=== PATIENT | male | born 1960 | race Caucasian/White ===

== ENCOUNTER 2016-10-07 16:14 | Emergency (ER) | payer OTHER ==
[~2016-10-07] VITALS: Ht 182.9 cm; Wt 141.1 kg
[~2016-10-07 16:14] MED LIST: /MOXI40TA OR; /TIOT18INH INH; ASPI81TA45 OR; LEVA750T OR; LEVA750T PO; METF500T PO; METF500T4 OR; MULTIVIT PO; NEBULIZER MED INH; OMEP20CA3 PO; PRED10TA PO; PRED10TA2 OR; PRED10TA2 PO; PRED1TA AD; PROV90AE IN; TYLENOL #3 PO; ZOCO40TA OR
[2016-10-07] MEDS ORDERED: ALBU17IN INH ×2 (16:25→17:47)
[2016-10-07] MEDS ORDERED: predniSONE 20 MG TAB PO ONE (17:00)
[2016-10-07] MEDS: LEVALBUTEROL 1.25 MG/0.5 ML CONCENTRATE NEB INH SCH ×3 (17:16→17:36)
[2016-10-07] MEDS ORDERED: PRED20TA PO (17:45)
[2016-10-07] MEDS ORDERED: LEVA750T PO (17:47)
[2016-10-07 18:02] VITALS: BP 137/71
--- NOTE | 2016-10-08 09:14 | REP ---
CHEST, PA AND LATERAL: HISTORY: Coughing, wheezing. COMPARISON: 03/07/2015 FINDINGS: The superior mediastinal structures are midline. The cardiac silhouette is unremarkable in size, shape and position. The diaphragmatic surfaces of the lungs are regular and the costophrenic angles are clear. The pulmonary barillas are clear. The imaged osseous structures are intact. IMPRESSION: There is no acute cardiopulmonary disease. Signed by El Sims DO 10/08/2016 09:59 A
== END 2016-10-07 18:10 | disposition home or self-care (01) ==
LOC: M ED 16:55
DX: J18.1 Lobar pneumonia, unspecified organism (principal); J44.1 Chronic obstructive pulmonary disease with (acute) exacerbation; F17.200 Nicotine dependence, unspecified, uncomplicated; E78.00 Pure hypercholesterolemia, unspecified; E11.9 Type 2 diabetes mellitus without complications; Z79.899 Other long term (current) drug therapy

== ENCOUNTER → 2016-10-20 | Outpatient (CLI) | payer OTHER ==
[~2016-10-20] MED LIST changes: +ALBU17IN INH; +PRED20TA PO
--- NOTE | 2016-10-20 10:19 | REP ---
CHEST PA AND LATERAL: 10/20/2016. Clinical history: COPD. Comparison: 10/07/2016, 03/07/2015. Findings. Two-view show some linear atelectatic change in the superior lingular segment of the left upper lobe adjacent to left heart border. This is a new finding. There is no pleural effusion, lateral pleural thickening, dense consolidation or other areas of atelectasis. The heart is not enlarged. Aorta is mildly tortuous. Airway intact. There are degenerative changes in the spine. There is no compression deformity or focal lesion. Impression: 1. Minor linear atelectatic change in the superior lingular segment of the left upper lobe adjacent left heart border as a new finding. However, there is no infiltrate, effusion, cardiomegaly, edema, other atelectasis or mass. Signed by Hung Meyers MD 10/20/2016 02:45 P
== END ==
LOC: M RAD 09:16
PROVIDERS: ATTEND Family Medicine
DX: J44.9 Chronic obstructive pulmonary disease, unspecified (principal)

== ENCOUNTER → 2017-02-25 | Outpatient (REF) | payer OTHER ==
[~2017-02-25] MED LIST changes: -LEVA750T PO; +LEVA750T7 PO; -METF500T PO; +METF500T13 PO
== END ==
LOC: M LAB REF 09:04
PROVIDERS: ATTEND Physician Assistant Medical
DX: L02.415 Cutaneous abscess of right lower limb (principal)

== ENCOUNTER 2017-09-14 04:21 | Inpatient (IN) | payer OTHER ==
[2017-09-14] MEDS: methylPREDNISolone INJ 125 MG/2 ML VIAL (J2930) IV (04:59)
[2017-09-14] MEDS: IPRATROPIUM 0.5MG/ALBUTEROL 2.5MG INH SOL UD 3ML (DUONEB)(J7620) NEB ×6 (05:00→20:09)
[2017-09-14 05:10] LABS: ABG BASE EXCESS 3.2 (-2.0-2.0); ABG HCO3 27.8 MEQ/L (22.0-26.0); ABG O2 SATURATION 90.4 % (95.0-99.0); ABG PARTIAL PRESSURE CO2 41.9 mmHg (35.0-45.0); ABG PARTIAL PRESSURE O2 54.8 mmHg (75.0-100.0); ABG pH (ARTERIAL) 7.439 UNITS (7.350-7.450)
[2017-09-14 05:19] LABS: BASO % 0.4 % (0.0-1.0); EOS % 0.3 % (0.0-3.0); HEMATOCRIT 55.3 % (42.0-52.0); HEMOGLOBIN 18.9 g/dl (13.5-17.5); IMMATURE GRANULOCYTE % 0.1 % (0-3.0); LYMPH # 0.9 10^3/uL (1.5-4.5); LYMPH % 12.9 % (24.0-44.0); MEAN CORPUSCULAR HEMOGLOBIN 31.9 pg (27.0-33.0); MEAN CORPUSCULAR HGB CONC 34.2 g/dl (32.0-36.5); MEAN CORPUSCULAR VOLUME 93.4 fl (80.0-96.0); MONO # 0.7 10^3/uL (0.0-0.8); MONO % 10.4 % (0.0-5.0); NEUTROPHILS # 5.3 10^3/uL (1.8-7.7); NEUTROPHILS % 75.9 % (36.0-66.0); PLATELET COUNT, AUTOMATED 207 10^3/uL (150-450); RED BLOOD COUNT 5.92 10^6/uL (4.30-6.10); RED CELL DISTRIBUTION WIDTH 12.5 % (11.5-14.5)
[2017-09-14 05:31] LABS: INR 0.99; PROTHROMBIN TIME 13.2 SECONDS (12.4-14.5)
[2017-09-14 05:32] LABS: PARTIAL THROMBOPLASTIN TIME 29.8 SECONDS (26.8-37.9)
[2017-09-14 05:42] LABS: ALBUMIN 3.2 GM/DL (3.2-5.2); ALBUMIN/GLOBULIN RATIO 0.74 (1.00-1.93); ALKALINE PHOSPHATASE 97 U/L (45-117); ALT/SGPT 27 U/L (12-78); AMYLASE 27 U/L (25-115); ANION GAP 7 MEQ/L (8-16); AST/SGOT 15 U/L (7-37); BILIRUBIN,DIRECT 0.2 MG/DL (0.0-0.2); BILIRUBIN,TOTAL 0.7 MG/DL (0.2-1.0); BLOOD UREA NITROGEN 11 MG/DL (7-18); C REACTIVE PROTEIN QUANTITATIV 6.23 MG/DL (0.00-0.30); CALCIUM LEVEL 8.5 MG/DL (8.5-10.1); CARBON DIOXIDE LEVEL 31 MEQ/L (21-32); CHLORIDE LEVEL 99 MEQ/L (98-107); CK-MB VALUE MASS 1.2 NG/ML (<3.6); CPK CREATINE PHOSPHOKINASE 79 U/L (39-308); GLOMERULAR FILTRATION RATE > 60.0 (>56); GLUCOSE, FASTING 221 MG/DL (70-100); MB/CK RELATIVE INDEX 1.51 (< OR =4); POTASSIUM SERUM 3.8 MEQ/L (3.5-5.1); SODIUM LEVEL 137 MEQ/L (136-145); TOTAL PROTEIN 7.5 GM/DL (6.4-8.2); TROPONIN I < 0.02 NG/ML (< 0.10)
[2017-09-14] MEDS ORDERED: ONDANSETRON 4MG/2ML VIAL (J2405) IV (05:45)
[2017-09-14] MEDS ORDERED: GLUCOSE 4 GM CHEW TABLET PO (06:00)
[2017-09-14] MEDS: HEPARIN SOD (PORCINE) 5000 UNITS/ML VIAL SC ×3 (06:00→20:03)
[2017-09-14] MEDS ORDERED: DEXTROSE 50% 50 ML SYRINGE IV (06:00)
[2017-09-14] MEDS: PIPERACILLIN/TAZOBACTAM SOD 4.5 GM in D5W MINI-BAG PLUS 50 ML IV (06:00)
[2017-09-14] MEDS ORDERED: GLUCAGON FOR INJ 1 MG VIAL (J1610) SC (06:00)
[2017-09-14 07:00] LABS: LACTIC ACID SEPSIS PROTOCOL 1.7 MMOL/L (0.4-2.0)
[2017-09-14 07:34] LABS: NT-PRO BNP 1041 PG/ML (<125)
[2017-09-14] MEDS ORDERED: VANCOMYCIN HCL 1,000 MG, VIAL MATE ADAPTER 1 EACH in D5W 250 ML IV ×2 (08:00→09:00)
[2017-09-14] MEDS: HumaLOG INSULIN (NovoLOG) PER UNIT SC ×4 (08:15→20:51)
[2017-09-14] MEDS: FOLIC ACID 1 MG TAB PO (08:16)
[2017-09-14] MEDS: MULTIVITAMINS/MINERALS THERAP 1 TAB PO (08:16)
[2017-09-14] MEDS: THIAMINE 100 MG TAB PO (08:16)
[2017-09-14] MEDS: FUROSEMIDE 40 MG/4 ML VIAL (J1940) IV (08:16)
[2017-09-14 08:34] LABS: REASON FOR REVIEW WBC/LEUKEMIA/BLAST; SLIDE REVIEW Report; SOURCE PERIPHERAL SMEAR
[2017-09-14 08:36] LABS: CARBOXYHEMOGLOBIN 1.9 % (0.0-1.5)
[2017-09-14 09:15] LABS: ESTIMATED AVERAGE GLUCOSE 263 MG/DL (60-110); HEMOGLOBIN A1c 10.8 %
[2017-09-14 11:59] LABS: BEDSIDE GLUCOSE 465 MG/DL (70-105)
[2017-09-14] MEDS ORDERED: methylPREDNISolone INJ 125 MG/2 ML VIAL (J2930) IV (12:00)
[2017-09-14] MEDS: predniSONE 20 MG TAB PO ×2 (13:04→20:05)
[2017-09-14 17:21] LABS: BEDSIDE GLUCOSE 448 MG/DL (70-105)
[2017-09-14 19:50] LABS: BEDSIDE GLUCOSE 233 MG/DL (70-105)
[2017-09-14 21:19] LABS: BEDSIDE GLUCOSE 394 MG/DL (70-105)
[2017-09-15] MEDS: IPRATROPIUM 0.5MG/ALBUTEROL 2.5MG INH SOL UD 3ML (DUONEB)(J7620) NEB ×4 (02:26→20:17)
[2017-09-15] MEDS: HEPARIN SOD (PORCINE) 5000 UNITS/ML VIAL SC ×3 (05:26→21:14)
[2017-09-15 06:50] LABS: EOS % 0.1 % (0.0-3.0); HEMATOCRIT 52.4 % (42.0-52.0); HEMOGLOBIN 18.3 g/dl (13.5-17.5); IMMATURE GRANULOCYTE % 0.3 % (0-3.0); LYMPH # 0.6 10^3/uL (1.5-4.5); LYMPH % 7.1 % (24.0-44.0); MEAN CORPUSCULAR HEMOGLOBIN 31.9 pg (27.0-33.0); MEAN CORPUSCULAR HGB CONC 34.9 g/dl (32.0-36.5); MEAN CORPUSCULAR VOLUME 91.4 fl (80.0-96.0); MONO # 0.6 10^3/uL (0.0-0.8); MONO % 6.8 % (0.0-5.0); NEUTROPHILS # 7.4 10^3/uL (1.8-7.7); NEUTROPHILS % 85.7 % (36.0-66.0); PLATELET COUNT, AUTOMATED 213 10^3/uL (150-450); RED BLOOD COUNT 5.73 10^6/uL (4.30-6.10); RED CELL DISTRIBUTION WIDTH 12.5 % (11.5-14.5); WHITE BLOOD COUNT 8.6 10^3/uL (4.0-10.0)
[2017-09-15 07:13] LABS: ANION GAP 7 MEQ/L (8-16); BLOOD UREA NITROGEN 23 MG/DL (7-18); C REACTIVE PROTEIN QUANTITATIV 5.57 MG/DL (0.00-0.30); CALCIUM LEVEL 8.6 MG/DL (8.5-10.1); CARBON DIOXIDE LEVEL 29 MEQ/L (21-32); CHLORIDE LEVEL 100 MEQ/L (98-107); GLOMERULAR FILTRATION RATE > 60.0 (>56); GLUCOSE, FASTING 327 MG/DL (70-100); POTASSIUM SERUM 4.1 MEQ/L (3.5-5.1); SODIUM LEVEL 136 MEQ/L (136-145)
[2017-09-15] MEDS: HumaLOG INSULIN (NovoLOG) PER UNIT SC ×4 (07:30→21:14)
[2017-09-15] MEDS: FOLIC ACID 1 MG TAB PO (08:28)
[2017-09-15] MEDS: MULTIVITAMINS/MINERALS THERAP 1 TAB PO (08:28)
[2017-09-15] MEDS: predniSONE 20 MG TAB PO ×2 (08:28→21:15)
[2017-09-15] MEDS: THIAMINE 100 MG TAB PO (08:28)
[2017-09-15 12:07] LABS: BEDSIDE GLUCOSE 428 MG/DL (70-105)
[2017-09-15 16:47] LABS: BEDSIDE GLUCOSE 471 MG/DL (70-105)
[2017-09-15 21:05] LABS: BEDSIDE GLUCOSE 291 MG/DL (70-105)
[2017-09-15] MEDS: BENZONATATE 100 MG CAP PO (22:00)
[2017-09-16] MEDS: IPRATROPIUM 0.5MG/ALBUTEROL 2.5MG INH SOL UD 3ML (DUONEB)(J7620) NEB ×6 (01:58→20:10)
[2017-09-16] MEDS: HEPARIN SOD (PORCINE) 5000 UNITS/ML VIAL SC ×3 (05:38→20:12)
[2017-09-16] MEDS: ACETAMINOPHEN TAB 650MG DOSE (2X325MG) PO ×2 (05:43→20:11)
[2017-09-16 06:15] LABS: BASO % 0.2 % (0.0-1.0); HEMATOCRIT 53.2 % (42.0-52.0); HEMOGLOBIN 17.6 g/dl (13.5-17.5); IMMATURE GRANULOCYTE % 0.3 % (0-3.0); LYMPH # 0.4 10^3/uL (1.5-4.5); LYMPH % 6.3 % (24.0-44.0); MEAN CORPUSCULAR HEMOGLOBIN 31.4 pg (27.0-33.0); MEAN CORPUSCULAR HGB CONC 33.1 g/dl (32.0-36.5); MEAN CORPUSCULAR VOLUME 94.8 fl (80.0-96.0); MONO # 0.4 10^3/uL (0.0-0.8); NEUTROPHILS # 5.8 10^3/uL (1.8-7.7); NEUTROPHILS % 87.2 % (36.0-66.0); PLATELET COUNT, AUTOMATED 210 10^3/uL (150-450); RED BLOOD COUNT 5.61 10^6/uL (4.30-6.10); RED CELL DISTRIBUTION WIDTH 12.4 % (11.5-14.5); WHITE BLOOD COUNT 6.6 10^3/uL (4.0-10.0)
[2017-09-16 06:35] LABS: ANION GAP 2 MEQ/L (8-16); BLOOD UREA NITROGEN 19 MG/DL (7-18); C REACTIVE PROTEIN QUANTITATIV 1.94 MG/DL (0.00-0.30); CALCIUM LEVEL 8.4 MG/DL (8.5-10.1); CARBON DIOXIDE LEVEL 33 MEQ/L (21-32); CHLORIDE LEVEL 101 MEQ/L (98-107); CREATININE FOR GFR 0.82 MG/DL (0.70-1.30); GLOMERULAR FILTRATION RATE > 60.0 (>56); GLUCOSE, FASTING 304 MG/DL (70-100); POTASSIUM SERUM 5.6 MEQ/L (3.5-5.1); SODIUM LEVEL 136 MEQ/L (136-145)
[2017-09-16] MEDS: MULTIVITAMINS/MINERALS THERAP 1 TAB PO (08:37)
[2017-09-16] MEDS: THIAMINE 100 MG TAB PO (08:37)
[2017-09-16] MEDS: FOLIC ACID 1 MG TAB PO (08:37)
[2017-09-16] MEDS: predniSONE 20 MG TAB PO ×2 (08:37→20:11)
[2017-09-16] MEDS: HumaLOG INSULIN (NovoLOG) PER UNIT SC ×4 (08:38→21:50)
[2017-09-16 11:59] LABS: BEDSIDE GLUCOSE 311 MG/DL (70-105)
[2017-09-16 16:45] LABS: BEDSIDE GLUCOSE 218 MG/DL (70-105)
[2017-09-16] MEDS: BENZONATATE 100 MG CAP PO (20:11)
[2017-09-16 21:51] LABS: BEDSIDE GLUCOSE 357 MG/DL (70-105)
[2017-09-17] MEDS: IPRATROPIUM 0.5MG/ALBUTEROL 2.5MG INH SOL UD 3ML (DUONEB)(J7620) NEB ×4 (02:45→20:26)
[2017-09-17] MEDS: HEPARIN SOD (PORCINE) 5000 UNITS/ML VIAL SC ×3 (06:09→21:13)
[2017-09-17 06:16] LABS: BASO % 0.2 % (0.0-1.0); HEMATOCRIT 53.2 % (42.0-52.0); IMMATURE GRANULOCYTE % 0.3 % (0-3.0); LYMPH # 0.6 10^3/uL (1.5-4.5); MEAN CORPUSCULAR HEMOGLOBIN 31.6 pg (27.0-33.0); MEAN CORPUSCULAR HGB CONC 33.8 g/dl (32.0-36.5); MEAN CORPUSCULAR VOLUME 93.5 fl (80.0-96.0); MONO # 0.5 10^3/uL (0.0-0.8); MONO % 8.4 % (0.0-5.0); NEUTROPHILS # 5.2 10^3/uL (1.8-7.7); NEUTROPHILS % 82.1 % (36.0-66.0); PLATELET COUNT, AUTOMATED 222 10^3/uL (150-450); RED BLOOD COUNT 5.69 10^6/uL (4.30-6.10); RED CELL DISTRIBUTION WIDTH 12.5 % (11.5-14.5); WHITE BLOOD COUNT 6.3 10^3/uL (4.0-10.0)
[2017-09-17 06:34] LABS: ANION GAP 4 MEQ/L (8-16); BLOOD UREA NITROGEN 15 MG/DL (7-18); C REACTIVE PROTEIN QUANTITATIV 1.51 MG/DL (0.00-0.30); CALCIUM LEVEL 8.8 MG/DL (8.5-10.1); CARBON DIOXIDE LEVEL 35 MEQ/L (21-32); CHLORIDE LEVEL 97 MEQ/L (98-107); CREATININE FOR GFR 0.77 MG/DL (0.70-1.30); GLOMERULAR FILTRATION RATE > 60.0 (>56); GLUCOSE, FASTING 303 MG/DL (70-100); POTASSIUM SERUM 4.6 MEQ/L (3.5-5.1); SODIUM LEVEL 136 MEQ/L (136-145)
[2017-09-17] MEDS: HumaLOG INSULIN (NovoLOG) PER UNIT SC ×4 (08:46→21:13)
[2017-09-17] MEDS: MULTIVITAMINS/MINERALS THERAP 1 TAB PO (08:46)
[2017-09-17] MEDS: FOLIC ACID 1 MG TAB PO (08:47)
[2017-09-17] MEDS: THIAMINE 100 MG TAB PO (08:47)
[2017-09-17] MEDS: predniSONE 20 MG TAB PO ×2 (08:47→21:12)
[2017-09-17 12:06] LABS: BEDSIDE GLUCOSE 235 MG/DL (70-105)
[2017-09-17] MEDS: guaiFENesin ER 600 MG TAB PO ×2 (12:52→21:12)
[2017-09-17 17:16] LABS: BEDSIDE GLUCOSE 407 MG/DL (70-105)
[2017-09-17 21:27] LABS: BEDSIDE GLUCOSE 286 MG/DL (70-105)
[2017-09-18] MEDS: IPRATROPIUM 0.5MG/ALBUTEROL 2.5MG INH SOL UD 3ML (DUONEB)(J7620) NEB ×4 (02:12→21:09)
[2017-09-18] MEDS: HEPARIN SOD (PORCINE) 5000 UNITS/ML VIAL SC ×3 (05:48→20:56)
[2017-09-18 06:55] LABS: BASO % 0.1 % (0.0-1.0); HEMATOCRIT 54.6 % (42.0-52.0); HEMOGLOBIN 18.5 g/dl (13.5-17.5); IMMATURE GRANULOCYTE % 0.3 % (0-3.0); LYMPH # 0.9 10^3/uL (1.5-4.5); LYMPH % 12.3 % (24.0-44.0); MEAN CORPUSCULAR HEMOGLOBIN 31.8 pg (27.0-33.0); MEAN CORPUSCULAR HGB CONC 33.9 g/dl (32.0-36.5); MONO # 0.5 10^3/uL (0.0-0.8); MONO % 6.5 % (0.0-5.0); NEUTROPHILS # 5.6 10^3/uL (1.8-7.7); NEUTROPHILS % 80.8 % (36.0-66.0); PLATELET COUNT, AUTOMATED 207 10^3/uL (150-450); RED BLOOD COUNT 5.81 10^6/uL (4.30-6.10); RED CELL DISTRIBUTION WIDTH 12.4 % (11.5-14.5)
[2017-09-18 07:06] LABS: ANION GAP 3 MEQ/L (8-16); BLOOD UREA NITROGEN 17 MG/DL (7-18); C REACTIVE PROTEIN QUANTITATIV 2.12 MG/DL (0.00-0.30); CALCIUM LEVEL 8.7 MG/DL (8.5-10.1); CARBON DIOXIDE LEVEL 36 MEQ/L (21-32); CHLORIDE LEVEL 97 MEQ/L (98-107); CREATININE FOR GFR 0.67 MG/DL (0.70-1.30); GLOMERULAR FILTRATION RATE > 60.0 (>56); GLUCOSE, FASTING 279 MG/DL (70-100); POTASSIUM SERUM 4.6 MEQ/L (3.5-5.1); SODIUM LEVEL 136 MEQ/L (136-145)
[2017-09-18] MEDS: MULTIVITAMINS/MINERALS THERAP 1 TAB PO (08:54)
[2017-09-18] MEDS: guaiFENesin ER 600 MG TAB PO ×2 (08:54→20:56)
[2017-09-18] MEDS: HumaLOG INSULIN (NovoLOG) PER UNIT SC ×4 (08:55→22:02)
[2017-09-18] MEDS: FOLIC ACID 1 MG TAB PO (08:55)
[2017-09-18] MEDS: THIAMINE 100 MG TAB PO (08:55)
[2017-09-18] MEDS: NS 1,000 ML IV (09:10)
[2017-09-18] MEDS: LEVEMIR (INSULIN DETEMIR) 1 UNITS/0.01ML SC (09:10)
[2017-09-18] MEDS: predniSONE 20 MG TAB PO (09:10)
[2017-09-18 12:40] LABS: BEDSIDE GLUCOSE 302 MG/DL (70-105)
[2017-09-18 17:49] LABS: BEDSIDE GLUCOSE 469 MG/DL (70-105)
[2017-09-18] MEDS: BENZONATATE 100 MG CAP PO (20:56)
[2017-09-18 21:26] LABS: BEDSIDE GLUCOSE 274 MG/DL (70-105)
[2017-09-19] MEDS: IPRATROPIUM 0.5MG/ALBUTEROL 2.5MG INH SOL UD 3ML (DUONEB)(J7620) NEB ×5 (01:02→19:47)
[2017-09-19 07:00] LABS: HEMATOCRIT 51.3 % (42.0-52.0); HEMOGLOBIN 17.4 g/dl (13.5-17.5); MEAN CORPUSCULAR HEMOGLOBIN 31.4 pg (27.0-33.0); MEAN CORPUSCULAR HGB CONC 33.9 g/dl (32.0-36.5); MEAN CORPUSCULAR VOLUME 92.6 fl (80.0-96.0); PLATELET COUNT, AUTOMATED 205 10^3/uL (150-450); RED BLOOD COUNT 5.54 10^6/uL (4.30-6.10); RED CELL DISTRIBUTION WIDTH 12.3 % (11.5-14.5); WHITE BLOOD COUNT 8.7 10^3/uL (4.0-10.0)
[2017-09-19 07:07] LABS: ADD MANUAL DIFFER YES; DIFF SLIDE NUMBER 15; POSITIVE MORPH POS FLAG
[2017-09-19 07:19] LABS: ANION GAP 2 MEQ/L (8-16); BLOOD UREA NITROGEN 18 MG/DL (7-18); CALCIUM LEVEL 8.4 MG/DL (8.5-10.1); CARBON DIOXIDE LEVEL 35 MEQ/L (21-32); CHLORIDE LEVEL 102 MEQ/L (98-107); CREATININE FOR GFR 0.57 MG/DL (0.70-1.30); GLOMERULAR FILTRATION RATE > 60.0 (>56); GLUCOSE, FASTING 158 MG/DL (70-100); SODIUM LEVEL 139 MEQ/L (136-145)
[2017-09-19 07:50] LABS: ATYPICAL LYMPH 4 % (0-5); BANDS 2 % (< 11); LYMPHOCYTES 25 % (16-52); MONOCYTES 7 % (0-8); NEUTROPHILS 62 % (35-75)
[2017-09-19 07:51] LABS: PLATELET ESTIMATE NORMAL (NORMAL)
[2017-09-19] MEDS: guaiFENesin ER 600 MG TAB PO ×2 (08:28→21:42)
[2017-09-19] MEDS: LEVEMIR (INSULIN DETEMIR) 1 UNITS/0.01ML SC (08:28)
[2017-09-19] MEDS: HumaLOG INSULIN (NovoLOG) PER UNIT SC ×4 (08:28→21:42)
[2017-09-19] MEDS: ENOXAPARIN 40 MG/0.4 ML SYRINGE (J1650) SC (08:28)
[2017-09-19] MEDS: predniSONE 10 MG TAB PO (08:29)
[2017-09-19] MEDS: FOLIC ACID 1 MG TAB PO (08:29)
[2017-09-19] MEDS: LevoFLOXacin IV 500 MG in APPROPRIATE DILUENT 1 EA IV (08:29)
[2017-09-19] MEDS: THIAMINE 100 MG TAB PO (08:29)
[2017-09-19] MEDS: MULTIVITAMINS/MINERALS THERAP 1 TAB PO (08:29)
[2017-09-19 11:54] LABS: BEDSIDE GLUCOSE 224 MG/DL (70-105)
[2017-09-19 17:09] LABS: BEDSIDE GLUCOSE 334 MG/DL (70-105)
[2017-09-19 20:13] LABS: BEDSIDE GLUCOSE 371 MG/DL (70-105)
[2017-09-20] MEDS: IPRATROPIUM 0.5MG/ALBUTEROL 2.5MG INH SOL UD 3ML (DUONEB)(J7620) NEB ×5 (01:57→20:26)
[2017-09-20 07:14] LABS: HEMATOCRIT 51.1 % (42.0-52.0); HEMOGLOBIN 17.3 g/dl (13.5-17.5); MEAN CORPUSCULAR HEMOGLOBIN 31.3 pg (27.0-33.0); MEAN CORPUSCULAR HGB CONC 33.9 g/dl (32.0-36.5); MEAN CORPUSCULAR VOLUME 92.6 fl (80.0-96.0); PLATELET COUNT, AUTOMATED 233 10^3/uL (150-450); RED BLOOD COUNT 5.52 10^6/uL (4.30-6.10); RED CELL DISTRIBUTION WIDTH 12.3 % (11.5-14.5); WHITE BLOOD COUNT 6.9 10^3/uL (4.0-10.0)
[2017-09-20 07:18] LABS: ADD MANUAL DIFFER YES; DIFF SLIDE NUMBER 13; POSITIVE MORPH POS FLAG
[2017-09-20 07:33] LABS: ANION GAP 2 MEQ/L (8-16); BLOOD UREA NITROGEN 16 MG/DL (7-18); CALCIUM LEVEL 8.4 MG/DL (8.5-10.1); CARBON DIOXIDE LEVEL 36 MEQ/L (21-32); CHLORIDE LEVEL 101 MEQ/L (98-107); GLOMERULAR FILTRATION RATE > 60.0 (>56); GLUCOSE, FASTING 218 MG/DL (70-100); POTASSIUM SERUM 4.1 MEQ/L (3.5-5.1); SODIUM LEVEL 139 MEQ/L (136-145)
[2017-09-20 07:35] LABS: ATYPICAL LYMPH 2 % (0-5); LYMPHOCYTES 40 % (16-52); MONOCYTES 1 % (0-8); NEUTROPHILS 57 % (35-75); PLATELET ESTIMATE NORMAL (NORMAL)
[2017-09-20] MEDS: HumaLOG INSULIN (NovoLOG) PER UNIT SC ×4 (07:37→20:38)
[2017-09-20] MEDS: guaiFENesin ER 600 MG TAB PO ×2 (09:37→20:38)
[2017-09-20] MEDS: FOLIC ACID 1 MG TAB PO (09:37)
[2017-09-20] MEDS: THIAMINE 100 MG TAB PO (09:37)
[2017-09-20] MEDS: MULTIVITAMINS/MINERALS THERAP 1 TAB PO (09:38)
[2017-09-20] MEDS: predniSONE 10 MG TAB PO (09:38)
[2017-09-20] MEDS: ENOXAPARIN 40 MG/0.4 ML SYRINGE (J1650) SC (09:39)
[2017-09-20] MEDS: LEVEMIR (INSULIN DETEMIR) 1 UNITS/0.01ML SC (09:41)
[2017-09-20] MEDS: LevoFLOXacin IV 500 MG in APPROPRIATE DILUENT 1 EA IV (11:11)
[2017-09-20 12:25] LABS: BEDSIDE GLUCOSE 264 MG/DL (70-105)
[2017-09-20 16:55] LABS: BEDSIDE GLUCOSE 304 MG/DL (70-105)
[2017-09-20 19:49] LABS: BEDSIDE GLUCOSE 290 MG/DL (70-105)
[2017-09-21] MEDS: IPRATROPIUM 0.5MG/ALBUTEROL 2.5MG INH SOL UD 3ML (DUONEB)(J7620) NEB ×7 (00:01→23:23)
[2017-09-21 07:15] LABS: BASO % 0.3 % (0.0-1.0); EOS # 0.1 10^3/uL (0.0-0.50); EOS % 1.3 % (0.0-3.0); HEMATOCRIT 49.8 % (42.0-52.0); HEMOGLOBIN 16.8 g/dl (13.5-17.5); IMMATURE GRANULOCYTE % 0.6 % (0-3.0); LYMPH # 2.4 10^3/uL (1.5-4.5); LYMPH % 38.3 % (24.0-44.0); MEAN CORPUSCULAR HEMOGLOBIN 31.4 pg (27.0-33.0); MEAN CORPUSCULAR HGB CONC 33.7 g/dl (32.0-36.5); MEAN CORPUSCULAR VOLUME 93.1 fl (80.0-96.0); MONO # 0.6 10^3/uL (0.0-0.8); NEUTROPHILS # 3.1 10^3/uL (1.8-7.7); NEUTROPHILS % 49.5 % (36.0-66.0); PLATELET COUNT, AUTOMATED 226 10^3/uL (150-450); RED BLOOD COUNT 5.35 10^6/uL (4.30-6.10); RED CELL DISTRIBUTION WIDTH 12.2 % (11.5-14.5); WHITE BLOOD COUNT 6.2 10^3/uL (4.0-10.0)
[2017-09-21 07:34] LABS: BLOOD UREA NITROGEN 14 MG/DL (7-18); C REACTIVE PROTEIN QUANTITATIV 1.09 MG/DL (0.00-0.30); CALCIUM LEVEL 8.8 MG/DL (8.5-10.1); CARBON DIOXIDE LEVEL 41 MEQ/L (21-32); CHLORIDE LEVEL 101 MEQ/L (98-107); CREATININE FOR GFR 0.73 MG/DL (0.70-1.30); GLOMERULAR FILTRATION RATE > 60.0 (>56); GLUCOSE, FASTING 182 MG/DL (70-100); POTASSIUM SERUM 4.4 MEQ/L (3.5-5.1); SODIUM LEVEL 141 MEQ/L (136-145)
[2017-09-21] MEDS: LevoFLOXacin IV 500 MG in APPROPRIATE DILUENT 1 EA IV (09:27)
[2017-09-21] MEDS: ENOXAPARIN 40 MG/0.4 ML SYRINGE (J1650) SC (09:27)
[2017-09-21] MEDS: guaiFENesin ER 600 MG TAB PO ×2 (09:28→21:07)
[2017-09-21] MEDS: MULTIVITAMINS/MINERALS THERAP 1 TAB PO (09:28)
[2017-09-21] MEDS: THIAMINE 100 MG TAB PO (09:28)
[2017-09-21] MEDS: predniSONE 10 MG TAB PO (09:29)
[2017-09-21] MEDS: FOLIC ACID 1 MG TAB PO (09:29)
[2017-09-21] MEDS: LEVEMIR (INSULIN DETEMIR) 1 UNITS/0.01ML SC (09:32)
[2017-09-21] MEDS: HumaLOG INSULIN (NovoLOG) PER UNIT SC ×4 (09:34→21:08)
[2017-09-21 12:17] LABS: BEDSIDE GLUCOSE 233 MG/DL (70-105)
[2017-09-21] MEDS ORDERED: ISOVUE-370 76% 100ML VIAL (Q9967) As Ordered (14:23)
[2017-09-21 17:07] LABS: BEDSIDE GLUCOSE 279 MG/DL (70-105)
[2017-09-21 21:03] LABS: BEDSIDE GLUCOSE 371 MG/DL (70-105)
[2017-09-22] MEDS: IPRATROPIUM 0.5MG/ALBUTEROL 2.5MG INH SOL UD 3ML (DUONEB)(J7620) NEB ×5 (03:49→19:48)
[2017-09-22 06:15] LABS: BEDSIDE GLUCOSE 218 MG/DL (70-105)
[2017-09-22] MEDS: TOBRAMYCIN INHAL 300 MG/5 ML SOLN INH ×2 (08:00→19:49)
[2017-09-22] MEDS: TIOTROPIUM INHALER/CAPSULE (SPIRIVA) INH (08:00)
[2017-09-22] MEDS: SYMBICORT 160/4.5MCG INHALER 6GM INH ×2 (09:00→19:48)
[2017-09-22] MEDS: MULTIVITAMINS/MINERALS THERAP 1 TAB PO (10:25)
[2017-09-22] MEDS: guaiFENesin ER 600 MG TAB PO ×2 (10:26→20:15)
[2017-09-22] MEDS: predniSONE 10 MG TAB PO (10:26)
[2017-09-22] MEDS: THIAMINE 100 MG TAB PO (10:26)
[2017-09-22] MEDS: FOLIC ACID 1 MG TAB PO (10:26)
[2017-09-22] MEDS: ENOXAPARIN 40 MG/0.4 ML SYRINGE (J1650) SC (10:27)
[2017-09-22] MEDS: HumaLOG INSULIN (NovoLOG) PER UNIT SC ×4 (10:28→20:52)
[2017-09-22] MEDS: LEVEMIR (INSULIN DETEMIR) 1 UNITS/0.01ML SC (10:30)
[2017-09-22] MEDS: LevoFLOXacin IV 500 MG in APPROPRIATE DILUENT 1 EA IV (10:34)
[2017-09-22 12:11] LABS: BEDSIDE GLUCOSE 266 MG/DL (70-105)
[2017-09-22 17:08] LABS: BEDSIDE GLUCOSE 303 MG/DL (70-105)
[2017-09-22 20:38] LABS: BEDSIDE GLUCOSE 316 MG/DL (70-105)
[2017-09-23] MEDS: IPRATROPIUM 0.5MG/ALBUTEROL 2.5MG INH SOL UD 3ML (DUONEB)(J7620) NEB ×5 (00:01→15:59)
[2017-09-23 06:56] LABS: BEDSIDE GLUCOSE 164 MG/DL (70-105)
[2017-09-23] MEDS: SYMBICORT 160/4.5MCG INHALER 6GM INH (07:37)
[2017-09-23] MEDS: TIOTROPIUM INHALER/CAPSULE (SPIRIVA) INH (07:37)
[2017-09-23] MEDS: TOBRAMYCIN INHAL 300 MG/5 ML SOLN INH (07:37)
[2017-09-23 08:13] LABS: HEMATOCRIT 51.1 % (42.0-52.0); HEMOGLOBIN 17.3 g/dl (13.5-17.5); MEAN CORPUSCULAR HEMOGLOBIN 31.6 pg (27.0-33.0); MEAN CORPUSCULAR HGB CONC 33.9 g/dl (32.0-36.5); MEAN CORPUSCULAR VOLUME 93.4 fl (80.0-96.0); PLATELET COUNT, AUTOMATED 253 10^3/uL (150-450); RED BLOOD COUNT 5.47 10^6/uL (4.30-6.10); RED CELL DISTRIBUTION WIDTH 12.2 % (11.5-14.5); WHITE BLOOD COUNT 7.9 10^3/uL (4.0-10.0)
[2017-09-23] MEDS: MULTIVITAMINS/MINERALS THERAP 1 TAB PO (08:31)
[2017-09-23] MEDS: THIAMINE 100 MG TAB PO (08:31)
[2017-09-23] MEDS: HumaLOG INSULIN (NovoLOG) PER UNIT SC ×2 (08:31→12:25)
[2017-09-23] MEDS: guaiFENesin ER 600 MG TAB PO (08:31)
[2017-09-23] MEDS: FOLIC ACID 1 MG TAB PO (08:31)
[2017-09-23 08:32] LABS: ANION GAP 4 MEQ/L (8-16); BLOOD UREA NITROGEN 19 MG/DL (7-18); CALCIUM LEVEL 8.6 MG/DL (8.5-10.1); CARBON DIOXIDE LEVEL 38 MEQ/L (21-32); CHLORIDE LEVEL 99 MEQ/L (98-107); CREATININE FOR GFR 0.86 MG/DL (0.70-1.30); GLOMERULAR FILTRATION RATE > 60.0 (>56); GLUCOSE, FASTING 293 MG/DL (70-100); MAGNESIUM LEVEL 2.1 MG/DL (1.8-2.4); POTASSIUM SERUM 4.4 MEQ/L (3.5-5.1); SODIUM LEVEL 141 MEQ/L (136-145)
[2017-09-23] MEDS: LevoFLOXacin IV 500 MG in APPROPRIATE DILUENT 1 EA IV (08:32)
[2017-09-23] MEDS: predniSONE 10 MG TAB PO (08:32)
[2017-09-23] MEDS: ENOXAPARIN 40 MG/0.4 ML SYRINGE (J1650) SC (08:33)
[2017-09-23] MEDS: LEVEMIR (INSULIN DETEMIR) 1 UNITS/0.01ML SC (08:33)
[2017-09-23 12:12] LABS: BEDSIDE GLUCOSE 274 MG/DL (70-105)
== END 2017-09-23 14:45 | disposition home health service (06) | DRG 140 ==
LOC: M ED 04:21 → M ED INP 06:02 → M MS5PR 15:20
DX: J44.1 Chronic obstructive pulmonary disease with (acute) exacerbation (principal); J96.01 Acute respiratory failure with hypoxia; E87.3 Alkalosis; D75.1 Secondary polycythemia; E87.5 Hyperkalemia; B97.81 Human metapneumovirus as the cause of diseases classified elsewhere; E11.9 Type 2 diabetes mellitus without complications; B96.5 Pseudomonas (aeruginosa) (mallei) (pseudomallei) as the cause of diseases classified elsewhere; B95.5 Unspecified streptococcus as the cause of diseases classified elsewhere; Z79.899 Other long term (current) drug therapy; E78.5 Hyperlipidemia, unspecified; K21.9 Gastro-esophageal reflux disease without esophagitis; R00.0 Tachycardia, unspecified; F10.20 Alcohol dependence, uncomplicated; Z87.891 Personal history of nicotine dependence

== ENCOUNTER → 2017-11-12 | Outpatient (CLI) | payer OTHER | LOC: M SLEEP 19:37 | DX: G47.33 Obstructive sleep apnea (adult) (pediatric) (principal); G47.61 Periodic limb movement disorder | CPT/HCPCS: 95810 ==

== ENCOUNTER → 2017-12-16 | Outpatient (CLI) | payer OTHER | LOC: M SLEEP 20:05 | DX: G47.33 Obstructive sleep apnea (adult) (pediatric) (principal) | CPT/HCPCS: 95811 ==

== ENCOUNTER 2018-02-04 18:06 | Emergency (ER) | payer OTHER | END 2018-02-04 18:23 | disposition home or self-care (01) | LOC: M ED 18:06 | DX: S70.01XA Contusion of right hip, initial encounter (principal); W22.09XA Striking against other stationary object, initial encounter; Y92.098 Other place in other non-institutional residence as the place of occurrence of the external cause; K21.9 Gastro-esophageal reflux disease without esophagitis; E78.00 Pure hypercholesterolemia, unspecified; E11.9 Type 2 diabetes mellitus without complications; Z87.19 Personal history of other diseases of the digestive system; Z79.899 Other long term (current) drug therapy; Z79.51 Long term (current) use of inhaled steroids; Z79.4 Long term (current) use of insulin | CPT/HCPCS: 73502 ==

== ENCOUNTER 2018-05-07 19:40 | Emergency (ER) | payer OTHER ==
[2018-05-07] MEDS ORDERED: methylPREDNISolone INJ 125 MG/2 ML VIAL (J2930) IV (21:45)
[2018-05-07] MEDS ORDERED: KETOROLAC 30 MG/ML VIAL (J1885) IV (21:45)
[2018-05-07] MEDS: methylPREDNISolone INJ 125 MG/2 ML VIAL (J2930) IM (21:50)
[2018-05-07] MEDS: diazePAM 10 MG TAB PO (21:50)
[2018-05-07] MEDS: NORCO 5/325MG TABLET (BULK FOR ED) PO (21:50)
[2018-05-07] MEDS: KETOROLAC 60 MG/2 ML VIAL (J1885) IM (21:50)
== END 2018-05-07 22:20 | disposition home or self-care (01) ==
LOC: M ED 19:40
DX: M54.41 Lumbago with sciatica, right side (principal); Z72.0 Tobacco use; J44.9 Chronic obstructive pulmonary disease, unspecified; E78.5 Hyperlipidemia, unspecified; Z79.899 Other long term (current) drug therapy
CPT/HCPCS: J1885

== ENCOUNTER 2018-05-17 12:15 | Inpatient (IN) | payer OTHER ==
[~2018-05-17] VITALS: Ht 182.9 cm; Wt 140.8 kg
[~2018-05-17 12:15] MED LIST changes: +ADVOMIS4 XX; +BASA100I SC; +CEFD1CAP8 PO; +D-CA1KIT XX; +INSUDET SC; +LEVA1TAB2 PO; +LEVE1INJ5 SC; +METF10004 PO; +MUCI600T37 PO; +NAPR-49 PO; +ROBA500T PO; +SYMB80INH INH; +TIOT18INH INH; +ULTR50TA8 PO; +VALI5TAB PO; +VITACHTA PO; +[UNRECOGNIZED DRUG - OTHER] PO
[2018-05-17] MEDS ORDERED: HYDR-3719 (12:21)
[2018-05-17] MEDS ORDERED: CYCLOBENZAPRINE 10 MG TAB PO ONE (13:15)
[2018-05-17] MEDS ORDERED: MORPHINE 10 MG/ML 1ML VIAL (J2270) IM ONE (13:15)
[2018-05-17] MEDS ORDERED: KETOROLAC 60 MG/2 ML VIAL (J1885) IM ONE (13:15)
[2018-05-17] MEDS ORDERED: GABAPENTIN 300 MG CAP PO ONE (14:00)
[2018-05-17] MEDS ORDERED: diazePAM 5 MG TAB PO ONE (14:45)
[2018-05-17] MEDS ORDERED: HYDROMORPHONE HCL 0.5 MG/ 0.5 ML SYRINGE (J1170 PER 1) IV PRN (16:15)
[2018-05-17] MEDS ORDERED: NS 1,000 ML IV ONE (16:15)
[2018-05-17] MEDS ORDERED: VITACHTA PO (16:53)
[2018-05-17] MEDS ORDERED: NAPR-885 PO (16:53)
[2018-05-17] MEDS ORDERED: HYDR-3719 PO (16:53)
[2018-05-17] MEDS ORDERED: METF10004 PO (16:53)
[2018-05-17] MEDS ORDERED: ARNU1INH3 INH (16:53)
[2018-05-17] MEDS ORDERED: DOCU100C16 PO (16:53)
[2018-05-17] MEDS ORDERED: STIO1AER INH (16:53)
[2018-05-17] MEDS ORDERED: VENTAER INH (16:53)
[2018-05-17 18:15] LABS: BASO % 0.5 % (0.0-1.0); EOS # 0.2 10^3/uL (0.0-0.50); HEMATOCRIT 49.2 % (42.0-52.0); LYMPH # 2.6 10^3/uL (1.5-4.5); LYMPH % 32.7 % (24.0-44.0); MEAN CORPUSCULAR HEMOGLOBIN 31.8 pg (27.0-33.0); MEAN CORPUSCULAR HGB CONC 34.6 g/dl (32.0-36.5); MEAN CORPUSCULAR VOLUME 92.1 fl (80.0-96.0); MONO # 0.6 10^3/uL (0.0-0.8); MONO % 7.3 % (0.0-5.0); NEUTROPHILS # 4.5 10^3/uL (1.8-7.7); NEUTROPHILS % 57.1 % (36.0-66.0); PLATELET COUNT, AUTOMATED 269 10^3/uL (150-450); RED BLOOD COUNT 5.34 10^6/uL (4.30-6.10); WHITE BLOOD COUNT 7.9 10^3/uL (4.0-10.0)
[2018-05-17 18:37] LABS: BLOOD UREA NITROGEN 16 MG/DL (7-18); CALCIUM LEVEL 8.5 MG/DL (8.5-10.1); CARBON DIOXIDE LEVEL 31 MEQ/L (21-32); CHLORIDE LEVEL 101 MEQ/L (98-107); CREATININE FOR GFR 0.79 MG/DL (0.70-1.30); GLOMERULAR FILTRATION RATE > 60.0 (>56); GLUCOSE, FASTING 247 MG/DL (70-100); SODIUM LEVEL 139 MEQ/L (136-145)
[2018-05-17 19:30] VITALS: BP 170/111
[2018-05-17] MEDS ORDERED: LORazepam 2 MG TAB PO STA (20:15)
[2018-05-17] MEDS ORDERED: GLUCOSE 4 GM CHEW TABLET PO PRN (20:30)
[2018-05-17] MEDS ORDERED: ACETAMINOPHEN TAB 650MG DOSE (2X325MG) PO PRN (20:30)
[2018-05-17] MEDS ORDERED: DOCUSATE SODIUM 100 MG CAP PO PRN (20:30)
[2018-05-17] MEDS ORDERED: DEXTROSE 50% 50 ML SYRINGE IV PRN (20:30)
[2018-05-17] MEDS ORDERED: GLUCAGON FOR INJ 1 MG VIAL (J1610) SC PRN (20:30)
[2018-05-17] MEDS ORDERED: ALBUTEROL 90 MCG/ACT 8GM HFA INHALER INH PRN (20:30)
[2018-05-17] MEDS ORDERED: MORPHINE 4 MG/ML 1ML VIAL/SYRINGE (J2270) IV PRN (20:30)
--- NOTE | 2018-05-17 20:36 | REP ---
REASON: Right sided radicular symptoms. No trauma. No priors. CT can not rule out a disc extrusion. There is air density in the L4-5 disc space consistent with vacuum phenomenon from degenerative disc disease. A disc extrusion can not be ruled out at that level. Vertebral body height and alignment and is within normal limits. There is no evidence of a fracture. There are degenerative changes seen involving all lumbar facet joints bilaterally. There are degenerative changes seen involving the suprailiac joints anteriorly with partial fusion. Broad based annular bulges are seen at every lumbar level and likely causing varying degrees of central canal stenosis at the L3-4 through L5-S1 levels. IMPRESSION:Chronic changes as described above. CT can not rule out an acute disc extrusion. Electronically Signed by El Sims DO 05/18/2018 10:58 A
--- NOTE | 2018-05-17 20:39 | HPEPDOC ---
General Date of Admission May 17, 2018 at 19:43 Primary Care Physician: Susanna Dominguez Chief Complaint The patient is a 57-year-old male admitted with a reason for visit of Intractable Low Back Pain. Source: Patient Severity: Severe History of Present Illness 57 y/o male presents for intractable LBP began Apr 23 2018 after long car ride to [place]. Has progressively been getting worse, this morning so bad he couldn't bear weight on right leg due to pain radiating down back side from low back, middle. Decided to come to ED. No history of trauma. No numbness in legs/arms, no paralysis. Weakness in right leg as described above with pain s hooting down back side of leg to toes, sharp pain, electrical in nature. No loss of bowel or urine, no groin numbness. No fevers, muscle aches or chills, no night sweats, no constipation/diarrhea,n/v, no pain with urination nor blood in urine or stool, no abdominal pain. No syncope episodes, denies dizziness. No headache or change in vision, no new neck pain to report. States low back pain is middle center lumbar spine. Any movement of his body seems to make it worse, sitting in wheel chair, unable to bend forward for exam of low back due to pain. Appears very uncomfortable. No swelling of extremities, no new rashes to report. No CP, no SOB, no heart palpations. Home Medications Scheduled (Stiolto Respimat 2.5-2.5 Mcg/Act) 1 Aer Aer, 2 PUFFS INH DAILY, (Reported) (Arnuity Ellipta) 200 Mcg/Act Inh, 1 PUFF INH DAILY, (Reported) Acetaminophen/Hydrocodone (Hydrocodone/Acetaminophen 10-325 mg) 1 Tab Tab, 1 TAB PO TID, (Reported) Metformin Hydrochloride (Metformin HCl) 1,000 Mg Tab, 1,000 MG PO BID, (Reported) Multivitamins Chewable *[facility] STOCKED* (Animal Shapes with C & FA *[facility] STOCKED*) 1 Tab Chew, 1 TAB PO DAILY, (Reported) Naproxen (Naproxen) 500 Mg Tab, 500 MG PO BID, (Reported) Scheduled PRN Albuterol Sulfate (Ventolin Hfa) 108 Mcg/Act Aer, 2 PUFFS INH QID PRN for SHORTNESS OF BREATH, (Reported) Docusate Sodium (Docusate Sodium) 100 Mg Cap, 200 MG PO BID PRN for CONSTIPATION, (Reported) Allergies Coded Allergies: No Known Allergies (Verified Allergy, Unknown, 06/16/05) Past Medical History Medical History dm2 htn dlp COPD alcohol use/abuse rotator cuff injury right, past Surgical History left ankle surgery second left finger amputation Family History Significant Family History: No pertinent family hx Social History * Smoker: current smoker (2-5 cigarettes a day since teen) Alcohol: other (quit etoh one month ago, prior was 5-6 beers a night since teens/early ) Drugs: denies Recent Travel/Sick Contacts: Reports: Recent travel ([place] apr 23 2018 car ride) Review of Systems Constitutional: Reports: Malaise, Weakness, Fatigue; Denies: Chills, Fever, Night Sweats Skin: Denies: Rash, Lesions Cardiovascular: Denies: Chest Pain, Palpitations, Lt Headedness Gastrointestinal: Denies: Nausea, Vomiting, Abdominal Pain, Diarrhea, Constipation, Melena, Hematochezia Genitourinary: Denies: Dysuria Musculoskeletal: Reports: Back Pain (mid lumbar center) Neurological: Reports: Weakness (right LE); Denies: Numbness, Incoordination, Change in speech, Confusion, Seizures Psych: Reports: Mood Normal Physical Examination General Exam: Positive: Alert, Cooperative, Moderate Distress Eye Exam: Positive: Conjunctiva & lids normal ENT Exam: Positive: Mucous membr. moist/pink Chest Exam: Positive: Rhonchi, Diminished; Negative: Rales, Wheezing Heart Exam: Positive: Rate Normal, Normal S1, Normal S2; Negative: Gallops, Murmurs, Rubs Abdomen Exam: Positive: Normal bowel sounds, Soft; Negative: Tenderness, Hepatospenomegaly, Mass Extremity Exam: Negative: Clubbing, Cyanosis, Edema, Tenderness, Swelling Skin Exam: Negative: Rash, Breakdown Neuro Exam: Negative: Strength at 5/5 X4 ext (strength right LE decreased, otherwise normal strength, reflexes and sensation b/l upper and lower extremities, no saddle anesthesia) Psych Exam: Positive: Oriented x 3 Vital Signs Vital Signs Date Time Temp Pulse Resp B/P (MAP) Pulse Ox O2 Delivery O2 Flow Rate FiO2 05/17/18 20:11 97.2 80 16 153/70 (97) 98 Room Air Laboratory Data Labs 24H Laboratory Tests 2 05/17/18 14:32: Bedside Glucose (Misc Panel) 252H 05/17/18 18:06: Immature Granulocyte % (Auto) 0.4, White Blood Count 7.9, Red Blood Count 5.34, Hemoglobin 17.0, Hematocrit 49.2, Mean Corpuscular Volume 92.1, Mean Corpuscular Hemoglobin 31.8, Mean Corpuscular Hemoglobin Concent 34.6, Red Cell Distribution Width 12.7, Platelet Count 269, Neutrophils (%) (Auto) 57.1, Lymphocytes (%) (Auto) 32.7, Monocytes (%) (Auto) 7.3H, Eosinophils (%) (Auto) 2.0, Basophils (%) (Auto) 0.5, Neutrophils # (Auto) 4.5, Lymphocytes # (Auto) 2.6, Monocytes # (Auto) 0.6, Eosinophils # (Auto) 0.2, Basophils # (Auto) 0.0, Nucleated Red Blood Cells % (auto) 0.0, Anion Gap 7L, Glomerular Filtration Rate > 60.0, Blood Urea Nitrogen 16, Creatinine 0.79, Sodium Level 139, Potassium Level 4.0, Chloride Level 101, Carbon Dioxide Level 31, Calcium Level 8.5 CBC/BMP Laboratory Tests 05/17/18 18:06 Red Blood Count 5.34, Mean Corpuscular Volume 92.1, Mean Corpuscular Hemoglobin 31.8, Mean Corpuscular Hemoglobin Concent 34.6, Red Cell Distribution Width 12 .7, Neutrophils (%) (Auto) 57.1, Lymphocytes (%) (Auto) 32.7, Monocytes (%) (Auto) 7.3 H, Eosinophils (%) (Auto) 2.0, Basophils (%) (Auto) 0.5, Neutrophils # (Auto) 4.5, Lymphocytes # (Auto) 2.6, Monocytes # (Auto) 0.6, Eosinophils # (Auto) 0.2, Basophils # (Auto) 0.0, Calcium Level 8.5 Assessment/Plan 1. Acute exacerbation of sub-acute back pain -appears this began around Apr 23 2018 after long car ride to [place] -pt to have MRI L spine w/o, requires Ativan prior due to claustrophobia - CT appreciated of L spine in ED., prelim report some DJD and DDD at all levels notably L4-5, disc extrusion cannot be r/o - pain control morphine and Percocet -PT/OT -depending on MRI report, possible surgical consult for AM, defer to discretion of day team provider and clinical status of patient 2. DM2 -d/c metformin home med., c/w ss with hypoglycemic protocol -const. carb diet 3. Alcohol use/abuse -CIWA protocol, thiamine, mv and folic acid -hold benzo therapy for now unless pt begins w/d 4. smoking abuse -pt denies wanting nicotine patch -encouraged to quit smoking 5. DVT px -scd/teds/heparin sq Plan / VTE VTE Prophylaxis Ordered?: Yes GME ATTESTATION GME ATTESTATION My faculty preceptor for this patient encounter was physically present during the encounter and was fully available. All aspects of the patient interview, examination, medical decision making process, and medical care plan development were reviewed and approved by the faculty preceptor. The faculty preceptor is aware and concurs with the plan as stated in the body of this note and will attest to such by his/her cosignature. BEATRIZ NAVARRETE DO May 17, 2018 20:39
[2018-05-17] MEDS ORDERED: LORazepam 2 MG TAB PO PRN (20:45)
[2018-05-17] MEDS: HumaLOG INSULIN (NovoLOG) PER UNIT SC SCH (21:00)
--- NOTE | 2018-05-17 22:01 | REPVR ---
EXAM: MR Lumbar Spine Without Contrast. EXAM DATE/TIME: 05/17/2018 8:55 PM CLINICAL HISTORY: 57 years old, male; Pain and signs and symptoms; Lumbago with sciatica and weakness; Right; Low back pain and sciatica; Additional info: Low back pain, sciatica right TECHNIQUE: Multiplanar magnetic resonance images of the lumbar spine without intravenous contrast. COMPARISON: CT Spine, lumbar w/o contrast 05/17/2018 4:47 PM FINDINGS: Vertebrae: Mottled heterogeneous low signal throughout the lumbar vertebrae. Finding suggests underlying myeloproliferative disorder or chronic anemia. Clinical correlation needed. Spinal cord: Normal signal. No cord compression. DISCS/SPINAL CANAL/NEURAL FORAMINA: L1-L2: No significant disc disease. No stenosis. L2-L3: There is a moderate central spinal stenosis at L2-3 secondary to diffuse annular bulging, facet joint arthropathy and epidural lipomatosis posteriorly. L3-L4: There is a mild central spinal stenosis at L3-4 secondary to diffuse annular bulging, thickened ligamentum flavum and facet joint arthropathy. L4-L5: Disc desiccation at L3-4 and L4-5. Disc space narrowing at L4-5. Inferiorly extruded disc fragment in the right paracentral subarachnoid space measures 6.5 x 7.1 mm, possibly sequestered, and extends 1.1 cm inferior to the superior endplate of L5, compresses the right lateral aspect of the thecal sac. No compression of the exiting L4 nerve root on the right. Also noted is a left paracentral disc herniation effaces the left side of the thecal sac and markedly narrows the proximal left neuroforamen with impingement of the exiting L4 nerve on the left. Both disc herniations resulting in marked compression of the traversing nerve roots. L5-S1: Bulging annulus at L5-S1 without neural compromise. Bilateral facet joint arthropathy. Soft tissues: Unremarkable. IMPRESSION: 1. Mottled heterogeneous low signal throughout the lumbar vertebrae. Finding suggests underlying myeloproliferative disorder or chronic anemia. Clinical correlation needed. 2. Disc space narrowing at L4-5. Inferiorly extruded disc fragment in the right paracentral subarachnoid space extends 1.1 cm inferior to the superior endplate of L5, possibly sequestered, and compresses the right lateral aspect of the thecal sac. Also noted is a left paracentral disc herniation which effaces the left side of the thecal sac and markedly narrows the proximal left neuroforamen with impingement of the exiting L4 nerve on the left. Both disc herniations resulting in marked compression of the traversing nerve roots. 3. There is a moderate central spinal stenosis at L2-3 secondary to diffuse annular bulging, facet joint arthropathy and epidural lipomatosis posteriorly. 4. There is a mild central spinal stenosis at L3-4 secondary to diffuse annular bulging, thickened ligamentum flavum and facet joint arthropathy. Electronically signed by: Joaquin Beal On 05/17/2018 22:00:42 PM
[2018-05-17 22:30] VITALS: BP 155/90
[2018-05-17] MEDS: PERCOCET 5MG/325MG TAB PO PRN (23:04)
[2018-05-17] MEDS: HEPARIN SOD (PORCINE) 5000 UNITS/ML VIAL SC SCH (23:04)
[2018-05-17 23:12] VITALS: BP 155/90
[2018-05-18] MEDS: PERCOCET 5MG/325MG TAB PO PRN ×3 (05:41→20:53)
[2018-05-18] MEDS: HEPARIN SOD (PORCINE) 5000 UNITS/ML VIAL SC SCH ×3 (05:42→20:52)
[2018-05-18 06:00] VITALS: BP 176/98
[2018-05-18 06:06] LABS: BASO % 0.4 % (0.0-1.0); EOS # 0.2 10^3/uL (0.0-0.50); EOS % 2.5 % (0.0-3.0); HEMATOCRIT 47.1 % (42.0-52.0); HEMOGLOBIN 16.3 g/dl (13.5-17.5); LYMPH # 2.5 10^3/uL (1.5-4.5); LYMPH % 31.1 % (24.0-44.0); MEAN CORPUSCULAR HEMOGLOBIN 31.7 pg (27.0-33.0); MEAN CORPUSCULAR HGB CONC 34.6 g/dl (32.0-36.5); MEAN CORPUSCULAR VOLUME 91.5 fl (80.0-96.0); MONO # 0.6 10^3/uL (0.0-0.8); MONO % 7.5 % (0.0-5.0); NEUTROPHILS # 4.7 10^3/uL (1.8-7.7); NEUTROPHILS % 58.3 % (36.0-66.0); PLATELET COUNT, AUTOMATED 244 10^3/uL (150-450); RED BLOOD COUNT 5.15 10^6/uL (4.30-6.10); WHITE BLOOD COUNT 8.1 10^3/uL (4.0-10.0)
[2018-05-18 06:27] LABS: BLOOD UREA NITROGEN 13 MG/DL (7-18); CARBON DIOXIDE LEVEL 28 MEQ/L (21-32); CHLORIDE LEVEL 105 MEQ/L (98-107); CREATININE FOR GFR 0.58 MG/DL (0.70-1.30); GLOMERULAR FILTRATION RATE > 60.0 (>56); GLUCOSE, FASTING 171 MG/DL (70-100); SODIUM LEVEL 138 MEQ/L (136-145)
[2018-05-18] MEDS: THIAMINE 100 MG TAB PO SCH (08:23)
[2018-05-18] MEDS: FOLIC ACID 1 MG TAB PO SCH (08:23)
[2018-05-18] MEDS: MULTIVITAMINS CHILDREN'S CHEWABLE TABLET PO SCH (08:23)
[2018-05-18] MEDS: HumaLOG INSULIN (NovoLOG) PER UNIT SC SCH ×4 (08:24→20:45)
[2018-05-18] MEDS: METHOCARBAMOL 750 MG TAB PO SCH ×3 (11:45→20:51)
[2018-05-18] MEDS: LIDOCAINE 5% (LIDODERM) PATCH TD SCH (11:45)
[2018-05-18] MEDS: GABAPENTIN 100 MG CAP PO SCH ×2 (13:56→20:51)
[2018-05-18 14:00] VITALS: BP 160/77
--- NOTE | 2018-05-18 14:03 | IPNPDOC ---
Subjective Date Seen The patient was seen on 05/18/18. Subjective Chief Complaint/HPI 57-year-old male laying comfortably in bed this morning. He is accompanied by a friend of his. He reports no acute events overnight. He still has difficulty moving around without causing pain down his back. Patient denies loss of sensation, numbness, tingling in his groin, as well as no bowel or bladder incontinence. He continues to report low back pain with electric shock-like sensations down the back of his right lower extremity. Patient also also denies fevers, chills, headache, dizziness, chest pain, shortness of breath, abdominal pain, nausea, vomiting. Objective Physical Examination General Exam: Positive: Alert, Cooperative, Mild Distress Eye Exam: Positive: Conjunctiva & lids normal ENT Exam: Positive: Mucous membr. moist/pink Chest Exam: Positive: Clear to auscultation; Negative: Rales, Wheezing Heart Exam: Positive: Rate Normal, Normal S1, Normal S2; Negative: Gallops, Murmurs, Rubs Abdomen Exam: Positive: Normal bowel sounds, Soft; Negative: Tenderness, Hepatospenomegaly, Mass Extremity Exam: Negative: Clubbing, Cyanosis, Edema, Tenderness, Swelling Skin Exam: Negative: Rash, Breakdown Neuro Exam: Positive: Strength at 5/5 X4 ext (strength right LE decreased, otherwise normal strength and sensation in bilateral UE and LE, no saddle anesthesia) Psych Exam: Positive: Oriented x 3 Assessment /Plan Assessment #. Acute exacerbation of sub-acute back pain Friend says this has been ongoing since April 12 and has been progressively worsening. CT appreciated of L spine in ED., prelim report some DJD and DDD at all levels notably L4-5, disc extrusion cannot be r/o Continue pain control with Percocet, gabapentin, methocarbamol, Lidoderm patch daily, K pads -PT/OT Lumbar spine MRI showed disc space narrowing at L4-5. Inferiorly extruded disc fragment in the right paracentral subarachnoid space extends 1.1 cm inferior to the superior endplate of L5, possibly sequestered, and compresses the right lateral aspect of the thecal sac. Also noted is a left paracentral disc herniation which effaces the left side of the thecal sac and markedly narrows the proximal left neuroforamen with impingement of the exiting L4 nerve on the left. Both disc herniations resulting in marked compression of the traversing nerve roots. Moderate spinal stenosis at L2-L3 secondary to diffuse annular bulging. Orthopedic surgery consult placed, spoke with . He does not feel it is necessary to take the patient to surgery during his inpatient stay. He stated the patient should be treated conservatively with pain control over the next 3 months with possible discectomy if conservative therapy is unsuccessful. #. Type 2 diabetes Continue sliding scale insulin continue consistent carbohydrates diet #. Alcohol use/abuse -CIWA protocol, thiamine, mv and folic acid No signs of withdrawal this morning, we'll continue monitoring for signs of withdrawal #. Tobacco abuse Encouraged to quit smoking, patient does not want nicotine replacement therapy #. DVT prophylaxis Teds and sequentials Heparin Plan/VTE VTE Prophylaxis Ordered?: Yes VS, I&O, 24H, Fishbone Vital Signs/I&O Vital Signs Date Time Temp Pulse Resp B/P (MAP) Pulse Ox O2 Delivery O2 Flow Rate FiO2 05/18/18 08:46 17 Room Air 05/18/18 06:00 98.1 82 176/98 (124) 90 I&O- Last 24 Hours up to 6 AM 05/18/18 05:59 Intake Total 1240 ml Balance 1240 ml Laboratory Data 24H LABS Laboratory Tests 2 05/17/18 14:32: Bedside Glucose (Misc Panel) 252H 05/17/18 18:06: Immature Granulocyte % (Auto) 0.4, White Blood Count 7.9, Red Blood Count 5.34, Hemoglobin 17.0, Hematocrit 49.2, Mean Corpuscular Volume 92.1, Mean Corpuscular Hemoglobin 31.8, Mean Corpuscular Hemoglobin Concent 34.6, Red Cell Distribution Width 12.7, Platelet Count 269, Neutrophils (%) (Auto) 57.1, Lymphocytes (%) (Auto) 32.7, Monocytes (%) (Auto) 7.3H, Eosinophils (%) (Auto) 2.0, Basophils (%) (Auto) 0.5, Neutrophils # (Auto) 4.5, Lymphocytes # (Auto) 2.6, Monocytes # (Auto) 0.6, Eosinophils # (Auto) 0.2, Basophils # (Auto) 0.0, Nucleated Red Blood Cells % (auto) 0.0, Anion Gap 7L, Glomerular Filtration Rate > 60.0, Blood Urea Nitrogen 16, Creatinine 0.79, Sodium Level 139, Potassium Level 4.0, Chloride Level 101, Carbon Dioxide Level 31, Calcium Level 8.5 05/17/18 22:11: Bedside Glucose (Misc Panel) 205H 05/18/18 05:31: Immature Granulocyte % (Auto) 0.2, White Blood Count 8.1, Red Blood Count 5.15, Hemoglobin 16.3, Hematocrit 47.1, Mean Corpuscular Volume 91.5, Mean Corpuscular Hemoglobin 31.7, Mean Corpuscular Hemoglobin Concent 34.6, Red Cell Distribution Width 12.6, Platelet Count 244, Neutrophils (%) (Auto) 58.3, Lymphocytes (%) (Auto) 31.1, Monocytes (%) (Auto) 7.5H, Eosinophils (%) (Auto) 2.5, Basophils (%) (Auto) 0.4, Neutrophils # (Auto) 4.7, Lymphocytes # (Auto) 2.5, Monocytes # (Auto) 0.6, Eosinophils # (Auto) 0.2, Basophils # (Auto) 0.0, Nucleated Red Blood Cells % (auto) 0.0, Anion Gap 5L, Glomerular Filtration Rate > 60.0, Blood Urea Nitrogen 13, Creatinine 0.58L, Sodium Level 138, Potassium Level 4.0, Chloride Level 105, Carbon Dioxide Level 28, Calcium Level 8.0L 05/18/18 11:42: Bedside Glucose (Misc Panel) 177H CBC/BMP Laboratory Tests 05/17/18 18:06 Red Blood Count 5.34, Mean Corpuscular Volume 92.1, Mean Corpuscular Hemoglobin 31.8, Mean Corpuscular Hemoglobin Concent 34.6, Red Cell Distribution Width 12.7, Neutrophils (%) (Auto) 57.1, Lymphocytes (%) (Auto) 32.7, Monocytes (%) (Auto) 7.3 H, Eosinophils (%) (Auto) 2.0, Basophils (%) (Auto) 0.5, Neutrophils # (Auto) 4.5, Lymphocytes # (Auto) 2.6, Monocytes # (Auto) 0.6, Eosinophils # (Auto) 0.2, Basophils # (Auto) 0.0, Calcium Level 8.5 05/18/18 05:31 Red Blood Count 5.15, Mean Corpuscular Volume 91.5, Mean Corpuscular Hemoglobin 31.7, Mean Corpuscular Hemoglobin Concent 34.6, Red Cell Distribution Width 12.6, Neutrophils (%) (Auto) 58.3, Lymphocytes (%) (Auto) 31.1, Monocytes (%) (Auto) 7.5 H, Eosinophils (%) (Auto) 2.5, Basophils (%) (Auto) 0.4, Neutrophils # (Auto) 4.7, Lymphocytes # (Auto) 2.5, Monocytes # (Auto) 0.6, Eosinophils # (Auto) 0.2, Basophils # (Auto) 0.0, Calcium Level 8.0 L GME ATTESTATION GME ATTESTATION My faculty preceptor for this patient encounter was physically present during the encounter and was fully available. All aspects of the patient interview, examination, medical decision making process, and medical care plan development were reviewed and approved by the faculty preceptor. The faculty preceptor is aware and concurs with the plan as stated in the body of this note and will attest to such by his/her cosignature. ANTHONY KIRKLAND DO May 18, 2018 14:02
[2018-05-18 20:00] VITALS: BP 124/69
[2018-05-18] MEDS: **NOTE PATIENT COMMENT** MISC XX SCH (21:00)
[2018-05-18 22:00] VITALS: BP 142/76
[2018-05-19] MEDS: PERCOCET 5MG/325MG TAB PO PRN ×3 (01:52→18:13)
[2018-05-19] MEDS ORDERED: MORPHINE 4 MG/ML 1ML VIAL/SYRINGE (J2270) IV ONE (04:45)
[2018-05-19] MEDS ORDERED: KETOROLAC TROMETHAMINE 10 MG TAB PO ONE (04:45)
[2018-05-19] MEDS ORDERED: MORPHINE SULFATE ORAL SOLN 10 MG/5 ML UD PO ONE (05:00)
[2018-05-19 06:00] VITALS: BP 136/61
[2018-05-19] MEDS: HEPARIN SOD (PORCINE) 5000 UNITS/ML VIAL SC SCH ×3 (06:08→21:07)
[2018-05-19] MEDS: GABAPENTIN 100 MG CAP PO SCH ×3 (06:08→21:07)
[2018-05-19 06:21] LABS: BASO % 0.5 % (0.0-1.0); EOS # 0.1 10^3/uL (0.0-0.50); EOS % 1.7 % (0.0-3.0); HEMATOCRIT 47.4 % (42.0-52.0); HEMOGLOBIN 16.4 g/dl (13.5-17.5); LYMPH # 2.1 10^3/uL (1.5-4.5); LYMPH % 26.9 % (24.0-44.0); MEAN CORPUSCULAR HEMOGLOBIN 31.4 pg (27.0-33.0); MEAN CORPUSCULAR HGB CONC 34.6 g/dl (32.0-36.5); MEAN CORPUSCULAR VOLUME 90.8 fl (80.0-96.0); MONO # 0.5 10^3/uL (0.0-0.8); NEUTROPHILS # 4.9 10^3/uL (1.8-7.7); NEUTROPHILS % 63.4 % (36.0-66.0); PLATELET COUNT, AUTOMATED 249 10^3/uL (150-450); RED BLOOD COUNT 5.22 10^6/uL (4.30-6.10); WHITE BLOOD COUNT 7.7 10^3/uL (4.0-10.0)
[2018-05-19 07:00] LABS: BLOOD UREA NITROGEN 11 MG/DL (7-18); CALCIUM LEVEL 8.1 MG/DL (8.5-10.1); CARBON DIOXIDE LEVEL 29 MEQ/L (21-32); CHLORIDE LEVEL 104 MEQ/L (98-107); CREATININE FOR GFR 0.63 MG/DL (0.70-1.30); GLOMERULAR FILTRATION RATE > 60.0 (>56); GLUCOSE, FASTING 208 MG/DL (70-100); POTASSIUM SERUM 4.1 MEQ/L (3.5-5.1); SODIUM LEVEL 138 MEQ/L (136-145)
[2018-05-19] MEDS: FOLIC ACID 1 MG TAB PO SCH (07:47)
[2018-05-19] MEDS: MULTIVITAMINS CHILDREN'S CHEWABLE TABLET PO SCH (07:47)
[2018-05-19] MEDS: THIAMINE 100 MG TAB PO SCH (07:47)
[2018-05-19] MEDS: LIDOCAINE 5% (LIDODERM) PATCH TD SCH (07:47)
[2018-05-19] MEDS: METHOCARBAMOL 750 MG TAB PO SCH ×3 (07:47→20:13)
[2018-05-19] MEDS: HumaLOG INSULIN (NovoLOG) PER UNIT SC SCH ×4 (07:48→20:13)
--- NOTE | 2018-05-19 12:28 | CR ---
DATE OF CONSULTATION: 05/18/2018 CHIEF COMPLAINT: Right buttock pain. HISTORY OF THE PRESENT ILLNESS: This 57-year-old man complains of increasing 6-week history of right primarily buttock pain. Occasionally this is radiating down the back of his leg all the way to the tips of his toes. He says that he has some numbness associated with the whole right foot, but he cannot really pinpoint if it is on the dorsum or the plantar aspect of the foot. This is causing him some difficulty in ambulating. There is no history of trauma or other pain in his back, and he has never had this complaint before. He did note that he has some pain as well in the left foot, but no shooting pains down the left leg. He states that there is no loss of control or problems with bowel or bladder function and no other constitutional symptoms were noted. No pain or numbness in his upper extremities, and he does have some pain in the lower aspect of his lumbar spine. He also did have a history of apparently a long car ride to [place] back on April 23, 2018. PAST MEDICAL HISTORY: Diabetes type 2. Hypertension. Dyslipidemia. Chronic obstructive pulmonary disease (COPD). Alcohol use/abuse. Rotator cuff injury to the right. MEDICATIONS: - acetaminophen/hydrocodone one tablet by mouth three times a day - metformin 1000 mg tablet by mouth twice a day - multivitamins - naproxen 500 mg by mouth twice a day - inhaled puffers ALLERGIES: No known drug allergies. SURGICAL HISTORY: None noted. SOCIAL HISTORY: He is a current smoker, 2-5 cigarettes a day. He does use alcohol apparently heavily, and he did smell like alcohol when I examined him. He has had recent travel to [place]. He works as a abstractor. PHYSICAL EXAMINATION: Vital Signs: As of 1400 hours today, temperature 97.8, blood pressure 160/77, pulse 79, 95% on room air, respiratory rate 18. This man has an elevated body mass index (BMI). His height is 72 inches, weight 140 kg for a BMI of 42. He is quite a disheveled-looking individual, in quite a bit of discomfort. Examination of his lumbar spine reveals no overlying swelling, redness, or other deformities, or abnormalities. Palpation of the lumbar spine was really negative for any kind of pain, swelling, masses, or deformities. Examination of his hip revealed some overlying tenderness to the lateral gluteal region on the right side. He was laying on his left lateral decubitus. Neurologic exam of his lower extremities revealed normal sensation L2-L3; however, throughout his foot, he was complaining about some numbness, but I am unsure if he was fully understanding. It seemed like he was more saying that there was pain to the dorsum and plantar aspect of his foot as he did say that this was present on both sides. Definitely from S2 to S4, he had normal sensation in the perianal region. Strength in his lower extremities was actually quite good from L2-S1; I thought he had full strength 5/5. Lower extremity reflexes at the knees and ankles: I was really unable to elicit as he is quite a large man. I do not think he really relaxed for the exam. Plantars were downgoing on the left, unequivocal on the right side. I was unable to elicit any plantar response on the right side. The feet appeared well perfused. I performed a rectal exam. He had normal tone going in with able to squeeze my finger and felt positive deep anal pressure. CT was reviewed that shows degenerative disc disease with preserved vertebral body height and alignment with no evidence of fracture. MRI was also reviewed that demonstrates disc space narrowing at L4-L5, inferiorly extruded disc fragment in the right paracentral subarachnoid space measuring 6.5 x 7.1 mm, extends 1.1 cm inferior to the superior endplate of L5, compresses the right lateral aspect of the thecal sac. No compression of the exiting L4 nerve root on the right. Also noted is a left paracentral disc herniation effacing the left side of the thecal sac and markedly narrowing the proximal left neuroforamen with impingement of the left L4 nerve root. However, both disc herniations do result in marked compression of the traversing nerve roots, which would represent the L5 nerve root. There is also bulging of the annulus at L5-S1 without neural compromise and bilateral facet joint arthropathy. There did not appear to be any findings with the conus. There was also mottled heterogeneous low signal throughout the lumbar vertebrae consistent with chronic anemia or underlying myeloproliferative disorder. In addition, there was moderate central canal spinal stenosis at L2-3 secondary to diffuse annular bulging, facet joint arthropathy and epidural lipomatosis posteriorly. ASSESSMENT AND PLAN: This is a 57-year-old man with right-sided sciatic pain, presumably related to his disc bulge at L4-L5 that does affect the traversing nerve root, presumably compressing L5 and causing him pain and no apparent weakness on physical exam but definitely radicular-type symptoms. I have discussed with Dr. Gong, the spine surgeon, and we agree that although this may end up being treated surgically, this does not seem like any surgical emergency, such as cauda equina. The best course of action for now will be to control his pain with anti-inflammatories and oral and intravenous pain medications. In the long run, he should receive a consult from a pain specialist, as well as see Dr. Gong on an outpatient basis. Certainly, he is aware of this man, and we will try to mobilize him. Activity as tolerated once his pain settles down. Edited: hallie 05/24/2018 1310 MTDD
[2018-05-19 14:00] VITALS: BP 135/62
--- NOTE | 2018-05-19 14:41 | IPN ---
DATE: 05/17/2018 SUBJECTIVE: The patient tells me he is still having persistent back pain. His pain is uncontrolled despite the measures taken yesterday. He otherwise has no specific complaints. The patient denies any bowel or bladder incontinence. No saddle paresthesias. He does have some numbness down the back of the right leg. OBJECTIVE: VITAL SIGNS: Temperature 97.4, pulse 84, respiratory rate 20, blood pressure 136/61, oxygen saturation 91% on room air. GENERAL: He is a disheveled, obese man lying on his left side. He does not appear to be in acute distress. HEENT: Cranial nerves II-XII are grossly intact. He has a large disheveled [place], malodorous, poor dentition. CARDIOVASCULAR EXAM: S1, S2, regular. RESPIRATORY EXAM: Clear. ABDOMINAL EXAM: Grossly obese. Bowel sounds are present. The abdomen is soft. EXTREMITIES: No clubbing, cyanosis, or edema. Positive straight leg raise test on the left. LABORATORY STUDIES: WBC 7.7, hemoglobin 16.4, platelet count is 249. Chemistry panel: Sodium 138, potassium 4.1, chloride 104, bicarbonate 29, BUN 11, creatinine 0.6. No new microbiology. IMAGING: The patient did have a lumbar spine MRI, which had findings which were relayed and discussed with orthopedic surgery team. ASSESSMENT AND PLAN: This is a 57-year-old male with back pain with disc herniation and fragment. PROBLEMS: 1. Back pain with disc herniation and fragment. The case was discussed with orthopedic surgery, spine surgeon, do not think there is any emergent need to operate. He suggested supportive measures, pain clinic consult, possible epidural injection. If he were to fail these measures and physical therapy, could consider followup for possible surgery. At the present time, the patient's pain is fairly uncontrolled despite the initiation of an aggressive pain regimen, including Neurontin every 8 hours, Percocet, Robaxin, Lidoderm patch, K-pad, physical therapy. He has cleared physical therapy. No improvement in his pain with aforementioned measures. He did receive morphine by mouth and Toradol overnight with no improvement either. He was cleared by physical therapy; however, he is not satisfied with his outcome. Will place a pain management consult, hopefully they are able to see him tomorrow, potentially place an injection as soon as possible in order to see if we are able to provide him with some relief. 2. Type 2 diabetes. Sliding scale insulin, consistent carbohydrate diet. 3. Alcohol use. No evidence of withdrawal symptoms. Continue with Clinical [place] Withdrawal Assessment (CIWA) monitoring. 4. Tobacco abuse. Cessation counseling provided. He declines offer for nicotine replacement therapy. 5. Deep vein thrombosis (DVT) prophylaxis. Heparin. DISPOSITION: Pending pain evaluation. MTDD
[2018-05-19] MEDS: **NOTE PATIENT COMMENT** MISC XX SCH (20:13)
[2018-05-19 21:00] VITALS: BP 136/69
[2018-05-19 22:00] VITALS: BP 136/69
[2018-05-20] MEDS: PERCOCET 5MG/325MG TAB PO PRN ×4 (00:15→22:59)
[2018-05-20] MEDS: GABAPENTIN 100 MG CAP PO SCH ×3 (05:41→21:16)
[2018-05-20] MEDS: HEPARIN SOD (PORCINE) 5000 UNITS/ML VIAL SC SCH ×2 (05:42→15:06)
[2018-05-20 06:00] VITALS: BP 141/74
[2018-05-20 06:11] LABS: BASO % 0.3 % (0.0-1.0); EOS # 0.2 10^3/uL (0.0-0.50); HEMATOCRIT 49.1 % (42.0-52.0); HEMOGLOBIN 16.9 g/dl (13.5-17.5); LYMPH # 2.3 10^3/uL (1.5-4.5); LYMPH % 32.5 % (24.0-44.0); MEAN CORPUSCULAR HEMOGLOBIN 31.4 pg (27.0-33.0); MEAN CORPUSCULAR HGB CONC 34.4 g/dl (32.0-36.5); MEAN CORPUSCULAR VOLUME 91.1 fl (80.0-96.0); MONO # 0.6 10^3/uL (0.0-0.8); MONO % 8.8 % (0.0-5.0); NEUTROPHILS # 3.8 10^3/uL (1.8-7.7); NEUTROPHILS % 55.1 % (36.0-66.0); PLATELET COUNT, AUTOMATED 236 10^3/uL (150-450); RED BLOOD COUNT 5.39 10^6/uL (4.30-6.10)
[2018-05-20 06:32] LABS: BLOOD UREA NITROGEN 11 MG/DL (7-18); CALCIUM LEVEL 8.4 MG/DL (8.5-10.1); CARBON DIOXIDE LEVEL 33 MEQ/L (21-32); CHLORIDE LEVEL 103 MEQ/L (98-107); GLOMERULAR FILTRATION RATE > 60.0 (>56); GLUCOSE, FASTING 159 MG/DL (70-100); SODIUM LEVEL 141 MEQ/L (136-145)
[2018-05-20] MEDS: HumaLOG INSULIN (NovoLOG) PER UNIT SC SCH ×4 (07:30→21:00)
[2018-05-20] MEDS: METHOCARBAMOL 750 MG TAB PO SCH ×3 (08:15→21:17)
[2018-05-20] MEDS: MULTIVITAMINS CHILDREN'S CHEWABLE TABLET PO SCH (08:15)
[2018-05-20] MEDS: LIDOCAINE 5% (LIDODERM) PATCH TD SCH (08:15)
[2018-05-20] MEDS: FOLIC ACID 1 MG TAB PO SCH (08:15)
[2018-05-20] MEDS: THIAMINE 100 MG TAB PO SCH (08:15)
[2018-05-20 12:00] VITALS: BP 142/59
--- NOTE | 2018-05-20 13:12 | IPNPDOC ---
Subjective Date Seen The patient was seen on 05/20/18. Subjective Chief Complaint/HPI Patient had overnight he again had another acute episode of back pain not precipitated by anything in particular. The pain is not in any new places but is now worse and he has no new symptoms including saddle anesthesia, loss of bowel or bladder function, or new numbness/tingling in extremities. But he continues to describe lower back pain with radiation down the back of his right lower extremity.He denies fevers, chills, chest pain, SOB. He states that none of the pain medications that he's been given have helped at all with his back pain. Objective Physical Examination General Exam: Positive: Alert, Cooperative, Moderate Distress Eye Exam: Positive: Conjunctiva & lids normal ENT Exam: Positive: Mucous membr. moist/pink Chest Exam: Positive: Clear to auscultation; Negative: Rales, Wheezing Heart Exam: Positive: Rate Normal, Normal S1, Normal S2; Negative: Gallops, Murmurs, Rubs Abdomen Exam: Positive: Normal bowel sounds, Soft; Negative: Tenderness, Hepatospenomegaly, Mass Extremity Exam: Negative: Clubbing, Cyanosis, Edema, Tenderness, Swelling Skin Exam: Negative: Rash, Breakdown Neuro Exam: Positive: Normal Speech, Strength at 5/5 X4 ext Psych Exam: Positive: Oriented x 3 Assessment /Plan Assessment 1. Back pain with disc herniation and fragment. Pain management will see him today for a possible epidural back injection to help with his intractable pain. Currently he is on an aggressive pain regimen including Neurontin every hours, Percocet, Robaxin, Lidoderm patch, K pad. None of these have provided any pain relief. He continues to work with PT Orthopedics wants Mr. James to follow up outpatient to discuss possible surgica l options. 2. Type 2 diabetes. -Sliding scale insulin, consistent carbohydrate diet. 3. Alcohol use. No evidence of withdrawal symptoms. Continue with Clinical [place] Withdrawal Assessment (CIWA) monitoring. 4. Tobacco abuse. -Cessation counseling provided. He declines offer for nicotine replacement therapy. 5. Deep vein thrombosis (DVT) prophylaxis. -Heparin. DISPOSITION: Pending pain management evaluation Plan/VTE VTE Prophylaxis Ordered?: Yes VS, I&O, 24H, Fishbone Vital Signs/I&O Vital Signs Date Time Temp Pulse Resp B/P (MAP) Pulse Ox O2 Delivery O2 Flow Rate FiO2 05/20/18 09:53 16 05/20/18 08:00 2.0 05/20/18 06:00 97.6 71 141/74 (96) 94 Nasal Cannula I&O- Last 24 Hours up to 6 AM 05/20/18 06:00 Intake Total 1440 ml Output Total 3850 ml Balance -2410 ml Laboratory Data 24H LABS Laboratory Tests 2 05/19/18 17:11: Bedside Glucose (Misc Panel) 204H 05/19/18 19:50: Bedside Glucose (Misc Panel) 200H 05/20/18 05:31: Immature Granulocyte % (Auto) 0.3, White Blood Count 7.0, Red Blood Count 5.39, Hemoglobin 16.9, Hematocrit 49.1, Mean Corpuscular Volume 91.1, Mean Corpuscular Hemoglobin 31.4, Mean Corpuscular Hemoglobin Concent 34.4, Red Cell Distribution Width 12.6, Platelet Count 236, Neutrophils (%) (Auto) 55.1, Lymphocytes (%) (Auto) 32.5, Monocytes (%) (Auto) 8.8H, Eosinophils (%) (Auto) 3.0, Basophils (%) (Auto) 0.3, Neutrophils # (Auto) 3.8, Lymphocytes # (Auto) 2.3, Monocytes # (Auto) 0.6, Eosinophils # (Auto) 0.2, Basophils # (Auto) 0.0, Nucleated Red Blood Cells % (auto) 0.0, Anion Gap 5L, Glomerular Filtration Rate > 60.0, Blood Urea Nitrogen 11, Creatinine 0.80, Sodium Level 141, Potassium Level 4.0, Chloride Level 103, Carbon Dioxide Level 33H, Calcium Level 8.4L 05/20/18 11:57: Bedside Glucose (Misc Panel) 227H CBC/BMP Laboratory Tests 05/20/18 05:31 Red Blood Count 5.39, Mean Corpuscular Volume 91.1, Mean Corpuscular Hemoglobin 31.4, Mean Corpuscular Hemoglobin Concent 34.4, Red Cell Distribution Width 12.6, Neutrophils (%) (Auto) 55.1, Lymphocytes (%) (Auto) 32.5, Monocytes (%) (Auto) 8.8 H, Eosinophils (%) (Auto) 3.0, Basophils (%) (Auto) 0.3, Neutrophils # (Auto) 3.8, Lymphocytes # (Auto) 2.3, Monocytes # (Auto) 0.6, Eosinophils # (Auto) 0.2, Basophils # (Auto) 0.0, Calcium Level 8.4 L GME ATTESTATION GME ATTESTATION My faculty preceptor for this patient encounter was physically present during the encounter and was fully available. All aspects of the patient interview, examination, medical decision making process, and medical care plan development were reviewed and approved by the faculty preceptor. The faculty preceptor is aware and concurs with the plan as stated in the body of this note and will attest to such by his/her cosignature. ANTHONY KIRKLAND DO May 20, 2018 13:12
[2018-05-20 14:00] VITALS: BP 138/74
[2018-05-20] MEDS: SYMBICORT 80/4.5MCG INHALER 6GM INH SCH ×2 (18:23→22:16)
[2018-05-20] MEDS: TIOTROPIUM INHALER/CAPSULE (SPIRIVA) INH SCH (18:23)
--- NOTE | 2018-05-20 18:45 | CR ---
DATE OF CONSULTATION: 05/20/2018 CHIEF COMPLAINT: 1. Right buttock pain. 2. Right leg pain. 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 After a car ride to [place] recently it became unbearable. He presented to the emergency room (ER) a few days ago due to the inability to tolerate weight due to right leg pain. Despite current pain medicine regimen, his pain is not controlled. Rating pain level as a 10/10. States he is not able to move to a sitting position due to severe increase in pain. He is not able to attend to physical therapy (PT) due to severe pain. MRI is showing evidence of disc protrusion and lumbar nerve impingement. We did discuss coming over to do an epidural. The patient is more than willing even after discussing potential risks. Denies recent fever, illness, or weight loss. Denies bowel or bladder incontinence. Denies saddle paresthesia. Rating pain level as a 10/10. PAST MEDICAL HISTORY: 1. Diabetes mellitus (DM), type II. 2. Hypertension. 3. Dyslipidemia. 4. Chronic obstructive pulmonary disease (COPD). 5. Alcohol use/abuse. 6. Rotator cuff injury, right, in the past. PAST SURGICAL HISTORY: 1. Left ankle surgery. 2. Second left finger amputation. FAMILY HISTORY: No pertinent family history. SOCIAL HISTORY: Current smoker of two to five cigarettes a day. Reports use of five to six beers a night, which he states he quit 1 month ago. Denies illicit drug use. 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 REVIEW OF SYSTEMS: Denies recent fever or illness. Does report fatigue and weakness. Remaining 10-point review of systems is negative except as reported in history of present illness (HPI). PHYSICAL EXAMINATION: Awake, alert. Lying down in bed. Able to move his legs freely. Reporting normal sensation to light touch, upper and lower extremities. No swelling noted. Does report burning sensation in his right calf and foot. Inspection of spine: Tenderness and tight band of tissue/trigger point, right piriformis. Nontender over lumbosacral (LS) axis or lumbar paraspinals. DIAGNOSTIC DATA: MRI of the LS spine 05/17 2018 reviewed. ASSESSMENT: 1. Lumbar disc protrusion. 2. Lumbosacral radiculopathy. PLAN: We have scheduled him to come over to the pain center on May 21 at 9 a.m. for a lumbar epidural steroid injection. Potential risks and benefits were reviewed. I would also recommend that attending change his Percocet availability to every 4 hours. Recommend addition of Soma 350 at nighttime. Nothing by mouth after midnight. Discontinue heparin. Thank you for allowing us to participate in the care of your patient.
[2018-05-20] MEDS: **NOTE PATIENT COMMENT** MISC XX SCH (21:00)
[2018-05-20] MEDS ORDERED: HEPARIN SOD (PORCINE) 5000 UNITS/ML VIAL As Ordered ONE (21:07)
[2018-05-20 22:00] VITALS: BP 140/74
[2018-05-21] MEDS: GABAPENTIN 100 MG CAP PO SCH ×3 (05:39→21:01)
[2018-05-21] MEDS: PERCOCET 5MG/325MG TAB PO PRN ×2 (05:40→16:59)
[2018-05-21 06:00] VITALS: BP 140/74
[2018-05-21 06:55] LABS: BASO % 0.4 % (0.0-1.0); EOS # 0.2 10^3/uL (0.0-0.50); EOS % 2.8 % (0.0-3.0); HEMATOCRIT 50.8 % (42.0-52.0); HEMOGLOBIN 17.5 g/dl (13.5-17.5); LYMPH # 1.7 10^3/uL (1.5-4.5); LYMPH % 24.2 % (24.0-44.0); MEAN CORPUSCULAR HEMOGLOBIN 31.8 pg (27.0-33.0); MEAN CORPUSCULAR HGB CONC 34.4 g/dl (32.0-36.5); MEAN CORPUSCULAR VOLUME 92.4 fl (80.0-96.0); MONO # 0.6 10^3/uL (0.0-0.8); MONO % 8.5 % (0.0-5.0); NEUTROPHILS # 4.5 10^3/uL (1.8-7.7); NEUTROPHILS % 63.5 % (36.0-66.0); PLATELET COUNT, AUTOMATED 234 10^3/uL (150-450)
[2018-05-21 07:23] LABS: BLOOD UREA NITROGEN 13 MG/DL (7-18); CALCIUM LEVEL 8.3 MG/DL (8.5-10.1); CARBON DIOXIDE LEVEL 31 MEQ/L (21-32); CHLORIDE LEVEL 102 MEQ/L (98-107); CREATININE FOR GFR 0.73 MG/DL (0.70-1.30); GLOMERULAR FILTRATION RATE > 60.0 (>56); GLUCOSE, FASTING 202 MG/DL (70-100); POTASSIUM SERUM 4.1 MEQ/L (3.5-5.1); SODIUM LEVEL 139 MEQ/L (136-145)
[2018-05-21] MEDS: HumaLOG INSULIN (NovoLOG) PER UNIT SC SCH ×4 (08:06→21:06)
[2018-05-21] MEDS: LIDOCAINE 5% (LIDODERM) PATCH TD SCH (08:06)
[2018-05-21] MEDS: MULTIVITAMINS CHILDREN'S CHEWABLE TABLET PO SCH (08:06)
[2018-05-21] MEDS: FOLIC ACID 1 MG TAB PO SCH (08:07)
[2018-05-21] MEDS: THIAMINE 100 MG TAB PO SCH (08:07)
[2018-05-21] MEDS: METHOCARBAMOL 750 MG TAB PO SCH ×3 (08:07→21:01)
[2018-05-21] MEDS ORDERED: oxyCODONE 5MG TAB As Ordered ONE (10:14)
[2018-05-21] MEDS ORDERED: diazePAM 5 MG TAB As Ordered ONE (10:15)
[2018-05-21] MEDS ORDERED: LIDOCAINE 1% SDV INJ 30 ML VIAL As Ordered ONE (10:15)
[2018-05-21] MEDS ORDERED: methylPREDNISolone SUSP 40 MG/ML (DEPO-medrol) VIAL (J1030) As Ordered ONE (10:15)
[2018-05-21] MEDS ORDERED: ISOVUE-M 300 61% 15ML VIAL (Q9967) As Ordered ONE (10:16)
--- NOTE | 2018-05-21 10:35 | IPNPDOC ---
Subjective Date Seen The patient was seen on 05/21/18. Subjective Chief Complaint/HPI 57-year-old male. No acute events overnight. Patient states his low back pain with radiation down his right lower extremity is essentially unchanged from yesterday. He denies any fevers, chills, chest pain, short of breath, headache, dizziness, new numbness/tingling in his extremities or in his groin. He denies loss of bowel or bladder control. Before his epidural with the pain clinic we did discuss that he should ask about his options moving forward and what to expect from the epidural injection in terms of how quickly it would work, was the likelihood of it working, and whether he would need to have it done regularly. Patient voiced understanding of this. Objective Physical Examination General Exam: Positive: Alert, Cooperative, Moderate Distress Eye Exam: Positive: Conjunctiva & lids normal ENT Exam: Positive: Mucous membr. moist/pink Chest Exam: Positive: Clear to auscultation; Negative: Rales, Rhonchi, Wheezing Heart Exam: Positive: Rate Normal, Normal S1, Normal S2; Negative: Gallops, Murmurs, Rubs Abdomen Exam: Positive: Normal bowel sounds, Soft; Negative: Tenderness, Hepatospenomegaly, Mass Extremity Exam: Negative: Clubbing, Cyanosis, Edema, Tenderness, Swelling Skin Exam: Negative: Rash, Breakdown Neuro Exam: Positive: Normal Speech, Strength at 5/5 X4 ext Psych Exam: Positive: Oriented x 3 Assessment /Plan Assessment 1. Back pain with disc herniation and fragment. Pain management evaluated him yesterday and put him on schedule for today at 9 AM to have an epidural back injection for his intractable pain. They also vera mmended increasing how frequently he gets his Percocet and adding on an additional muscle relaxant (SOMA) at night. Currently his pain regimen consists of Neurontin, Percocet, Robaxin, Lidoderm patch, K pad. None of these have provided any pain relief. Continues to work with PT Orthopedics wants Mr. James to follow up outpatient to discuss possible surgical options. 2. Type 2 diabetes. -Sliding scale insulin, consistent carbohydrate diet. 3. Alcohol use. No evidence of withdrawal symptoms. Continue with Clinical [place] Withdrawal Assessment (CIWA) monitoring. 4. Tobacco abuse. -Cessation counseling provided. He declines offer for nicotine replacement therapy. 5. Deep vein thrombosis (DVT) prophylaxis. -Heparin. DISPOSITION: Pending epidural injection with pain management Plan/VTE VTE Prophylaxis Ordered?: Yes VS[facility]/I&O Vital Signs Date Time Temp Pulse Resp B/P (MAP) Pulse Ox O2 Delivery O2 Flow Rate FiO2 05/21/18 07:43 2.0 05/21/18 06:10 15 05/21/18 06:00 98.0 79 140/74 (96) 90 Nasal Cannula I&O- Last 24 Hours up to 6 AM 05/21/18 06:00 Intake Total 2790 ml Output Total 2900 ml Balance -110 ml Laboratory Data 24H LABS Laboratory Tests 2 05/20/18 11:57: Bedside Glucose (Misc Panel) 227H 05/20/18 17:37: Bedside Glucose (Misc Panel) 288H 05/20/18 20:08: Bedside Glucose (Misc Panel) 229H 05/21/18 06:36: Immature Granulocyte % (Auto) 0.6, White Blood Count 7.0, Red Blood Count 5.50, Hemoglobin 17.5, Hematocrit 50.8, Mean Corpuscular Volume 92.4, Mean Corpuscular Hemoglobin 31.8, Mean Corpuscular Hemoglobin Concent 34.4, Red Cell Distribution Width 12.6, Platelet Count 234, Neutrophils (%) (Auto) 63.5, Lymphocytes (%) (Auto) 24.2, Monocytes (%) (Auto) 8.5H, Eosinophils (%) (Auto) 2.8, Basophils (%) (Auto) 0.4, Neutrophils # (Auto) 4.5, Lymphocytes # (Auto) 1.7, Monocytes # (Auto) 0.6, Eosinophils # (Auto) 0.2, Basophils # (Auto) 0.0, Nucleated Red Blood Cells % (auto) 0.0, Anion Gap 6L, Glomerular Filtration Rate > 60.0, Blood Urea Nitrogen 13, Creatinine 0.73, Sodium Level 139, Potassium Level 4.1, Chloride Level 102, Carbon Dioxide Level 31, Calcium Level 8.3L 05/21/18 09:49: Bedside Glucose (Misc Panel) 187H CBC/BMP Laboratory Tests 05/21/18 06:36 Red Blood Count 5.50, Mean Corpuscular Volume 92.4, Mean Corpuscular Hemoglobin 31.8, Mean Corpuscular Hemoglobin Concent 34.4, Red Cell Distribution Width 12.6, Neutrophils (%) (Auto) 63.5, Lymphocytes (%) (Auto) 24.2, Monocytes (%) (Auto) 8.5 H, Eosinophils (%) (Auto) 2.8, Basophils (%) (Auto) 0.4, Neutrophils # (Auto) 4.5, Lymphocytes # (Auto) 1.7, Monocytes # (Auto) 0.6, Eosinophils # (Auto) 0.2, Basophils # (Auto) 0.0, Calcium Level 8.3 L GME ATTESTATION GME ATTESTATION My faculty preceptor for this patient encounter was physically present during the encounter and was fully available. All aspects of the patient interview, examination, medical decision making process, and medical care plan development were reviewed and approved by the faculty preceptor. The faculty preceptor is aware and concurs with the plan as stated in the body of this note and will attest to such by his/her cosignature. ANTHONY KIRKLAND DO May 21, 2018 10:35
--- NOTE | 2018-05-21 12:31 | REP ---
Partial lumbar spine series: Three views . History: Injection procedure for pain. 20 seconds of fluoroscopy time is reported. Findings: A sequence of three fluoroscopically obtained last image hold procedural spot radiographs of the lumbar spine document needle position and contrast injection associated with injection procedure. Electronically Signed by Yaron Carl MD 05/21/2018 12:22 P
[2018-05-21] MEDS: TIOTROPIUM INHALER/CAPSULE (SPIRIVA) INH SCH (12:54)
[2018-05-21] MEDS: SYMBICORT 80/4.5MCG INHALER 6GM INH SCH ×2 (12:54→21:21)
[2018-05-21 14:00] VITALS: BP 144/78
[2018-05-21] MEDS: CARISOPRODOL 350 MG TAB PO SCH (21:00)
[2018-05-21] MEDS: **NOTE PATIENT COMMENT** MISC XX SCH (21:02)
[2018-05-21 22:00] VITALS: BP 147/82
[2018-05-22] MEDS: GABAPENTIN 100 MG CAP PO SCH ×3 (05:07→22:02)
[2018-05-22] MEDS: PERCOCET 5MG/325MG TAB PO PRN ×2 (05:09→15:19)
[2018-05-22 06:00] VITALS: BP 145/82
[2018-05-22 06:20] LABS: BASO % 0.3 % (0.0-1.0); EOS % 0.1 % (0.0-3.0); HEMATOCRIT 51.9 % (42.0-52.0); HEMOGLOBIN 17.7 g/dl (13.5-17.5); LYMPH # 1.1 10^3/uL (1.5-4.5); LYMPH % 11.3 % (24.0-44.0); MEAN CORPUSCULAR HEMOGLOBIN 31.4 pg (27.0-33.0); MEAN CORPUSCULAR HGB CONC 34.1 g/dl (32.0-36.5); MEAN CORPUSCULAR VOLUME 92.2 fl (80.0-96.0); MONO # 0.5 10^3/uL (0.0-0.8); MONO % 5.1 % (0.0-5.0); NEUTROPHILS # 8.4 10^3/uL (1.8-7.7); NEUTROPHILS % 82.8 % (36.0-66.0); PLATELET COUNT, AUTOMATED 252 10^3/uL (150-450); RED BLOOD COUNT 5.63 10^6/uL (4.30-6.10); WHITE BLOOD COUNT 10.1 10^3/uL (4.0-10.0)
[2018-05-22 06:48] LABS: BLOOD UREA NITROGEN 17 MG/DL (7-18); CALCIUM LEVEL 9.1 MG/DL (8.5-10.1); CARBON DIOXIDE LEVEL 30 MEQ/L (21-32); CHLORIDE LEVEL 102 MEQ/L (98-107); GLOMERULAR FILTRATION RATE > 60.0 (>56); GLUCOSE, FASTING 291 MG/DL (70-100); POTASSIUM SERUM 4.9 MEQ/L (3.5-5.1); SODIUM LEVEL 137 MEQ/L (136-145)
[2018-05-22] MEDS: TIOTROPIUM INHALER/CAPSULE (SPIRIVA) INH SCH (08:00)
[2018-05-22] MEDS: THIAMINE 100 MG TAB PO SCH (08:57)
[2018-05-22] MEDS: LIDOCAINE 5% (LIDODERM) PATCH TD SCH (08:57)
[2018-05-22] MEDS: HumaLOG INSULIN (NovoLOG) PER UNIT SC SCH ×4 (08:57→22:03)
[2018-05-22] MEDS: FOLIC ACID 1 MG TAB PO SCH (08:57)
[2018-05-22] MEDS: MULTIVITAMINS CHILDREN'S CHEWABLE TABLET PO SCH (08:57)
[2018-05-22] MEDS: METHOCARBAMOL 750 MG TAB PO SCH ×3 (08:57→22:02)
--- NOTE | 2018-05-22 10:47 | IPNPDOC ---
Subjective Date Seen The patient was seen on 05/22/18. Subjective Chief Complaint/HPI No acute events overnight. Patient reports that he has had a significant reduction in pain at rest and is feeling better already. He reports he still has difficulty with activity but would like to continue working with physical therapy. He denies any fevers, chills, chest neck, shortness of breath, headache, dizziness. Denies any saddle anesthesia, loss of bowel or bladder. Objective Physical Examination General Exam: Positive: Alert, Cooperative, Moderate Distress Eye Exam: Positive: Conjunctiva & lids normal ENT Exam: Positive: Mucous membr. moist/pink Chest Exam: Positive: Clear to auscultation; Negative: Rales, Rhonchi, Wheezing Heart Exam: Positive: Rate Normal, Normal S1, Normal S2; Negative: Gallops, Murmurs, Rubs Abdomen Exam: Positive: Normal bowel sounds, Soft; Negative: Tenderness, Hepatospenomegaly, Mass Extremity Exam: Negative: Clubbing, Cyanosis, Edema, Tenderness, Swelling Skin Exam: Negative: Rash, Breakdown Neuro Exam: Positive: Normal Speech, Strength at 5/5 X4 ext Psych Exam: Positive: Oriented x 3 Assessment /Plan Assessment 1. Back pain with disc herniation and fragment. Patient went for epidural back injection yesterday and reported no problems before or after the procedure. He reports that already is pain at rest is improved and he feels with further work with physical therapy his pain with activity will improve as well. Currently his pain regimen consists of Neurontin, Percocet, Robaxin, SOMA, Lidoderm patch, and K pad. Physical therapy will continue to work with him today. Orthopedics wants Mr. James to follow up outpatient to discuss possible surgical options. 2. Type 2 diabetes. -Sliding scale insulin, consistent carbohydrate diet. 3. Alcohol use. No evidence of withdrawal symptoms. Continue with Clinical [place] Withdrawal Assessment (CIWA) monitoring. 4. Tobacco abuse. -Cessation counseling provided. He declines offer for nicotine replacement therapy. 5. Deep vein thrombosis (DVT) prophylaxis. -Heparin. DISPOSITION: Pending epidural injection with pain management Plan/VTE VTE Prophylaxis Ordered?: Yes VS, I&O, 24H, Fishbone Vital Signs/I&O Vital Signs Date Time Temp Pulse Resp B/P (MAP) Pulse Ox O2 Delivery O2 Flow Rate FiO2 05/22/18 06:00 97.5 89 18 145/82 (103) 93 05/22/18 05:09 Nasal Cannula 05/21/18 21:00 2.0 I&O- Last 24 Hours up to 6 AM 05/22/18 05:59 Intake Total 1440 ml Output Total 2600 ml Balance -1160 ml Laboratory Data 24H LABS Laboratory Tests 2 05/21/18 17:02: Bedside Glucose (Misc Panel) 263H 05/21/18 20:35: Bedside Glucose (Misc Panel) 286H 05/22/18 05:37: Immature Granulocyte % (Auto) 0.4, White Blood Count 10.1H, Red Blood Count 5.63, Hemoglobin 17.7H, Hematocrit 51.9, Mean Corpuscular Volume 92.2, Mean Corpuscular Hemoglobin 31.4, Mean Corpuscular Hemoglobin Concent 34.1, Red Cell Distribution Width 12.7, Platelet Count 252, Neutrophils (%) (Auto) 82.8H, Lymphocytes (%) (Auto) 11.3L, Monocytes (%) (Auto) 5.1H, Eosinophils (%) (Auto) 0.1, Basophils (%) (Auto) 0.3, Neutrophils # (Auto) 8.4H, Lymphocytes # (Auto) 1.1L, Monocytes # (Auto) 0.5, Eosinophils # (Auto) 0.0, Basophils # (Auto) 0.0, Nucleated Red Blood Cells % (auto) 0.0, Anion Gap 5L, Glomerular Filtration Rate > 60.0, Blood Urea Nitrogen 17, Creatinine 0.80, Sodium Level 137, Potassium Level 4.9, Chloride Level 102, Carbon Dioxide Level 30, Calcium Level 9.1 CBC/BMP Laboratory Tests 05/22/18 05:37 Red Blood Count 5.63, Mean Corpuscular Volume 92.2, Mean Corpuscular Hemoglobin 31.4, Mean Corpuscular Hemoglobin Concent 34.1, Red Cell Distribution Width 12.7, Neutrophils (%) (Auto) 82.8 H, Lymphocytes (%) (Auto) 11.3 L, Monocytes (%) (Auto) 5.1 H, Eosinophils (%) (Auto) 0.1, Basophils (%) (Auto) 0.3, Neutrophils # (Auto) 8.4 H, Lymphocytes # (Auto) 1.1 L, Monocytes # (Auto) 0.5, Eosinophils # (Auto) 0.0, Basophils # (Auto) 0.0, Calcium Level 9.1 GME ATTESTATION GME ATTESTATION My faculty preceptor for this patient encounter was physically present during the encounter and was fully available. All aspects of the patient interview, examination, medical decision making process, and medical care plan development were reviewed and approved by the faculty preceptor. The faculty preceptor is aware and concurs with the plan as stated in the body of this note and will attest to such by his/her cosignature. ANTHONY KIRKLAND DO May 22, 2018 10:47
[2018-05-22] MEDS: SYMBICORT 80/4.5MCG INHALER 6GM INH SCH ×2 (12:39→21:00)
[2018-05-22] MEDS: HEPARIN SOD (PORCINE) 5000 UNITS/ML VIAL SC SCH ×2 (14:09→22:02)
[2018-05-22] MEDS: **NOTE PATIENT COMMENT** MISC XX SCH (21:00)
[2018-05-22 22:00] VITALS: BP 134/56
[2018-05-22] MEDS: CARISOPRODOL 350 MG TAB PO SCH (22:02)
[2018-05-23] MEDS: PERCOCET 5MG/325MG TAB PO PRN ×2 (06:08→14:13)
[2018-05-23] MEDS: GABAPENTIN 100 MG CAP PO SCH ×2 (06:08→14:11)
[2018-05-23] MEDS: HEPARIN SOD (PORCINE) 5000 UNITS/ML VIAL SC SCH ×2 (06:09→14:00)
[2018-05-23 06:23] LABS: BASO % 0.2 % (0.0-1.0); EOS # 0.1 10^3/uL (0.0-0.50); EOS % 0.8 % (0.0-3.0); HEMATOCRIT 50.2 % (42.0-52.0); HEMOGLOBIN 17.1 g/dl (13.5-17.5); LYMPH # 1.6 10^3/uL (1.5-4.5); LYMPH % 18.2 % (24.0-44.0); MEAN CORPUSCULAR HEMOGLOBIN 31.5 pg (27.0-33.0); MEAN CORPUSCULAR HGB CONC 34.1 g/dl (32.0-36.5); MEAN CORPUSCULAR VOLUME 92.6 fl (80.0-96.0); MONO # 0.5 10^3/uL (0.0-0.8); MONO % 5.8 % (0.0-5.0); NEUTROPHILS # 6.4 10^3/uL (1.8-7.7); NEUTROPHILS % 74.6 % (36.0-66.0); PLATELET COUNT, AUTOMATED 238 10^3/uL (150-450); RED BLOOD COUNT 5.42 10^6/uL (4.30-6.10); WHITE BLOOD COUNT 8.5 10^3/uL (4.0-10.0)
[2018-05-23 06:43] LABS: BLOOD UREA NITROGEN 21 MG/DL (7-18); CALCIUM LEVEL 8.6 MG/DL (8.5-10.1); CARBON DIOXIDE LEVEL 28 MEQ/L (21-32); CHLORIDE LEVEL 102 MEQ/L (98-107); CREATININE FOR GFR 0.73 MG/DL (0.70-1.30); GLOMERULAR FILTRATION RATE > 60.0 (>56); GLUCOSE, FASTING 310 MG/DL (70-100); POTASSIUM SERUM 4.2 MEQ/L (3.5-5.1); SODIUM LEVEL 137 MEQ/L (136-145)
[2018-05-23] MEDS: TIOTROPIUM INHALER/CAPSULE (SPIRIVA) INH SCH (07:47)
[2018-05-23] MEDS: SYMBICORT 80/4.5MCG INHALER 6GM INH SCH (07:47)
[2018-05-23] MEDS: METHOCARBAMOL 750 MG TAB PO SCH (07:53)
[2018-05-23] MEDS: FOLIC ACID 1 MG TAB PO SCH (07:53)
[2018-05-23] MEDS: THIAMINE 100 MG TAB PO SCH (07:53)
[2018-05-23] MEDS: LIDOCAINE 5% (LIDODERM) PATCH TD SCH (07:54)
[2018-05-23] MEDS: MULTIVITAMINS CHILDREN'S CHEWABLE TABLET PO SCH (07:54)
[2018-05-23] MEDS: HumaLOG INSULIN (NovoLOG) PER UNIT SC SCH ×2 (07:55→12:38)
--- NOTE | 2018-05-23 09:29 | IPNPDOC ---
Subjective Date Seen The patient was seen on 05/23/18. Subjective Chief Complaint/HPI 57 y/o Male presenting with chief complaint of intractable low back pain. No acute events overnight. Patient is sitting up at the edge of the bed and reports that he continues to work with physical therapy and really wants to get moving around again. Was interested in walking down to the cafeteria today. He is still in pain when he stands straight up and still feels like he will need the pain medications to get around especially after he sits down after moving around. Denies any fevers, chills, chest pain, SOB, abdominal pain, nausea, vomiting, numbness/tingling, or loss of bowel/bladder control. Objective Physical Examination General Exam: Positive: Alert, Cooperative, No Acute Distress Eye Exam: Positive: Conjunctiva & lids normal, EOMI ENT Exam: Positive: Atraumatic, Mucous membr. moist/pink Chest Exam: Positive: Clear to auscultation; Negative: Rales, Wheezing Heart Exam: Positive: Rate Normal, Normal S1, Normal S2; Negative: Gallops, Murmurs, Rubs Abdomen Exam: Positive: Normal bowel sounds, Soft, Other (Palpation of his back does not elicit and tenderness presently.); Negative: Tenderness, Hepatospenomegaly, Mass Extremity Exam: Negative: Clubbing, Cyanosis, Edema, Tenderness, Swelling Skin Exam: Negative: Rash, Breakdown Neuro Exam: Positive: Normal Speech, Strength at 5/5 X4 ext Psych Exam: Positive: Mood NL, Oriented x 3 Assessment /Plan Assessment 1. Back pain with disc herniation and fragment. Patient went for epidural back injection. He reports that already is pain at rest is improved and he feels with further work with physical therapy his pain with activity will improve as well. He has improved substantially since the injection and is much more mobile than he was previously and is more interested in physical activity. - Currently his pain regimen consists of Neurontin, Percocet, Robaxin, SOMA, Lidoderm patch, and K pad. Physical therapy will continue to work with him today. Orthopedics wants Mr. James to follow up outpatient to discuss possible surgical options. 2. Type 2 diabetes. -Sliding scale insulin, consistent carbohydrate diet. 3. Alcohol use. No evidence of withdrawal symptoms. Continue with Clinical [place] Withdrawal Assessment (CIWA) monitoring. 4. Tobacco abuse. -Cessation counseling provided. He declines offer for nicotine replacement therapy. 5. Deep vein thrombosis (DVT) prophylaxis. -Heparin. DISPOSITION: pending PT clearance Plan/VTE VTE Prophylaxis Ordered?: Yes VS, I&O, 24H, Fishbone Vital Signs/I&O Vital Signs Date Time Temp Pulse Resp B/P (MAP) Pulse Ox O2 Delivery O2 Flow Rate FiO2 05/23/18 06:38 16 05/23/18 06:00 97.3 99 90 Room Air 05/22/18 22:00 134/56 (82) 05/22/18 21:00 2.0 I&O- Last 24 Hours up to 6 AM 05/23/18 06:00 Intake Total 380 ml Output Total 1700 ml Balance -1320 ml Laboratory Data 24H LABS Laboratory Tests 2 05/22/18 11:46: Bedside Glucose (Misc Panel) 270H 05/22/18 17:30: Bedside Glucose (Misc Panel) 303H 05/22/18 20:09: Bedside Glucose (Misc Panel) 376H 05/23/18 05:43: Immature Granulocyte % (Auto) 0.4, White Blood Count 8.5, Red Blood Count 5.42, Hemoglobin 17.1, Hematocrit 50.2, Mean Corpuscular Volume 92.6, Mean Corpuscular Hemoglobin 31.5, Mean Corpuscular Hemoglobin Concent 34.1, Red Cell Distribution Width 12.7, Platelet Count 238, Neutrophils (%) (Auto) 74.6H, Lymphocytes (%) (Auto) 18.2L, Monocytes (%) (Auto) 5.8H, Eosinophils (%) (Auto) 0.8, Basophils (%) (Auto) 0.2, Neutrophils # (Auto) 6.4, Lymphocytes # (Auto) 1.6, Monocytes # (Auto) 0.5, Eosinophils # (Auto) 0.1, Basophils # (Auto) 0.0, Nucleated Red Blood Cells % (auto) 0.0, Anion Gap 7L, Glomerular Filtration Rate > 60.0, Blood Urea Nitrogen 21H, Creatinine 0.73, Sodium Level 137, Potassium Level 4.2, Chloride Level 102, Carbon Dioxide Level 28, Calcium Level 8.6 CBC/BMP Laboratory Tests 05/23/18 05:43 Red Blood Count 5.42, Mean Corpuscular Volume 92.6, Mean Corpuscular Hemoglobin 31.5, Mean Corpuscular Hemoglobin Concent 34.1, Red Cell Distribution Width 12.7, Neutrophils (%) (Auto) 74.6 H, Lymphocytes (%) (Auto) 18.2 L, Monocytes ( %) (Auto) 5.8 H, Eosinophils (%) (Auto) 0.8, Basophils (%) (Auto) 0.2, Neutrophils # (Auto) 6.4, Lymphocytes # (Auto) 1.6, Monocytes # (Auto) 0.5, Eosinophils # (Auto) 0.1, Basophils # (Auto) 0.0, Calcium Level 8.6 GME ATTESTATION GME ATTESTATION My faculty preceptor for this patient encounter was physically present during the encounter and was fully available. All aspects of the patient interview, examination, medical decision making process, and medical care plan development were reviewed and approved by the faculty preceptor. The faculty preceptor is aware and concurs with the plan as stated in the body of this note and will attest to such by his/her cosignature. ANTHONY KIRKLAND DO May 23, 2018 09:29
[2018-05-23] MEDS ORDERED: METH75TA PO (13:23)
[2018-05-23] MEDS ORDERED: LIDO5TD TD (13:23)
[2018-05-23] MEDS ORDERED: CARI1TAB7 PO ×5 (13:23→14:27)
[2018-05-23] MEDS ORDERED: GABA-1171 PO (13:23)
[2018-05-23 14:00] VITALS: BP 133/69
--- NOTE | 2018-05-25 18:13 | DS.PDOC ---
Discharge Summary General Date of Admission May 17, 2018 at 19:43 Date of Discharge 05/23/18 Primary Care Physician: Susanna Dominguez Attending Physician: LUCIA SUAREZ DO Specialist/Consultants Involve: FIDELIA CASTLE MD Discharge Summary PROCEDURES PERFORMED DURING STAY: [None]. ADMITTING/DISCHARGE DIAGNOSES: Disc herniation and extrusion Type 2 diabetes Hypertension Dyslipidemia COPD Alcohol abuse disorder History of right rotator cuff injury COMPLICATIONS/CHIEF COMPLAINT: Intractable Low Back Pain. HISTORY OF PRESENT ILLNESS: 57 y/o male presents for intractable LBP began Apr 23 2018 after long car ride to [place]. Has progressively been getting worse, this morning so bad he couldn't bear weight on right leg due to pain radiating down back side from low back, middle. Decided to come to ED. No history of trauma. No numbness in legs/arms, no paralysis. Weakness in right leg as described above with pain shooting down back side of leg to toes, sharp pain, electrical in nature. No loss of bowel or urine, no groin numbness. No fevers, muscle aches or chills, no night sweats, no constipation/diarrhea,n/v, no pain with urination nor blood in urine or stool, no abdominal pain. No syncope episodes, denies dizziness. No headache or change in vision, no new neck pain to report. States low back pain is middle center lumbar spine. Any movement of his body seems to make it worse, sitting in wheel chair, unable to bend forward for exam of low back due to pain. Appears very uncomfortable. No swelling of extremities, no new rashes to report. No CP, no SOB, no heart palpations. HOSPITAL COURSE: On hospital stay day 1 patient was placed on an aggressive pain management regimen, despite this the patient's pain continued to be uncontrolled so orthopedic surgery was consulted for evaluation. They deemed surgical intervention at this time was not appropriate at the patient should continue conservative management with pain management and rehabilitation. Despite the patient's aggressive pain regimen his low back pain did not improve. Pain management was consulted and they recommended adjustment of the patient's pain medications and the patient was scheduled to undergo an epidural steroid injection on 05/21/18. Over the course of next 2 days after the epidural, the patient's functional status improved and his pain came under control. Discharge delayed pending physical therapy clearance. DISCHARGE MEDICATIONS: Please see below. ALLERGIES: Please see below. PHYSICAL EXAMINATION ON DISCHARGE: VITAL SIGNS: Please see below. GENERAL: Alert, oriented, no acute distress HEENT: Normocephalic, atraumatic. EOMI. No pharyngeal erythema. CARDIOVASCULAR EXAMINATION: RRR. Normal S1 and S2. No murmurs, gallops, rubs. RESPIRATORY EXAMINATION: CTAB with full breath sounds bilaterally. Symmetric thorax. No wheezes, crackles, rhonchi. ABDOMINAL EXAMINATION: Obese abdomen. Soft, nontender, nondistended. Bowel sounds present. EXTREMITIES: No swelling or peripheral edema. SKIN: Normal skin turgor and temperature. NEUROLOGICAL EXAMINATION: Speech normal. CN IIXII grossly intact. Strength +5/5 in UE and LE bilaterally PSYCHIATRIC EXAMINATION: Normal mood LABORATORY DATA: Please see below. IMAGIN05/17/[address]: CT can not rule out a disc extrusion. There is air density in the L4-5 disc space consistent with vacuum phenomenon from degenerative disc disease. A disc extrusion can not be ruled out at that level. Vertebral body height and alignment and is within normal limits. There is no evidence of a fracture. There are degenerative changes seen involving all lumbar facet joints bilaterally. There are degenerative changes seen involving the suprailiac joints anteriorly with partial fusion. Broad based annular bulges are seen at every lumbar level and likely causing varying degrees of central canal stenosis at the L3-4 through L5-S1 levels. Impression: CT cannot rule out disc extrusion. Chronic changes as described above. 05/17/18 lumbar spine MRI: 1. Mottled heterogeneous low signal throughout the lumbar vertebrae. Finding suggests underlying myeloproliferative disorder or chronic anemia. Clinical correlation needed. 2. Disc space narrowing at L4-5. Inferiorly extruded disc fragment in the right paracentral subarachnoid space extends 1.1 cm inferior to the superior endplate of L5, possibly sequestered, and compresses the right lateral aspect of the thecal sac. Also noted is a left paracentral disc herniation which effaces the left side of the thecal sac and markedly narrows the proximal left neuroforamen with impingement of the exiting L4 nerve on the left. Both disc herniations resulting in marked compression of the traversing nerve roots. 3. There is a moderate central spinal stenosis at L2-3 secondary to diffuse annular bulging, facet joint arthropathy and epidural lipomatosis posteriorly. 4. There is a mild central spinal stenosis at L3-4 secondary to diffuse annular bulging, thickened ligamentum flavum and facet joint arthropathy 05/21/18 facet joint injection x-ray: Findings: A sequence of three fluoroscopically obtained last image hold procedural spot radiographs of the lumbar spine document needle position and contrast injection associated with injection procedure. PROGNOSIS: [good] ACTIVITY: [As tolerated]. DIET: [As tolerated] DISCHARGE PLAN: [home] DISPOSITION: 01 Home, Self-Care. DISCHARGE INSTRUCTIONS: 1. Please follow up with orthopedics in the next week 2. Please follow up with PCP in the next week DISCHARGE CONDITION: [Stable]. TIME SPENT ON DISCHARGE: Greater than [30] minutes. Vital Signs/I&Os Vital Signs Date Time Temp Pulse Resp B/P (MAP) Pulse Ox O2 Delivery O2 Flow Rate FiO2 05/23/18 14:13 18 Room Air 05/23/18 14:00 98.3 96 133/69 (90) 91 05/22/18 21:00 2.0 Discharge Medications Scheduled (Stiolto Respimat 2.5-2.5 Mcg/Act) 1 Aer Aer, 2 PUFFS INH DAILY, (Reported) (Arnuity Ellipta) 200 Mcg/Act Inh, 1 PUFF INH DAILY, (Reported) Acetaminophen/Hydrocodone (Hydrocodone/Acetaminophen 10-325 mg) 1 Tab Tab, 1 TAB PO TID, (Reported) Carisoprodol (Carisoprodol) 350 Mg Tab, 350 MG PO QHS Gabapentin (Gabapentin) 100 Mg Cap, 200 MG PO Q8H Lidocaine (Lidocaine) 5 % Pad, 1 PATCH TD DAILY Metformin Hydrochloride (Metformin HCl) 1,000 Mg Tab, 1,000 MG PO BID, (Repor sunni) Methocarbamol (Methocarbamol) 750 Mg Tab, 1,500 MG PO TID Multivitamins Chewable *[facility] STOCKED* (Animal Shapes with C & FA *[facility] STOCKED*) 1 Tab Chew, 1 TAB PO DAILY, (Reported) Naproxen (Naproxen) 500 Mg Tab, 500 MG PO BID, (Reported) Scheduled PRN Albuterol Sulfate (Ventolin Hfa) 108 Mcg/Act Aer, 2 PUFFS INH QID PRN for SHORTNESS OF BREATH, (Reported) Docusate Sodium (Docusate Sodium) 100 Mg Cap, 200 MG PO BID PRN for CONSTIPATION, (Reported) Allergies Coded Allergies: No Known Allergies (Verified Allergy, Unknown, 06/16/05) GME ATTESTATION GME ATTESTATION My faculty preceptor for this patient encounter was physically present during the encounter and was fully available. All aspects of the patient interview, examination, medical decision making process, and medical care plan development were reviewed and approved by the faculty preceptor. The faculty preceptor is aware and concurs with the plan as stated in the body of this note and will attest to such by his/her cosignature. ANTHONY KIRKLAND DO May 25, 2018 18:13
== END 2018-05-23 14:55 | disposition home or self-care (01) | DRG 347 ==
LOC: M ED 12:15 → M ED INP 19:43 → M MS5PR 21:33
PROVIDERS: ADMIT Hospitalist; ATTEND Internal Medicine
PROC: 3E0R3HZ Introduction of Radioactive Substance into Spinal Canal, Percutaneous Approach (ICD-10-PCS; principal; 2018-05-21)
DX: M51.26 Other intervertebral disc displacement, lumbar region (principal); I10 Essential (primary) hypertension; E11.9 Type 2 diabetes mellitus without complications; E78.5 Hyperlipidemia, unspecified; J44.9 Chronic obstructive pulmonary disease, unspecified; F10.10 Alcohol abuse, uncomplicated; Z79.899 Other long term (current) drug therapy; F17.210 Nicotine dependence, cigarettes, uncomplicated

== ENCOUNTER → 2018-05-21 | Outpatient (CLI) | payer OTHER ==
[~2018-05-21] MED LIST changes: +ARNU1INH3 INH; +CARI1TAB7 PO; +CYCL10TA PO; +DOCU100C16 PO; +GABA-1171 PO; +HYDR-3719; +HYDR-3719 PO; +LASI20TA3 PO; +LIDO5TD TD; +METH75TA PO; -NAPR-49 PO; +NAPR-50 PO; +NAPR-885 PO; +PERC5TAB12 PO; +SOMA350T PO; +STIO1AER INH; +TRAM50TA2 PO; +VENTAER INH
--- NOTE | 2018-06-04 23:12 | ECWPNPC ---
PATIENT NAME: GRANT LIN : 1960 GENDER: MALE VISIT DATE: 05/21/2018 DISCHARGE DATE: 05/21/18733 VISIT LOCKED DATE TIME: PHYSICIAN: FRANCESCA WALTON MD RESOURCE: FRANCESCA WALTON MD REASON FOR APPOINTMENT 1. INPATIENT-LESI CURRENT MEDICATIONS TAKING HUMALOG 100 UNIT/ML SOLUTION PER SLIDING SCALE SUBCUTANEOUS WITH MEALS, NOTES: 0806 TAKING NEURONTIN 100 MG CAPSULE 2 CAPSULES ORALLY THREE TIMES A DAY, NOTES: 0539 TAKING ROBAXIN-750 750 MG TABLET 2 TABLETS ORALLY TID, NOTES: 0807 TAKING SOMA 350 MG TABLET 1 TABLET NEEDED ORALLY BEFORE BEDTIME, NOTES: HAS NOT TAKEN YET TAKING FOLIC ACID 1 MG TABLET 1 TABLET ORALLY ONCE A DAY, NOTES: 08 TAKING FRUITY CHEWS - TABLET CHEWABLE 1 TABLET ORALLY DAILY, NOTES: 0806 TAKING THIAMINE HCL 100 MG TABLET 1 TABLET ORALLY ONCE A DAY, NOTES: 08 TAKING LIDOCAINE 5 % PATCH 1 PATCH TO SKIN REMOVE AFTER 12 HOURS EXTERNALLY ONCE A DAY, NOTES: 08 TAKING HEPARIN SODIUM (PORCINE) 5000 UNIT/ML SOLUTION INJECTION Q8H, NOTES: 05/20/18 1506 TAKING PERCOCET 5-325 MG TABLET 1 OR 2 TABLET NEEDED ORALLY EVERY 6 HRS, NOTES: 0540 TAKING ALBUTEROL SULFATE HFA 108 (90 BASE) MCG/ACT AEROSOL SOLUTION 2 PUFFS NEEDED INHALATION EVERY 6 HRS, NOTES: 0253 TAKING SPIRIVA HANDIHALER 18 MCG CAPSULE 1 CAPSULE INHALATION ONCE A DAY, NOTES: NOT TAKEN YET TAKING SYMBICORT 80-4.5 MCG/ACT AEROSOL 2 PUFFS INHALATION TWICE A DAY, NOTES: 05/20/18 2216 ALLERGIES NO[ALLERGIES VERIFIED] VITAL SIGNS WT 300 LBS, HT 72 IN, BMI 40.68 INDEX, BP 139/83 MM HG, HR 75 /MIN, RR 18 /MIN, TEMP 97.6 F, OXYGEN SAT % 92%, BLOOD GLUCOSE LEVEL 187 @ 0945, NA INITIALS AW 0916, REVIEWED BY: ALIS. ASSESSMENTS SPINAL STENOSIS OF LUMBAR REGION, UNSPECIFIED WHETHER NEUROGENIC CLAUDICATION PRESENT - M48.061 (PRIMARY) PROCEDURES PRE PROCEDURE DIAGNOSIS LUMBAR SPINAL STENOSIS POST PROCEDURE DIAGNOSIS LUMBAR SPINAL STENOSIS PROCEDURE LUMBAR EPIDURAL STEROID INJECTION UNDER FLUOROSCOPIC GUIDANCE SURGEON DR. FRANCESCA WALTON [employer] SUPERVISOR NONE ANESTHESIA LOCAL PRE PROCEDURE NOTE PATIENT WITH A HISTORY OF CHRONIC LOW BACK PAIN. I EVALUATED THE PATIENT AND REVIEWED THE CHART. I WENT OVER THE RISKS, ALTERNATIVES, AND BENEFITS ASSOCIATED WITH THIS PROCEDURE. THE PATIENT WOULD LIKE TO PROCEED AND GAVE CONSENT TO PERFORM THE PROCEDURE. THE PATIENT DENIES UNEXPLAINABLE WEIGHT LOSS, FEVER, CHILLS, OR NEW CHANGES IN URINARY OR BOWEL CONTROL DESCRIPTION OF PROCEDURE THE PATIENT WAS BROUGHT TO THE PROCEDURE ROOM AND PLACED IN THE PRONE POSITION. THE LUMBOSACRAL AREA WAS CLEANED WITH BETADINE SOLUTION AND DRAPED ASEPTICALLY. THE PROCEDURE WAS DONE UNDER STERILE CONDITIONS. I CHECKED LATERALITY AND THE LEVEL WHERE THE PROCEDURE WAS GOING TO BE PERFORMED WITH THE PATIENT AND THE SUPPORTING STAFF AT THE MOMENT OF THE TIME OUT IN THE PROCEDURE ROOM. UNDER FLUOROSCOPIC GUIDANCE, THE TARGET POINT WAS SELECTED AT THE INTERLAMINAR LEVEL OF L4-L5. LIDOCAINE WAS USED TO NUMB THE SKIN AND THE SUBCUTANEOUS TISSUE BELOW IT. EPIDURAL TUOHY NEEDLE, 17-GAUGE, WAS ADVANCED UNDER FLUOROSCOPIC GUIDANCE AND FOLLOWING PATIENT FEEDBACK UNTIL THE EPIDURAL SPACE WAS REACHED, 7 CM DEEP INTO THE SKIN BY THE LOSS OF RESISTANCE TECHNIQUE. ISOVUE M DYE 30%, 0.25 ML, WAS INJECTED SHOWING ADEQUATE SPREAD OF THE DYE. THEN, A SOLUTION OF 3 ML OF NORMAL SALINE WITH DEPO-MEDROL 60 MG WAS INJECTED SLOWLY FOLLOWING PATIENT FEEDBACK. THERE WAS NO EVIDENCE OF BLOOD, PARESTHESIA OR CEREBROSPINAL FLUID DURING THE PROCEDURE. THE PATIENT WAS SENT TO THE RECOVERY ROOM. THE PATIENT WAS MOVING THE EXTREMITIES AND DOING WELL. THERE WAS NO COMPLICATION DURING THE PROCEDURE. FLUOROSCOPY TIME WAS 20 SECONDS POST PROCEDURE NOTE THE PATIENT WILL BE SEEN IN A FOLLOW UP IN THE NEXT FEW WEEKS. INSTRUCTIONS WERE GIVEN, QUESTIONS WERE ANSWERED, AND THE PATIENT EXPRESSED UNDERSTANDING AND AGREED WITH THE PLAN. I, KADE ZULETA, DOCUMENTED THE ABOVE INFORMATION ACTING A SCRIBE FOR DR. WALTON. I HAVE REVIEWED THE ABOVE DOCUMENT, WRITTEN BY KADE ZULETA SCRIBE AND I VERIFY THAT IT IS ACCURATE PROCEDURE CODES 6045F RADXPS IN END [id number] PXD [id number] LUMBAR/SACRAL W/ IMAGING DISPOSITION & COMMUNICATION FOLLOW UP 3 WEEKS ELECTRONICALLY SIGNED BY FRANCESCA WALTON MD, MD ON 06/04/2018 AT 06:01 PM EST DISCLAIMER : THIS IS A VISIT SUMMARY EXTRACTED FROM THE [employer] CHART. IT IS NOT A COPY OF THE [employer] PROGRESS NOTE. [facility]
== END ==
LOC: M PAIN 09:00
PROVIDERS: ATTEND Anesthesiology
DX: G89.29 Other chronic pain (principal); M48.061 Spinal stenosis, lumbar region without neurogenic claudication
CPT/HCPCS: 62323; J1030; Q9967

== ENCOUNTER 2018-06-10 10:28 | Emergency (ER) | payer OTHER ==
[~2018-06-10] VITALS: Ht 182.9 cm; Wt 136.4 kg
[~2018-06-10 10:28] MED LIST changes: -CYCL10TA PO; -LASI20TA3 PO; -PERC5TAB12 PO; -SOMA350T PO; -TRAM50TA2 PO
[2018-06-10 10:29] VITALS: BP 179/81
[2018-06-10] MEDS ORDERED: TRAM50TA2 PO (10:38)
[2018-06-10] MEDS ORDERED: HYDROMORPHONE HCL 0.5 MG/ 0.5 ML SYRINGE (J1170 PER 1) IV ONE (11:15)
[2018-06-10] MEDS ORDERED: PERC5TAB12 PO (11:44)
== END 2018-06-10 11:50 | disposition home or self-care (01) ==
LOC: M ED 10:28
DX: M54.5 Low back pain (principal); M54.9 Dorsalgia, unspecified; M54.41 Lumbago with sciatica, right side; I50.9 Heart failure, unspecified; E11.9 Type 2 diabetes mellitus without complications; K21.9 Gastro-esophageal reflux disease without esophagitis; J44.9 Chronic obstructive pulmonary disease, unspecified; F17.200 Nicotine dependence, unspecified, uncomplicated
CPT/HCPCS: 96374; 99282; J1170

== ENCOUNTER 2018-06-12 09:06 | Emergency (ER) | payer OTHER ==
[~2018-06-12] VITALS: Ht 182.9 cm; Wt 136.4 kg
[~2018-06-12 09:06] MED LIST changes: +PERC5TAB12 PO; +TRAM50TA2 PO
[2018-06-12] MEDS ORDERED: SOMA350T PO (09:23)
[2018-06-12] MEDS ORDERED: CYCL10TA PO (09:23)
[2018-06-12 09:59] LABS: BASO % 0.6 % (0.0-1.0); EOS # 0.2 10^3/uL (0.0-0.50); EOS % 2.4 % (0.0-3.0); HEMATOCRIT 50.6 % (42.0-52.0); HEMOGLOBIN 17.5 g/dl (13.5-17.5); LYMPH # 1.5 10^3/uL (1.5-4.5); LYMPH % 23.1 % (24.0-44.0); MEAN CORPUSCULAR HEMOGLOBIN 31.9 pg (27.0-33.0); MEAN CORPUSCULAR HGB CONC 34.6 g/dl (32.0-36.5); MEAN CORPUSCULAR VOLUME 92.3 fl (80.0-96.0); MONO # 0.7 10^3/uL (0.0-0.8); MONO % 10.2 % (0.0-5.0); NEUTROPHILS % 63.4 % (36.0-66.0); PLATELET COUNT, AUTOMATED 255 10^3/uL (150-450); RED BLOOD COUNT 5.48 10^6/uL (4.30-6.10); WHITE BLOOD COUNT 6.4 10^3/uL (4.0-10.0)
--- NOTE | 2018-06-12 10:24 | REP ---
Chest two views HISTORY: Chest pain Comparison: 06/06/2018 The lungs are clear. The heart is normal in size. The pulmonary vasculature is normal in appearance. The bony structure is intact. IMPRESSION: No acute disease. Electronically Signed by Mc Mckeon MD 06/12/2018 10:15 A
[2018-06-12 10:36] LABS: ALBUMIN 3.1 GM/DL (3.2-5.2); ALT/SGPT 30 U/L (12-78); BILIRUBIN,DIRECT 0.1 MG/DL (0.0-0.2); BILIRUBIN,TOTAL 0.5 MG/DL (0.2-1.0); BLOOD UREA NITROGEN 11 MG/DL (7-18); CARBON DIOXIDE LEVEL 30 MEQ/L (21-32); CHLORIDE LEVEL 102 MEQ/L (98-107); CPK CREATINE PHOSPHOKINASE 63 U/L (39-308); CREATININE FOR GFR 0.75 MG/DL (0.70-1.30); GLOMERULAR FILTRATION RATE > 60.0 (>56); GLUCOSE, FASTING 172 MG/DL (70-100); MB/CK RELATIVE INDEX 3.97 (< OR =4); NT-PRO BNP 216 PG/ML (<125); POTASSIUM SERUM 4.2 MEQ/L (3.5-5.1); SODIUM LEVEL 139 MEQ/L (136-145); TOTAL PROTEIN 7.3 GM/DL (6.4-8.2); TROPONIN I < 0.02 NG/ML (< 0.10)
--- NOTE | 2018-06-12 11:05 | REP ---
Bilateral lower extremity Duplex Doppler venous ultrasound: Real time compression and duplex Doppler interrogation of the bilateral lower extremity deep venous system is performed. Bilaterally, the common femoral, superficial femoral and popliteal veins are fully compressible with transducer pressure and demonstrate normal spontaneous and phasic flow, without evidence of deep venous thrombosis. Impression: No evidence of deep venous thrombosis of the bilateral lower extremity femoral popliteal venous system. Electronically Signed by Power Ritchie MD 06/12/2018 10:56 A
[2018-06-12] MEDS ORDERED: FUROSEMIDE 20 MG/2 ML VIAL (J1940) IV ONE (11:15)
[2018-06-12] MEDS ORDERED: LASI20TA3 PO (11:17)
[2018-06-12 11:22] VITALS: BP 134/79
== END 2018-06-12 11:32 | disposition home or self-care (01) ==
LOC: M ED 09:06
DX: R60.0 Localized edema (principal); E11.9 Type 2 diabetes mellitus without complications; I50.9 Heart failure, unspecified; K21.9 Gastro-esophageal reflux disease without esophagitis; F10.11 Alcohol abuse, in remission; Z79.899 Other long term (current) drug therapy; F17.210 Nicotine dependence, cigarettes, uncomplicated
CPT/HCPCS: 36415; 71046; 80048; 80076; 82550; 82553; 83880; 85025; 93970; 96374; 99284; J1940

== ENCOUNTER → 2018-06-13 | Day surgery (SDC) | payer OTHER ==
[~2018-06-13] VITALS: Ht 182.9 cm; Wt 118.4 kg
[~2018-06-13] MED LIST changes: +CYCL10TA PO; +GABAPENTIN 300 MG CAP PO ONE; +LASI20TA3 PO; +LIDOCAINE 1% MDV 20ML VIAL SQ PRN; +LR 1,000 ML IV ONE; +PERCOCET 5MG/325MG TAB PO ONE; +SOMA350T PO; +ceFAZolin SOD 1 GM in D5W MINI-BAG PLUS 50 ML IV ONE
[2018-06-13 07:56] VITALS: BP 129/75
== END | disposition home or self-care (01) ==
LOC: M SDC 07:27
PROVIDERS: ATTEND Orthopaedic Surgery
DX: M51.26 Other intervertebral disc displacement, lumbar region (principal); R60.0 Localized edema; Z53.09 Procedure and treatment not carried out because of other contraindication

== ENCOUNTER 2018-10-25 22:15 | Emergency (ER) | payer OTHER ==
[~2018-10-25] VITALS: Ht 182.9 cm; Wt 131.4 kg
[~2018-10-25 22:15] MED LIST changes: -/MOXI40TA OR; -/TIOT18INH INH; +AVEL1TAB2 OR; -GABAPENTIN 300 MG CAP PO ONE; -LIDOCAINE 1% MDV 20ML VIAL SQ PRN; -LR 1,000 ML IV ONE; -NAPR-50 PO; +NAPR-837 PO; -PERCOCET 5MG/325MG TAB PO ONE; +PRED-351 PO; -PRED10TA PO; +SPIR1CAP INH; -ceFAZolin SOD 1 GM in D5W MINI-BAG PLUS 50 ML IV ONE
[2018-10-25] MEDS ORDERED: FURO20TA2 PO (22:21)
[2018-10-25] MEDS ORDERED: METO1TAB87 PO (22:21)
[2018-10-25] MEDS ORDERED: HYDR-3719 PO (22:21)
[2018-10-25] MEDS ORDERED: POTA1TAB21 PO (22:21)
[2018-10-25] MEDS ORDERED: MAGNESIUM CITRATE 300 ML BTL PO ONE (23:45)
[2018-10-25] MEDS ORDERED: FLEET ENEMA PR ONE (23:45)
[2018-10-26 01:02] VITALS: BP 140/85
--- NOTE | 2018-10-26 08:53 | REP ---
Clinical: Constipation and abdominal pain. Technique: Upright view of the chest with supine and upright views of the abdomen and pelvis. Findings: Frontal upright view of the chest demonstrates no acute cardiopulmonary process or free air below the diaphragm to suspect pneumoperitoneum. Supine and upright views of the abdomen and pelvis demonstrate nonspecific bowel gas pattern without obstruction or perforation. No organomegaly. No abnormal calcifications. Skeletal structures normal for age. Impression: Nonspecific bowel gas pattern. Electronically Signed by Lan Harrison MD 10/26/2018 08:45 A
== END 2018-10-26 01:05 | disposition home or self-care (01) ==
LOC: M ED 22:15
DX: K59.00 Constipation, unspecified (principal); I50.9 Heart failure, unspecified; E11.9 Type 2 diabetes mellitus without complications; J44.9 Chronic obstructive pulmonary disease, unspecified; Z79.899 Other long term (current) drug therapy; Z79.84 Long term (current) use of oral hypoglycemic drugs; F10.11 Alcohol abuse, in remission; F17.210 Nicotine dependence, cigarettes, uncomplicated

== ENCOUNTER → 2018-12-07 | Outpatient (CLI) | payer OTHER ==
[~2018-12-07] MED LIST changes: +FURO20TA2 PO; +METH750T2 PO; -METH75TA PO; +METO1TAB87 PO; -OMEP20CA3 PO; +OMEP20CA4 PO; +POTA1TAB21 PO
--- NOTE | 2018-12-09 16:16 | SLEEPCENT ---
DATE OF PROCEDURE: 12/07/2018 ORDERED BY: Dr. Augustine Nocturnal polysomnography was performed for the titration of pressure therapy in this patient with obstructive sleep apnea syndrome. Apnea-hypopnea index 21.5. For testing a Eleni, Simplus full-face mask of medium size was used; 4 cm of water pressure were applied to the circuit and the lights were extinguished. 6 hours and 45 minutes of data were reviewed. There were 330 minutes of sleep identified. Sleep latency was normal at 9 minutes. Rapid eye movement (REM) latency was normal at 61.5 minutes. Sleep architecture was good with 3 REM cycles. Overall sleep efficiency 83.7%. The electrocardiogram showed a sinus rhythm with an average heart rate of 70 beats per minute. Electroencephalogram (EEG) showed normal waveforms for awake and sleep. Respiratory events were fully palliated with CPAP at a pressure +17. There was significant limb activity particularly early in the study. Limb movement arousal index was 8.5. IMPRESSION: Obstructive sleep apnea syndrome (G47.33). RECOMMENDATIONS: Nightly use of pressure therapy 17 cm of water.
== END ==
LOC: M SLEEP 20:00
PROVIDERS: ATTEND Internal Medicine Pulmonary Disease
DX: G47.33 Obstructive sleep apnea (adult) (pediatric) (principal)

== ENCOUNTER 2020-09-06 10:21 | Inpatient (IN) | payer OTHER ==
[~2020-09-06] VITALS: Ht 182.9 cm; Wt 135.1 kg
[~2020-09-06 10:21] MED LIST changes: +CYCL-707 PO; -CYCL10TA PO; +METH-1165 PO; -METH750T2 PO; +OMEP1CAP73 PO; -OMEP20CA4 PO
--- NOTE | 2020-09-06 11:26 | REP ---
INDICATION: diabetic wound R dorsal foot COMPARISON: None. TECHNIQUE: AP, lateral, bilateral oblique views right foot. FINDINGS: Generalized osteoarthritic degenerative changes are appreciated primarily involving the 1st toe. No acute fracture or dislocation identified. No subcutaneous emphysema or foreign body. Ulceration underlying the ball of the foot cannot be excluded. No obvious periosteal reaction to suggest osteomyelitis by current radiographic evaluation. IMPRESSION: Degenerative changes. No acute fracture.. Given history of ulceration along the dorsal aspect of the foot noted. No obvious evidence for osteomyelitis by radiographic evaluation. <Electronically signed by Lan Harrison > 09/06/20 112
[2020-09-06 11:38] LABS: BASO % 0.3 % (0.0-1.0); EOS % 0.3 % (0.0-3.0); HEMATOCRIT 52.2 % (42.0-52.0); HEMOGLOBIN 18.1 g/dl (13.5-17.5); LYMPH # 1.2 10^3/uL (1.5-5.0); MEAN CORPUSCULAR HEMOGLOBIN 32.5 pg (27.0-33.0); MEAN CORPUSCULAR HGB CONC 34.7 g/dl (32.0-36.5); MEAN CORPUSCULAR VOLUME 93.7 fl (80.0-96.0); MONO # 0.9 10^3/uL (0.0-0.8); MONO % 9.9 % (2.0-8.0); NEUTROPHILS # 7.2 10^3/uL (1.5-8.5); PLATELET COUNT, AUTOMATED 204 10^3/uL (150-450); RED BLOOD COUNT 5.57 10^6/uL (4.30-6.10); WHITE BLOOD COUNT 9.5 10^3/uL (4.0-10.0)
--- NOTE | 2020-09-06 11:39 | REP ---
INDICATION: r/o DVT RLE COMPARISON: None. TECHNIQUE: Ritchie scale and color Doppler evaluation using linear high frequency transducer. FINDINGS: Ultrasound examination of the right lower extremity deep venous structures from the common femoral vein to the popliteal vein demonstrates normal compressibility flow and wave patterns in response to respiration and augmentation. There is no evidence for deep venous thrombosis. 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 IMPRESSION: No evidence for deep venous thrombosis. <Electronically signed by Lan Harrison > 09/06/20 [id number]
[2020-09-06 11:48] LABS: INR 0.99; PROTHROMBIN TIME 13.3 SECONDS (12.5-14.3)
[2020-09-06 12:01] LABS: ERYTHROCYTE SEDIMENTATION RATE 17 mm/hr (0-20)
[2020-09-06 12:15] LABS: ALBUMIN 3.1 GM/DL (3.2-5.2); ALT/SGPT 26 U/L (12-78); AMYLASE 15 U/L (25-115); BILIRUBIN,DIRECT 0.2 MG/DL (0.0-0.2); BILIRUBIN,TOTAL 0.5 MG/DL (0.2-1.0); BLOOD UREA NITROGEN 20 MG/DL (7-18); CALCIUM LEVEL 8.8 MG/DL (8.8-10.2); CARBON DIOXIDE LEVEL 29 MEQ/L (21-32); CHLORIDE LEVEL 101 MEQ/L (98-107); CK-MB VALUE MASS 2.1 NG/ML (<3.6); CPK CREATINE PHOSPHOKINASE 67 U/L (39-308); CREATININE FOR GFR 0.86 MG/DL (0.70-1.30); ETHYL ALCOHOL (ETHANOL) < 0.003 % (0.000-0.010); GLOMERULAR FILTRATION RATE > 60.0 (>49); GLUCOSE, FASTING 271 MG/DL (70-100); LIPASE 64 U/L (73-393); MB/CK RELATIVE INDEX 3.13 (< OR =4); NT-PRO BNP 740 PG/ML (<125); POTASSIUM SERUM 4.2 MEQ/L (3.5-5.1); SODIUM LEVEL 135 MEQ/L (136-145); TOTAL PROTEIN 6.6 GM/DL (6.4-8.2); TROPONIN I < 0.02 NG/ML (< 0.10)
[2020-09-06 12:39] LABS: RSV AMPLIFICATION NEGATIVE (NEGATIVE)
[2020-09-06] MEDS ORDERED: PIPERACILLIN/TAZOBACTAM SOD 3.375 GM in D5W MINI-BAG PLUS 50 ML IV ONE (12:50)
[2020-09-06] MEDS ORDERED: VANCOMYCIN HCL 2,000 MG in D5W 500 ML IV ONE (12:50)
[2020-09-06] MEDS ORDERED: VANCOMYCIN HCL 1,000 MG, VIAL MATE ADAPTER 1 EACH in NS 250 ML IV ONE ×2 (13:00→14:00)
[2020-09-06 13:14] LABS: URIC ACID 5.1 MG/DL (3.5-7.2)
[2020-09-06] MEDS ORDERED: MOM 30ML SUSPENSION UDC PO PRN (13:35)
[2020-09-06] MEDS ORDERED: METF-839 PO (14:16)
[2020-09-06] MEDS ORDERED: VITMTA PO (14:16)
[2020-09-06] MEDS ORDERED: ALBUTEROL 90 MCG/ACT 8GM HFA INHALER INH PRN (14:40)
[2020-09-06] MEDS ORDERED: DEXTROSE 50% 50 ML SYRINGE IV PRN (14:45)
[2020-09-06] MEDS ORDERED: GLUCAGON INJ 1MG VIAL SC PRN (14:45)
[2020-09-06] MEDS ORDERED: GLUCOSE 4GM CHEW TABLET PO PRN (14:45)
--- NOTE | 2020-09-06 14:46 | HPEPDOC ---
[facility] Medical History & Physical Date of Admission Sep 06, 2020 Date of Service: Sep 06, 2020 Primary Care Physician: Susanna Dominguez Attending Physician: REIS DOVE DO History and Physical CHIEF COMPLAINT: Ulcer on the plantar aspect of his right foot HISTORY OF PRESENT ILLNESS: The patient reports that he has had numbness affecting his bilateral lower extremities for at least a few years now. He noticed his shoe was wet, and he examined the bottom of his foot and found a large ulcer. He thinks that perhaps it may have been there for the past few days but is not entirely sure. The size of the ulcer, and the surrounding maceration and erythema was concerning to him therefore he came to the emergency department for further evaluation. 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 He reports that he drinks approximately 1-2 beers a week, and has been drinking at this rate for the last year so. Prior to that he was alcoholic and would generally go through a 30 pack of beer a week, and he had done that for decades. He states that he cut back simply because he just didn't want to drink that much anymore. He denies any recreational drug use. FAMILY HISTORY: Noncontributory REVIEW OF SYSTEMS: Constitutional: Patient denies fevers, chills, night sweats, recent weight gain/loss. HEENT: Patient denies blurred or double vision, transient visual disturbances, postnasal drip, epistaxis, sore throat, difficulty chewing or swallowing food. Cardiovascular: Patient denies chest discomfort/pain, palpitations, exertional dyspnea, orthopnea, edema of the extremities, claudication. Respiratory: Patient denies dyspnea, wheezing, cough, hemoptysis, sputum production. Gastrointestinal: Patient denies nausea, vomiting, diarrhea, constipation, abdominal pain, melena, hematochezia, hematemesis, jaundice. PHYSICAL EXAMINATION: General: Awake, alert, oriented 3. He is in no acute distress. HEENT: Head normocephalic atraumatic, conjunctiva are pink, sclera are nonicteric. Hearing is grossly intact to conversation. Respiratory: Clear to auscultation bilaterally with no wheezes, rales, or rhonchi. Cardiovascular: Regular rate and rhythm, with no rubs, gallops, or murmur. Abdomen: Soft, nontender, nondistended, no hepatosplenomegaly appreciated. Bowel sounds present. Extremities: Large ulcer on the plantar aspect of the right foot and on, approximately 3x4 centimeters by visual estimate. Large eschar covering the center of the ulcer with some maceration and erythema in the surrounding tissues. Additionally he does have multiple eschars on the right simmons with some surrounding erythema. Apparently the patient dropped piece of lumbar and scraped his simmons a few weeks back. He did have a gauze bandage in place on foot, there is some serous sanguinous and perhaps some purulent drainage on the bandage, but overall very little drainage. IMAGING: Foot x-ray does not show any evidence of osteomyelitis in this time, please see report for full details. Lower extremity ultrasound does not reveal any DVT. ASSESSMENT/PLAN: Right foot ulcer/wound, plantar surface -Patient will be admitted to [facility] floor. Dr. Garsia has already been consulted by the ED provider, and apparently will come see the patient this afternoon Concern for right lower extremity cellulitis - started empirically on vancomycin and Zosyn. COPD -We'll do not have his usual home inhalers on formulary, but they will be replaced with Advair and Spiriva, and he may use albuterol on an as-needed basis. 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 Sliding scale insulin before meals and at bedtime. Repeat hemoglobin A1c. Consistent carbohydrate diet Hypertension Hyperlipidemia -These are included in his medical history, however he is not on any medications for this. We will continue to monitor his blood pressures while inpatient. He may follow up regarding hyperlipidemia as outpatient with his PCP, it is likely that he would qualify for a statin based on his ASCVD risk Vital Signs Vital Signs Date Time Temp Pulse Resp B/P (MAP) Pulse Ox O2 Delivery O2 Flow Rate FiO2 09/06/20 11:13 09/06/20 10:23 96.6 101 24 96 Room Air Laboratory Data Labs 24H Laboratory Tests 2 09/06/20 11:12: Immature Granulocyte % (Auto) 0.5, Neutrophils (%) (Auto) 76.0H, Lymphocytes (%) (Auto) 13.0L, Monocytes (%) (Auto) 9.9H, Eosinophils (%) (Auto) 0.3, Basophils (%) (Auto) 0.3, Neutrophils # (Auto) 7.2, Lymphocytes # (Auto) 1.2L, Monocytes # (Auto) 0.9H, Eosinophils # (Auto) 0.0, Basophils # (Auto) 0.0, Nucleated Red Blood Cells % (auto) 0.0, Erythrocyte Sedimentation Rate 17, Prothrombin Time 13.3, Prothromb Time International Ratio 0.99, Activated Partial Thromboplast Time 24.0L, Anion Gap 5L, Glomerular Filtration Rate > 60.0, Lactic Acid Level 1.6, Uric Acid 5.1, Calcium Level 8.8, Total Bilirubin 0.5, Direct Bilirubin 0.2, Aspartate Amino Transf (AST/SGOT) 15, Alanine Aminotransferase (ALT/SGPT) 2 6, Alkaline Phosphatase 96, Total Creatine Kinase 67, Creatine Kinase MB 2.1, Creatine Kinase MB Relative Index 3.13, Troponin I < 0.02, C-Reactive Protein, Quantitative 10.10H, QU-Avz-U-Type Natriuretic Peptide 740H, Total Protein 6.6, Albumin 3.1L, Albumin/Globulin Ratio 0.9, Amylase Level 15L, Lipase 64L, Ethyl Alcohol Level < 0.003, Coronavirus (COVID-19)(PCR) NEGATIVE, Influenza Type A (RT-PCR) NEGATIVE, Influenza Type B (RT-PCR) NEGATIVE, Respiratory Syncytial Virus (PCR) NEGATIVE CBC/BMP Laboratory Tests 09/06/20 11:12 Microbiology Microbiology 09/06/20 Blood Culture, Received Pending 09/06/20 Blood Culture, Received Pending Home Medications Scheduled Fluticasone Furoate (Arnuity Ellipta) 200 Mcg/Act Inh, 1 PUFF INH DAILY Metformin HCl (Metformin HCl) 500 Mg Tablet, 500 MG PO BID Multivitamins (Thera M Plus Tablet) 1 Each Tablet, 1 TAB PO DAILY Potassium Chloride (Potassium Chloride) 8 Meq Tablet.er, 8 MEQ PO DAILY Tiotropium Br/Olodaterol HCl (Stiolto Respimat Inhal [place]) 1 Aer Aer, 2 PUFFS INH DAILY Scheduled PRN Albuterol Sulfate (Ventolin Hfa) 108 Mcg/Act Aer, 2 PUFFS INH QID PRN for SHORTNESS OF BREATH Allergies Coded Allergies: No Known Allergies (Verified , 06/13/18) A-FIB/CHADSVASC A-FIB History Current/History of A-Fib/PAF?: No ERIS DOVE DO Sep 06, 2020 14:46
[2020-09-06 16:00] VITALS: BP 169/87
[2020-09-06 16:01] LABS: HEMOGLOBIN A1c 10.7 %
[2020-09-06] MEDS: HumaLOG INSULIN (NovoLOG) PER UNIT SC SCH ×2 (17:20→21:00)
[2020-09-06] MEDS: PIPERACILLIN/TAZOBACTAM SOD 3.375 GM in D5W MINI-BAG PLUS 50 ML IV SCH (17:53)
[2020-09-06] MEDS ORDERED: PROHANCE 279.3MG/ML 5ML VIAL As Ordered ONE (19:11)
[2020-09-06] MEDS ORDERED: PROHANCE 279.3MG/ML 15ML VIAL As Ordered ONE (19:11)
--- NOTE | 2020-09-06 20:23 | REPVR ---
PROCEDURE INFORMATION: Exam: MR Right Lower Extremity Other Than Joint Without and With Contrast; Foot Exam date and time: 09/06/2020 4:29 PM Age: 60 years old Clinical indication: Patient HX: Ulcer on bottom of foot at base of 1st toe; Additional info: Diabetic ulcer, eval for osteo 1st metatarsal head TECHNIQUE: Imaging protocol: MR of the Right lower extremity without and with intravenous contrast. Exam focused on the foot. Contrast material: PROHANCE; Contrast volume: 20 ml; Contrast route: INTRAVENOUS (IV); COMPARISON: CR Foot, complete 09/06/2020 11:05 AM FINDINGS: Bones and cartilage: There are no confluent areas of decreased T1 signal or bony destructive changes involving the right 1st metatarsal to suggest osteomyelitis. There are degenerative changes in the right midfoot, with subchondral cystic changes and subchondral edema involving the naviculocuneiform joint and right 1st through 5th tarsometatarsal joints. 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 Mild osteoarthritis of the interphalangeal joint of the right great toe is also noted. There is cartilage loss and subchondral edema involving the medial portion of the right talar dome. Mild bone marrow edema is also present in the calcaneus. Joint spaces: There is a right 1st metatarsophalangeal joint effusion. LIGAMENTS: Distal tibiofibular syndesmosis: The distal tibiofibular syndesmosis is intact. Anterior talofibular ligament: The anterior talofibular ligament is intact. Posterior talofibular ligament: The posterior talofibular ligament is intact. Calcaneofibular ligament: The calcaneofibular ligament is intact. Deltoid ligament complex: The deltoid ligament complex is intact. Spring ligament complex: The spring ligament complex is intact. Lisfranc ligament: The Lisfranc ligament is intact. Collateral ligaments of digits: The collateral ligaments of the toes are intact. TENDONS: Flexor tendons of foot: The flexor tendons are intact. No tendinosis. No tenosynovitis. Tibialis posterior tendon: The tibialis posterior tendon is intact. No tendinosis. No tenosynovitis. Peroneal tendons: There is a split tear in the right peroneus brevis tendon from the level of the lateral malleolus to the level of the peroneal tubercle. The peroneus longus tendon is intact. There is a small amount of fluid in the peroneus longus and brevis tendon sheaths. Extensor tendons of foot: The extensor tendons are intact. No tendinosis. No tenosynovitis. Tibialis anterior tendon: The tibialis anterior tendon is intact. No tendinosis. No tenosynovitis. Achilles tendon: The Achilles tendon is intact. Tarsal canal (Sinus tarsi): The roots of the inferior extensor retinaculum, cervical ligament, and interosseous talocalcaneal ligament are intact. No replacement of the normal fatty signal in the sinus tarsi is noted to suggest a sinus tarsi syndrome. Tarsal tunnel: Unremarkable. Muscles: There is diffuse fatty atrophy and denervation edema involving the muscles of the right foot. Soft tissues: There is a soft tissue ulcer along the plantar medial aspect of the right forefoot at the level of the head of the right 1st metatarsal, and the ulcer extends down to the level of the subcutaneous tissues. There is a 2 cm x 1.5 cm x 0.7 cm soft tissue fluid collection deep to the ulcer, which likely represents an abscess. No obvious soft tissue gas is identified. Plantar fascia: The plantar fascia is intact. No evidence for plantar fasciitis or plantar fibromatosis. IMPRESSION: 1. No MR evidence for osteomyelitis involving the right 1st metatarsal head or right foot. 2. Soft tissue ulcer along the plantar medial aspect of the head of the right 1st metatarsal that extends down to the level of the subcutaneous tissues, and there is a 2 cm x 1.5 cm x 0.7 cm soft tissue fluid collection deep to the ulcer, which likely represents an abscess. 3. Split tear in the right peroneus brevis tendon from the level of the lateral malleolus to the level of the peroneal tubercle. Electronically signed by: Shaka Mann On 09/06/2020 20:23:50 PM
[2020-09-06 22:00] VITALS: BP 128/73
[2020-09-06] MEDS: VANCOMYCIN HCL 1,000 MG, VIAL MATE ADAPTER 1 EACH in NS 250 ML IV SCH (22:58)
[2020-09-07] MEDS: PIPERACILLIN/TAZOBACTAM SOD 3.375 GM in D5W MINI-BAG PLUS 50 ML IV SCH ×4 (01:54→18:01)
[2020-09-07] MEDS: VANCOMYCIN HCL 1,000 MG, VIAL MATE ADAPTER 1 EACH in NS 250 ML IV SCH (05:09)
[2020-09-07 07:02] LABS: HEMATOCRIT 47.2 % (42.0-52.0); HEMOGLOBIN 16.2 g/dl (13.5-17.5); MEAN CORPUSCULAR HEMOGLOBIN 31.8 pg (27.0-33.0); MEAN CORPUSCULAR HGB CONC 34.3 g/dl (32.0-36.5); MEAN CORPUSCULAR VOLUME 92.7 fl (80.0-96.0); PLATELET COUNT, AUTOMATED 218 10^3/uL (150-450); RED BLOOD COUNT 5.09 10^6/uL (4.30-6.10); WHITE BLOOD COUNT 7.1 10^3/uL (4.0-10.0)
[2020-09-07 07:04] VITALS: BP 129/75
[2020-09-07 07:24] LABS: BLOOD UREA NITROGEN 15 MG/DL (7-18); CALCIUM LEVEL 8.2 MG/DL (8.8-10.2); CARBON DIOXIDE LEVEL 27 MEQ/L (21-32); CHLORIDE LEVEL 104 MEQ/L (98-107); CREATININE FOR GFR 0.69 MG/DL (0.70-1.30); GLOMERULAR FILTRATION RATE > 60.0 (>49); GLUCOSE, FASTING 233 MG/DL (70-100); POTASSIUM SERUM 4.2 MEQ/L (3.5-5.1); SODIUM LEVEL 138 MEQ/L (136-145)
[2020-09-07] MEDS: TIOTROPIUM INHALER/CAPSULE (SPIRIVA) INH SCH (07:37)
[2020-09-07] MEDS: ADVAIR HFA 115/21MCG INHALER INH SCH ×2 (07:40→20:00)
[2020-09-07] MEDS: HumaLOG INSULIN (NovoLOG) PER UNIT SC SCH ×4 (08:59→20:19)
[2020-09-07] MEDS: MULTIVITAMINS/MINERALS THERAP 1 TAB PO SCH (08:59)
--- NOTE | 2020-09-07 09:02 | CR ---
CONSULTATION DATE: 09/06/2020 REASON FOR CONSULTATION: Right foot infection and cellulitis. HISTORY OF PRESENT ILLNESS: Mr. James is a pleasant, 60-year-old male who was admitted to [facility] through the ER due to worsening condition of his right foot. The patient is diabetic with neuropathy, has no feeling in his feet. He did not notice any wounds until he saw some wetness in his shoe and noted an ulcer on the bottom of his foot. He is not sure how long it has been there. He denies other complaints. He states it is not painful as it is numb. PAST MEDICAL HISTORY: Significant for diabetes with neuropathy, hypertension, dyslipidemia, COPD, history of alcohol use. PAST SURGICAL HISTORY: Left ankle surgery and left second finger amputation. SOCIAL HISTORY: Positive for smoking, positive for alcohol use. FAMILY HISTORY: Noncontributory. REVIEW OF SYSTEMS: He denies nausea, vomiting, fever or chills. Vitals are reviewed. He has been afebrile. LABORATORY DATA: Reviewed. White blood cell count is 9.8, ESR 17. CRP is 10.l. IMAGING STUDIES: Reviewed, negative for obvious soft tissue gas or osteomyelitis. Lower extremity examination: There is erythema and edema of the right foot. There is an ulceration of the plantar right first metatarsal head with eschar. ASSESSMENT: A 60-year-old diabetic male with right foot ulceration and cellulitis. TREATMENT: Excisional wound debridement was performed using a dermal curette including subcutaneous tissue and fat. We will order an MRI to evaluate if there is bony involvement. The wound does probe to the bone. Most likely, patient will require metatarsal head excision but we will determine this after MRI is completed.
[2020-09-07 14:00] VITALS: BP 131/86
[2020-09-07] MEDS: VANCOMYCIN HCL 750 MG, VIAL MATE ADAPTER 1 EACH in NS 250 ML IV SCH ×2 (14:31→22:05)
[2020-09-07] MEDS: VANCOMYCIN HCL 500 MG in D5W MINI-BAG PLUS 100 ML IV SCH ×2 (15:56→23:13)
--- NOTE | 2020-09-07 16:40 | IPN ---
PROGRESS NOTE DATE: 09/07/2020 SUBJECTIVE: Patient seen and examined. Denies new complaints. States the foot feels about the same. Labs are reviewed. White cell count is 7.1. Hemoglobin A1c 10.7. MRI report reviewed. No obvious signs of osteomyelitis. There is an abscess in the plantar surface of the first metatarsal head. LOWER EXTREMITY EXAMINATION: There is tense erythema and edema surrounding the plantar wound with some necrotic tissue on the first metatarsal head. PLAN: The patient will go to OR tomorrow for right foot incision and drainage. He is to be NPO midnight. Tentatively scheduled for noon tomorrow.
--- NOTE | 2020-09-07 20:59 | IPNPDOC ---
Subjective Date Seen The patient was seen on 09/07/20. Subjective Chief Complaint/HPI Mr. James is a 60 year old male with uncontrolled diabetes mellitus who presents with right foot ulceration and cellulitis. No fever overnight. No events overnight. This morning, denies any chest pain or dyspnea. MRI was negative for osteomyelitis, but did demonstrate abscess. Podiatry planning for OR tomorrow Objective Physical Examination General Exam: Positive: Alert, Cooperative Eye Exam: Positive: EOMI; Negative: Sclera icteric Neck Exam: Positive: Supple Chest Exam: Positive: Clear to auscultation; Negative: Rales, Rhonchi, Wheezing Heart Exam: Positive: Rate Normal, Regular Rhythm Abdomen Exam: Positive: Normal bowel sounds, Soft; Negative: Tenderness Extremity Exam: Positive: Other (Large right plantar ulcer) Neuro Exam: Positive: Normal Speech Psych Exam: Positive: Mental status NL, Mood NL Assessment /Plan Assessment Mr. James is a 60 year old male with uncontrolled diabetes mellitus who presents with right foot ulceration and cellulitis. MRI was negative for osteomyelitis, but did demonstrate abscess. Podiatry following, recommendations appreciated. Planning for the OR tomorrow. Plan/VTE VTE Prophylaxis Ordered?: Yes Plan 1. Right foot plantar ulcer, cellulitis, and abscess -Podiatry following, recommendations appreciated -Planning for the OR tomorrow afternoon -Continue Vancomycin and Zosyn 2. COPD -Stable, no wheezing noted on examination -Substituted inhalers with Advair and Spiriva with PRN albuterol 3. Uncontrolled diabetes mellitus complicated by neuropathy -HbA1c of 10.7 -Metformin held -Sliding scale insulin and basal insulin -Consistent carbohydrate consistent diet 4. DVT ppx -SCD and TEDs, not on chemically ppx due to surgery tomorrow. VS, I&O, 24H, Fishbone Vital Signs/I&O Vital Signs Date Time Temp Pulse Resp B/P (MAP) Pulse Ox O2 Delivery O2 Flow Rate FiO2 09/07/20 14:00 98.6 80 18 131/86 (101) 94 Room Air I&O- Last 24 Hours up to 6 AM 09/07/20 06:00 Intake Total 620 ml Output Total 0 ml Balance 620 ml Laboratory Data 24H LABS Laboratory Tests 2 09/06/20 21:00: Bedside Glucose (Misc Panel) 245H 09/07/20 06:43: Nucleated Red Blood Cells % (auto) 0.0, Anion Gap 7L, Glomerular Filtration Rate > 60.0, Calcium Level 8.2L 09/07/20 11:09: Bedside Glucose (Misc Panel) 290H 09/07/20 12:52: Vancomycin Level Trough 10.2 09/07/20 16:22: Bedside Glucose (Misc Panel) 270H 09/07/20 19:55: Bedside Glucose (Misc Panel) 293H CBC/BMP Laboratory Tests 09/07/20 06:43 Microbiology Microbiology 09/06/20 Blood Culture - Preliminary, Resulted No growth after 24 hours . All specim... 09/06/20 Blood Culture - Preliminary, Resulted No growth after 24 hours . All specim... GIANNA EVANS DO Sep 07, 2020 20:59
[2020-09-07 22:00] VITALS: BP 132/75
--- NOTE | 2020-09-07 22:01 | ECGEPIP ---
[facility] Test Date: 2020-09-07 Pat Name: GRANT LIN Department: Room: [place] [address] Gender: Male Supervisor Hand Workers: BERNIE : 1960 Requested By: Jorje Beaulieu Order Number: [id number] Reading MD: Griffin Vincent Measurements Intervals [place] Rate: 80 P: 62 GA: 178 QRS: -73 QRSD: 116 T: 20 QT: 370 QTc: 426 Interpretive Statements Normal sinus rhythm LA conduction disturbance Marked left axis deviation-left anterior hemiblock Poor precordial R wave progression with somewhat prominent voltage and infra a apical ST/T wave abnormalities; LVH. Could not rule out prior anteroseptal infarction with LV aneurysm Slower rate with different precordial lead placement from 06/06/18 Electronically Signed on 09-07-2020 22:00:51 EDT by Griffin Vincent
[2020-09-08] VITALS (8 sets, daily range): BP systolic 124–153; BP diastolic 56–89
[2020-09-08] MEDS: PIPERACILLIN/TAZOBACTAM SOD 3.375 GM in D5W MINI-BAG PLUS 50 ML IV SCH ×4 (01:00→18:17)
[2020-09-08] MEDS ORDERED: ZOSYN 3.375GM VIAL (J2543) As Ordered ONE (01:25)
[2020-09-08 06:55] LABS: HEMATOCRIT 46.7 % (42.0-52.0); HEMOGLOBIN 15.6 g/dl (13.5-17.5); MEAN CORPUSCULAR HEMOGLOBIN 31.2 pg (27.0-33.0); MEAN CORPUSCULAR HGB CONC 33.4 g/dl (32.0-36.5); MEAN CORPUSCULAR VOLUME 93.4 fl (80.0-96.0); PLATELET COUNT, AUTOMATED 238 10^3/uL (150-450); WHITE BLOOD COUNT 6.2 10^3/uL (4.0-10.0)
[2020-09-08] MEDS: VANCOMYCIN HCL 750 MG, VIAL MATE ADAPTER 1 EACH in NS 250 ML IV SCH (07:21)
[2020-09-08 07:22] LABS: BLOOD UREA NITROGEN 13 MG/DL (7-18); CALCIUM LEVEL 8.7 MG/DL (8.8-10.2); CARBON DIOXIDE LEVEL 28 MEQ/L (21-32); CHLORIDE LEVEL 107 MEQ/L (98-107); CREATININE FOR GFR 0.69 MG/DL (0.70-1.30); GLOMERULAR FILTRATION RATE > 60.0 (>49); GLUCOSE, FASTING 255 MG/DL (70-100); POTASSIUM SERUM 3.9 MEQ/L (3.5-5.1); SODIUM LEVEL 138 MEQ/L (136-145)
[2020-09-08] MEDS: HumaLOG INSULIN (NovoLOG) PER UNIT SC SCH ×4 (07:30→20:11)
[2020-09-08] MEDS: MULTIVITAMINS/MINERALS THERAP 1 TAB PO SCH (08:53)
[2020-09-08] MEDS: VANCOMYCIN HCL 500 MG in D5W MINI-BAG PLUS 100 ML IV SCH (08:54)
[2020-09-08] MEDS: TIOTROPIUM INHALER/CAPSULE (SPIRIVA) INH SCH (11:34)
[2020-09-08] MEDS: ADVAIR HFA 115/21MCG INHALER INH SCH ×2 (11:34→19:33)
[2020-09-08] MEDS ORDERED: MIDAZOLAM INJ 2MG/2ML VIAL (J2250 PER 1MG) As Ordered ONE (12:09)
[2020-09-08] MEDS ORDERED: fentaNYL 100 MCG/2 ML INJECTION (J3010) As Ordered ONE (12:09)
[2020-09-08] MEDS ORDERED: propofoL 200 MG/20 ML VIAL As Ordered ONE ×2 (12:10→12:13)
[2020-09-08] MEDS ORDERED: LIDOCAINE 2% 100MG/5ML SDV (FOR ANES.) As Ordered ONE (12:10)
[2020-09-08] MEDS ORDERED: LIDOCAINE 1% MDV 20ML VIAL As Ordered ONE (12:21)
[2020-09-08] MEDS ORDERED: BUPIVACAINE HCL 0.5% 10ML VIAL As Ordered ONE (12:21)
[2020-09-08] MEDS ORDERED: LR 1,000 ML IV SCH (13:20)
[2020-09-08] MEDS ORDERED: ONDANSETRON 4MG/2ML VIAL IV PRN (13:20)
[2020-09-08] MEDS ORDERED: PERCOCET 5MG/325MG TAB PO PRN (13:20)
[2020-09-08] MEDS ORDERED: fentaNYL 100 MCG/2 ML INJECTION (J3010) IV PRN (13:20)
--- NOTE | 2020-09-08 14:29 | RO ---
OPERATIVE NOTE DATE OF OPERATION: 09/08/2020 PREOPERATIVE DIAGNOSIS: Right foot ulcer infection. POSTOPERATIVE DIAGNOSIS: Right foot ulcer infection. PROCEDURE: Right foot incision and drainage. SURGEON: Benjamin Garsia DPM LANGUAGE ARTS TEACHER: None. ANESTHESIA: Monitored anesthesia care. PREOPERATIVE INJECTION: 18 mL of 1:1 mix of the 1% lidocaine plain and 0.5% Marcaine plain. ESTIMATED BLOOD LOSS: Minimal. MATERIALS: None. COMPLICATIONS: None. CONDITION: Stable. Jefferson is a 60-year-old diabetic male who presents with ulceration and infection. MRI confirms abscess under his right 1st metatarsal. He presents today for surgical correction. The patient's side and site were identified and marked in the pre-operative holding area. Consent was reviewed and obtained. All risks, complications, and alternatives to the procedure were explained to the patient in detail and all questions were answered. DESCRIPTION OF PROCEDURE: The patient was brought to the operating room stretcher in supine position. Monitored anesthesia care was delivered by the anesthesia team. Preoperative injection of 18 mL of a one-to-one mixture of 1% lidocaine plain and 0.5% Marcaine plain were injected into the right foot. The right foot was prepped and draped in normal sterile fashion. A tourniquet was applied at the right ankle and inflated at 250 mmHg. Wound was noted to be on the plantar aspect of the 1st metatarsal head. Using a #15 blade, nonviable tissue and necrotic fat were debrided in excisional fashion. Cultures swab for anaerobic, aerobic, and Gram stain were taken. Wound did not go down to the bone. The capsule was identified and appeared in good condition. After all nonviable tissue was debrided, site was irrigated with normal saline and packed with saline-soaked gauze. The patient was brought to the PACU with vital signs stable and neurovascular status intact. He will be admitted for antibiotics and wound care.
[2020-09-08] MEDS: VANCOMYCIN HCL 1,000 MG, VIAL MATE ADAPTER 1 EACH in NS 250 ML IV SCH ×2 (15:12→20:10)
[2020-09-08] MEDS: ACETAMINOPHEN TAB 650MG DOSE (2X325MG) PO PRN (20:19)
--- NOTE | 2020-09-08 22:53 | IPNPDOC ---
Subjective Date Seen The patient was seen on 09/08/20. Subjective Chief Complaint/HPI Mr. James is a 60 year old male with uncontrolled diabetes mellitus who presents with right foot ulceration and cellulitis. Patient remains afebrile. This morning, he denies any chest pain or dyspnea. Patient went down to the OR today for debridement. Objective Physical Examination General Exam: Positive: Alert, Cooperative Eye Exam: Positive: EOMI; Negative: Sclera icteric Neck Exam: Positive: Supple Chest Exam: Positive: Clear to auscultation; Negative: Rales, Rhonchi, Wheezing Heart Exam: Positive: Rate Normal, Regular Rhythm Abdomen Exam: Positive: Normal bowel sounds, Soft; Negative: Tenderness Extremity Exam: Positive: Other (Large right plantar ulcer) Neuro Exam: Positive: Normal Speech Psych Exam: Positive: Mental status NL, Mood NL Assessment /Plan Assessment Mr. James is a 60 year old male with uncontrolled diabetes mellitus who presents with right foot ulceration and cellulitis. MRI was negative for osteomyelitis, but did demonstrate abscess. Podiatry following, recommendations appreciated. Today is POD #0 from right foot incision and drainage Plan/VTE VTE Prophylaxis Ordered?: Yes Plan 1. Right foot plantar ulcer, cellulitis, and abscess -Podiatry following, recommendations appreciated -Continue Vancomycin and Zosyn -Incision and drainage of right foot on 09/08/2020 2. COPD -Stable, no wheezing noted on examination -Substituted inhalers with Advair and Spiriva with PRN albuterol 3. Uncontrolled diabetes mellitus complicated by neuropathy -HbA1c of 10.7 -Metformin held -Sliding scale insulin and basal insulin -Consistent carbohydrate consistent diet 4. Morbid obesity -BMI 40.4 -Complicates care 5. DVT ppx -SCD and TEDs VS, I&O, 24H, Fishbone Vital Signs/I&O Vital Signs Date Time Temp Pulse Resp B/P (MAP) Pulse Ox O2 Delivery O2 Flow Rate FiO2 09/08/20 20:09 97.4 88 18 124/70 (88) 94 Room Air I&O- Last 24 Hours up to 6 AM 09/08/20 06:00 Intake Total 2120 ml Output Total 0 ml Balance 2120 ml Laboratory Data 24H LABS Laboratory Tests 2 09/08/20 06:27: Nucleated Red Blood Cells % (auto) 0.0, Anion Gap 3L, Glomerular Filtration Rate > 60.0, Calcium Level 8.7L 09/08/20 14:12: Vancomycin Level Trough 11.7 09/08/20 16:38: Bedside Glucose (Misc Panel) 350H 09/08/20 19:50: Bedside Glucose (Misc Panel) 358H CBC/BMP Laboratory Tests 09/08/20 06:27 Microbiology Microbiology 09/08/20 Gram Stain, Received Pending 09/08/20 Wound Culture, Received Pending 09/08/20 Anaerobic Culture, Received Pending 09/06/20 Blood Culture - Preliminary, Resulted No Growth after 48 hours. All Specime... 09/06/20 Blood Culture - Preliminary, Resulted No Growth after 48 hours. All Specime... GIANNA EVANS DO Sep 08, 2020 22:53
[2020-09-09] MEDS: PIPERACILLIN/TAZOBACTAM SOD 3.375 GM in D5W MINI-BAG PLUS 50 ML IV SCH ×4 (00:23→18:36)
[2020-09-09 02:00] VITALS: BP 123/79
[2020-09-09] MEDS: VANCOMYCIN HCL 1,000 MG, VIAL MATE ADAPTER 1 EACH in NS 250 ML IV SCH ×4 (03:09→20:25)
[2020-09-09] MEDS: ACETAMINOPHEN TAB 650MG DOSE (2X325MG) PO PRN ×3 (03:13→20:24)
[2020-09-09 05:20] VITALS: BP 120/72
[2020-09-09] MEDS: TIOTROPIUM INHALER/CAPSULE (SPIRIVA) INH SCH (07:31)
[2020-09-09] MEDS: ADVAIR HFA 115/21MCG INHALER INH SCH ×2 (07:31→20:40)
[2020-09-09 07:59] LABS: HEMOGLOBIN 16.1 g/dl (13.5-17.5); MEAN CORPUSCULAR HEMOGLOBIN 31.8 pg (27.0-33.0); MEAN CORPUSCULAR HGB CONC 33.5 g/dl (32.0-36.5); MEAN CORPUSCULAR VOLUME 94.7 fl (80.0-96.0); PLATELET COUNT, AUTOMATED 277 10^3/uL (150-450); RED BLOOD COUNT 5.07 10^6/uL (4.30-6.10); WHITE BLOOD COUNT 7.3 10^3/uL (4.0-10.0)
[2020-09-09 08:22] LABS: BLOOD UREA NITROGEN 13 MG/DL (7-18); CALCIUM LEVEL 8.7 MG/DL (8.8-10.2); CARBON DIOXIDE LEVEL 27 MEQ/L (21-32); CHLORIDE LEVEL 106 MEQ/L (98-107); CREATININE FOR GFR 0.59 MG/DL (0.70-1.30); GLOMERULAR FILTRATION RATE > 60.0 (>49); GLUCOSE, FASTING 236 MG/DL (70-100); POTASSIUM SERUM 4.3 MEQ/L (3.5-5.1); SODIUM LEVEL 139 MEQ/L (136-145)
[2020-09-09] MEDS: MULTIVITAMINS/MINERALS THERAP 1 TAB PO SCH (09:16)
[2020-09-09] MEDS: HumaLOG INSULIN (NovoLOG) PER UNIT SC SCH ×4 (09:17→20:24)
--- NOTE | 2020-09-09 12:33 | IPN ---
PROGRESS NOTE DATE: 09/09/2020 SUBJECTIVE: Patient seen and examined at bedside. Denies overnight complaints. States he is feeling pretty good. White blood cell count is 7.3. He has remained afebrile. OBJECTIVE: LOWER EXTREMITY EXAMINATION: Erythema and edema are improved. Wound base is without further necrotic tissue. ASSESSMENT: A 60-year-old diabetic male status post incision and drainage. PLAN: Wound care dressing orders placed. Will consult Dr. Villarreal for a Teleconference consultation. He should have followup with Dr. Villarreal outpatient, as well as myself. I suspect once the full cultures are available, he can be discharged on oral antibiotics.
--- NOTE | 2020-09-09 12:59 | IPNPDOC ---
Subjective Date Seen The patient was seen on 09/09/20. Subjective Chief Complaint/HPI Mr. James is a 60 year old male with uncontrolled diabetes mellitus who presents with right foot ulceration and cellulitis. Patient went to the OR on 09/08/2020 and is now POD#1. Today denies any chest pain or dyspnea. Spoke with Dr. Garsia. Patient will need to follow up with both Dr. Villarreal and Dr. Garsia outpatient. Patient may be discharged when finalized cultures return. Objective Physical Examination General Exam: Positive: Alert, Cooperative Eye Exam: Positive: EOMI; Negative: Sclera icteric Neck Exam: Positive: Supple Chest Exam: Positive: Clear to auscultation; Negative: Rales, Rhonchi, Wheezing Heart Exam: Positive: Rate Normal, Regular Rhythm Abdomen Exam: Positive: Normal bowel sounds, Soft; Negative: Tenderness Extremity Exam: Positive: Other (Large right plantar ulcer) Neuro Exam: Positive: Normal Speech Psych Exam: Positive: Mental status NL, Mood NL Assessment /Plan Assessment Mr. James is a 60 year old male with uncontrolled diabetes mellitus who presents with right foot ulceration and cellulitis. MRI was negative for osteomyelitis, but did demonstrate abscess. Podiatry following, recommendations appreciated. Today is POD #1 from right foot incision and drainage When finalized cultures return, patient may be discharged home on oral antibiotics. Patient will need to follow up with Dr. Villarreal, and Dr. Garsia Plan/VTE VTE Prophylaxis Ordered?: Yes Plan 1. Right foot plantar ulcer, cellulitis, and abscess -Podiatry following, recommendations appreciated -Continue Vancomycin and Zosyn -Incision and drainage of right foot on 09/08/2020 2. COPD -Stable, no wheezing noted on examination -Substituted inhalers with Advair and Spiriva with PRN albuterol 3. Uncontrolled diabetes mellitus complicated by neuropathy -HbA1c of 10.7 -Metformin held -Sliding scale insulin and basal insulin -Consistent carbohydrate consistent diet 4. Morbid obesity -BMI 40.4 -Complicates care 5. DVT ppx -SCD and TEDs Disposition: Patient may be discharged home on oral antibiotics once finalized cultures return VS, I&O, 24H, Fishbone Vital Signs/I&O Vital Signs Date Time Temp Pulse Resp B/P (MAP) Pulse Ox O2 Delivery O2 Flow Rate FiO2 09/09/20 05:20 97.6 78 18 120/72 (88) 96 4/8/21 02:00 Room Air I&O- Last 24 Hours up to 6 AM 09/09/20 05:59 Intake Total 1570 ml Output Total 1 ml Balance 1569 ml Laboratory Data 24H LABS Laboratory Tests 2 09/08/20 14:12: Vancomycin Level Trough 11.7 09/08/20 16:38: Bedside Glucose (Misc Panel) 350H 09/08/20 19:50: Bedside Glucose (Misc Panel) 358H 09/09/20 06:29: Nucleated Red Blood Cells % (auto) 0.0, Anion Gap 6L, Glomerular Filtration Rate > 60.0, Calcium Level 8.7L 09/09/20 12:06: Bedside Glucose (Misc Panel) 300H CBC/BMP Laboratory Tests 09/09/20 06:29 Microbiology Microbiology 09/08/20 Gram Stain - Final, Resulted 09/08/20 Wound Culture - Preliminary, Resulted Streptococcus Group G 09/08/20 Anaerobic Culture, Resulted Pending 09/06/20 Blood Culture - Preliminary, Resulted No Growth after 72 hours. All specime... 09/06/20 Blood Culture - Preliminary, Resulted No Growth after 72 hours. All specime... GIANNA EVANS DO Sep 09, 2020 12:59
[2020-09-09 14:47] VITALS: BP 164/83
[2020-09-09 22:00] VITALS: BP 162/82
[2020-09-10] MEDS: PIPERACILLIN/TAZOBACTAM SOD 3.375 GM in D5W MINI-BAG PLUS 50 ML IV SCH ×4 (00:57→17:44)
[2020-09-10] MEDS: ACETAMINOPHEN TAB 650MG DOSE (2X325MG) PO PRN ×3 (00:57→21:13)
[2020-09-10] MEDS: VANCOMYCIN HCL 1,000 MG, VIAL MATE ADAPTER 1 EACH in NS 250 ML IV SCH ×4 (02:22→21:14)
[2020-09-10 06:13] VITALS: BP 153/80
[2020-09-10 07:03] LABS: HEMATOCRIT 45.4 % (42.0-52.0); HEMOGLOBIN 15.4 g/dl (13.5-17.5); MEAN CORPUSCULAR HEMOGLOBIN 31.6 pg (27.0-33.0); MEAN CORPUSCULAR HGB CONC 33.9 g/dl (32.0-36.5); MEAN CORPUSCULAR VOLUME 93.2 fl (80.0-96.0); PLATELET COUNT, AUTOMATED 271 10^3/uL (150-450); RED BLOOD COUNT 4.87 10^6/uL (4.30-6.10); WHITE BLOOD COUNT 7.3 10^3/uL (4.0-10.0)
[2020-09-10] MEDS: ADVAIR HFA 115/21MCG INHALER INH SCH ×2 (07:10→20:45)
[2020-09-10] MEDS: TIOTROPIUM INHALER/CAPSULE (SPIRIVA) INH SCH (07:10)
[2020-09-10 07:18] LABS: BLOOD UREA NITROGEN 10 MG/DL (7-18); CALCIUM LEVEL 8.3 MG/DL (8.8-10.2); CARBON DIOXIDE LEVEL 30 MEQ/L (21-32); CHLORIDE LEVEL 105 MEQ/L (98-107); CREATININE FOR GFR 0.64 MG/DL (0.70-1.30); GLOMERULAR FILTRATION RATE > 60.0 (>49); GLUCOSE, FASTING 224 MG/DL (70-100); POTASSIUM SERUM 4.1 MEQ/L (3.5-5.1); SODIUM LEVEL 138 MEQ/L (136-145)
[2020-09-10] MEDS: MULTIVITAMINS/MINERALS THERAP 1 TAB PO SCH (08:39)
[2020-09-10] MEDS: HumaLOG INSULIN (NovoLOG) PER UNIT SC SCH ×4 (08:40→21:20)
[2020-09-10 14:00] VITALS: BP 153/78
--- NOTE | 2020-09-10 21:06 | IPNPDOC ---
Subjective Date Seen The patient was seen on 09/10/20. Subjective Chief Complaint/HPI Mr. James is a 60 year old male with uncontrolled diabetes mellitus who presents with right foot ulceration and cellulitis. Patient went to the OR on 09/08/2020 and is now POD#2. He was seen in the morning. Denies any chest pain or dyspnea. Culture are still preliminary. Initially grown Strep Group G. Now demonstrates Staph aureus and coag negative staph pending sensitivities. Objective Physical Examination General Exam: Positive: Alert, Cooperative Eye Exam: Positive: EOMI; Negative: Sclera icteric Neck Exam: Positive: Supple Chest Exam: Positive: Clear to auscultation; Negative: Rales, Rhonchi, Wheezing Heart Exam: Positive: Rate Normal, Regular Rhythm Abdomen Exam: Positive: Normal bowel sounds, Soft; Negative: Tenderness Extremity Exam: Positive: Other (Large right plantar ulcer) Neuro Exam: Positive: Normal Speech Psych Exam: Positive: Mental status NL, Mood NL Assessment /Plan Assessment Mr. James is a 60 year old male with uncontrolled diabetes mellitus who presents with right foot ulceration and cellulitis. MRI was negative for osteomyelitis, but did demonstrate abscess. Podiatry following, recommendations appreciated. Today is POD #1 from right foot incision and drainage When finalized cultures return, patient may be discharged home on oral antibiotics. Patient will need to follow up with Dr. Villarreal, and Dr. Garsia Plan/VTE VTE Prophylaxis Ordered?: Yes Plan 1. Right foot plantar ulcer, cellulitis, and abscess -Podiatry following, recommendations appreciated -Continue Vancomycin and Zosyn -Incision and drainage of right foot on 09/08/2020 -Culture still preliminary, grew Strep group G, Staph aureus, and Coag neg staph 2. COPD -Stable, no wheezing noted on examination -Substituted inhalers with Advair and Spiriva with PRN albuterol 3. Uncontrolled diabetes mellitus complicated by neuropathy -HbA1c of 10.7 -Metformin held -Sliding scale insulin and basal insulin -Consistent carbohydrate consistent diet 4. Morbid obesity -BMI 40.4 -Complicates care 5. DVT ppx -SCD and TEDs Disposition: Patient may be discharged home on oral antibiotics once finalized cultures return VS, I&O, 24H, Fishbone Vital Signs/I&O Vital Signs Date Time Temp Pulse Resp B/P (MAP) Pulse Ox O2 Delivery O2 Flow Rate FiO2 09/10/20 14:00 98.4 84 20 153/78 (103) 97 Room Air I&O- Last 24 Hours up to 6 AM 09/10/20 06:00 Intake Total 2820 ml Balance 2820 ml Laboratory Data 24H LABS Laboratory Tests 2 09/10/20 06:44: Nucleated Red Blood Cells % (auto) 0.0, Anion Gap 3L, Glomerular Filtration Rate > 60.0, Calcium Level 8.3L 09/10/20 11:40: Bedside Glucose (Misc Panel) 195H 09/10/20 13:54: Vancomycin Level Trough 13.2 09/10/20 16:27: Bedside Glucose (Misc Panel) 228H CBC/BMP Laboratory Tests 09/10/20 06:44 Microbiology Microbiology 09/08/20 Gram Stain - Final, Resulted 09/08/20 Wound Culture - Preliminary, Resulted Streptococcus Group G Staphylococcus Sp Coag Neg Staphylococcus Aureus 09/08/20 Anaerobic Culture, Resulted Pending 09/06/20 Blood Culture - Preliminary, Resulted No Growth after 72 hours. All specime... 09/06/20 Blood Culture - Preliminary, Resulted No Growth after 72 hours. All specime... GIANNA EVANS DO Sep 10, 2020 21:06
[2020-09-10 22:00] VITALS: BP 154/79
[2020-09-11] MEDS: PIPERACILLIN/TAZOBACTAM SOD 3.375 GM in D5W MINI-BAG PLUS 50 ML IV SCH ×2 (01:27→06:10)
[2020-09-11] MEDS: VANCOMYCIN HCL 1,000 MG, VIAL MATE ADAPTER 1 EACH in NS 250 ML IV SCH ×2 (02:46→08:34)
[2020-09-11 06:00] VITALS: BP 160/88
[2020-09-11 06:05] LABS: HEMATOCRIT 46.2 % (42.0-52.0); HEMOGLOBIN 15.4 g/dl (13.5-17.5); MEAN CORPUSCULAR HEMOGLOBIN 31.1 pg (27.0-33.0); MEAN CORPUSCULAR HGB CONC 33.3 g/dl (32.0-36.5); MEAN CORPUSCULAR VOLUME 93.3 fl (80.0-96.0); PLATELET COUNT, AUTOMATED 287 10^3/uL (150-450); RED BLOOD COUNT 4.95 10^6/uL (4.30-6.10); WHITE BLOOD COUNT 7.6 10^3/uL (4.0-10.0)
[2020-09-11 06:26] LABS: BLOOD UREA NITROGEN 11 MG/DL (7-18); CALCIUM LEVEL 8.9 MG/DL (8.8-10.2); CARBON DIOXIDE LEVEL 30 MEQ/L (21-32); CHLORIDE LEVEL 106 MEQ/L (98-107); CREATININE FOR GFR 0.65 MG/DL (0.70-1.30); GLOMERULAR FILTRATION RATE > 60.0 (>49); GLUCOSE, FASTING 247 MG/DL (70-100); POTASSIUM SERUM 4.2 MEQ/L (3.5-5.1); SODIUM LEVEL 138 MEQ/L (136-145)
[2020-09-11] MEDS: TIOTROPIUM INHALER/CAPSULE (SPIRIVA) INH SCH (08:00)
[2020-09-11] MEDS: ADVAIR HFA 115/21MCG INHALER INH SCH (08:00)
[2020-09-11] MEDS: HumaLOG INSULIN (NovoLOG) PER UNIT SC SCH (08:33)
[2020-09-11] MEDS: MULTIVITAMINS/MINERALS THERAP 1 TAB PO SCH (08:44)
[2020-09-11] MEDS ORDERED: CLEO150C PO (09:16)
[2020-09-11] MEDS ORDERED: PROBCAP14 PO (09:16)
--- NOTE | 2020-09-11 22:16 | DS.PDOC ---
Discharge Summary General Date of Admission Sep 06, 2020 at 13:32 Date of Discharge Sep 11, 2020 Discharge Summary PROCEDURES PERFORMED DURING STAY: [None]. ADMITTING DIAGNOSES: 1. . DISCHARGE DIAGNOSES: 1. . COMPLICATIONS/CHIEF COMPLAINT: Cellulitis Of Rt Lower Extremity Foot Ulcer. HISTORY OF PRESENT ILLNESS: . HOSPITAL COURSE: . DISCHARGE MEDICATIONS: Please see below. ALLERGIES: Please see below. PHYSICAL EXAMINATION ON DISCHARGE: VITAL SIGNS: Please see below. GENERAL: HEENT: NECK: CARDIOVASCULAR EXAMINATION: RESPIRATORY EXAMINATION: ABDOMINAL EXAMINATION: EXTREMITIES: SKIN: NEUROLOGICAL EXAMINATION: PSYCHIATRIC EXAMINATION: LABORATORY DATA: Please see below. IMAGING: PROGNOSIS: ACTIVITY: [As tolerated]. DIET: DISCHARGE PLAN: DISPOSITION: Home Health Service. DISCHARGE INSTRUCTIONS: 1. . ITEMS TO FOLLOWUP ON ON OUTPATIENT: 1. . DISCHARGE CONDITION: [Stable]. TIME SPENT ON DISCHARGE: Greater than minutes. Vital Signs/I&Os Vital Signs Date Time Temp Pulse Resp B/P (MAP) Pulse Ox O2 Delivery O2 Flow Rate FiO2 09/11/20 08:45 97.9 18 91 Room Air 09/11/20 06:00 77 160/88 (112) I&O- Last 24 Hours up to 6 AM 09/11/20 06:00 Intake Total 2120 ml Balance 2120 ml Laboratory Data Labs 24H Laboratory Tests 2 09/11/20 05:51: Nucleated Red Blood Cells % (auto) 0.0, Anion Gap 2L, Glomerular Filtration Rate > 60.0, Calcium Level 8.9 09/11/20 11:25: Bedside Glucose (Misc Panel) 275H CBC/BMP Laboratory Tests 09/11/20 05:51 FSBS Laboratory Tests Test 09/11/20 11:25 Range/Units Bedside Glucose (Misc Panel) 275 80-115 MG/DL Microbiology Microbiology 09/08/20 Gram Stain - Final, Complete 09/08/20 Wound Culture - Final, Complete Streptococcus Group G Staphylococcus Sp Coag Neg Staph.aureus Methicillin Resis 09/08/20 Anaerobic Culture - Final, Complete 09/06/20 Blood Culture - Final, Complete NO GROWTH AFTER 5 DAYS 09/06/20 Blood Culture - Final, Complete NO GROWTH AFTER 5 DAYS Discharge Medications Scheduled Clindamycin Hcl (Cleocin HCl) 150 Mg Capsule, 450 MG PO TID Fluticasone Furoate (Arnuity Ellipta) 200 Mcg/Act Inh, 1 PUFF INH DAILY, (Reported) Lactobacillus Acidophilus (Probiotic) 1 Each Capsule, 1 CAP PO TID Metformin HCl (Metformin HCl) 500 Mg Tablet, 500 MG PO BID, (Reported) Multivitamins (Thera M Plus Tablet) 1 Each Tablet, 1 TAB PO DAILY, (Reported) Potassium Chloride (Potassium Chloride) 8 Meq Tablet.er, 8 MEQ PO DAILY, (Reported) Tiotropium Br/Olodaterol HCl (Stiolto Respimat Inhal [place]) 1 Aer Aer, 2 PUFFS INH DAILY, (Reported) Scheduled PRN Albuterol Sulfate (Ventolin Hfa) 108 Mcg/Act Aer, 2 PUFFS INH QID PRN for SHORTNESS OF BREATH, (Reported) Allergies Coded Allergies: No Known Allergies (Verified , 06/13/18) GIANNA EVANS DO Sep 11, 2020 22:16
== END 2020-09-11 12:29 | disposition home health service (06) | DRG 364 ==
LOC: M ED 10:21 → EEVIPCON 13:32 → M ED INP 13:32 → ENRESERV 14:52 → M MS5PR 16:00
PROVIDERS: ADMIT Neuromusculoskeletal Medicine & OMM; ATTEND Internal Medicine
PROC: 0JBQ3ZZ Excision of Right Foot Subcutaneous Tissue and Fascia, Percutaneous Approach (ICD-10-PCS; principal; 2020-09-08 11:55)
DX: E11.621 Type 2 diabetes mellitus with foot ulcer (principal); E11.40 Type 2 diabetes mellitus with diabetic neuropathy, unspecified; L97.519 Non-pressure chronic ulcer of other part of right foot with unspecified severity; E66.01 Morbid (severe) obesity due to excess calories; Z68.41 Body mass index [BMI] 40.0-44.9, adult; I10 Essential (primary) hypertension; J44.9 Chronic obstructive pulmonary disease, unspecified; L03.115 Cellulitis of right lower limb; Z79.899 Other long term (current) drug therapy; E78.5 Hyperlipidemia, unspecified; F17.210 Nicotine dependence, cigarettes, uncomplicated

== ENCOUNTER → 2020-09-22 | Outpatient (CLI) | payer OTHER ==
[~2020-09-22] MED LIST changes: +BUME2TAB3 PO; +CLEO150C PO; +CLIN150C15 PO; +METF-839 PO; +PROBCAP14 PO; +VITMTA PO
[2020-09-22 06:56] LABS: HEMATOCRIT 48.8 % (42.0-52.0); HEMOGLOBIN 16.5 g/dl (13.5-17.5); MEAN CORPUSCULAR HEMOGLOBIN 31.8 pg (27.0-33.0); MEAN CORPUSCULAR HGB CONC 33.8 g/dl (32.0-36.5); PLATELET COUNT, AUTOMATED 366 10^3/uL (150-450); RED BLOOD COUNT 5.19 10^6/uL (4.30-6.10); WHITE BLOOD COUNT 9.3 10^3/uL (4.0-10.0)
[2020-09-22 07:23] LABS: HEMOGLOBIN A1c 10.4 %
[2020-09-22 07:34] LABS: ALT/SGPT 27 U/L (12-78); BLOOD UREA NITROGEN 18 MG/DL (7-18); CALCIUM LEVEL 9.4 MG/DL (8.8-10.2); CARBON DIOXIDE LEVEL 33 MEQ/L (21-32); CHLORIDE LEVEL 99 MEQ/L (98-107); CREATININE FOR GFR 0.81 MG/DL (0.70-1.30); GLOMERULAR FILTRATION RATE > 60.0 (>49); GLUCOSE, FASTING 180 MG/DL (70-100); POTASSIUM SERUM 4.2 MEQ/L (3.5-5.1); SODIUM LEVEL 137 MEQ/L (136-145)
[2020-09-22 07:35] LABS: ALBUMIN 2.9 GM/DL (3.2-5.2); BILIRUBIN,TOTAL 0.7 MG/DL (0.2-1.0); CHOLESTEROL LEVEL 254 MG/DL (<200); CHOLESTEROL RISK RATIO 6.512 (<5); HDL CHOLESTEROL 39 MG/DL (>40); LDL CHOLESTEROL 185 MG/DL (<100); NON-HDL-C 215 MG/DL; PROSTATIC SPECIFIC AG MONITOR 1.23 NG/ML (< 4.00); TOTAL PROTEIN 7.6 GM/DL (6.4-8.2); TRIGLYCERIDES LEVEL 151 MG/DL (<150)
[2020-09-22 10:41] LABS: TESTOSTERONE 339 NG/DL (241-827)
== END ==
LOC: M LAB 06:05
PROVIDERS: ATTEND Family Medicine
DX: I10 Essential (primary) hypertension (principal)

== ENCOUNTER 2020-09-24 08:54 | Inpatient (IN) | payer OTHER ==
[~2020-09-24] VITALS: Ht 182.9 cm; Wt 127.3 kg
[~2020-09-24 08:54] MED LIST changes: -BUME2TAB3 PO; -CLIN150C15 PO
--- NOTE | 2020-09-24 09:54 | REP ---
INDICATION: shaking. COMPARISON: None. TECHNIQUE: Axial CT images with multiplanar reformations. FINDINGS: No acute bleed or acute large vessel territorial infarct. Ventricles, cisterns and sulci are within normal limits. No mass effect or midline shift. No abnormal fluid collections. Paranasal sinuses and mastoid air cells are clear IMPRESSION: No acute findings. <Electronically signed by Ever Jalloh > 09/24/20 [id number]
[2020-09-24 10:24] LABS: BASO % 0.3 % (0.0-1.0); EOS # 0.1 10^3/uL (0.0-0.5); EOS % 0.6 % (0.0-3.0); HEMATOCRIT 47.4 % (42.0-52.0); HEMOGLOBIN 15.8 g/dl (13.5-17.5); LYMPH % 6.7 % (24.0-44.0); MEAN CORPUSCULAR HEMOGLOBIN 31.4 pg (27.0-33.0); MEAN CORPUSCULAR HGB CONC 33.3 g/dl (32.0-36.5); MEAN CORPUSCULAR VOLUME 94.2 fl (80.0-96.0); MONO # 1.1 10^3/uL (0.0-0.8); MONO % 7.9 % (2.0-8.0); NEUTROPHILS # 11.9 10^3/uL (1.5-8.5); NEUTROPHILS % 84.2 % (36.0-66.0); PLATELET COUNT, AUTOMATED 328 10^3/uL (150-450); RED BLOOD COUNT 5.03 10^6/uL (4.30-6.10); WHITE BLOOD COUNT 14.1 10^3/uL (4.0-10.0)
[2020-09-24 10:47] LABS: ALBUMIN 2.8 GM/DL (3.2-5.2); ALT/SGPT 23 U/L (12-78); BILIRUBIN,TOTAL 0.8 MG/DL (0.2-1.0); BLOOD UREA NITROGEN 22 MG/DL (7-18); CALCIUM LEVEL 9.2 MG/DL (8.8-10.2); CARBON DIOXIDE LEVEL 31 MEQ/L (21-32); CHLORIDE LEVEL 100 MEQ/L (98-107); CREATININE FOR GFR 0.92 MG/DL (0.70-1.30); GLOMERULAR FILTRATION RATE > 60.0 (>49); GLUCOSE, FASTING 217 MG/DL (70-100); POTASSIUM SERUM 4.2 MEQ/L (3.5-5.1); SODIUM LEVEL 136 MEQ/L (136-145); TOTAL PROTEIN 7.4 GM/DL (6.4-8.2)
[2020-09-24 10:50] LABS: ERYTHROCYTE SEDIMENTATION RATE 63 mm/hr (0-20)
[2020-09-24 11:03] LABS: RSV AMPLIFICATION NEGATIVE (NEGATIVE)
[2020-09-24] MEDS ORDERED: VANCOMYCIN HCL 2,000 MG in D5W 500 ML IV ONE (11:10)
[2020-09-24] MEDS ORDERED: VANCOMYCIN HCL 1,000 MG, VIAL MATE ADAPTER 1 EACH in NS 250 ML IV ONE ×6 (11:20)
[2020-09-24] MEDS ORDERED: METF10004 PO (11:37)
[2020-09-24] MEDS ORDERED: BUME2TAB3 PO (11:37)
[2020-09-24] MEDS ORDERED: CLIN150C15 PO (11:37)
--- NOTE | 2020-09-24 11:47 | HPEPDOC ---
[facility] Medical History & Physical Date of Admission Sep 24, 2020 Date of Service: Sep 24, 2020 History and Physical CHIEF COMPLAINT: Shaking HISTORY OF PRESENT ILLNESS: 60-year-old male history of uncontrolled diabetes, hypertension, COPD, alcohol abuse, he was recently in the hospital a few weeks ago with an ulceration on the plantar aspect of his right foot s/p incision and drainage by podiatry. He was following up with Dr. Crum's office for wound care when apparently he was having episode of rigors that lasted about 20 minutes after which he was sent to the emergency department. Patient tells me that since his discharge she's been having shaking on and off for the past week intermittently. During these ep isodes he does not lose consciousness he denies having fevers or chills. He denies any chest pain or shortness of breath. Denies nausea and vomiting. He denies any pain anywhere including his right foot. He denies any sputum production. He denies dysuria. Patient will be admitted for rigors he was found to have a mild leukocytosis and for evaluation by podiatry. 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 He was previously a heavy alcoholic. Smokes about 5 cigarettes daily for about 50 years. Denies illicit drug use FAMILY HISTORY: Reviewed and none contributory to this admission ALLERGIES: Please see below. REVIEW OF SYSTEMS: 10 point review of systems complete all negative otherwise stated in HPI HOME MEDICATIONS: Please see below. PHYSICAL EXAMINATION: Constitutional: Awake and alert, in no apparent distress, obese ENT: Sclera are clear. Mucosa is moist. Respiratory: Lungs mild expiratory wheezing bilaterally. No respiratory distress. No use of accessory muscles. Cardiovascular: RRR S1 and S2 are normal, no murmur Gastrointestinal: Abdomen is soft, non distended, non tender, BS present. Musculoskeletal: No lower extremity edema. Neurologic: No focal neurological deficit. Mental Status: A&O x3, normal affect Skin: There is an ulcer on the right foot on the plantar aspect at approximately 3 x 3 cm recently addressed by Dr. Crum's office. Looks clean but there is some mild surrounding erythema. LABORATORY DATA: See below. IMAGING: See chart MICROBIOLOGY: Please see below. ASSESSMENT/PLAN 60-year-old male history of uncontrolled diabetes, hypertension, COPD, alcohol abuse, he was recently in the hospital a few weeks ago with an ulceration on the plantar aspect of his right foot s/p incision and drainage by podiatry who is being admitted for observed rigors which could be related to his right foot ulcer/infection. # Rigors: These have not been observed in the hospital thus far. He does have a mild leukocytosis but no fever here. He appears comfortable and not in any distress. Blood cultures were drawn. Trend WBC. Follow-up blood cultures. Follow-up chest x-ray and urinalysis. Presumed to be from cellulitis around his ulcer on his right foot will treat with IV vancomycin for now. # Right foot ulcer/cellulitis: This perhaps could be the source of his rigors. Podiatry Dr. Garsia consulted to reevaluate his foot. His inflammatory markers CRP and ESR were elevated. We will treat the mild cellulitis with IV vancomycin. Follow blood cultures. # DM: ISS. Frequent Accu-Cheks. Hypoglycemic precautions. # Hypertension: Continue home meds. Monitor and titrate # COPD: Not in exacerbation. Continue home inhalers. # DVT prophylaxis: Heparin A Yousef Hospitalist Vital Signs Vital Signs Date Time Temp Pulse Resp B/P (MAP) Pulse Ox O2 Delivery O2 Flow Rate FiO2 09/24/20 10:45 97 18 142/65 (90) 95 Room Air 09/24/20 08:55 98.8 Laboratory Data Labs 24H Laboratory Tests 2 09/24/20 09:55: Immature Granulocyte % (Auto) 0.3, Neutrophils (%) (Auto) 84.2H, Lymphocytes (%) (Auto) 6.7L, Monocytes (%) (Auto) 7.9, Eosinophils (%) (Auto) 0.6, Basophils (%) (Auto) 0.3, Neutrophils # (Auto) 11.9H, Lymphocytes # (Auto) 1.0L, Monocytes # (Auto) 1.1H, Eosinophils # (Auto) 0.1, Basophils # (Auto) 0.0, Nucleated Red Blood Cells % (auto) 0.0, Erythrocyte Sedimentation Rate 63H, Anion Gap 5L, Glomerular Filtration Rate > 60.0, Lactic Acid Level 1.0, Calcium Level 9.2, To val Bilirubin 0.8, Aspartate Amino Transf (AST/SGOT) 7, Alanine Aminotransferase (ALT/SGPT) 23, Alkaline Phosphatase 79, C-Reactive Protein, Quantitative 14.80H, Total Protein 7.4, Albumin 2.8L, Albumin/Globulin Ratio 0.6, Coronavirus (COVID- 19)(PCR) NEGATIVE, Influenza Type A (RT-PCR) NEGATIVE, Influenza Type B (RT-PCR) NEGATIVE, Respiratory Syncytial Virus (PCR) NEGATIVE CBC/BMP Laboratory Tests 09/24/20 09:55 Microbiology Microbiology 09/24/20 Blood Culture, Received Pending 09/24/20 Blood Culture, Received Pending Home Medications Scheduled Bumetanide (Bumetanide) 2 Mg Tablet, 2 MG PO BID Clindamycin Hcl (Clindamycin HCl) 150 Mg Capsule, 450 MG PO TID FOR 5 DAYS, PT STATES HAS 1.5 DAYS REMAINING Fluticasone Furoate (Arnuity Ellipta) 200 Mcg/Act Inh, 1 PUFF INH DAILY Metformin HCl (Metformin HCl) 1,000 Mg Tablet, 1,000 MG PO BID Multivitamins (Thera M Plus Tablet) 1 Each Tablet, 1 TAB PO DAILY Potassium Chloride (Potassium Chloride) 8 Meq Tablet.er, 8 MEQ PO BID Tiotropium Br/Olodaterol HCl (Stiolto Respimat Inhal [place]) 1 Aer Aer, 2 PUFFS INH DAILY Scheduled PRN Albuterol Sulfate (Ventolin Hfa) 108 Mcg/Act Aer, 2 PUFFS INH QID PRN for SHORTNESS OF BREATH Allergies Coded Allergies: No Known Allergies (Verified , 06/13/18) A-FIB/CHADSVASC A-FIB History Current/History of A-Fib/PAF?: No SHANT SOLIMAN MD Sep 24, 2020 11:47
[2020-09-24] MEDS ORDERED: GLUCAGON INJ 1MG VIAL SC PRN (11:50)
[2020-09-24] MEDS ORDERED: GLUCOSE 4GM CHEW TABLET PO PRN (11:50)
[2020-09-24] MEDS ORDERED: DEXTROSE 50% 50 ML SYRINGE IV PRN (11:50)
[2020-09-24] MEDS ORDERED: MAALOX 30 ML SUSP *UDC PO PRN (11:50)
[2020-09-24] MEDS ORDERED: VANCOMYCIN HCL 1,000 MG, VIAL MATE ADAPTER 1 EACH in NS 250 ML IV SCH (11:50)
[2020-09-24] MEDS ORDERED: MOM 30ML SUSPENSION UDC PO PRN (11:50)
--- NOTE | 2020-09-24 12:21 | REP ---
INDICATION: rigors COMPARISON: 06/12/2018 TECHNIQUE: Portable AP view of the chest FINDINGS: The mediastinum and cardiac silhouette are stable and within normal limits for portable technique. The lung barillas are clear without acute consolidation, effusion, or pneumothorax. Skeletal structures are intact. IMPRESSION: No acute cardiopulmonary process appreciated. <Electronically signed by Lan Harrison > 09/24/20 [id number]
[2020-09-24] MEDS: HumaLOG INSULIN (NovoLOG) PER UNIT SC SCH ×3 (12:34→21:06)
[2020-09-24] MEDS: HEPARIN SOD (PORCINE) 5000UNITS/ML 1ML VIAL/SYRINGE SC SCH ×2 (12:34→23:52)
[2020-09-24 13:40] VITALS: BP 180/80
[2020-09-24] MEDS: ACETAMINOPHEN TAB 650MG DOSE (2X325MG) PO PRN ×2 (14:13→21:05)
[2020-09-24 15:00] VITALS: BP 164/72
[2020-09-24 16:02] LABS: APPEARANCE, URINE HAZY (CLEAR); BACTERIA, URINE AUTO 1+ (NEGATIVE); BILIRUBIN, URINE AUTO NEGATIVE (NEGATIVE); BLOOD, URINE BLOOD NEGATIVE (NEGATIVE); COLOR, URINE AMBER (YELLOW); GLUCOSE, URINE (UA) AUTO 2+ mg/dL (NEGATIVE); KETONE, URINE AUTO 1+ mg/dL (NEGATIVE); LEUKOCYTE ESTERASE, URINE AUTO NEGATIVE (NEGATIVE); MUCUS, URINE MODERATE (NEGATIVE); NITRITE, URINE AUTO NEGATIVE (NEGATIVE); PROTEIN, URINE AUTO 1+ mg/dL (NEGATIVE); RBC, URINE AUTO 2 /HPF (0-3); SPECIFIC GRAVITY URINE AUTO 1.026 (1.002-1.035); SQUAMOUS EPITHELIAL CELL UR AU 0 /HPF (0-6); WBC, URINE AUTO 7 /HPF (0-3)
[2020-09-24] MEDS: VANCOMYCIN HCL 1,000 MG, VIAL MATE ADAPTER 1 EACH in NS 250 ML IV SCH ×2 (18:09→23:52)
[2020-09-24 19:35] VITALS: BP 204/104
[2020-09-24] MEDS ORDERED: amLODIPine 5 MG TAB PO ONE (19:45)
[2020-09-24 19:59] VITALS: BP 204/104
[2020-09-24 20:30] VITALS: BP 178/68
[2020-09-24] MEDS: DOCUSATE SODIUM 100MG CAPSULE PO SCH (21:05)
[2020-09-24 22:00] VITALS: BP 176/70
[2020-09-24] MEDS ORDERED: RAMELTEON 8 MG TAB (ROZEREM) PO PRN (23:25)
[2020-09-25 06:00] VITALS: BP 124/67
[2020-09-25] MEDS: VANCOMYCIN HCL 1,000 MG, VIAL MATE ADAPTER 1 EACH in NS 250 ML IV SCH (06:11)
[2020-09-25 06:18] LABS: HEMATOCRIT 43.2 % (42.0-52.0); HEMOGLOBIN 14.5 g/dl (13.5-17.5); MEAN CORPUSCULAR HGB CONC 33.6 g/dl (32.0-36.5); MEAN CORPUSCULAR VOLUME 92.5 fl (80.0-96.0); PLATELET COUNT, AUTOMATED 299 10^3/uL (150-450); RED BLOOD COUNT 4.67 10^6/uL (4.30-6.10); WHITE BLOOD COUNT 16.2 10^3/uL (4.0-10.0)
[2020-09-25] MEDS: ACETAMINOPHEN TAB 650MG DOSE (2X325MG) PO PRN (06:24)
[2020-09-25 06:40] LABS: ALBUMIN 2.4 GM/DL (3.2-5.2); ALT/SGPT 24 U/L (12-78); BILIRUBIN,TOTAL 0.7 MG/DL (0.2-1.0); BLOOD UREA NITROGEN 15 MG/DL (7-18); CALCIUM LEVEL 8.9 MG/DL (8.8-10.2); CARBON DIOXIDE LEVEL 27 MEQ/L (21-32); CHLORIDE LEVEL 100 MEQ/L (98-107); CREATININE FOR GFR 0.68 MG/DL (0.70-1.30); GLOMERULAR FILTRATION RATE > 60.0 (>49); GLUCOSE, FASTING 249 MG/DL (70-100); MAGNESIUM LEVEL 1.6 MG/DL (1.8-2.4); POTASSIUM SERUM 3.9 MEQ/L (3.5-5.1); SODIUM LEVEL 133 MEQ/L (136-145); TOTAL PROTEIN 6.7 GM/DL (6.4-8.2)
[2020-09-25] MEDS: HumaLOG INSULIN (NovoLOG) PER UNIT SC SCH ×4 (08:02→21:00)
[2020-09-25] MEDS: DOCUSATE SODIUM 100MG CAPSULE PO SCH ×2 (08:02→21:57)
[2020-09-25] MEDS ORDERED: ALBUTEROL 90 MCG/ACT 8GM HFA INHALER INH PRN (09:10)
[2020-09-25] MEDS: ADVAIR HFA 230/21MCG INHALER INH SCH ×2 (11:04→20:07)
[2020-09-25] MEDS: TIOTROPIUM INHALER/CAPSULE (SPIRIVA) INH SCH (11:04)
[2020-09-25] MEDS: POTASSIUM CHLORIDE 10 MEQ SR TABLET PO SCH ×2 (11:16→21:57)
[2020-09-25] MEDS: BUMETANIDE 1 MG TAB PO SCH ×2 (11:17→21:57)
[2020-09-25] MEDS: MULTIVITAMINS/MINERALS THERAP 1 TAB PO SCH (11:17)
[2020-09-25] MEDS: HEPARIN SOD (PORCINE) 5000UNITS/ML 1ML VIAL/SYRINGE SC SCH ×2 (11:50→23:23)
[2020-09-25] MEDS ORDERED: PROHANCE 279.3MG/ML 5ML VIAL As Ordered ONE (12:21)
[2020-09-25] MEDS ORDERED: PROHANCE 279.3MG/ML 15ML VIAL As Ordered ONE (12:22)
[2020-09-25] MEDS: VANCOMYCIN HCL 750 MG, VIAL MATE ADAPTER 1 EACH in NS 250 ML IV SCH ×4 (13:12→21:57)
[2020-09-25 14:00] VITALS: BP 137/77
--- NOTE | 2020-09-25 15:58 | REPVR ---
PROCEDURE INFORMATION: Exam: MR Right Lower Extremity Other Than Joint Without and With Contrast; Foot Exam date and time: 09/25/2020 12:47 PM Age: 60 years old Clinical indication: Condition or disease; Other: Diabetic ulcer, eval for osteomyelitis 1st metatrsal/hallux TECHNIQUE: Imaging protocol: MR of the Right lower extremity without and with intravenous contrast. Exam focused on the foot. Contrast material: PROHANCE; Contrast volume: 20 ml; Contrast route: INTRAVENOUS (IV); COMPARISON: MRI-Foot W/O FOL WITH RIGHT 09/06/2020 6:49 PM FINDINGS: Limitations: The T2W GAL SPAIR sequences have a band of low signal obscuring the region of interest. Similar artifact on the postcontrast long-axis sequence. The plantar aspect of the forefoot and toes is partially excluded on the short axis postcontrast sequence. The patient was unable to tolerate further imaging. Bones and cartilage: There is a small amount of marrow edema with enhancement in the plantar aspect of the for the tarsal head and neck and throughout much of the 1st proximal phalanx sparing the head, also seen in the hallux sesamoids. Small amount of associated intermediately decreased T1 weighted signal. Findings are nonspecific but raise concern for osteomyelitis. No acute fracture. No dislocation. Minimal degenerative change at the 1st metatarsophalangeal joint. There is nonspecific marrow edema in the medial aspect of the distal calcaneus just medial to the calcaneocuboid joint. This has increased since the prior study, and is located where the presumed infected flexor hallucis longus tendon sheath fluid collection abuts bone. There are degenerative changes the naviculocuneiform and tarsometatarsal joints. Joint spaces: There is a complex 1st metatarsophalangeal joint effusion with extensive enhancing synovitis. Moderate ankle and posterior subtalar joint effusions. LIGAMENTS: Lisfranc ligament: Lisfranc ligament is intact. TENDONS: Flexor tendons of foot: The flexor hallucis longus tendon appears completely torn at the level of the hallux sesamoids, with proximal retraction. There is complex rim enhancing fluid tracking along its expected course suspicious for infected tenosynovitis. This complex likely infected fluid tracks from the level of the distal calcaneus to the base of the great toe for approximately 11.8 cm proximal to distal by up to 1.7 cm medial-lateral and 1.4 cm dorsal to plantar. Extensive surrounding rim enhancement. This also appears to be contiguous with the plantar ulcer at the great toe. Tibialis posterior tendon: Unremarkable as visualized. Peroneal tendons: There is peroneal tenosynovitis with longitudinal split tear of the peroneus brevis tendon at and distal to the fibular tip. Extensor tendons of foot: Unremarkable. No evidence of tear. Tibialis anterior tendon: Unremarkable as visualized. Muscles: Diffuse enhancing myositis in the foot, most pronounced around the presumed infected flexor hallucis longus tendon sheath collection. Tarsal canal (Sinus tarsi): Minimal edema in the sinus tarsi. Tarsal tunnel: Unremarkable. Soft tissues: There is an ulcer at the plantar aspect of the great toe at the level of the hallux sesamoids. Underlying granulation tissue tracks down to bone. Extensive enhancing cellulitis in the foot and ankle, most pronounced in the great toe particularly at the plantar aspect. Bandage material overlying the Plantar fascia: There is mild thickening of the central cord of the plantar fascia suggesting prior plantar fasciitis. IMPRESSION: 1. Plantar ulcer at the base of the great toe with underlying enhancing granulation tissue tracking down to the hallux sesamoids and findings raising concern for osteomyelitis in the plantar distal 1st metatarsal, 1st proximal phalanx sparing the head, and hallux sesamoids. 2. Large complex rim enhancing fluid collection along the flexor hallucis longus tendon sheath with full-thickness tear at the level of the hallux sesamoids and significant proximal retraction. This tendon sheath fluid collection is likely infected and likely communicates with the plantar ulcer. 3. Diffuse myositis and cellulitis in the foot. 4. Longitudinal split tear of the peroneus brevis tendon at and distal to the fibular tip. 5. Complex 1st metatarsophalangeal joint effusion with extensive enhancing synovitis. Concern for septic arthritis is raised. 6. Increased marrow edema in the distal medial calcaneus where the presumed infected flexor hallucis longus tendon sheath collection abuts it, raising concern for osteomyelitis. 7. Technical limitations as above. Electronically signed by: Stacey Miller On 09/25/2020 15:58:26 PM
--- NOTE | 2020-09-25 19:02 | IPNPDOC ---
Text Note Date of Service The patient was seen on 09/25/20. NOTE Hospitalist Progress Note Subjective: Patient was sitting upright on the edge of the bed when I saw him this morning. He reports that he is feeling well at this time, however his foot continues to be quite painful. Otherwise, he does not have any acute complaints at this time. Update: I was informed this afternoon the patient was having shaking/rigors once again. Repeat blood cultures were ordered. Objective: General: Awake, alert, oriented 3. Not in any acute distress. HEENT: Head normocephalic, atraumatic, sclera are nonicteric. Hearing is grossly intact to conversation. Respiratory: Clear to auscultation bilaterally with no wheezes, rales, or rhonchi. Cardiovascular: Regular rate and rhythm, with no rubs, gallops, or murmur. Abdomen: Soft, nontender, nondistended, no hepatosplenomegaly appreciated. Bowel sounds present. Extremities: Right foot bandage in place, although there is edema and mild erythema extending up to approximately the mid simmons. Assessment/Plan: Right foot ulcer/cellulitis -Podiatry has been consulted, and they have ordered an MRI. The results only came in just this afternoon. It appears that he does have a fluid collection surrounding the flexor hallucis tendon that is likely infected, and there is some suspicion for osteomyelitis. Please see report for full details. Will continue per recommendations from podiatry. Rigors/low-grade fever - These were just observe for the first time in the hospital as afternoon. Blood cultures from yesterday are negative after 24 hours. Repeat blood cultures were taken this afternoon while he was having his rigors. Diabetes mellitus type 2 -Continue with sliding scale insulin and hypoglycemic precautions Hypertension - Blood pressures are labile, but most of them are within acceptable limits at this time. No changes in his antihypertensives for now. COPD -Not in exacerbation, continue home inhalers DVT prophylaxis - heparin VS,Fishbone, I+O VS, Fishbone, I+O Laboratory Tests 09/25/20 05:53 Vital Signs Date Time Temp Pulse Resp B/P (MAP) Pulse Ox O2 Delivery O2 Flow Rate FiO2 09/25/20 14:00 99.8 98 17 137/77 (97) 94 Room Air I&O- Last 24 Hours up to 6 AM 09/25/20 06:00 Intake Total 2010 ml Output Total 750 ml Balance 1260 ml ERIS DOVE DO Sep 25, 2020 19:02
[2020-09-25 22:00] VITALS: BP 105/53
[2020-09-26] MEDS: VANCOMYCIN HCL 750 MG, VIAL MATE ADAPTER 1 EACH in NS 250 ML IV SCH ×6 (04:05→21:25)
[2020-09-26 06:00] VITALS: BP 133/69
[2020-09-26 07:01] LABS: HEMATOCRIT 40.4 % (42.0-52.0); HEMOGLOBIN 13.6 g/dl (13.5-17.5); MEAN CORPUSCULAR HEMOGLOBIN 31.1 pg (27.0-33.0); MEAN CORPUSCULAR HGB CONC 33.7 g/dl (32.0-36.5); MEAN CORPUSCULAR VOLUME 92.2 fl (80.0-96.0); PLATELET COUNT, AUTOMATED 286 10^3/uL (150-450); RED BLOOD COUNT 4.38 10^6/uL (4.30-6.10); WHITE BLOOD COUNT 14.1 10^3/uL (4.0-10.0)
[2020-09-26] MEDS: ADVAIR HFA 230/21MCG INHALER INH SCH ×2 (07:12→18:20)
[2020-09-26] MEDS: TIOTROPIUM INHALER/CAPSULE (SPIRIVA) INH SCH (07:12)
[2020-09-26 07:36] LABS: BLOOD UREA NITROGEN 16 MG/DL (7-18); CALCIUM LEVEL 8.2 MG/DL (8.8-10.2); CARBON DIOXIDE LEVEL 27 MEQ/L (21-32); CHLORIDE LEVEL 100 MEQ/L (98-107); CREATININE FOR GFR 0.76 MG/DL (0.70-1.30); GLOMERULAR FILTRATION RATE > 60.0 (>49); GLUCOSE, FASTING 270 MG/DL (70-100); POTASSIUM SERUM 3.6 MEQ/L (3.5-5.1); SODIUM LEVEL 135 MEQ/L (136-145)
[2020-09-26] MEDS: HumaLOG INSULIN (NovoLOG) PER UNIT SC SCH ×4 (08:07→21:25)
[2020-09-26] MEDS: POTASSIUM CHLORIDE 10 MEQ SR TABLET PO SCH ×2 (08:07→20:02)
[2020-09-26] MEDS: MULTIVITAMINS/MINERALS THERAP 1 TAB PO SCH (08:07)
[2020-09-26] MEDS: BUMETANIDE 1 MG TAB PO SCH ×2 (08:07→20:02)
[2020-09-26] MEDS: DOCUSATE SODIUM 100MG CAPSULE PO SCH ×2 (08:07→20:02)
[2020-09-26] MEDS: HEPARIN SOD (PORCINE) 5000UNITS/ML 1ML VIAL/SYRINGE SC SCH ×2 (12:04→23:13)
[2020-09-26] MEDS: LEVEMIR (INSULIN DETEMIR) 1 UNITS/0.01ML SC SCH ×2 (12:04→21:24)
[2020-09-26 14:00] VITALS: BP 123/55
--- NOTE | 2020-09-26 15:10 | IPNPDOC ---
Text Note Date of Service The patient was seen on 09/26/20. NOTE Hospitalist Progress Note Subjective: Patient was reclining in the bed when I entered the room. He was sleeping, but was easily aroused. He reports that since yesterday he has not had any fevers or rigors. He does continue to have pain in the foot, but this is unchanged from prior. Otherwise, he does not have any additional concerns or complaints at this time. Objective: General: Awake, alert, oriented 3. Not in any acute distress. HEENT: Head normocephalic, atraumatic, sclera are nonicteric. Hearing is grossly intact to conversation. Respiratory: Clear to auscultation bilaterally with no wheezes, rales, or rhonchi. Cardiovascular: Regular rate and rhythm, with no rubs, gallops, or murmur. Abdomen: Soft, nontender, nondistended, no hepatosplenomegaly appreciated. Bowel sounds present. Extremities: Right foot bandage in place, although there is edema and mild erythema extending up to approximately the mid simmons. Assessment/Plan: Right foot ulcer/cellulitis -MRI reveals some fluid collection and concerns for osteomyelitis. It appears that podiatry will take him into the OR tomorrow, he will be NPO after midnight for procedure. - Continue with empiric antibiotic IV vancomycin Rigors/low-grade fever - These were just observe for the first time in the hospital on 09/25/2020, he has not had them since. - First set of blood cultures are negative after 48 hours. - Repeat blood cultures were taken when his rigors were observed, results are still pending Diabetes mellitus type 2 - Continue with sliding scale insulin and hypoglycemic precautions - Sugars have been running high, therefore twice a day Levemir is added today. Hypertension - Blood pressures are labile, but most of them are within acceptable limits at this time. No changes in his antihypertensives for now. COPD -Not in exacerbation, continue home inhalers DVT prophylaxis - heparin VS,Fishbone, I+O VS, Fishbone, I+O Laboratory Tests 09/26/20 06:31 Vital Signs Date Time Temp Pulse Resp B/P (MAP) Pulse Ox O2 Delivery O2 Flow Rate FiO2 09/26/20 14:00 98.3 89 20 123/55 (77) 97 Room Air I&O- Last 24 Hours up to 6 AM 09/26/20 06:00 Intake Total 2920 ml Output Total 2275 ml Balance 645 ml ERIS DOVE DO Sep 26, 2020 15:10
--- NOTE | 2020-09-26 19:42 | IPN ---
PROGRESS NOTE DATE: 09/26/2020 SUBJECTIVE: The patient is seen and examined at bedside. He denies new complaints. He did have continued rigors yesterday. He has not had that today. OBJECTIVE: PHYSICAL EXAMINATION: VITAL SIGNS: Reviewed. T-max is 99.8. EXTREMITIES: Lower extremity examination persisting erythema and edema with some purulent drainage within the plantar metatarsal head wound. LABORATORY STUDIES: Reviewed. White blood cell count is 14.1. CRP is elevated at 20.4. Blood cultures are pending. IMAGING STUDIES: MRI of right foot reviewed. There are signs suggestive of osteomyelitis of the plantar first metatarsal and proximal phalanx as well as sesamoids and there is fluid collection around the flexor hallices longus as well as general myositis and cellulitis. ASSESSMENT: A 60-year-old diabetic male with suspected osteomyelitis and likely abscess formation. PLAN: 1. We will bring him to the Operating Room tomorrow for first metatarsal head excision as well as incision and drainage. 2. He is to be n.p.o. at midnight.
[2020-09-26 22:00] VITALS: BP 132/64
[2020-09-27] MEDS: VANCOMYCIN HCL 750 MG, VIAL MATE ADAPTER 1 EACH in NS 250 ML IV SCH ×6 (04:16→21:30)
[2020-09-27 06:00] VITALS: BP 139/74
[2020-09-27 06:03] LABS: HEMATOCRIT 40.6 % (42.0-52.0); HEMOGLOBIN 13.8 g/dl (13.5-17.5); MEAN CORPUSCULAR HEMOGLOBIN 31.3 pg (27.0-33.0); MEAN CORPUSCULAR VOLUME 92.1 fl (80.0-96.0); PLATELET COUNT, AUTOMATED 297 10^3/uL (150-450); RED BLOOD COUNT 4.41 10^6/uL (4.30-6.10); WHITE BLOOD COUNT 12.7 10^3/uL (4.0-10.0)
[2020-09-27 06:28] LABS: BLOOD UREA NITROGEN 16 MG/DL (7-18); CALCIUM LEVEL 8.3 MG/DL (8.8-10.2); CARBON DIOXIDE LEVEL 30 MEQ/L (21-32); CHLORIDE LEVEL 100 MEQ/L (98-107); CREATININE FOR GFR 0.73 MG/DL (0.70-1.30); GLOMERULAR FILTRATION RATE > 60.0 (>49); GLUCOSE, FASTING 236 MG/DL (70-100); POTASSIUM SERUM 3.3 MEQ/L (3.5-5.1); SODIUM LEVEL 137 MEQ/L (136-145)
[2020-09-27] MEDS: HumaLOG INSULIN (NovoLOG) PER UNIT SC SCH ×4 (07:30→21:00)
[2020-09-27] MEDS: TIOTROPIUM INHALER/CAPSULE (SPIRIVA) INH SCH (07:51)
[2020-09-27] MEDS: ADVAIR HFA 230/21MCG INHALER INH SCH ×2 (07:51→19:32)
--- NOTE | 2020-09-27 08:52 | CR ---
CONSULTATION DATE: 09/24/2020 REASON FOR CONSULTATION: Right foot infection. HISTORY OF PRESENT ILLNESS: Jefferson James is a patient seen by myself last hospital admission who underwent incision and drainage. He was discharged on antibiotics [facility] on his appointment this morning he saw Dr. Villarreal and was having rigors and chills and was sent to the E.R. for further evaluation. He is noted to have worsening condition of his right foot wound and had aggressive debridement by Dr. Villarreal [facility]. PAST MEDICAL HISTORY: The patient's past medical history is significant for: 1. Diabetes. 2. Uncontrolled hypertension. 3. Dyslipidemia. 4. Chronic obstructive pulmonary disease. 5. Alcohol abuse. 6. History of right rotator cuff. 7. Left ankle surgery. 8. Amputation of second finger. SOCIAL HISTORY: Positive for alcohol use and for smoking. FAMILY HISTORY: Noncontributory. ALLERGIES: NO KNOWN DRUG ALLERGIES. REVIEW OF SYSTEMS: Positive for fever and chills. Negative for nausea, vomiting. PHYSICAL EXAMINATION: VITAL SIGNS: T-max is 101. EXTREMITIES: Lower extremity examination there is erythema and edema of the right foot with an ulceration on the plantar surface of the first metatarsal head with clotted blood. LABORATORY STUDIES: Labs are reviewed. White blood cell count is 14, ESR 63, CRP is 14.8. ASSESSMENT: A 60-year-old diabetic male with right foot ulceration and cellulitis. PLAN: We will order MRI to further evaluate wound and monitor appearance over the next few days. Further treatment pending results.
[2020-09-27] MEDS: HEPARIN SOD (PORCINE) 5000UNITS/ML 1ML VIAL/SYRINGE SC SCH ×2 (09:00→20:04)
[2020-09-27] MEDS: DOCUSATE SODIUM 100MG CAPSULE PO SCH ×2 (09:00→20:03)
[2020-09-27] MEDS ORDERED: POTASSIUM CHLORIDE 10 MEQ SR TABLET PO ONE (09:00)
[2020-09-27] MEDS: LEVEMIR (INSULIN DETEMIR) 1 UNITS/0.01ML SC SCH ×2 (09:59→21:25)
[2020-09-27] MEDS: BUMETANIDE 1 MG TAB PO SCH ×2 (09:59→20:03)
[2020-09-27 14:00] VITALS: BP 156/75
[2020-09-27] MEDS ORDERED: MIDAZOLAM INJ 2MG/2ML VIAL (J2250 PER 1MG) As Ordered ONE (15:24)
[2020-09-27] MEDS ORDERED: propofoL 200 MG/20 ML VIAL As Ordered ONE ×2 (15:25→16:29)
[2020-09-27] MEDS ORDERED: LIDOCAINE 2% 100MG/5ML SDV (FOR ANES.) As Ordered ONE (15:25)
[2020-09-27] MEDS ORDERED: fentaNYL 100 MCG/2 ML INJECTION (J3010) As Ordered ONE (15:25)
[2020-09-27] MEDS ORDERED: dexameTHASONE 4 MG/ML 1ML VIAL (J1100 PER 1MG) As Ordered ONE (15:40)
[2020-09-27] MEDS ORDERED: BUPIVACAINE HCL 0.5% 30 ML VIAL As Ordered ONE (15:40)
[2020-09-27] MEDS ORDERED: LIDOCAINE 1% SDV 30ML VIAL As Ordered ONE (15:40)
--- NOTE | 2020-09-27 16:44 | IPNPDOC ---
Text Note Date of Service The patient was seen on 09/27/20. NOTE Hospitalist Progress Note Subjective: Patient was asleep when I entered the room, but he is easily aroused. He still does have some pain in his foot, and he is thirsty this morning (since he has been NPO after midnight). But otherwise remainder of his review of systems is negative. He does not have any other concerns today. Objective: General: Awake, alert, oriented 3. Not in any acute distress. HEENT: Head normocephalic, atraumatic, sclera are nonicteric. Hearing is grossly intact to conversation. Respiratory: Clear to auscultation bilaterally with no wheezes, rales, or rhonchi. Cardiovascular: Regular rate and rhythm, with no rubs, gallops, or murmur. Abdomen: Soft, nontender, nondistended, no hepatosplenomegaly appreciated. Bowel sounds present. Extremities: Right foot has mild swelling and erythema. Large ulcer noted on the plantar aspect under the head of the first metatarsal. Assessment/Plan: Right foot ulcer/cellulitis -MRI right foot reveals some fluid collection and concerns for osteomyelitis. - Podiatry is taking him to the OR today for excision of concern bone, and fluid drainage - Continue with empiric antibiotic IV vancomycin Rigors/low-grade fever - First set of blood cultures are negative - Repeat blood cultures were taken when his rigors were observed on 09/25/2020, and these are negative after 24 hours Diabetes mellitus type 2 - Continue with sliding scale insulin and hypoglycemic precautions - Levemir BID Hypertension - Within acceptable limits at this time. No changes in his antihypertensives for now. COPD -Not in exacerbation, continue home inhalers DVT prophylaxis - heparin VS,Fishbone, I+O VS, Fishbone, I+O Laboratory Tests 09/27/20 05:40 Vital Signs Date Time Temp Pulse Resp B/P (MAP) Pulse Ox O2 Delivery O2 Flow Rate FiO2 09/27/20 14:00 98.5 87 18 156/75 (102) 92 Room Air I&O- Last 24 Hours up to 6 AM 09/27/20 06:00 Intake Total 4280 ml Output Total 4100 ml Balance 180 ml ERIS DOVE DO Sep 27, 2020 16:44
[2020-09-27] MEDS: MULTIVITAMINS/MINERALS THERAP 1 TAB PO SCH (17:56)
[2020-09-27 18:00] VITALS: BP 137/74
[2020-09-27] MEDS ORDERED: LR 1,000 ML IV SCH (18:00)
[2020-09-27] MEDS ORDERED: PERCOCET 5MG/325MG TAB PO PRN ×3 (18:00→23:05)
[2020-09-27] MEDS ORDERED: METOCLOPRAMIDE INJ 10MG/2ML VIAL (J2765 PER 1) IV PRN (18:00)
[2020-09-27] MEDS ORDERED: fentaNYL 100 MCG/2 ML INJECTION (J3010) IV PRN (18:00)
[2020-09-27] MEDS ORDERED: ONDANSETRON 4MG/2ML VIAL IV PRN (18:00)
[2020-09-27] MEDS: ACETAMINOPHEN TAB 650MG DOSE (2X325MG) PO PRN (20:04)
[2020-09-27] MEDS ORDERED: PERCOCET 5MG/325MG TAB PO ONE (20:45)
[2020-09-27] MEDS: POTASSIUM CHLORIDE 10 MEQ SR TABLET PO SCH (21:25)
[2020-09-27 22:00] VITALS: BP 118/68
[2020-09-28] MEDS: VANCOMYCIN HCL 750 MG, VIAL MATE ADAPTER 1 EACH in NS 250 ML IV SCH ×2 (04:00→05:12)
[2020-09-28 06:00] VITALS: BP 119/66
[2020-09-28 06:43] LABS: HEMATOCRIT 41.1 % (42.0-52.0); MEAN CORPUSCULAR HEMOGLOBIN 31.6 pg (27.0-33.0); MEAN CORPUSCULAR HGB CONC 34.1 g/dl (32.0-36.5); MEAN CORPUSCULAR VOLUME 92.8 fl (80.0-96.0); PLATELET COUNT, AUTOMATED 308 10^3/uL (150-450); RED BLOOD COUNT 4.43 10^6/uL (4.30-6.10); WHITE BLOOD COUNT 13.8 10^3/uL (4.0-10.0)
[2020-09-28 07:09] LABS: BLOOD UREA NITROGEN 18 MG/DL (7-18); CALCIUM LEVEL 8.2 MG/DL (8.8-10.2); CARBON DIOXIDE LEVEL 30 MEQ/L (21-32); CHLORIDE LEVEL 100 MEQ/L (98-107); GLOMERULAR FILTRATION RATE > 60.0 (>49); GLUCOSE, FASTING 247 MG/DL (70-100); POTASSIUM SERUM 3.6 MEQ/L (3.5-5.1); SODIUM LEVEL 136 MEQ/L (136-145)
[2020-09-28] MEDS: ADVAIR HFA 230/21MCG INHALER INH SCH ×2 (07:28→19:49)
[2020-09-28] MEDS: TIOTROPIUM INHALER/CAPSULE (SPIRIVA) INH SCH (07:28)
--- NOTE | 2020-09-28 07:54 | IPN ---
PROGRESS NOTE DATE: 09/28/2020 SUBJECTIVE: Patient seen and examined at the bedside. Chart has been reviewed. He denies any pain currently, no fever, no chills. Patient has chronic lower extremity edema, has been on I.V. antibiotics. White count slightly elevated at 13.8 from 12.7. Patient is due to be debrided in the operating room. Currently on I.V. vancomycin managed by pharmacy, Levemir insulin has been increased to 15 units subcutaneously twice a day, but sugars remain elevated at 332-239. OBJECTIVE: Vital signs: Temperature 99.5, pulse 91, respiratory rate 18, blood pressure 119/66, 94% on room air. General: Awake, alert, oriented to person, place and time, answering questions appropriately, slightly disheveled, overgrown montelongo in no distress. HEENT: Anicteric, no jaundice. Normocephalic, atraumatic. Dry mucous membranes. Neck: No JVD, no thyromegaly or cervical lymphadenopathy. No carotid bruit, stridor. Lungs: Clear to auscultation, no wheezes, rhonchi or rales. Heart: S1 and S2 sinus rhythm, no murmurs, rubs or gallops. No carotid bruit. Abdomen: Soft, nontender, nondistended, positive bowel sounds. Obese abdomen, no hepatosplenomegaly. No guarding or rebound. Extremities: Patient has 1+ pitting edema bilateral lower extremities with chronic varicosities. Right foot has slight erythema bandaged currently. Right plantar aspect has a large ulcer at the first metatarsal head. LABORATORY DATA: White count 13, hemoglobin 14, hematocrit 41, platelet count 308. Sodium 136, potassium 3.2, chloride 100, bicarb 30, BUN 18, creatinine 0.8, glucose 247. Microbiology: Blood culture is negative, anaerobic. Right foot and wound culture pending. IMAGING STUDIES: MRI of the foot 09/25/2020: Plantar ulcer at the base of the great toe with underlying enhancing granulation tissue tracking down to the hallux sesamoids and findings raising concern for active myelitis in the plantar distal first metatarsal, first proximal phalanx sparing the head and hallux sesamoids, large complex enhancing fluid collection along the flexor hallucis longus tendon sheath with full thickness tear at the left hallux sesamoids and significant proximal retraction, tendon sheath fluid is likely infected communicating with the plantar ulcer, diffuse myositis, cellulitis in the foot, longitudinal split tear of the peroneus brevis tendon at and distal to the fibular tip, complex first metatarsal phalangeal joint effusion with extensive enhancing synovitis concerning for septic arthritis, increased marrow edema in distal medial calcaneus with the presumed infected flexor hallucis longus tendon sheath collection abuts it raising concern for osteomyelitis. ASSESSMENT: This is a 60-year-old male with a history of type-2 diabetes, chronic peripheral neuropathy, hypertension, dyslipidemia, COPD, alcohol abuse, history of right rotator cuff injury, left ankle surgery, amputation of the distal end of the left second finger admitted on September 24 due to complaints of "shaking." Patient had an ulceration on the right foot plantar aspect around the first metatarsal status post incision and drainage by podiatry, follows up with Dr[facility]real [facility] with complaints of rigors and chills about 20 minutes and was sent to the ER. Patient was found to have the following acute issues: 1. Right great toe plantar ulcer with plantar distal first metatarsal osteomyelitis, first proximal phalanx sparing the head and hallux sesamoids. 2. Full thickness tear after hallux sesamoids and significant proximal retraction. 3. Infected tendon sheath fluid collection in the flexor hallucis longus tendon. 4. Chronic right great toe plantar ulcer. 5. Diffuse myositis, cellulitis of the right foot. 6. Split tear of the peroneus brevis tendon. 7. Uncontrolled type-2 diabetes. 8. Hypertension. 9. COPD. 10. History of alcohol abuse. 11. Chronic lower extremity edema. 12. Chronic varicosities. PLAN: Patient is currently broadly covered with intravenous vancomycin managed by pharmacy, Percocet 1-2 tablets q6h as needed for pain control, heparin subcutaneously for DVT prophylaxis. Patient is going to the operating room for debridement by Dr. Garsia, degree clerk. Patient is continued on home medications Bumex and potassium. His COPD is currently compensated. He is currently on Spiriva and routine Advair HFA twice a day. For insomnia he is on ramelteon. DVT prophylaxis and bowel regimen has been given. He is on a hypoglycemic protocol. Activity per podiatry. MTDD
[2020-09-28] MEDS: BUMETANIDE 1 MG TAB PO SCH ×2 (09:47→21:55)
[2020-09-28] MEDS: DOCUSATE SODIUM 100MG CAPSULE PO SCH ×2 (09:47→21:56)
[2020-09-28] MEDS: POTASSIUM CHLORIDE 10 MEQ SR TABLET PO SCH ×2 (09:48→21:56)
[2020-09-28] MEDS: LEVEMIR (INSULIN DETEMIR) 1 UNITS/0.01ML SC SCH ×2 (09:48→21:55)
[2020-09-28] MEDS: HumaLOG INSULIN (NovoLOG) PER UNIT SC SCH ×4 (09:49→21:55)
[2020-09-28] MEDS: HEPARIN SOD (PORCINE) 5000UNITS/ML 1ML VIAL/SYRINGE SC SCH ×2 (09:49→21:55)
[2020-09-28] MEDS: MULTIVITAMINS/MINERALS THERAP 1 TAB PO SCH (09:50)
--- NOTE | 2020-09-28 11:44 | RO ---
OPERATIVE NOTE DATE OF OPERATION: 09/27/2020 PREOPERATIVE DIAGNOSIS: Right foot osteomyelitis and abscess. POSTOPERATIVE DIAGNOSIS: Right foot osteomyelitis and abscess. PROCEDURE: Right foot first metatarsal head excision, and incision and drainage. SURGEON: Benjamin Garsia DPM. PLANT TECHNICIAN: None. ANESTHESIA: Monitored anesthesia care with preop injection of 20 mL of 1:1 mixture of 1% lidocaine plain and 0.5% marcaine plain. ESTIMATED BLOOD LOSS: 10 mL. MATERIALS: 3-0 nylon. INJECTABLES: None. SPECIMEN: Right first metatarsal head and sesamoids, as well as culture aerobic and anaerobic. COMPLICATIONS: None. CONDITION: Stable. INDICATIONS FOR PROCEDURE: Jefferson James is a 60-year-old diabetic male who was admitted due to worsening condition of his right foot wound. An MRI revealed signs suggestive of osteomyelitis of the first metatarsal head, as well as abscess formation along the plantar tendons. He was admitted and brought to the operating room for surgery. DESCRIPTION OF PROCEDURE: The patient's side and site were identified and marked in the preoperative area. Consent was reviewed and obtained. Risks, complications, and alternatives to the procedure were explained to the patient in detail and all questions were anesthesia. The patient was brought to the operating room and placed on the operating room table in the supine position. Monitored anesthesia care was delivered by the anesthesia team. A preop injection of 20 mL of 1:1 mixture of 1% lidocaine plain and 0.5% marcaine plain were injected into the right foot. The right foot was prepped and draped in the usual sterile fashion. A tourniquet was applied to the right ankle and inflated at 250 mmHg. The plantar wound on the first metatarsal head was noted. There was tracking along the flexor tendon. This was probed using a hemostat and an incision was made along the tracking. Significant purulence fluid was expressed and this was cultured for aerobic and anaerobic cultures. Next, a dorsal incision was made over the first metatarsal with a #15 blade. Soft tissue attachments were released and McGlamry elevator was used to release the joint. Next, the metatarsal head was excised using a sagittal saw and this was sent for pathology. The sesamoids were identified and sent as well. Nonviable tissue was removed using a #15 blade and then, the wound was irrigated with approximately 200 mL of normal saline solution using pulse irrigation. No further purulent was identified. The dorsal and plantar incisions were repaired with 3-0 nylon. Sterile dressings were applied and tourniquet was inflated. The patient was brought to the PACU with vital signs stable and neurovascular status intact. He will be readmitted to the floor for continued antibiotics and monitoring.
[2020-09-28] MEDS: VANCOMYCIN HCL 1,000 MG, VIAL MATE ADAPTER 1 EACH in NS 250 ML IV SCH ×2 (13:21→21:52)
[2020-09-28 14:00] VITALS: BP 145/70
[2020-09-28 22:00] VITALS: BP 142/55
[2020-09-29] MEDS: VANCOMYCIN HCL 1,000 MG, VIAL MATE ADAPTER 1 EACH in NS 250 ML IV SCH ×3 (04:00→20:06)
[2020-09-29] MEDS ORDERED: VANCOMYCIN 1000MG/20ML VIAL As Ordered ONE (04:49)
[2020-09-29 06:00] VITALS: BP 133/71
[2020-09-29 06:11] LABS: HEMATOCRIT 39.8 % (42.0-52.0); HEMOGLOBIN 13.6 g/dl (13.5-17.5); MEAN CORPUSCULAR HEMOGLOBIN 31.6 pg (27.0-33.0); MEAN CORPUSCULAR HGB CONC 34.2 g/dl (32.0-36.5); MEAN CORPUSCULAR VOLUME 92.3 fl (80.0-96.0); PLATELET COUNT, AUTOMATED 317 10^3/uL (150-450); RED BLOOD COUNT 4.31 10^6/uL (4.30-6.10); WHITE BLOOD COUNT 13.8 10^3/uL (4.0-10.0)
[2020-09-29 06:37] LABS: BLOOD UREA NITROGEN 16 MG/DL (7-18); CALCIUM LEVEL 8.7 MG/DL (8.8-10.2); CARBON DIOXIDE LEVEL 32 MEQ/L (21-32); CHLORIDE LEVEL 98 MEQ/L (98-107); CREATININE FOR GFR 0.73 MG/DL (0.70-1.30); GLOMERULAR FILTRATION RATE > 60.0 (>49); GLUCOSE, FASTING 225 MG/DL (70-100); POTASSIUM SERUM 3.3 MEQ/L (3.5-5.1); SODIUM LEVEL 135 MEQ/L (136-145)
[2020-09-29] MEDS: ADVAIR HFA 230/21MCG INHALER INH SCH ×2 (07:13→19:52)
[2020-09-29] MEDS: TIOTROPIUM INHALER/CAPSULE (SPIRIVA) INH SCH (07:14)
[2020-09-29] MEDS: COMBIVENT RESPIMAT 100-20MCG INHALER 4GM INH SCH ×4 (08:00→19:52)
--- NOTE | 2020-09-29 08:44 | IPNPDOC ---
Date Seen The patient was seen on 09/29/20. Progress Note SUBJECTIVE: no fever or chills pod1 i&d foot abscess and debridement c/o leg swelling no sob OBJECTIVE PHYSICAL EXAMINATION: VITAL SIGNS: Please see below. General: Awake, alert, oriented to person, place and time, answering questions appropriately, slightly disheveled, overgrown montelongo in no distress. HEENT: Anicteric, no jaundice. Normocephalic, atraumatic. Dry mucous membranes. Neck: No JVD, no thyromegaly or cervical lymphadenopathy. No carotid bruit, stridor. Lungs: +wheezing no rales. Heart: S1 and S2 sinus rhythm, no murmurs, rubs or gallops. No carotid bruit. Abdomen: Soft, nontender, nondistended, positive bowel sounds. Obese abdomen, no hepatosplenomegaly. No guarding or rebound. Extremities: Patient has 1+ pitting edema bilateral lower extremities with chronic varicosities. Right foot bandaged currently. LABORATORY DATA, IMAGING STUDIES, MICROBIOLOGY: Please see below. IMAGING STUDIES: MRI of the foot 09/25/2020: Plantar ulcer at the base of the great toe with underlying enhancing granulation tissue tracking down to the hallux sesamoids and findings raising concern for active myelitis in the plantar distal first metatarsal, first proximal phalanx sparing the head and hallux sesamoids, large complex enhancing fluid collection along the flexor hallucis longus tendon sheath with full thickness tear at the left hallux sesamoids and significant proximal retraction, tendon sheath fluid is likely infected communicating with the plantar ulcer, diffuse myositis, cellulitis in the foot, longitudinal split tear of the peroneus brevis tendon at and distal to the fibular tip, complex first metatarsal phalangeal joint effusion with extensive enhancing synovitis concerning for septic arthritis, increased marrow edema in distal medial calcaneus with the presumed infected flexor hallucis longus tendon sheath collection abuts it raising concern for osteomyelitis. ASSESSMENT: This is a 60-year-old male with a history of type-2 diabetes, chronic peripheral neuropathy, hypertension, dyslipidemia, COPD, alcohol abuse, history of right rotator cuff injury, left ankle surgery, amputation of the distal end of the left second finger admitted on September 24 due to complaints of "shaking." Patient had an ulceration on the right foot plantar aspect around the first metatarsal status post incision and drainage by podiatry, follows up with Dr. [facility]real [facility] with complaints of rigors and chills about 20 minutes and was sent to the ER. Right great toe plantar ulcer with plantar distal first metatarsal osteomyelitis, first proximal phalanx sparing the head and hallux sesamoids. Full thickness tear after hallux sesamoids and significant proximal retraction. Infected tendon sheath fluid collection in the flexor hallucis longus tendon/abscess s/p i&d by podiatry 09/28/20 Chronic right great toe plantar ulcer. Diffuse myositis, cellulitis of the right foot. Split tear of the peroneus brevis tendon. Uncontrolled type-2 diabetes. Hypertension. COPD. History of alcohol abuse. Chronic lower extremity edema. Chronic varicosities. hypokalemia PLAN: postop mgt per podiatry. on iv vanco managed by pharmacy. increased levemir insulin to 20 units sq bid with holding parameters to prevent hypoglycemia. aru consulted. defer to podiatry re: wound management and activity level. monitor fluid balance, i/o, weigh daily. increase bumex to q8 repeat bmp this afternoon. nebs. VS, I&O, [facility] Vital Signs/I&O Vital Signs Date Time Temp Pulse Resp B/P (MAP) Pulse Ox O2 Delivery O2 Flow Rate FiO2 09/29/20 06:00 98.2 86 18 133/71 (91) 90 Room Air I&O- Last 24 Hours up to 6 AM 09/29/20 06:00 Intake Total 2435 ml Output Total 4950 ml Balance -2515 ml Laboratory Data 24H LABS Laboratory Tests 2 09/28/20 10:53: Vancomycin Level Trough 18.3 09/28/20 11:39: Bedside Glucose (Misc Panel) 314H 09/28/20 16:44: Bedside Glucose (Misc Panel) 301H 09/28/20 20:40: Bedside Glucose (Misc Panel) 374H 09/29/20 05:47: Nucleated Red Blood Cells % (auto) 0.0, Anion Gap 5L, Glomerular Filtration Rate > 60.0, Calcium Level 8.7L CBC/BMP Laboratory Tests 09/29/20 05:47 Microbiology Microbiology 09/27/20 Gram Stain - Final, Resulted 09/27/20 Wound Culture, Resulted Pending 09/27/20 Anaerobic Culture, Received Pending 09/25/20 Blood Culture - Preliminary, Resulted No Growth after 72 hours. All specime... 09/25/20 Blood Culture - Preliminary, Resulted No Growth after 72 hours. All specime... 09/24/20 Blood Culture - Preliminary, Resulted No Growth after 72 hours. All specime... 09/24/20 Blood Culture - Preliminary, Resulted No Growth after 72 hours. All specime... JORDYN CONNELLY MD Sep 29, 2020 08:30
[2020-09-29] MEDS ORDERED: LEVALBUTEROL 1.25 MG/0.5 ML CONCENTRATE NEB INH PRN (08:45)
[2020-09-29] MEDS ORDERED: metOLazone 5 MG TAB PO ONE (09:00)
[2020-09-29] MEDS ORDERED: POTASSIUM CHLORIDE 10 MEQ SR TABLET PO ONE (09:00)
--- NOTE | 2020-09-29 09:10 | REP ---
INDICATION: sob wheeze r/o chf.. COMPARISON: 09/24/2020. TECHNIQUE: Portable FINDINGS: The technique utilized in obtaining the radiograph has magnified the cardiac silhouette and accentuated the interstitial markings. The superior mediastinal structures are midline. The cardiac silhouette is unremarkable in size, shape, and position. The diaphragmatic surfaces of the lungs are regular, and the costophrenic angles are clear. The pulmonary barillas are clear. The imaged osseous structures are intact. IMPRESSION: There is no acute cardiopulmonary disease. <Electronically signed by El Sims > 09/29/20 [id number]
[2020-09-29 09:18] LABS: NT-PRO BNP 1354 PG/ML (<125)
[2020-09-29] MEDS: LEVEMIR (INSULIN DETEMIR) 1 UNITS/0.01ML SC SCH ×2 (09:21→20:59)
[2020-09-29] MEDS: HumaLOG INSULIN (NovoLOG) PER UNIT SC SCH ×4 (09:22→20:59)
[2020-09-29] MEDS: DOCUSATE SODIUM 100MG CAPSULE PO SCH ×2 (09:22→20:58)
[2020-09-29] MEDS: HEPARIN SOD (PORCINE) 5000UNITS/ML 1ML VIAL/SYRINGE SC SCH ×2 (09:23→21:00)
[2020-09-29] MEDS: MULTIVITAMINS/MINERALS THERAP 1 TAB PO SCH (09:23)
[2020-09-29] MEDS ORDERED: BUMETANIDE 1 MG/4 ML INJ (S0171) IV ONE (09:30)
[2020-09-29 10:14] VITALS: BP 134/72
--- NOTE | 2020-09-29 12:48 | IPN ---
PROGRESS NOTE DATE: 09/29/2020 SUBJECTIVE: Patient seen and examined. Denies new complaint. States no pain in his foot. OBJECTIVE: T-max 99.2. On lower extremity examination, the erythema and edema are improved. The wound base has no active purulence noted. There remains some erythema near the medial heal. LABORATORY DATA: White blood cell count is 13.8. ASSESSMENT: This is a 60-year-old diabetic male status post first metatarsal head amputation and incision and drainage. PLAN: Await final operating room (OR) cultures. Wound care orders written. The patient likely will be able to be discharged once final cultures are available.
[2020-09-29 14:00] VITALS: BP 106/68
[2020-09-29 16:52] LABS: BLOOD UREA NITROGEN 18 MG/DL (7-18); CALCIUM LEVEL 8.9 MG/DL (8.8-10.2); CARBON DIOXIDE LEVEL 35 MEQ/L (21-32); CHLORIDE LEVEL 95 MEQ/L (98-107); CREATININE FOR GFR 0.78 MG/DL (0.70-1.30); GLOMERULAR FILTRATION RATE > 60.0 (>49); GLUCOSE, FASTING 257 MG/DL (70-100); MAGNESIUM LEVEL 1.6 MG/DL (1.8-2.4); POTASSIUM SERUM 3.7 MEQ/L (3.5-5.1); SODIUM LEVEL 134 MEQ/L (136-145)
[2020-09-29] MEDS: BUMETANIDE 1 MG/4 ML INJ (S0171) IV SCH (18:05)
[2020-09-29 22:00] VITALS: BP 111/69
[2020-09-30] MEDS: COMBIVENT RESPIMAT 100-20MCG INHALER 4GM INH SCH ×4 (00:02→11:10)
[2020-09-30] MEDS: BUMETANIDE 1 MG/4 ML INJ (S0171) IV SCH ×3 (01:05→08:16)
[2020-09-30] MEDS: VANCOMYCIN HCL 1,000 MG, VIAL MATE ADAPTER 1 EACH in NS 250 ML IV SCH (03:58)
[2020-09-30 06:00] VITALS: BP 141/67
[2020-09-30] MEDS ORDERED: BUMETANIDE 1 MG TAB PO SCH (06:00)
[2020-09-30 06:30] LABS: HEMATOCRIT 43.8 % (42.0-52.0); MEAN CORPUSCULAR HEMOGLOBIN 31.4 pg (27.0-33.0); MEAN CORPUSCULAR HGB CONC 34.2 g/dl (32.0-36.5); MEAN CORPUSCULAR VOLUME 91.6 fl (80.0-96.0); PLATELET COUNT, AUTOMATED 382 10^3/uL (150-450); RED BLOOD COUNT 4.78 10^6/uL (4.30-6.10); WHITE BLOOD COUNT 12.9 10^3/uL (4.0-10.0)
[2020-09-30 07:05] LABS: BLOOD UREA NITROGEN 22 MG/DL (7-18); CALCIUM LEVEL 9.2 MG/DL (8.8-10.2); CARBON DIOXIDE LEVEL 35 MEQ/L (21-32); CHLORIDE LEVEL 88 MEQ/L (98-107); CREATININE FOR GFR 1.03 MG/DL (0.70-1.30); GLOMERULAR FILTRATION RATE > 60.0 (>49); GLUCOSE, FASTING 312 MG/DL (70-100); SODIUM LEVEL 130 MEQ/L (136-145)
[2020-09-30] MEDS: ADVAIR HFA 230/21MCG INHALER INH SCH (07:28)
[2020-09-30] MEDS: TIOTROPIUM INHALER/CAPSULE (SPIRIVA) INH SCH (07:28)
[2020-09-30] MEDS: HumaLOG INSULIN (NovoLOG) PER UNIT SC SCH ×2 (08:16→13:23)
[2020-09-30] MEDS: HEPARIN SOD (PORCINE) 5000UNITS/ML 1ML VIAL/SYRINGE SC SCH (08:16)
[2020-09-30] MEDS: DOCUSATE SODIUM 100MG CAPSULE PO SCH (08:16)
[2020-09-30] MEDS: MULTIVITAMINS/MINERALS THERAP 1 TAB PO SCH (08:16)
[2020-09-30] MEDS ORDERED: LEVEMIR (INSULIN DETEMIR) 1 UNITS/0.01ML SC SCH (09:00)
[2020-09-30] MEDS ORDERED: POTASSIUM CHLORIDE 10 MEQ SR TABLET PO SCH ×2 (09:00)
[2020-09-30] MEDS ORDERED: BACTRIM 160MG/800MG DS TAB PO SCH (09:45)
[2020-09-30] MEDS ORDERED: INSUDET SC (09:50)
[2020-09-30] MEDS ORDERED: SULF1TAB23 PO (09:50)
[2020-09-30] MEDS ORDERED: FLAG500T PO (10:07)
[2020-09-30] MEDS ORDERED: BASA100I SC (11:24)
[2020-09-30] MEDS ORDERED: GLUCMIS7 XX (11:26)
[2020-09-30] MEDS ORDERED: LANC1MIS TOP (11:26)
[2020-09-30] MEDS ORDERED: [UNRECOGNIZED DRUG - CODE] MC (11:26)
[2020-09-30] MEDS ORDERED: ALCO1MED XX (11:26)
--- NOTE | 2020-09-30 13:58 | DSES ---
DISCHARGE SUMMARY DATE OF ADMISSION: 09/24/2020 DATE OF DISCHARGE: 09/30/2020 AUTOMOTIVE SERVICE PROFESSIONAL: Dr. Garsia, Supervisor [employer]. PROCEDURES DONE DURING THIS ADMISSION: Right foot first metatarsal head excision and incision and drainage on 09/27/2020. PRIMARY DISCHARGE DIAGNOSES: 1. Right foot osteomyelitis and abscess status post right foot first metatarsal head excision and incision and drainage. 2. Uncontrolled type-2 diabetes requiring Levemir insulin. 3. Right great toe plantar ulcer with plantar distal first metatarsal osteomyelitis, first proximal phalanx sparing the head and hallux sesamoid, full thickness tear after the hallux sesamoid and significant proximal retraction infected tendon sheath with abscess. 4. Diffuse myositis/cellulitis of the right foot. 5. Split tear of the peroneus brevis tendon. 6. Hypertension. 7. COPD. 8. History of alcohol abuse. 9. Chronic lower extremity edema. 10. Chronic varicosities. 11. Hypokalemia. DISCHARGE MEDICATIONS: 1. Bactrim 1 tablet by mouth twice a day for 14 days. 2. Levemir insulin 25 units subcutaneously twice a day. 3. Albuterol four times a day as needed. 4. Bumex 2 mg twice a day. 5. Arnuity Ellipta 1 puff daily. 6. Potassium chloride 8 mEq by mouth twice a day. 7. Multivitamin 1 tablet daily. 8. Tiotropium 2 puffs inhaled daily. DISCHARGE INSTRUCTIONS: 1. Follow up with podiatry within 5 days of discharge. 2. Dressing changes. 3. Activity level per byproducts maker. HISTORY AND HOSPITAL COURSE: 60-year-old male with type-2 diabetes, hypertension, chronic peripheral neuropathy, dyslipidemia, COPD not steroid dependent, alcohol abuse, right rotator cuff injury admitted on September 24 due to complaints of chills, found to have a right foot ulcer with underlying cellulitis, abscess. MRI confirmed osteomyelitis. Patient follows with Dr. Villarreal as outpatient, was found to have right foot osteomyelitis, was given intravenous vancomycin which was managed by pharmacy. Patient's blood cultures were negative. Wound culture grew E. coli and MRSA both sensitive to Bactrim. Patient underwent incision and drainage and debridement of the right first toe osteomyelitis and right foot first metatarsal had excision and post-op management per byproducts maker Dr. Garsia. Patient's glucose was uncontrolled with glucose running between 301-374, started on Levemir insulin, increased to 25 units subcutaneously twice a day and metformin discontinued. He had significant lower extremity edema which was treated with I.V. Bumex 2 mg q8h and has been in net negative balance, negative 0.179 liters on 09/28/2020, negative 3.19 liters on 09/29/2020 with improvement in his lower extremity edema. Patient had episodes of low potassium, low potassium, low magnesium which were supplemented. PHYSICAL EXAMINATION ON DISCHARGE: Temperature 98.6, pulse 86, respiratory rate 18, blood pressure 141/67, 90% on room air. General: Patient is awake, alert, oriented to person, place and time, answering questions appropriately, no distress. Lungs: Clear to auscultation, no wheezes, rhonchi or rales. Heart: S1 and S2 sinus rhythm. Abdomen: Obese, soft, nontender, nondistended. Extremities: Right foot is bandaged, still with 1+ pitting edema bilaterally. LABORATORY DATA: White count 12.9, hemoglobin 15, hematocrit 43, platelet count 382. Sodium 130, potassium 3, chloride 88, bicarb 35, BUN 22, creatinine 1, glucose 312. CRP 22. Wound culture: E. coli, MRSA of the right foot both sensitive to Bactrim. IMAGING STUDIES: MRI of the right foot 09/25/2020: Osteomyelitis of the first metatarsal right with synovitis, osteomyelitis and abscess. Time spent on discharge: Thirty minutes MTDD
== END 2020-09-30 14:36 | disposition home health service (06) | DRG 314 ==
LOC: M ED 08:54 → M ED INP 11:47 → ENRESERV 12:43 → M MSPAV 13:39
PROVIDERS: ADMIT Family Medicine; ATTEND General Practice
PROC: 0Y6P0Z1 Detachment at Right 1st Toe, High, Open Approach (ICD-10-PCS; principal; 2020-09-27 11:15)
DX: E11.69 Type 2 diabetes mellitus with other specified complication (principal); M86.171 Other acute osteomyelitis, right ankle and foot; L97.919 Non-pressure chronic ulcer of unspecified part of right lower leg with unspecified severity; L03.115 Cellulitis of right lower limb; I10 Essential (primary) hypertension; M65.171 Other infective (teno)synovitis, right ankle and foot; L02.611 Cutaneous abscess of right foot; M60.871 Other myositis, right ankle and foot; J44.9 Chronic obstructive pulmonary disease, unspecified; E87.6 Hypokalemia; Z79.899 Other long term (current) drug therapy; E78.5 Hyperlipidemia, unspecified; F10.10 Alcohol abuse, uncomplicated; Z89.022 Acquired absence of left finger(s); F17.210 Nicotine dependence, cigarettes, uncomplicated; E11.621 Type 2 diabetes mellitus with foot ulcer

== ENCOUNTER → 2020-09-24 | Outpatient (REF) | payer OTHER | LOC: M LAB REF 11:28 | PROVIDERS: ATTEND Surgery | DX: L97.516 Non-pressure chronic ulcer of other part of right foot with bone involvement without evidence of necrosis (principal) ==

== ENCOUNTER → 2020-10-26 | Outpatient (CLI) | payer OTHER ==
[~2020-10-26] MED LIST changes: +ALCO1MED XX; +BUME2TAB3 PO; +CLIN150C15 PO; +FLAG500T PO; +GLUCMIS7 XX; +LANC1MIS TOP; +SULF1TAB23 PO; +[UNRECOGNIZED DRUG - CODE] MC
--- NOTE | 2020-10-26 10:51 | REP ---
INDICATION: NICOTINE DEPENDENCE/ US APPT 1ST COMPARISON: 09/21/2017 TECHNIQUE: Axial noncontrast images from the thoracic inlet to the upper abdomen using low-dose lung screening technique (LDCT). FINDINGS: Lung barillas are clear. No focal consolidation, suspicious nodule or mass. No effusion. No pneumothorax. Tracheobronchial tree is patent. IMPRESSION: Lung-RADS category 1. Management recommendations include annual low-dose CT surveillance. <Electronically signed by Lan Harrison > 10/26/20 1049
== END ==
LOC: M RAD 09:51
PROVIDERS: ATTEND Internal Medicine Pulmonary Disease
DX: F17.218 Nicotine dependence, cigarettes, with other nicotine-induced disorders (principal); Z12.2 Encounter for screening for malignant neoplasm of respiratory organs

== ENCOUNTER → 2020-10-26 | Outpatient (CLI) | payer OTHER ==
--- NOTE | 2020-10-26 13:00 | REP ---
INDICATION: NON PRESSURE CHRONIC ULER W/ BONE INVOLVEMENT/CT SCAN AFTER. COMPARISON: None TECHNIQUE: Real time zamora scale and color Doppler evaluation of the left lower extremity arterial vasculature using linear high frequency transducer. FINDINGS: Mild atheromatous plaquing is identified throughout the right lower extremity arterial structures without definite evidence for stenosis or occlusion. Triphasic wave patterns are noted from the common femoral artery to the distal superficial femoral artery followed by monophasic wave patterns to the ankle. Increased diastolic flow is noted and consistent with hyperemia related to healing ulcer. PSV(cm/sec) Common femoral artery: 60.2 cm/s Profunda femoris artery: 104.3 cm/s Proximal superficial femoral artery: 92.4 cm/s Mid superficial femoral artery: 87.9 cm/s Distal superficial femoral artery: 76.3 cm/s Popliteal artery: 74.1 cm/s Proximal ABELARDO: 135.2 cm/s Tibioperoneal trunk: 103.6 cm/s Proximal TOOL CLERK: 72.9 cm/s Distal TOOL CLERK: 108.8 cm/s Distal ABELARDO: 114.0 cm/s IMPRESSION: Mild atheromatous plaquing without evidence for stenosis or occlusion. Increased diastolic flow likely related hyperemia in response to healing ulceration. <Electronically signed by Lan Harrison > 10/26/20 [id number]
== END ==
LOC: M RAD 09:47
PROVIDERS: ATTEND Surgery
DX: L97.516 Non-pressure chronic ulcer of other part of right foot with bone involvement without evidence of necrosis (principal)

== ENCOUNTER → 2020-11-09 | Outpatient (POV) | payer OTHER ==
[~2020-11-09] VITALS: Ht 182.9 cm; Wt 131.8 kg
[2020-11-09 16:10] VITALS: BP 140/82
--- NOTE | 2020-11-10 16:00 | IRCOV ---
[facility] IR Consult Office Visit IR Consult Office Visit DATE: Nov 09, 2020 REASON FOR CONSULTATION/CHIEF COMPLAINT: Right foot ulcer. HISTORY OF PRESENT ILLNESS: 60-year-old diabetic male with chronic nonhealing right foot ulcer, located on the plantar aspect of the first metatarsal. Patient bears weight despite being told not to. His diabetes is poorly controlled with a hemoglobin A1c of 10. Patient reports he has numbness in the foot. Patient denies intermittent claudication or rest pain with elevation. Patient does describe lower extremity swelling. Patient denies prior cold leg, gangrene, amputation, arterial or venous intervention. Patient denies chest pain, shortness of breath, orthopnea, paroxysmal nocturnal dyspnea. ALLERGIES: Please see below. HOME MEDICATIONS: Please see below. PAST MEDICAL HISTORY: Diabetes Hypertension. Dyslipidemia COPD Alcohol abuse PAST SURGICAL HISTORY: Extensive right foot debridement FAMILY HISTORY: Noncontributory. SOCIAL HISTORY: Quit smoking 3 months ago. Denies alcohol or drugs. REVIEW OF SYSTEMS: Otherwise negative. PHYSICAL EXAMINATION: VITAL SIGNS: Please see below. GENERAL APPEARANCE: Appears well. Comfortable at rest. Obese. HEENT: No scleral icterus. RESPIRATORY: Normal breathing at rest. CARDIOVASCULAR: Normal rate. ABDOMEN: Distended. Soft nontender. EXTREMITIES: Left lower extremity: Edema to above the knee. Color normal. Temperature normal. Motor 4 out of 5. Sensation intact. Femoral pulse 2+. Right lower extremity: Edema to above the knee. Color normal. Temperature normal. Ulcer plantar aspect first metatarsal. Motor 4 out of 5. Sensation intact. Femoral pulse 2+. NEUROLOGICAL: Alert and oriented. PSYCHIATRIC: Appropriate to circumstance. LABORATORY DATA: 09/30/2020: Hemoglobin 15.0 hematocrit 43.8 WBC 12.9 platelets 382 sodium 130 potassium 3.0 BUN 22 creatinine 1.03 GFR greater than 60 hemoglobin A1c 10.4 LDL 185 Imaging: I personally reviewed the right lower extremity arterial ultrasound performed October 2020. Good inflow to the common femoral artery with triphasic waveform. Patent common femoral, SFA, profunda, popliteal, and below-knee runoff vessels, with diffuse atherosclerotic plaquing. No significant occlusion or stenosis. ASSESSMENT/PLAN: 60-year-old diabetic male with nonhealing right lower extremity ulcer. Patient needs strict control of his diabetes, hypertension and hyperlipidemia for ulcer healing. No significant arterial stenosis or occlusion identified on recent ultrasound. Given his gross edema, right lower extremity venous reflux study should be ordered, to evaluate for superimposed saphenous vein reflux. We've ordered this study. We will follow up with the patient with the results. I spent 45 minutes reviewing patient's records, imaging and in consultation with the patient. Thank you for this referral. Cc Dr. Villarreal Allergies Coded Allergies: No Known Allergies (Verified , 06/13/18) Home Medications Scheduled Bumetanide (Bumetanide), 2 MG PO BID, (Reported) Fluticasone Furoate (Arnuity Ellipta), 1 PUFF INH DAILY, (Reported) Insulin Glargine,Hum.rec.anlog (Basaglar Kwikpen U-100), 25 UNIT SC BID Metronidazole (Flagyl), 500 MG PO Q8H Multivitamins (Thera M Plus Tablet), 1 TAB PO DAILY, (Reported) Potassium Chloride (Potassium Chloride), 8 MEQ PO BID, (Reported) Sulfamethoxazole/Trimethoprim (Sulfamethoxazole-Tmp Ds Tablet), 1 TAB PO BID Tiotropium Br/Olodaterol HCl (Stiolto Respimat Inhal [place]), 2 PUFFS INH DAILY, (Reported) Scheduled PRN Albuterol Sulfate (Ventolin Hfa), 2 PUFFS INH QID PRN for SHORTNESS OF BREATH, (Reported) Durable Medical Equipment Alcohol Antiseptic Pads (Alcohol Prep Pads), % XX BID, (DME) Blood-Glucose Meter (Blood Glucose Meter), MIS XX BID, (DME) Lancets (Lancets), LNCT TOP BID, (DME) Pen Needle, Diabetic (Easy Comfort Pen Needle), EACH MC BID, (DME) VS, I&O, 24H, Fishbone Vital Signs/I&O Vital Signs Date Time Temp Pulse Resp B/P (MAP) Pulse Ox O2 Delivery O2 Flow Rate FiO2 11/09/20 16:10 98.2 68 20 140/82 (101) 98 Room Air JOSH GILL MD Nov 10, 2020 16:00
== END ==
LOC: M IRPOV 15:10
PROVIDERS: ATTEND Radiology Diagnostic Radiology
DX: L97.529 Non-pressure chronic ulcer of other part of left foot with unspecified severity (principal); E11.621 Type 2 diabetes mellitus with foot ulcer; I10 Essential (primary) hypertension; E78.5 Hyperlipidemia, unspecified; R60.0 Localized edema; Z72.0 Tobacco use; Z79.4 Long term (current) use of insulin; Z79.899 Other long term (current) drug therapy

== ENCOUNTER → 2020-11-23 | Outpatient (POV) | payer OTHER ==
[~2020-11-23] VITALS: Ht 182.9 cm; Wt 127.3 kg
[2020-11-23 14:48] VITALS: BP 126/80
--- NOTE | 2020-11-25 10:32 | IRPN ---
[facility] IR Progress Note IR Progress Note DATE: Nov 23, 2020 FOLLOW-UP: Patient is here to follow-up on the results of his right lower extremity venous reflux study. Patient suffers with right lower extremity pain, edema and venous ulcers. Imaging: I personally reviewed the right lower extremity venous reflux study performed 11/18/2020. There is right greater saphenous vein reflux greater than 0.5 seconds. IMPRESSION: 60-year-old male with right lower extremity pain, swelling and nonhealing venous stasis ulcers. He has positive findings of greater saphenous vein reflux. We discussed the risks and benefits of EVLT therapy and patient is agreeable to proceed. We will schedule the patient for right lower extremity EVLT. Thank you for this referral. Cc Dr. Villarreal Allergies Coded Allergies: No Known Allergies (Verified , 06/13/18) VS,Fishbone, I+O VS, Fishbone, I+O Vital Signs Date Time Temp Pulse Resp B/P (MAP) Pulse Ox O2 Delivery O2 Flow Rate FiO2 11/23/20 14:48 98.7 86 20 126/80 (95) 98 Room Air JOSH GILL MD Nov 25, 2020 10:32
== END ==
LOC: M IRPOV 14:25
PROVIDERS: ATTEND Radiology Diagnostic Radiology
DX: I87.2 Venous insufficiency (chronic) (peripheral) (principal); L97.919 Non-pressure chronic ulcer of unspecified part of right lower leg with unspecified severity; M79.604 Pain in right leg; R60.0 Localized edema

== ENCOUNTER → 2020-12-22 | Outpatient (CLI) | payer OTHER ==
[~2020-12-22] MED LIST changes: +LIDOCAINE 1% MDV 20ML VIAL As Ordered ONE; +LIDOCAINE 2% MDV 20ML VIAL As Ordered ONE; +MIDAZOLAM INJ 2MG/2ML VIAL (J2250 PER 1MG) As Ordered ONE; +NS 1,000 ML IV SCH; +PROMETHAZINE INJ 25 MG/ML VIAL (J2550) As Ordered ONE; +diphenhydrAMINE 50MG/ML VIAL (J1200) As Ordered ONE; +fentaNYL 100 MCG/2 ML INJECTION (J3010) As Ordered ONE
--- NOTE | 2020-12-22 09:26 | IRHP ---
[facility] IR Pre-Procedure H & P General Date of Service: Dec 22, 2020 Procedure: Same Day Surgery Interval History and Physical I have seen the patient and reviewed last H & P performed within 30 days. There is no significant interval change. History of Present Illness Chief Complaint The patient is a 60-year-old male admitted with a reason for visit of Varicose Veins, Pain/Swelling, Venous Ulcer. PRE-PROCEDURE DIAGNOSIS: Varicose veins. HEART: Normal rate. LUNGS: Normal breathing at rest. ASA Classification ASA Classification: III-Severe systemic dis. Mallampati Score: II NPO: Yes Problems with prior sedation: No Obstructive Sleep Apnea: No Plan moderate sedation Allergies Coded Allergies: No Known Allergies (Verified , 06/13/18) Home Medications Scheduled Bumetanide (Bumetanide), 2 MG PO BID, (Reported) Fluticasone Furoate (Arnuity Ellipta), 1 PUFF INH DAILY, (Reported) Insulin Glargine,Hum.rec.anlog (Basaglar Kwikpen U-100), 25 UNIT SC BID Metronidazole (Flagyl), 500 MG PO Q8H Multivitamins (Thera M Plus Tablet), 1 TAB PO DAILY, (Reported) Potassium Chloride (Potassium Chloride), 8 MEQ PO BID, (Reported) Sulfamethoxazole/Trimethoprim (Sulfamethoxazole-Tmp Ds Tablet), 1 TAB PO BID Tiotropium Br/Olodaterol HCl (Stiolto Respimat Inhal [place]), 2 PUFFS INH DAILY, (Reported) Scheduled PRN Albuterol Sulfate (Ventolin Hfa), 2 PUFFS INH QID PRN for SHORTNESS OF BREATH, (Reported) Durable Medical Equipment Alcohol Antiseptic Pads (Alcohol Prep Pads), % XX BID, (DME) Blood-Glucose Meter (Blood Glucose Meter), MIS XX BID, (DME) Lancets (Lancets), LNCT TOP BID, (DME) Pen Needle, Diabetic (Easy Comfort Pen Needle), EACH MC BID, (DME) VS, I&O, 24H, Fishbone Vital Signs/I&O Vital Signs Date Time Temp Pulse Resp B/P (MAP) Pulse Ox O2 Delivery O2 Flow Rate FiO2 12/22/20 08:40 97.4 76 20 98 Room Air JOSH GILL MD Dec 22, 2020 09:26
[2020-12-22 12:15] VITALS: BP 147/79
--- NOTE | 2020-12-23 13:16 | IRPON ---
IR Postoperative Note Date Of Procedure: Dec 22, 2020 Time Of Procedure: 16:00 IR Postoperative Note IR Endovenous laser treatment for right leg varicose vein. IR Ultrasound of the right leg. IR Tumescent anesthesia under ultrasound guidance. IR Moderate sedation. Clinical information: Right lower extremity pain, swelling, venous hypertension and nonhealing venous ulcers. Greater saphenous vein reflux greater than 0.5 seconds. Physician: Dr. Bravo. Procedure: The patient was advised of the benefits, risks and alternatives of the procedure and informed consent was obtained. The time-out was performed with verification of the patient's name, MRN, site of procedure and type of procedure to be performed. The patient was positioned in the supine position on the table. The site was prepped and draped in the usual sterile fashion. Moderate sedation was performed by the physician including the presence of an independent trained RN who assisted in monitoring the patient's level of consciousness and physiologic status. Following the administration of fentanyl and Versed , the physician spent 60 minutes of continuous face to face time with the patient. Ultrasound of the right lower extremity demonstrates dilated greater saphenous vein with greater than 0.5 seconds reflux. The access site was identified with ultrasound and anesthetized with lidocaine. The right greater saphenous vein was accessed under ultrasound guidance at the knee, using a micro introducer needle. An 018 cope wire was advanced into the vein. Incision at the access site was made using a scalpel. The needle was removed and an access catheter was advanced over the wire under ultrasound guidance to > 2.5 centimeters from the saphenofemoral junction. The wire was removed and the laser fiber was advanced through the catheter under ultrasound guidance and positioned with the tip located 2.5 cm from the saphenous femoral junction. Tumescent anesthesia was then injected under ultrasound guidance along the entire length of the vein to be treated. Repeat ultrasound of the saphenofemoral junction was used to confirm positioning of the tip of the laser back 2.5 cm from junction. The patient was positioned in Trendelenburg. The laser was then activated and under ultrasound guidance used to laser the Right greater saphenous vein back to the access point. Simultaneous manual compression was applied to the treated vein. Treatment: Wattage: 7. Time: 120 seconds. Pullback rate 1 cm every 7 seconds. Total Energy deposited 843 joules. Treatment 50 joules per centimeter of vein. The fiber, catheter and sheath were removed, pressure held and hemostasis achieved. A sterile dressing was applied to the site. Compression dressing was then applied to the leg, from ankle to groin. The patient tolerated the procedure well and was returned to the PRU in stable condition. EBL: < 5 ml. Complications: None. Impression: 1. Ultrasound demonstrates dilated right greater saphenous vein with greater than 0.5 seconds reflux. 2. Successful right greater saphenous vein ablation with laser. 3. Compression dressing applied from ankle to groin. Patient to return in 1 week for follow up ultrasound at which time the compression dressing will be switched to stockings. Thank you this referral. Cc JOSH Lim MD Dec 23, 2020 13:16
== END ==
LOC: M IRPRO 08:27
PROVIDERS: ATTEND Radiology Diagnostic Radiology
DX: I83.018 Varicose veins of right lower extremity with ulcer other part of lower leg (principal)

== ENCOUNTER → 2020-12-28 | Outpatient (CLI) | payer OTHER ==
[~2020-12-28] MED LIST changes: -LIDOCAINE 1% MDV 20ML VIAL As Ordered ONE; -LIDOCAINE 2% MDV 20ML VIAL As Ordered ONE; -MIDAZOLAM INJ 2MG/2ML VIAL (J2250 PER 1MG) As Ordered ONE; -NS 1,000 ML IV SCH; -PROMETHAZINE INJ 25 MG/ML VIAL (J2550) As Ordered ONE; -diphenhydrAMINE 50MG/ML VIAL (J1200) As Ordered ONE; -fentaNYL 100 MCG/2 ML INJECTION (J3010) As Ordered ONE
[2020-12-28 07:02] LABS: HEMATOCRIT 38.3 % (42.0-52.0); HEMOGLOBIN 13.3 g/dl (13.5-17.5); MEAN CORPUSCULAR HEMOGLOBIN 32.7 pg (27.0-33.0); MEAN CORPUSCULAR HGB CONC 34.7 g/dl (32.0-36.5); MEAN CORPUSCULAR VOLUME 94.1 fl (80.0-96.0); PLATELET COUNT, AUTOMATED 290 10^3/uL (150-450); RED BLOOD COUNT 4.07 10^6/uL (4.30-6.10); WHITE BLOOD COUNT 6.7 10^3/uL (4.0-10.0)
[2020-12-28 07:43] LABS: ALBUMIN 3.3 GM/DL (3.2-5.2); ALT/SGPT 23 U/L (12-78); BILIRUBIN,TOTAL 0.3 MG/DL (0.2-1.0); BLOOD UREA NITROGEN 22 MG/DL (7-18); CALCIUM LEVEL 9.2 MG/DL (8.8-10.2); CARBON DIOXIDE LEVEL 36 MEQ/L (21-32); CHLORIDE LEVEL 104 MEQ/L (98-107); CHOLESTEROL LEVEL 252 MG/DL (<200); CREATININE FOR GFR 0.94 MG/DL (0.70-1.30); GLOMERULAR FILTRATION RATE > 60.0 (>49); GLUCOSE, FASTING 106 MG/DL (70-100); HDL CHOLESTEROL 48 MG/DL (>40); LDL CHOLESTEROL 170 MG/DL (<100); NON-HDL-C 204 MG/DL; PROSTATIC SPECIFIC AG MONITOR 1.34 NG/ML (< 4.00); SODIUM LEVEL 143 MEQ/L (136-145); TOTAL PROTEIN 7.3 GM/DL (6.4-8.2); TRIGLYCERIDES LEVEL 168 MG/DL (<150)
[2020-12-28 08:28] LABS: TESTOSTERONE 353 NG/DL (241-827)
[2020-12-28 09:26] LABS: HEMOGLOBIN A1c 6.7 %
== END ==
LOC: M LAB 06:14
PROVIDERS: ATTEND Family Medicine
DX: I10 Essential (primary) hypertension (principal); R53.83 Other fatigue

== ENCOUNTER → 2020-12-29 | Outpatient (CLI) | payer OTHER ==
--- NOTE | 2020-12-29 10:30 | REP ---
INDICATION: S/P EVLT, R/O DVT. STATUS POST EVLT RIGHT GSV COMPARISON: 11/18/2020 TECHNIQUE: Multiple ultrasonographic images of the deep venous structures of the right lower extremity were obtained from the inguinal ligament to the ankle. Venous compression techniques, color doppler imaging, and augmentation techniques were also obtained where appropriate. As per the ACR guidelines the anterior tibial vein can not be effectively evaluated. Only compression techniques in the calf on the peroneal and posterior tibial veins was attempted/performed. FINDINGS: There is no abnormal echogenic material seen within any of the visualized deep venous structures that would suggest acute thrombosis. Coaptation is unremarkable throughout. Doppler interrogation shows an expected response to respiratory variability and augmentation in the thigh. Compression techniques in the calf showed no abnormality. The color flow images show what appears to be a normal vascular pattern throughout the thigh. Echogenic material is seen throughout the imaged right greater saphenous vein consistent with previous EVLT IMPRESSION: There is no ultrasonographic evidence of deep venous thrombosis involving any of the visualized deep venous structures of the right lower extremity as described above. <Electronically signed by El Sims > 12/29/20 1027
== END ==
LOC: M RAD 09:45
PROVIDERS: ATTEND Radiology Diagnostic Radiology
DX: E11.621 Type 2 diabetes mellitus with foot ulcer (principal); L97.516 Non-pressure chronic ulcer of other part of right foot with bone involvement without evidence of necrosis

== ENCOUNTER → 2021-01-11 | Outpatient (POV) | payer OTHER ==
[~2021-01-11] VITALS: Ht 182.9 cm; Wt 127.2 kg
[~2021-01-11] MED LIST changes: -CLIN150C15 PO; +CLIN150C17 PO
[2021-01-11 11:40] VITALS: BP 148/80
--- NOTE | 2021-01-18 10:00 | IRPN ---
[facility] IR Progress Note IR Progress Note DATE: Jan 11, 2021 FOLLOW-UP: Status post right lower extremity EVLT for nonhealing ulcers. Patient states he is doing well. No pain or discomfort in the right leg. ON EXAMINATION: Minimal edema at the right ankle. Imaging: I personally reviewed the ultrasound right lower extremity performed 12/29/2020. Good treatment response status post GSV ablation. No deep vein thrombosis. IMPRESSION: Doing well status post right lower extremity EVLT. Patient to continue wearing compression stockings and follow up with wound care. Thank you for this referral Cc Candida Hook Allergies Coded Allergies: No Known Allergies (Verified , 06/13/18) JOSH GILL MD Jan 18, 2021 10:00
== END ==
LOC: M IRPOV 11:24
PROVIDERS: ATTEND Radiology Diagnostic Radiology
DX: Z48.812 Encounter for surgical aftercare following surgery on the circulatory system (principal)

== ENCOUNTER → 2021-02-28 | Outpatient (CLI) | payer OTHER ==
--- NOTE | 2021-02-28 12:26 | REP ---
INDICATION: UA. COMPARISON: None. TECHNIQUE: Four views FINDINGS: There is soft tissue swelling. There are degenerative changes. There is increased density seen in the os calcis. The mortise is intact. There are soft tissue calcifications. IMPRESSION: Cannot rule out an age undetermined os calcis fracture. CT is recommended. There are no priors for comparison. Review of a foot radiograph of 09/06/2020 indicate that today's findings represent a change from the prior exam. <Electronically signed by El Sims > 02/28/21 0166
== END ==
LOC: M RAD 11:41
PROVIDERS: ATTEND Family Medicine
DX: M25.571 Pain in right ankle and joints of right foot (principal)

== ENCOUNTER → 2021-04-04 | Outpatient (CLI) | payer OTHER ==
--- NOTE | 2021-04-04 11:22 | REP ---
INDICATION: RT CALF PAIN/SWELLING, R/O DVT. COMPARISON: Ankle x-ray 02/28/2021, foot x-ray 09/06/2020, foot MRI 09/25/2020. TECHNIQUE: Four views FINDINGS: There is again noted to be significant soft tissue swelling circumferentially about the ankle prep slightly worse today. Spurring at the inferior margin of the malleoli noted. The mortise joint shows symmetric relationships. The ossific density anterior and inferior to the lateral malleolus is no longer visible but there is abundant fragmented calcification adjacent to the inferior tip of the lateral malleolus. There may be a subtle lucency in the lateral corner of the talar dome that could be is osteochondral defect. Dorsal spurring at the talonavicular joint is evident. Vascular calcifications are suspected in arteries over the anterior distal lower leg. No destructive lesions in the distal tibia or fibula nor visible displaced fracture. Stable appearance of sclerosis in the anterior process of the calcaneus and adjacent to the anterior aspect of the posterior subtalar joint of the calcaneus. Spurring developing in the insertion of the Achilles tendon. I suspect an ankle joint effusion. IMPRESSION: 1. Diffuse soft tissue swelling about the ankle is increased with subcutaneous edema and vascular calcifications distally in the pretibial region of the lower leg. There are soft tissue calcifications about the joint which have increased posteriorly on the lateral view and resorption or fragmentation of well-defined calcific density distal to the lateral malleolar tip on the previous radiograph is noted. Suspected joint effusion, degenerative changes at the dorsal aspect of the talonavicular articulation, a suspected talar dome osteochondral defect laterally and calcification developing at the insertion of the Achilles tendon on the posterior calcaneus seen. Orthopedic referral is recommended if not already made. <Electronically signed by Hung Meyers > 04/04/21 [id number]
--- NOTE | 2021-04-04 11:50 | REP ---
INDICATION: RT CALF PAIN/SWELLING, R/O DVT COMPARISON: 12/09/2020. TECHNIQUE: Real time compression and duplex Doppler interrogation of the right lower extremity deep venous system is performed, including the left common femoral vein.Compression of the right peroneal and posterior tibial veins is performed. FINDINGS: The right common femoral, superficial femoral and popliteal veins are fully compressible with transducer pressure and demonstrate normal spontaneous and phasic flow, without evidence of deep venous thrombosis.The left common femoral vein demonstrates no thrombus.The visualized right peroneal and posterior tibial veins demonstrate no thrombus. IMPRESSION: No evidence of deep venous thrombosis of the right lower extremity femoral popliteal venous system.The visualized right peroneal and posterior tibial veins demonstrate no thrombus. <Electronically signed by Power Ritchie > 04/04/21 [id number]
== END ==
LOC: M RAD 10:41
PROVIDERS: ATTEND Family Medicine
DX: R22.41 Localized swelling, mass and lump, right lower limb (principal); M79.604 Pain in right leg

== ENCOUNTER → 2021-04-25 | Outpatient (CLI) | payer OTHER ==
--- NOTE | 2021-04-25 13:30 | REP ---
INDICATION: SPRAIN OF UNSPEC LIGAMENT RT ANKLE ? NEW [facility] O[employer] FX. COMPARISON: None. TECHNIQUE: 2 x [address] scanning through the right ankle was obtained and reconstructed in both sagittal and coronal planes FINDINGS: On 09/27/2020 the patient underwent an operative procedure on the right foot secondary to osteomyelitis and abscess formation. I and D was performed along with excision of the head of the 1st metatarsal. There are advanced erosive changes involving all subtalar joints with evidence of lysis of the middle subtalar joint. There is abnormal widening of the mortise laterally and there is lateral subluxation of the os calcis. There are advanced degenerative changes seen involving the imaged portion of the midfoot there are numerous loose intra-articular bodies of the tibiotalar joint with advanced diffuse soft tissue swelling and a complex joint effusion. Ligamentous and tendinous integrity cannot accurately be commented on. IMPRESSION: Advanced abnormalities as described above. The degree of acuteness superimposed upon a suspected high degree of chronicity cannot be determined by this exam. Findings likely represent acute osteomyelitis superimposed upon chronic osteomyelitis. An acute fracture subluxation cannot be ruled out. <Electronically signed by El Sims > 04/25/21 [id number]
== END ==
LOC: M PLAIMG 12:38
PROVIDERS: ATTEND Physician Assistant
DX: S93.401A Sprain of unspecified ligament of right ankle, initial encounter (principal); X58.XXXA Exposure to other specified factors, initial encounter; Y92.9 Unspecified place or not applicable; M86.171 Other acute osteomyelitis, right ankle and foot

== ENCOUNTER → 2021-05-04 | Outpatient (CLI) | payer OTHER ==
[~2021-05-04] MED LIST changes: -CEFD1CAP8 PO; +CEFD300C41 PO; +ISOVUE-300 61% 50ML VIAL As Ordered ONE; +LIDOCAINE 1% MDV 20ML VIAL As Ordered ONE
[2021-05-04 11:05] VITALS: BP 159/86
== END ==
LOC: M IRPRO 10:39
PROVIDERS: ATTEND Physician Assistant
DX: M25.471 Effusion, right ankle (principal)
CPT/HCPCS: 20610; 77002; Q9967

== ENCOUNTER → 2021-05-17 | Outpatient (CLI) | payer OTHER ==
[~2021-05-17] MED LIST changes: +CEFD1CAP8 PO; -CEFD300C41 PO; -ISOVUE-300 61% 50ML VIAL As Ordered ONE; -LIDOCAINE 1% MDV 20ML VIAL As Ordered ONE
[2021-05-17 11:38] LABS: BASO % 0.5 % (0.0-1.0); EOS # 0.3 10^3/uL (0.0-0.5); EOS % 3.7 % (0.0-3.0); HEMATOCRIT 44.3 % (42.0-52.0); HEMOGLOBIN 14.5 g/dl (13.5-17.5); MEAN CORPUSCULAR HEMOGLOBIN 30.9 pg (27.0-33.0); MEAN CORPUSCULAR HGB CONC 32.7 g/dl (32.0-36.5); MEAN CORPUSCULAR VOLUME 94.3 fl (80.0-96.0); MONO # 0.7 10^3/uL (0.0-0.8); MONO % 9.2 % (2.0-8.0); NEUTROPHILS # 4.6 10^3/uL (1.5-8.5); NEUTROPHILS % 60.5 % (36.0-66.0); PLATELET COUNT, AUTOMATED 360 10^3/uL (150-450); WHITE BLOOD COUNT 7.6 10^3/uL (4.0-10.0)
[2021-05-17 11:59] LABS: ERYTHROCYTE SEDIMENTATION RATE 70 mm/hr (0-20)
[2021-05-17 12:07] LABS: BLOOD UREA NITROGEN 22 MG/DL (7-18); C REACTIVE PROTEIN QUANTITATIV 2.68 MG/DL (0.00-0.30); CALCIUM LEVEL 9.6 MG/DL (8.8-10.2); CARBON DIOXIDE LEVEL 35 MEQ/L (21-32); CHLORIDE LEVEL 102 MEQ/L (98-107); CREATININE FOR GFR 0.87 MG/DL (0.70-1.30); GLOMERULAR FILTRATION RATE > 60.0 (>49); GLUCOSE, FASTING 128 MG/DL (70-100); POTASSIUM SERUM 4.8 MEQ/L (3.5-5.1); SODIUM LEVEL 141 MEQ/L (136-145)
[2021-05-17 12:09] LABS: HEMOGLOBIN A1c 6.5 %
== END ==
LOC: M PLALAB 08:38
PROVIDERS: ATTEND Internal Medicine Infectious Disease
DX: E11.621 Type 2 diabetes mellitus with foot ulcer (principal); M25.471 Effusion, right ankle

== ENCOUNTER → 2021-05-24 | Outpatient (CLI) | payer OTHER ==
--- NOTE | 2021-05-24 14:35 | REP ---
INDICATION: CHRONIC RT ULCER FOOT NON HEALING COMPARISON: None. TECHNIQUE: Ritchie scale and color Doppler evaluation using linear high frequency transducer. FINDINGS: Ultrasound examination of the right lower extremity deep venous structures from the common femoral vein through the popliteal vein demonstrates normal compressibility, flow and wave patterns in response to respiration and augmentation. Evaluation of the calf veins is limited with normal compressibility to the posterior tibial vein and nonvisualization of the peroneal vein. There is no evidence for deep venous thrombosis. Contralateral CFV is patent and normal. Reflux evaluation demonstrates very minimal reflux at the proximal greater saphenous vein which measures 10.5 mm diameter with reflux duration 0 4 seconds. Remainder of the examination is normal and without reflux. IMPRESSION: No evidence for deep venous thrombosis. Very minimal reflux at the proximal greater saphenous vein. <Electronically signed by Lan Harrison > 05/24/21 [id number]
== END ==
LOC: M RAD 12:11
PROVIDERS: ATTEND Surgery
DX: L97.512 Non-pressure chronic ulcer of other part of right foot with fat layer exposed (principal)

== ENCOUNTER → 2021-07-21 | Outpatient (CLI) | payer OTHER ==
[~2021-07-21] MED LIST changes: -CEFD1CAP8 PO; +CEFD300C41 PO; +LIDOCAINE 1% MDV 20ML VIAL As Ordered ONE
[2021-07-21 15:50] VITALS: BP 155/77
== END ==
LOC: M IRPRO 14:20
PROVIDERS: ATTEND Physician Assistant
DX: L03.115 Cellulitis of right lower limb (principal)
CPT/HCPCS: 36569; C1751; J1642; J1644

== ENCOUNTER → 2021-07-22 | Outpatient (CLI) | payer OTHER ==
[~2021-07-22] MED LIST changes: -LIDOCAINE 1% MDV 20ML VIAL As Ordered ONE
[2021-07-22 10:29] LABS: HEMOGLOBIN 14.1 g/dl (13.5-17.5); MEAN CORPUSCULAR HEMOGLOBIN 29.9 pg (27.0-33.0); MEAN CORPUSCULAR VOLUME 93.4 fl (80.0-96.0); PLATELET COUNT, AUTOMATED 355 10^3/uL (150-450); RED BLOOD COUNT 4.71 10^6/uL (4.30-6.10); WHITE BLOOD COUNT 8.3 10^3/uL (4.0-10.0)
[2021-07-22 10:53] LABS: ALBUMIN 3.2 GM/DL (3.2-5.2); ALT/SGPT 26 U/L (12-78); BILIRUBIN,TOTAL 0.6 MG/DL (0.2-1.0); BLOOD UREA NITROGEN 21 MG/DL (7-18); CALCIUM LEVEL 9.2 MG/DL (8.8-10.2); CARBON DIOXIDE LEVEL 35 MEQ/L (21-32); CHLORIDE LEVEL 99 MEQ/L (98-107); CREATININE FOR GFR 0.97 MG/DL (0.70-1.30); GLOMERULAR FILTRATION RATE > 60.0 (>49); GLUCOSE, FASTING 107 MG/DL (70-100); POTASSIUM SERUM 4.1 MEQ/L (3.5-5.1); SODIUM LEVEL 139 MEQ/L (136-145); TOTAL PROTEIN 7.5 GM/DL (6.4-8.2); VANCOMYCIN RANDOM 25.7 UG/ML
== END ==
LOC: M LAB 09:37
PROVIDERS: ATTEND Family Medicine
DX: E11.621 Type 2 diabetes mellitus with foot ulcer (principal); L97.512 Non-pressure chronic ulcer of other part of right foot with fat layer exposed

== ENCOUNTER → 2021-08-02 | Outpatient (REF) | payer OTHER ==
[2021-08-02 10:29] LABS: BASO # 0.1 10^3/uL (0.0-0.2); BASO % 1.2 % (0.0-1.0); EOS # 0.2 10^3/uL (0.0-0.5); EOS % 4.1 % (0.0-3.0); HEMATOCRIT 43.1 % (42.0-52.0); HEMOGLOBIN 14.2 g/dl (13.5-17.5); LYMPH # 1.7 10^3/uL (1.5-5.0); LYMPH % 29.1 % (24.0-44.0); MEAN CORPUSCULAR HEMOGLOBIN 30.2 pg (27.0-33.0); MEAN CORPUSCULAR HGB CONC 32.9 g/dl (32.0-36.5); MEAN CORPUSCULAR VOLUME 91.7 fl (80.0-96.0); MONO # 0.5 10^3/uL (0.0-0.8); MONO % 8.1 % (2.0-8.0); NEUTROPHILS # 3.3 10^3/uL (1.5-8.5); NEUTROPHILS % 57.2 % (36.0-66.0); PLATELET COUNT, AUTOMATED 335 10^3/uL (150-450); WHITE BLOOD COUNT 5.8 10^3/uL (4.0-10.0)
[2021-08-02 11:30] LABS: ERYTHROCYTE SEDIMENTATION RATE 67 mm/hr (0-20)
[2021-08-02 12:16] LABS: ALBUMIN 3.2 GM/DL (3.2-5.2); ALT/SGPT 25 U/L (12-78); BILIRUBIN,TOTAL 0.3 MG/DL (0.2-1.0); BLOOD UREA NITROGEN 20 MG/DL (7-18); C REACTIVE PROTEIN QUANTITATIV 1.11 MG/DL (0.00-0.30); CALCIUM LEVEL 9.3 MG/DL (8.8-10.2); CARBON DIOXIDE LEVEL 33 MEQ/L (21-32); CHLORIDE LEVEL 102 MEQ/L (98-107); CREATININE FOR GFR 0.86 MG/DL (0.70-1.30); GLOMERULAR FILTRATION RATE > 60.0 (>49); GLUCOSE, FASTING 116 MG/DL (70-100); POTASSIUM SERUM 4.6 MEQ/L (3.5-5.1); SODIUM LEVEL 141 MEQ/L (136-145); TOTAL PROTEIN 7.7 GM/DL (6.4-8.2); VANCOMYCIN LEVEL TROUGH 19.9 UG/ML (10.0-20.0)
== END ==
LOC: M LAB REF 09:37
PROVIDERS: ATTEND Internal Medicine Infectious Disease
DX: L03.115 Cellulitis of right lower limb (principal)

== ENCOUNTER → 2021-08-09 | Outpatient (REF) | payer MEDICAID, OTHER ==
[~2021-08-09] MED LIST changes: +ARNU1INH IN; +GABA-282 PO
[2021-08-09 10:50] LABS: BASO % 0.8 % (0.0-1.0); EOS # 0.2 10^3/uL (0.0-0.5); EOS % 3.8 % (0.0-3.0); HEMATOCRIT 46.2 % (42.0-52.0); HEMOGLOBIN 15.4 g/dl (13.5-17.5); LYMPH # 1.6 10^3/uL (1.5-5.0); LYMPH % 29.9 % (24.0-44.0); MEAN CORPUSCULAR HEMOGLOBIN 30.1 pg (27.0-33.0); MEAN CORPUSCULAR HGB CONC 33.3 g/dl (32.0-36.5); MEAN CORPUSCULAR VOLUME 90.4 fl (80.0-96.0); MONO # 0.5 10^3/uL (0.0-0.8); MONO % 9.8 % (2.0-8.0); NEUTROPHILS # 2.9 10^3/uL (1.5-8.5); NEUTROPHILS % 55.5 % (36.0-66.0); PLATELET COUNT, AUTOMATED 305 10^3/uL (150-450); RED BLOOD COUNT 5.11 10^6/uL (4.30-6.10); WHITE BLOOD COUNT 5.3 10^3/uL (4.0-10.0)
[2021-08-09 11:15] LABS: ERYTHROCYTE SEDIMENTATION RATE 28 mm/hr (0-20)
[2021-08-09 11:30] LABS: C REACTIVE PROTEIN QUANTITATIV 0.78 MG/DL (0.00-0.30); CREATININE FOR GFR 0.94 MG/DL (0.70-1.30); GLOMERULAR FILTRATION RATE > 60.0 (>49); VANCOMYCIN LEVEL TROUGH 21.5 UG/ML (10.0-20.0)
== END ==
LOC: M LAB REF 09:40
PROVIDERS: ATTEND Internal Medicine Infectious Disease
DX: L03.115 Cellulitis of right lower limb (principal)

== ENCOUNTER → 2021-08-12 | Outpatient (CLI) | payer OTHER ==
[~2021-08-12] MED LIST changes: -ARNU1INH IN; -GABA-282 PO
== END ==
LOC: M RAD 10:31
PROVIDERS: ATTEND Surgery
DX: L97.512 Non-pressure chronic ulcer of other part of right foot with fat layer exposed (principal)

== ENCOUNTER → 2021-10-10 | Outpatient (CLI) | payer OTHER ==
[2021-10-10 06:39] LABS: HEMOGLOBIN 13.6 g/dl (13.5-17.5); MEAN CORPUSCULAR HEMOGLOBIN 31.1 pg (27.0-33.0); MEAN CORPUSCULAR VOLUME 91.3 fl (80.0-96.0); PLATELET COUNT, AUTOMATED 303 10^3/uL (150-450); RED BLOOD COUNT 4.38 10^6/uL (4.30-6.10); WHITE BLOOD COUNT 5.9 10^3/uL (4.0-10.0)
[2021-10-10 07:11] LABS: ALBUMIN 3.1 GM/DL (3.2-5.2); ALT/SGPT 20 U/L (12-78); BILIRUBIN,TOTAL 0.4 MG/DL (0.2-1.0); BLOOD UREA NITROGEN 20 MG/DL (7-18); CALCIUM LEVEL 9.2 MG/DL (8.8-10.2); CARBON DIOXIDE LEVEL 31 MEQ/L (21-32); CHLORIDE LEVEL 105 MEQ/L (98-107); CHOLESTEROL LEVEL 266 MG/DL (<200); CHOLESTEROL RISK RATIO 5.541 (<5); CREATININE FOR GFR 1.04 MG/DL (0.70-1.30); GLOMERULAR FILTRATION RATE > 60.0 (>49); GLUCOSE, FASTING 196 MG/DL (70-100); HDL CHOLESTEROL 48 MG/DL (>40); LDL CHOLESTEROL 185 MG/DL (<100); NON-HDL-C 218 MG/DL; POTASSIUM SERUM 4.3 MEQ/L (3.5-5.1); PROSTATIC SPECIFIC AG MONITOR 1.45 NG/ML (< 4.00); SODIUM LEVEL 140 MEQ/L (136-145); TOTAL PROTEIN 7.1 GM/DL (6.4-8.2); TRIGLYCERIDES LEVEL 164 MG/DL (<150)
[2021-10-10 10:14] LABS: HEMOGLOBIN A1c 6.7 %
== END ==
LOC: M LAB 06:14
PROVIDERS: ATTEND Family Medicine
DX: I10 Essential (primary) hypertension (principal)

== ENCOUNTER 2021-10-21 21:11 | Inpatient (IN) | payer OTHER ==
[~2021-10-21] VITALS: Ht 182.9 cm; Wt 135.1 kg
[2021-10-21] MEDS ORDERED: IPRATROPIUM 0.5MG/ALBUTEROL 2.5MG INH SOL UD 3ML (DUONEB) NEB ONE (21:45)
[2021-10-21] MEDS ORDERED: methylPREDNISolone 125MG 2ML VIAL IV ONE (21:45)
[2021-10-21] MEDS ORDERED: ASPIRIN 81 MG CHEW TABLET PO ONE (21:45)
[2021-10-21] MEDS ORDERED: IPRATROPIUM 0.5MG/ALBUTEROL 2.5MG INH SOL UD 3ML (DUONEB) NEB PRN (21:45)
[2021-10-21 22:02] LABS: BASO % 0.4 % (0.0-1.0); EOS # 0.1 10^3/uL (0.0-0.5); EOS % 0.7 % (0.0-3.0); HEMATOCRIT 40.1 % (42.0-52.0); LYMPH # 1.3 10^3/uL (1.5-5.0); MEAN CORPUSCULAR HEMOGLOBIN 31.3 pg (27.0-33.0); MEAN CORPUSCULAR HGB CONC 34.9 g/dl (32.0-36.5); MEAN CORPUSCULAR VOLUME 89.7 fl (80.0-96.0); MONO # 0.7 10^3/uL (0.0-0.8); MONO % 6.8 % (2.0-8.0); NEUTROPHILS # 8.6 10^3/uL (1.5-8.5); NEUTROPHILS % 79.7 % (36.0-66.0); PLATELET COUNT, AUTOMATED 300 10^3/uL (150-450); RED BLOOD COUNT 4.47 10^6/uL (4.30-6.10); WHITE BLOOD COUNT 10.8 10^3/uL (4.0-10.0)
[2021-10-21] MEDS ORDERED: COMBIVENT RESPIMAT 100-20MCG INHALER 4GM INH PRN (22:05)
[2021-10-21 22:32] LABS: ALBUMIN 3.4 GM/DL (3.2-5.2); ALT/SGPT 19 U/L (12-78); BILIRUBIN,DIRECT 0.1 MG/DL (0.0-0.2); BILIRUBIN,TOTAL 0.5 MG/DL (0.2-1.0); BLOOD UREA NITROGEN 26 MG/DL (7-18); CALCIUM LEVEL 9.4 MG/DL (8.8-10.2); CARBON DIOXIDE LEVEL 28 MEQ/L (21-32); CHLORIDE LEVEL 103 MEQ/L (98-107); CK-MB VALUE MASS 1.1 NG/ML (<3.6); CREATININE FOR GFR 1.05 MG/DL (0.70-1.30); GLOMERULAR FILTRATION RATE > 60.0 (>49); GLUCOSE, FASTING 158 MG/DL (70-100); MB/CK RELATIVE INDEX 1.69 (< OR =4); NT-PRO BNP 146 PG/ML (<125); POTASSIUM SERUM 3.6 MEQ/L (3.5-5.1); SODIUM LEVEL 139 MEQ/L (136-145); TOTAL PROTEIN 7.5 GM/DL (6.4-8.2)
[2021-10-21 22:36] LABS: RSV AMPLIFICATION NEGATIVE (NEGATIVE)
[2021-10-21] MEDS ORDERED: dexameTHASONE 20MG/5ML VIAL (J1100 PER 1MG) IV ONE (22:45)
[2021-10-21] MEDS ORDERED: DEXTROSE 50% 50 ML SYRINGE IV PRN (23:15)
[2021-10-21] MEDS ORDERED: GLUCAGON INJ 1MG VIAL SC PRN (23:15)
[2021-10-21] MEDS ORDERED: GLUCOSE 4GM CHEW TABLET PO PRN (23:15)
[2021-10-21] MEDS ORDERED: guaiFENesin ER 600 MG TAB PO PRN (23:15)
[2021-10-21] MEDS ORDERED: BENZONATATE 100MG CAPSULE PO PRN (23:15)
[2021-10-21] MEDS ORDERED: ARNU1INH IN (23:50)
[2021-10-22] MEDS ORDERED: LORazepam 2 MG TAB PO PRN (00:10)
[2021-10-22] MEDS ORDERED: BASA100I SC (00:14)
[2021-10-22] MEDS ORDERED: METF10004 PO (00:14)
[2021-10-22] MEDS ORDERED: GABA-282 PO (00:14)
[2021-10-22] MEDS ORDERED: HOME MED LIST COMPLETE! XX SCH (00:15)
[2021-10-22] MEDS: cefTRIAXone SOD 1 GM in D5W MINI-BAG PLUS 50 ML IV SCH (02:02)
[2021-10-22] MEDS: THIAMINE 100 MG TAB PO SCH ×3 (02:02→20:51)
[2021-10-22 02:35] VITALS: BP 154/79
[2021-10-22] MEDS ORDERED: REMDESIVIR 200 MG in NS 250 ML IV ONE (04:00)
[2021-10-22] MEDS ORDERED: SODIUM CHLORIDE 0.9% INJ 10 ML SYR IV ONE (04:00)
[2021-10-22] MEDS: IPRATROPIUM 0.02% SOLN 0.5MG 2.5ML NEB NEB SCH ×4 (04:08→19:20)
[2021-10-22] MEDS: LEVALBUTEROL 1.25 MG/0.5 ML CONCENTRATE NEB NEB SCH ×4 (04:08→19:20)
[2021-10-22 05:59] VITALS: BP 117/54
[2021-10-22 06:00] VITALS: BP 117/54
[2021-10-22 08:03] LABS: BASO % 0.1 % (0.0-1.0); HEMATOCRIT 40.1 % (42.0-52.0); HEMOGLOBIN 13.8 g/dl (13.5-17.5); LYMPH # 0.8 10^3/uL (1.5-5.0); LYMPH % 8.2 % (24.0-44.0); MEAN CORPUSCULAR HGB CONC 34.4 g/dl (32.0-36.5); MEAN CORPUSCULAR VOLUME 90.1 fl (80.0-96.0); MONO # 0.1 10^3/uL (0.0-0.8); NEUTROPHILS # 8.4 10^3/uL (1.5-8.5); NEUTROPHILS % 90.5 % (36.0-66.0); PLATELET COUNT, AUTOMATED 288 10^3/uL (150-450); RED BLOOD COUNT 4.45 10^6/uL (4.30-6.10); WHITE BLOOD COUNT 9.3 10^3/uL (4.0-10.0)
[2021-10-22 08:18] LABS: INR 0.97; PROTHROMBIN TIME 13.3 SECONDS (12.7-14.5)
[2021-10-22 08:21] LABS: D-DIMER QUANT 1300.76 ng/ml (<500)
[2021-10-22 08:22] LABS: BLOOD UREA NITROGEN 23 MG/DL (7-18); CALCIUM LEVEL 9.1 MG/DL (8.8-10.2); CARBON DIOXIDE LEVEL 27 MEQ/L (21-32); CHLORIDE LEVEL 105 MEQ/L (98-107); CREATININE FOR GFR 0.95 MG/DL (0.70-1.30); GLOMERULAR FILTRATION RATE > 60.0 (>49); GLUCOSE, FASTING 295 MG/DL (70-100); MAGNESIUM LEVEL 2.3 MG/DL (1.8-2.4); POTASSIUM SERUM 3.7 MEQ/L (3.5-5.1); SODIUM LEVEL 138 MEQ/L (136-145)
[2021-10-22 08:27] LABS: C REACTIVE PROTEIN QUANTITATIV 4.01 MG/DL (0.00-0.30)
[2021-10-22] MEDS ORDERED: ENOXAPARIN 40MG/0.4ML SYRINGE (J1650 PER 10MG) SC SCH (09:00)
[2021-10-22] MEDS: FOLIC ACID 1 MG TAB PO SCH (09:29)
[2021-10-22] MEDS: INSULIN LISPRO (NovoLOG) PER UNIT SC SCH ×4 (09:29→20:44)
[2021-10-22] MEDS: LACTOBACILLUS ACIDOPHILUS CAP (BACID) PO SCH (09:29)
[2021-10-22] MEDS: POTASSIUM CHLORIDE 10MEQ SR TABLET PO SCH ×2 (09:29→20:51)
[2021-10-22] MEDS: GABAPENTIN 300 MG CAP PO SCH ×3 (09:29→20:51)
[2021-10-22] MEDS: BUMETANIDE 1 MG TAB PO SCH ×2 (09:29→17:05)
[2021-10-22] MEDS: MULTIVITAMINS/MINERALS THERAP 1 TAB PO SCH (09:29)
[2021-10-22] MEDS: FLUTICASONE PROP 0.05% NASAL SPRAY 16 GM (FLONASE) NARES SCH ×2 (09:36→20:52)
[2021-10-22 14:00] VITALS: BP 108/59
[2021-10-22] MEDS: LEVEMIR (INSULIN DETEMIR) 1 UNITS/0.01ML SC SCH ×2 (14:16→20:51)
[2021-10-22 14:35] LABS: HEMOGLOBIN A1c 6.8 %
[2021-10-22] MEDS: FLUTICASONE HFA 220 MCG 12 GM INHALER (FLOVENT) INH SCH (19:20)
[2021-10-22 19:46] VITALS: BP 119/57
[2021-10-22 21:05] VITALS: BP 124/58
[2021-10-23] MEDS: cefTRIAXone SOD 1 GM in D5W MINI-BAG PLUS 50 ML IV SCH (01:15)
[2021-10-23] MEDS: IPRATROPIUM 0.02% SOLN 0.5MG 2.5ML NEB NEB SCH ×4 (02:55→20:00)
[2021-10-23] MEDS: LEVALBUTEROL 1.25 MG/0.5 ML CONCENTRATE NEB NEB SCH ×4 (02:55→20:00)
[2021-10-23] MEDS: REMDESIVIR 100 MG in NS 250 ML IV SCH (03:30)
[2021-10-23 04:22] VITALS: BP 121/63
[2021-10-23] MEDS: SODIUM CHLORIDE 0.9% INJ 10 ML SYR IV SCH (04:41)
[2021-10-23 04:49] VITALS: O2SAT 95
[2021-10-23 08:08] LABS: BASO % 0.1 % (0.0-1.0); EOS % 0.3 % (0.0-3.0); HEMATOCRIT 36.5 % (42.0-52.0); HEMOGLOBIN 12.6 g/dl (13.5-17.5); LYMPH # 1.9 10^3/uL (1.5-5.0); MEAN CORPUSCULAR HEMOGLOBIN 31.7 pg (27.0-33.0); MEAN CORPUSCULAR HGB CONC 34.5 g/dl (32.0-36.5); MEAN CORPUSCULAR VOLUME 91.7 fl (80.0-96.0); MONO # 0.6 10^3/uL (0.0-0.8); MONO % 6.3 % (2.0-8.0); NEUTROPHILS # 6.6 10^3/uL (1.5-8.5); PLATELET COUNT, AUTOMATED 268 10^3/uL (150-450); RED BLOOD COUNT 3.98 10^6/uL (4.30-6.10); WHITE BLOOD COUNT 9.2 10^3/uL (4.0-10.0)
[2021-10-23 08:19] LABS: INR 1.02; PROTHROMBIN TIME 13.8 SECONDS (12.7-14.5)
[2021-10-23 08:36] LABS: ALBUMIN 2.8 GM/DL (3.2-5.2); ALT/SGPT 13 U/L (12-78); BILIRUBIN,DIRECT < 0.1 MG/DL (0.0-0.2); BILIRUBIN,TOTAL 0.2 MG/DL (0.2-1.0); BLOOD UREA NITROGEN 27 MG/DL (7-18); CALCIUM LEVEL 8.9 MG/DL (8.8-10.2); CARBON DIOXIDE LEVEL 29 MEQ/L (21-32); CHLORIDE LEVEL 108 MEQ/L (98-107); CREATININE FOR GFR 0.84 MG/DL (0.70-1.30); FERRITIN 356 NG/ML (26-388); GLOMERULAR FILTRATION RATE > 60.0 (>49); GLUCOSE, FASTING 121 MG/DL (70-100); LDH LACTATE DEHYDROGENASE 121 U/L (87-241); MAGNESIUM LEVEL 2.3 MG/DL (1.8-2.4); NT-PRO BNP 560 PG/ML (<125); POTASSIUM SERUM 3.6 MEQ/L (3.5-5.1); SODIUM LEVEL 143 MEQ/L (136-145); TOTAL PROTEIN 6.7 GM/DL (6.4-8.2)
[2021-10-23] MEDS: LEVEMIR (INSULIN DETEMIR) 1 UNITS/0.01ML SC SCH ×2 (08:40→20:41)
[2021-10-23] MEDS: INSULIN LISPRO (NovoLOG) PER UNIT SC SCH ×4 (08:41→20:40)
[2021-10-23] MEDS: LACTOBACILLUS ACIDOPHILUS CAP (BACID) PO SCH (08:41)
[2021-10-23] MEDS: BUMETANIDE 1 MG TAB PO SCH ×2 (08:41→17:17)
[2021-10-23] MEDS: POTASSIUM CHLORIDE 10MEQ SR TABLET PO SCH ×2 (08:41→20:40)
[2021-10-23] MEDS: GABAPENTIN 300 MG CAP PO SCH ×3 (08:41→20:40)
[2021-10-23] MEDS: MULTIVITAMINS/MINERALS THERAP 1 TAB PO SCH (08:42)
[2021-10-23] MEDS: FOLIC ACID 1 MG TAB PO SCH (08:42)
[2021-10-23] MEDS: THIAMINE 100 MG TAB PO SCH ×2 (08:42→20:40)
[2021-10-23] MEDS: ENOXAPARIN 40MG/0.4ML SYRINGE (J1650 PER 10MG) SC SCH (08:42)
[2021-10-23] MEDS: FLUTICASONE HFA 220 MCG 12 GM INHALER (FLOVENT) INH SCH ×2 (08:46→20:00)
[2021-10-23] MEDS: FLUTICASONE PROP 0.05% NASAL SPRAY 16 GM (FLONASE) NARES SCH ×2 (09:00→20:41)
[2021-10-23 14:28] VITALS: BP 121/57
[2021-10-23 20:00] VITALS: BP 130/74
[2021-10-24] MEDS: cefTRIAXone SOD 1 GM in D5W MINI-BAG PLUS 50 ML IV SCH (01:00)
[2021-10-24] MEDS: LEVALBUTEROL 1.25 MG/0.5 ML CONCENTRATE NEB NEB SCH ×2 (01:23→07:41)
[2021-10-24] MEDS: IPRATROPIUM 0.02% SOLN 0.5MG 2.5ML NEB NEB SCH ×2 (01:23→07:41)
[2021-10-24] MEDS: REMDESIVIR 100 MG in NS 250 ML IV SCH (04:53)
[2021-10-24] MEDS: SODIUM CHLORIDE 0.9% INJ 10 ML SYR IV SCH (05:56)
[2021-10-24 06:00] VITALS: BP 129/68
[2021-10-24] MEDS ORDERED: PRED10TA2 PO (07:13)
[2021-10-24] MEDS ORDERED: CEFD300C41 PO (07:13)
[2021-10-24] MEDS: INSULIN LISPRO (NovoLOG) PER UNIT SC SCH (07:30)
[2021-10-24] MEDS: FLUTICASONE HFA 220 MCG 12 GM INHALER (FLOVENT) INH SCH (07:41)
[2021-10-24 08:17] LABS: BASO % 0.6 % (0.0-1.0); EOS # 0.1 10^3/uL (0.0-0.5); EOS % 2.2 % (0.0-3.0); HEMATOCRIT 41.5 % (42.0-52.0); HEMOGLOBIN 13.8 g/dl (13.5-17.5); LYMPH # 2.1 10^3/uL (1.5-5.0); LYMPH % 31.9 % (24.0-44.0); MEAN CORPUSCULAR HEMOGLOBIN 30.7 pg (27.0-33.0); MEAN CORPUSCULAR HGB CONC 33.3 g/dl (32.0-36.5); MEAN CORPUSCULAR VOLUME 92.4 fl (80.0-96.0); MONO # 0.5 10^3/uL (0.0-0.8); MONO % 8.4 % (2.0-8.0); NEUTROPHILS # 3.7 10^3/uL (1.5-8.5); NEUTROPHILS % 56.7 % (36.0-66.0); PLATELET COUNT, AUTOMATED 277 10^3/uL (150-450); RED BLOOD COUNT 4.49 10^6/uL (4.30-6.10); WHITE BLOOD COUNT 6.4 10^3/uL (4.0-10.0)
[2021-10-24 08:43] LABS: BLOOD UREA NITROGEN 29 MG/DL (7-18); CALCIUM LEVEL 9.4 MG/DL (8.8-10.2); CARBON DIOXIDE LEVEL 32 MEQ/L (21-32); CHLORIDE LEVEL 105 MEQ/L (98-107); CREATININE FOR GFR 0.94 MG/DL (0.70-1.30); GLOMERULAR FILTRATION RATE > 60.0 (>49); GLUCOSE, FASTING 81 MG/DL (70-100); MAGNESIUM LEVEL 2.3 MG/DL (1.8-2.4); POTASSIUM SERUM 3.8 MEQ/L (3.5-5.1); SODIUM LEVEL 141 MEQ/L (136-145)
[2021-10-24] MEDS: LACTOBACILLUS ACIDOPHILUS CAP (BACID) PO SCH (09:08)
[2021-10-24] MEDS: POTASSIUM CHLORIDE 10MEQ SR TABLET PO SCH (09:08)
[2021-10-24] MEDS: THIAMINE 100 MG TAB PO SCH (09:08)
[2021-10-24] MEDS: FOLIC ACID 1 MG TAB PO SCH (09:08)
[2021-10-24] MEDS: MULTIVITAMINS/MINERALS THERAP 1 TAB PO SCH (09:08)
[2021-10-24] MEDS: GABAPENTIN 300 MG CAP PO SCH (09:08)
[2021-10-24] MEDS: BUMETANIDE 1 MG TAB PO SCH (09:08)
[2021-10-24] MEDS: ENOXAPARIN 40MG/0.4ML SYRINGE (J1650 PER 10MG) SC SCH (09:09)
[2021-10-24] MEDS: FLUTICASONE PROP 0.05% NASAL SPRAY 16 GM (FLONASE) NARES SCH (09:09)
[2021-10-24] MEDS: LEVEMIR (INSULIN DETEMIR) 1 UNITS/0.01ML SC SCH (09:09)
== END 2021-10-24 12:04 | disposition home or self-care (01) | DRG 137 ==
LOC: M ED 21:11 → M ED INP 23:14 → ENRESERV 10-22 00:31 → M 4MAIN 10-22 02:35
PROVIDERS: ADMIT Internal Medicine; ATTEND Internal Medicine Nephrology
DX: U07.1 COVID-19 (principal); I11.0 Hypertensive heart disease with heart failure; E11.40 Type 2 diabetes mellitus with diabetic neuropathy, unspecified; I50.32 Chronic diastolic (congestive) heart failure; E11.51 Type 2 diabetes mellitus with diabetic peripheral angiopathy without gangrene; E11.610 Type 2 diabetes mellitus with diabetic neuropathic arthropathy; E66.01 Morbid (severe) obesity due to excess calories; Z68.41 Body mass index [BMI] 40.0-44.9, adult; E78.5 Hyperlipidemia, unspecified; F10.10 Alcohol abuse, uncomplicated; G47.33 Obstructive sleep apnea (adult) (pediatric); I89.0 Lymphedema, not elsewhere classified; J44.1 Chronic obstructive pulmonary disease with (acute) exacerbation; Z79.899 Other long term (current) drug therapy; Z87.891 Personal history of nicotine dependence

== ENCOUNTER → 2022-02-07 | Outpatient (CLI) | payer OTHER ==
[~2022-02-07] MED LIST changes: +ARNU1INH IN; +GABA-282 PO
[2022-02-07 07:37] LABS: ALT/SGPT 18 U/L (12-78); BILIRUBIN,TOTAL 0.3 MG/DL (0.2-1.0); BLOOD UREA NITROGEN 18 MG/DL (7-18); CALCIUM LEVEL 8.9 MG/DL (8.8-10.2); CARBON DIOXIDE LEVEL 30 MEQ/L (21-32); CHLORIDE LEVEL 108 MEQ/L (98-107); CHOLESTEROL LEVEL 254 MG/DL (<200); CREATININE FOR GFR 0.92 MG/DL (0.70-1.30); GLOMERULAR FILTRATION RATE > 60.0 (>49); GLUCOSE, FASTING 117 MG/DL (70-100); HDL CHOLESTEROL 51 MG/DL (>40); LDL CHOLESTEROL 177 MG/DL (<100); NON-HDL-C 203 MG/DL; POTASSIUM SERUM 4.7 MEQ/L (3.5-5.1); SODIUM LEVEL 141 MEQ/L (136-145); TOTAL PROTEIN 6.6 GM/DL (6.4-8.2); TRIGLYCERIDES LEVEL 128 MG/DL (<150)
[2022-02-07 07:45] LABS: MALB URINE SIEMENS 21.8 MG/L
== END ==
LOC: M LAB 06:32
PROVIDERS: ATTEND Nurse Practitioner Family
DX: E78.2 Mixed hyperlipidemia (principal); E11.65 Type 2 diabetes mellitus with hyperglycemia

== ENCOUNTER → 2022-02-28 | Outpatient (CLI) | payer OTHER | LOC: M RAD 06:23 | PROVIDERS: ATTEND Internal Medicine Pulmonary Disease | DX: Z12.2 Encounter for screening for malignant neoplasm of respiratory organs (principal); F17.210 Nicotine dependence, cigarettes, uncomplicated ==

== ENCOUNTER 2022-03-21 17:39 | Emergency (ER) | payer OTHER ==
[~2022-03-21] VITALS: Ht 182.9 cm; Wt 139.1 kg
[2022-03-21 17:40] VITALS: BP 142/67
[2022-03-21] MEDS ORDERED: TRUL10IN (18:24)
[2022-03-21] MEDS ORDERED: ATOR80TA59 (18:24)
[2022-03-21] MEDS ORDERED: STIO1AER (18:24)
== END 2022-03-21 22:06 | disposition left against medical advice (07) ==
LOC: M ED 17:39
DX: Z53.21 Procedure and treatment not carried out due to patient leaving prior to being seen by health care provider (principal)

== ENCOUNTER 2022-03-23 11:02 | Emergency (ER) | payer OTHER ==
[~2022-03-23] VITALS: Ht 182.9 cm; Wt 139.1 kg
[~2022-03-23 11:02] MED LIST changes: +ATOR80TA59; +STIO1AER; +TRUL10IN
[2022-03-23 14:08] LABS: BASO # 0.1 10^3/uL (0.0-0.2); BASO % 0.7 % (0.0-1.0); EOS # 0.4 10^3/uL (0.0-0.5); EOS % 4.5 % (0.0-3.0); HEMATOCRIT 40.9 % (42.0-52.0); HEMOGLOBIN 13.7 g/dl (13.5-17.5); LYMPH # 1.9 10^3/uL (1.5-5.0); LYMPH % 22.5 % (24.0-44.0); MEAN CORPUSCULAR HEMOGLOBIN 31.6 pg (27.0-33.0); MEAN CORPUSCULAR HGB CONC 33.5 g/dl (32.0-36.5); MEAN CORPUSCULAR VOLUME 94.5 fl (80.0-96.0); MONO # 0.6 10^3/uL (0.0-0.8); MONO % 7.5 % (2.0-8.0); NEUTROPHILS # 5.3 10^3/uL (1.5-8.5); NEUTROPHILS % 64.6 % (36.0-66.0); PLATELET COUNT, AUTOMATED 290 10^3/uL (150-450); RED BLOOD COUNT 4.33 10^6/uL (4.30-6.10); WHITE BLOOD COUNT 8.2 10^3/uL (4.0-10.0)
[2022-03-23] MEDS ORDERED: NORCO, ANEXSIA 5/325MG TABLET (HYDROcodone/ACETAMINOPHEN) PO ONE (14:15)
[2022-03-23 14:32] LABS: ERYTHROCYTE SEDIMENTATION RATE 52 mm/hr (0-20)
[2022-03-23 15:21] VITALS: BP 127/70
[2022-03-23] MEDS ORDERED: HYDR-3713 PO (15:53)
== END 2022-03-23 16:04 | disposition home or self-care (01) ==
LOC: M ED 11:02
DX: M79.671 Pain in right foot (principal); E11.9 Type 2 diabetes mellitus without complications; J44.9 Chronic obstructive pulmonary disease, unspecified; Z79.51 Long term (current) use of inhaled steroids; Z79.4 Long term (current) use of insulin; Z79.899 Other long term (current) drug therapy

== ENCOUNTER 2022-04-03 17:35 | Emergency (ER) | payer OTHER ==
[~2022-04-03] VITALS: Ht 182.9 cm; Wt 139.1 kg
[~2022-04-03 17:35] MED LIST changes: +HYDR-3713 PO
[2022-04-03] MEDS ORDERED: LIDOCAINE W/EPINEPHRINE 1% 20ML VIAL SC ONE (18:35)
[2022-04-03] MEDS ORDERED: SILVER NITRATE APPLICATOR (1 = QTY 10) TOP ONE (18:35)
[2022-04-03 19:50] VITALS: BP 106/50
== END 2022-04-03 19:58 | disposition home or self-care (01) ==
LOC: M ED 17:35
DX: L76.22 Postprocedural hemorrhage of skin and subcutaneous tissue following other procedure (principal); E78.5 Hyperlipidemia, unspecified; F10.10 Alcohol abuse, uncomplicated; J44.9 Chronic obstructive pulmonary disease, unspecified; Z87.891 Personal history of nicotine dependence; Z79.51 Long term (current) use of inhaled steroids; Z79.4 Long term (current) use of insulin; Z79.899 Other long term (current) drug therapy

== ENCOUNTER → 2022-06-06 | Outpatient (CLI) | payer OTHER ==
[2022-06-06 11:42] LABS: ALBUMIN 3.4 G/DL (3.2-5.2); ALKALINE PHOSPHATASE 130 U/L (46-116); ALT/SGPT 24 U/L (7.0-40); AST/SGOT 23 U/L (<34); BILIRUBIN,TOTAL 0.5 MG/DL (0.3-1.2); BLOOD UREA NITROGEN 24 MG/DL (9-23); CALCIUM LEVEL 9.1 MG/DL (8.3-10.6); CARBON DIOXIDE LEVEL 29 MMOL/L (20-31); CHLORIDE LEVEL 101 MMOL/L (98-107); CHOLESTEROL LEVEL 193 MG/DL (<200); CHOLESTEROL RISK RATIO 3.82 (<5); CREATININE FOR GFR 0.99 MG/DL (0.70-1.30); GLOMERULAR FILTRATION RATE > 60.0 (>49); GLUCOSE, FASTING 180 MG/DL (74-106); HDL CHOLESTEROL 50.5 MG/DL (>40); LDL CHOLESTEROL 106.3 MG/DL (<100); NON-HDL-C 143 MG/DL; POTASSIUM SERUM 4.5 MMOL/L (3.5-5.1); SODIUM LEVEL 141 MMOL/L (136-145); TOTAL PROTEIN 7.1 G/DL (5.7-8.2); TRIGLYCERIDES LEVEL 181 MG/DL (<150)
== END ==
LOC: M LAB 10:40
PROVIDERS: ATTEND Nurse Practitioner Family
DX: E78.2 Mixed hyperlipidemia (principal)

== ENCOUNTER → 2022-10-11 | Outpatient (CLI) | payer OTHER ==
[~2022-10-11] MED LIST changes: +INSU100I6 SC; -LEVE1INJ5 SC
[2022-10-11 07:06] LABS: HEMATOCRIT 45.1 % (42.0-52.0); HEMOGLOBIN 14.6 g/dl (13.5-17.5); MEAN CORPUSCULAR HEMOGLOBIN 30.9 pg (27.0-33.0); MEAN CORPUSCULAR HGB CONC 32.4 g/dl (32.0-36.5); MEAN CORPUSCULAR VOLUME 95.6 fl (80.0-96.0); PLATELET COUNT, AUTOMATED 279 10^3/uL (150-450); RED BLOOD COUNT 4.72 10^6/uL (4.30-6.10); WHITE BLOOD COUNT 6.1 10^3/uL (4.0-10.0)
[2022-10-11 07:30] LABS: PROSTATIC SPECIFIC AG MONITOR 1.06 NG/ML (< 4.00)
[2022-10-11 07:32] LABS: ALBUMIN 2.8 G/DL (3.2-5.2); ALKALINE PHOSPHATASE 104 U/L (46-116); ALT/SGPT 13 U/L (7.0-40); AST/SGOT 20 U/L (<34); BILIRUBIN,TOTAL 0.4 MG/DL (0.3-1.2); BLOOD UREA NITROGEN 17 MG/DL (9-23); CALCIUM LEVEL 8.4 MG/DL (8.3-10.6); CARBON DIOXIDE LEVEL 29 MMOL/L (20-31); CHLORIDE LEVEL 108 MMOL/L (98-107); CHOLESTEROL LEVEL 130 MG/DL (<200); CHOLESTEROL RISK RATIO 3.89 (<5); CREATININE FOR GFR 0.89 MG/DL (0.70-1.30); GLOMERULAR FILTRATION RATE > 60.0 (>49); GLUCOSE, FASTING 139 MG/DL (74-106); HDL CHOLESTEROL 33.4 MG/DL (>40); LDL CHOLESTEROL 79.6 MG/DL (<100); NON-HDL-C 96.6 MG/DL; POTASSIUM SERUM 4.4 MMOL/L (3.5-5.1); SODIUM LEVEL 140 MMOL/L (136-145); TOTAL PROTEIN 6.4 G/DL (5.7-8.2); TRIGLYCERIDES LEVEL 85 MG/DL (<150)
[2022-10-11 07:34] LABS: TESTOSTERONE 511 NG/DL (241-827); THYROID STIMULATING HORMONE 1.363 uIU/ML (0.55-4.78)
[2022-10-11 07:47] LABS: HEMOGLOBIN A1c 6.9 % (4.0-6.0)
== END ==
LOC: M LAB 06:04
PROVIDERS: ATTEND Family Medicine
DX: R53.83 Other fatigue (principal); I10 Essential (primary) hypertension

== ENCOUNTER → 2022-11-02 | Outpatient (CLI) | payer OTHER ==
[2022-11-02 08:12] LABS: BLOOD UREA NITROGEN 18 MG/DL (9-23); CALCIUM LEVEL 8.5 MG/DL (8.3-10.6); CARBON DIOXIDE LEVEL 28 MMOL/L (20-31); CHLORIDE LEVEL 106 MMOL/L (98-107); GLOMERULAR FILTRATION RATE > 60.0 (>49); GLUCOSE, FASTING 85 MG/DL (74-106); POTASSIUM SERUM 4.4 MMOL/L (3.5-5.1); SODIUM LEVEL 140 MMOL/L (136-145)
== END ==
LOC: M LAB 06:16
PROVIDERS: ATTEND Nurse Practitioner Family
DX: E11.65 Type 2 diabetes mellitus with hyperglycemia (principal)

== ENCOUNTER → 2022-11-10 | Outpatient (CLI) | payer OTHER | LOC: M RAD 09:17 | PROVIDERS: ATTEND Surgery Vascular Surgery | DX: I73.9 Peripheral vascular disease, unspecified (principal) ==

== ENCOUNTER → 2023-01-05 | Outpatient (CLI) | payer OTHER ==
[2023-01-05 09:50] LABS: HEMATOCRIT 49.3 % (42.0-52.0); HEMOGLOBIN 16.1 g/dl (13.5-17.5); MEAN CORPUSCULAR HGB CONC 32.7 g/dl (32.0-36.5); PLATELET COUNT, AUTOMATED 294 10^3/uL (150-450); RED BLOOD COUNT 5.19 10^6/uL (4.30-6.10); WHITE BLOOD COUNT 6.5 10^3/uL (4.0-10.0)
[2023-01-05 10:11] LABS: HEMOGLOBIN A1c 5.3 % (4.0-6.0)
[2023-01-05 10:12] LABS: INR 0.92; PROTHROMBIN TIME 12.6 SECONDS (12.5-14.5)
[2023-01-05 10:19] LABS: ALBUMIN 3.2 G/DL (3.2-5.2); ALKALINE PHOSPHATASE 101 U/L (46-116); ALT/SGPT 12 U/L (7.0-40); AST/SGOT 13 U/L (<34); BILIRUBIN,TOTAL 0.5 MG/DL (0.3-1.2); BLOOD UREA NITROGEN 14 MG/DL (9-23); CALCIUM LEVEL 8.6 MG/DL (8.3-10.6); CARBON DIOXIDE LEVEL 27 MMOL/L (20-31); CHLORIDE LEVEL 110 MMOL/L (98-107); CHOLESTEROL LEVEL 130 MG/DL (<200); CHOLESTEROL RISK RATIO 3.81 (<5); CREATININE FOR GFR 0.96 MG/DL (0.70-1.30); GLOMERULAR FILTRATION RATE > 60.0 (>49); GLUCOSE, FASTING 89 MG/DL (74-106); HDL CHOLESTEROL 34.1 MG/DL (>40); LDL CHOLESTEROL 78.9 MG/DL (<100); NON-HDL-C 95.9 MG/DL; POTASSIUM SERUM 4.7 MMOL/L (3.5-5.1); SODIUM LEVEL 143 MMOL/L (136-145); TOTAL PROTEIN 6.6 G/DL (5.7-8.2); TRIGLYCERIDES LEVEL 85 MG/DL (<150)
[2023-01-05 10:21] LABS: THYROID STIMULATING HORMONE 1.299 uIU/ML (0.55-4.78)
== END ==
LOC: M RAD 09:01
PROVIDERS: ATTEND Family Medicine
DX: Z01.818 Encounter for other preprocedural examination (principal); I10 Essential (primary) hypertension; R53.83 Other fatigue; E11.9 Type 2 diabetes mellitus without complications; I70.0 Atherosclerosis of aorta

== ENCOUNTER 2023-01-19 07:42 | Inpatient (IN) | payer OTHER ==
[~2023-01-19] VITALS: Ht 182.9 cm; Wt 130.5 kg
[~2023-01-19 07:42] MED LIST changes: -ATOR80TA59; +ATOR80TA59 PO; +JARD1TAB PO; -STIO1AER; -TRUL10IN; +TRUL10IN SC; +ceFAZolin SOD 1 GM in D5W MINI-BAG PLUS 50 ML IV ONE; +ceFAZolin SOD 2 GM in IV 1 EA IV ONE
[2023-01-19] MEDS ORDERED: SUGAMMADEX SODIUM 500 MG/5 ML VIAL (BRIDION) As Ordered ONE (08:13)
[2023-01-19] MEDS ORDERED: ONDANSETRON 4MG 2ML VIAL As Ordered ONE (08:13)
[2023-01-19] MEDS ORDERED: LIDOCAINE 2% 100MG/5ML SDV (FOR ANES.) As Ordered ONE (08:13)
[2023-01-19] MEDS ORDERED: ROCURONIUM BROMIDE 50MG/5ML VIAL As Ordered ONE ×2 (08:13→13:10)
[2023-01-19] MEDS ORDERED: propofoL 200 MG/20 ML VIAL As Ordered ONE (08:13)
[2023-01-19] MEDS ORDERED: LR 1,000 ML IV SCH ×2 (09:45→14:05)
[2023-01-19 10:14] LABS: HEMATOCRIT 49.1 % (42.0-52.0); HEMOGLOBIN 16.1 g/dl (13.5-17.5); MEAN CORPUSCULAR HEMOGLOBIN 31.2 pg (27.0-33.0); MEAN CORPUSCULAR HGB CONC 32.8 g/dl (32.0-36.5); MEAN CORPUSCULAR VOLUME 95.2 fl (80.0-96.0); PLATELET COUNT, AUTOMATED 261 10^3/uL (150-450); RED BLOOD COUNT 5.16 10^6/uL (4.30-6.10); WHITE BLOOD COUNT 8.3 10^3/uL (4.0-10.0)
[2023-01-19 10:28] LABS: PROTHROMBIN TIME 12.9 SECONDS (12.5-14.5)
[2023-01-19 10:29] LABS: PARTIAL THROMBOPLASTIN TIME 24.7 SECONDS (24.8-34.2)
[2023-01-19 10:41] LABS: BLOOD UREA NITROGEN 17 MG/DL (9-23); CALCIUM LEVEL 8.7 MG/DL (8.3-10.6); CARBON DIOXIDE LEVEL 28 MMOL/L (20-31); CHLORIDE LEVEL 108 MMOL/L (98-107); CREATININE FOR GFR 0.91 MG/DL (0.70-1.30); GLOMERULAR FILTRATION RATE > 60.0 (>49); GLUCOSE, FASTING 95 MG/DL (74-106); POTASSIUM SERUM 4.6 MMOL/L (3.5-5.1); SODIUM LEVEL 142 MMOL/L (136-145)
[2023-01-19] MEDS ORDERED: TRUL0.5I SC (11:17)
[2023-01-19] MEDS ORDERED: EZET10TA21 PO (11:17)
[2023-01-19] MEDS ORDERED: ASPI81TA26 PO (11:17)
[2023-01-19] MEDS ORDERED: IBUP200T46 PO (11:17)
[2023-01-19] MEDS ORDERED: HOME MED LIST COMPLETE! XX SCH (11:20)
[2023-01-19] MEDS ORDERED: MIDAZOLAM INJ 2MG/2ML VIAL As Ordered ONE (11:34)
[2023-01-19] MEDS ORDERED: fentaNYL 100 MCG/2 ML INJECTION As Ordered ONE ×2 (11:34→12:36)
[2023-01-19] MEDS ORDERED: ACETAMINOPHEN 1000MG 100ML IV BAG As Ordered ONE (12:24)
[2023-01-19] MEDS ORDERED: ePHEDrine SULFATE 25 MG/5 ML(5MG/ML) SYRINGE As Ordered ONE (12:57)
[2023-01-19] MEDS ORDERED: ONDANSETRON 4MG 2ML VIAL IV PRN (14:05)
[2023-01-19] MEDS: fentaNYL 100 MCG/2 ML INJECTION IV PRN ×4 (15:10→15:31)
[2023-01-19] MEDS: oxyCODONE 5MG TAB PO PRN ×2 (15:11→15:41)
[2023-01-19] MEDS ORDERED: DEXTROSE 50% 50ML SYRINGE IV PRN (15:25)
[2023-01-19] MEDS ORDERED: ALBUTEROL 90 MCG/ACT 8GM HFA INHALER INH PRN (15:25)
[2023-01-19] MEDS ORDERED: GLUCOSE 4GM CHEW TABLET PO PRN (15:25)
[2023-01-19] MEDS ORDERED: GLUCAGON INJ 1MG VIAL SC PRN (15:25)
[2023-01-19] MEDS: HYDROMORPHONE HCL 0.5 MG/ 0.5 ML SYRINGE IV PRN ×5 (15:32→20:35)
[2023-01-19] MEDS ORDERED: SENNA 8.6 MG TAB (SENOKOT) PO PRN (15:35)
[2023-01-19] MEDS ORDERED: MIRALAX *UNIT DOSE* 17GM PACKET PO PRN (15:35)
[2023-01-19 16:27] LABS: C REACTIVE PROTEIN QUANTITATIV 0.8 MG/DL (<1.0)
[2023-01-19 16:40] LABS: PROCALCITONIN 0.11 ng/ml
[2023-01-19 17:00] VITALS: BP 154/69; TEMP 98.1; O2SAT 95
[2023-01-19] MEDS: POTASSIUM CHLORIDE 10MEQ SR TABLET PO SCH ×2 (17:00→17:12)
[2023-01-19] MEDS: PERCOCET 5MG/325MG TAB PO PRN (17:11)
[2023-01-19] MEDS: INSULIN LISPRO (NovoLOG) PER UNIT SC SCH ×2 (17:30→20:35)
[2023-01-19] MEDS: BUMETANIDE 1 MG TAB PO SCH (17:41)
[2023-01-19] MEDS: FORMOTEROL FUMARATE 20 MCG/2 ML INHALATION SOLUTION (PERFOROMIST) INH SCH (19:41)
[2023-01-19 20:22] VITALS: BP 141/66; TEMP 96.5; O2SAT 93
[2023-01-19] MEDS: ceFAZolin SOD 2 GM in IV 1 EA IV SCH (20:33)
[2023-01-19] MEDS: GABAPENTIN 300 MG CAP PO SCH (20:35)
[2023-01-20] VITALS (23 sets, daily range): BP systolic 129–168; BP diastolic 63–85; TEMP 96.4–98.1; O2SAT 91–95
[2023-01-20] MEDS: HYDROMORPHONE HCL 0.5 MG/ 0.5 ML SYRINGE IV PRN ×5 (00:37→20:47)
[2023-01-20] MEDS: ceFAZolin SOD 2 GM in IV 1 EA IV SCH ×3 (03:36→20:36)
[2023-01-20 05:45] LABS: HEMATOCRIT 40.6 % (42.0-52.0); MEAN CORPUSCULAR HEMOGLOBIN 30.8 pg (27.0-33.0); MEAN CORPUSCULAR HGB CONC 32.3 g/dl (32.0-36.5); MEAN CORPUSCULAR VOLUME 95.5 fl (80.0-96.0); PLATELET COUNT, AUTOMATED 257 10^3/uL (150-450); RED BLOOD COUNT 4.25 10^6/uL (4.30-6.10); WHITE BLOOD COUNT 8.6 10^3/uL (4.0-10.0)
[2023-01-20 05:59] LABS: HEMOGLOBIN 13.1 g/dl (13.5-17.5)
[2023-01-20 06:11] LABS: BLOOD UREA NITROGEN 13 MG/DL (9-23); CALCIUM LEVEL 7.7 MG/DL (8.3-10.6); CARBON DIOXIDE LEVEL 31 MMOL/L (20-31); CHLORIDE LEVEL 105 MMOL/L (98-107); CREATININE FOR GFR 0.85 MG/DL (0.70-1.30); GLOMERULAR FILTRATION RATE > 60.0 (>49); GLUCOSE, FASTING 138 MG/DL (74-106); MAGNESIUM LEVEL 1.7 MG/DL (1.8-2.4); POTASSIUM SERUM 4.3 MMOL/L (3.5-5.1); SODIUM LEVEL 141 MMOL/L (136-145)
[2023-01-20] MEDS: MAG SULF 1GM/100ML (MAG RUN) 1 GM in IV 1 EA IV SCH ×2 (06:58→09:33)
[2023-01-20] MEDS: INSULIN LISPRO (NovoLOG) PER UNIT SC SCH ×4 (07:30→20:43)
[2023-01-20] MEDS: FORMOTEROL FUMARATE 20 MCG/2 ML INHALATION SOLUTION (PERFOROMIST) INH SCH ×3 (07:47→20:55)
[2023-01-20] MEDS: TIOTROPIUM INHALER/CAPSULE (SPIRIVA) INH SCH (07:47)
[2023-01-20] MEDS: ATORVASTATIN 20 MG TAB PO SCH (09:34)
[2023-01-20] MEDS: ENOXAPARIN 40MG/0.4ML SYRINGE (J1650 PER 10MG) SC SCH (09:34)
[2023-01-20] MEDS: GABAPENTIN 300 MG CAP PO SCH ×2 (09:34→20:42)
[2023-01-20] MEDS: ASPIRIN 81MG ENTERIC TABLET PO SCH (09:35)
[2023-01-20] MEDS: EZETIMIBE 10MG TABLET (ZETIA) PO SCH (09:35)
[2023-01-20] MEDS: BUMETANIDE 1 MG TAB PO SCH ×2 (09:35→16:22)
[2023-01-20] MEDS: POTASSIUM CHLORIDE 10MEQ SR TABLET PO SCH ×2 (09:35→16:22)
[2023-01-20] MEDS: LEVEMIR (INSULIN DETEMIR) 1 UNITS/0.01ML SC SCH ×2 (13:18→20:43)
[2023-01-20] MEDS: PERCOCET 5MG/325MG TAB PO PRN (22:50)
[2023-01-21] VITALS (11 sets, daily range): BP systolic 132–142; BP diastolic 63–78; TEMP 97.8–99; O2SAT 91–95
[2023-01-21] MEDS: ceFAZolin SOD 2 GM in IV 1 EA IV SCH ×3 (04:14→20:08)
[2023-01-21] MEDS: HYDROMORPHONE HCL 0.5 MG/ 0.5 ML SYRINGE IV PRN ×4 (04:45→20:09)
[2023-01-21] MEDS: INSULIN LISPRO (NovoLOG) PER UNIT SC SCH ×4 (07:30→20:10)
[2023-01-21] MEDS: TIOTROPIUM INHALER/CAPSULE (SPIRIVA) INH SCH (07:31)
[2023-01-21] MEDS: FORMOTEROL FUMARATE 20 MCG/2 ML INHALATION SOLUTION (PERFOROMIST) INH SCH ×2 (07:31→18:59)
[2023-01-21 07:43] LABS: BASO % 0.5 % (0.0-1.0); EOS # 0.2 10^3/uL (0.0-0.5); EOS % 2.2 % (0.0-3.0); HEMATOCRIT 38.3 % (42.0-52.0); HEMOGLOBIN 12.5 g/dl (13.5-17.5); LYMPH # 1.2 10^3/uL (1.5-5.0); LYMPH % 14.3 % (24.0-44.0); MEAN CORPUSCULAR HEMOGLOBIN 31.3 pg (27.0-33.0); MEAN CORPUSCULAR HGB CONC 32.6 g/dl (32.0-36.5); MEAN CORPUSCULAR VOLUME 95.8 fl (80.0-96.0); MONO # 0.8 10^3/uL (0.0-0.8); MONO % 9.4 % (2.0-8.0); NEUTROPHILS # 6.1 10^3/uL (1.5-8.5); NEUTROPHILS % 73.4 % (36.0-66.0); PLATELET COUNT, AUTOMATED 234 10^3/uL (150-450); WHITE BLOOD COUNT 8.3 10^3/uL (4.0-10.0)
[2023-01-21 08:49] LABS: BLOOD UREA NITROGEN 17 MG/DL (9-23); CALCIUM LEVEL 7.8 MG/DL (8.3-10.6); CARBON DIOXIDE LEVEL 34 MMOL/L (20-31); CHLORIDE LEVEL 102 MMOL/L (98-107); CREATININE FOR GFR 0.95 MG/DL (0.70-1.30); GLOMERULAR FILTRATION RATE > 60.0 (>49); GLUCOSE, FASTING 130 MG/DL (74-106); MAGNESIUM LEVEL 1.8 MG/DL (1.8-2.4); POTASSIUM SERUM 4.1 MMOL/L (3.5-5.1); SODIUM LEVEL 140 MMOL/L (136-145)
[2023-01-21] MEDS: POTASSIUM CHLORIDE 10MEQ SR TABLET PO SCH ×2 (08:52→16:03)
[2023-01-21] MEDS: GABAPENTIN 300 MG CAP PO SCH ×2 (08:52→20:10)
[2023-01-21] MEDS: ATORVASTATIN 20 MG TAB PO SCH (08:53)
[2023-01-21] MEDS: ENOXAPARIN 40MG/0.4ML SYRINGE (J1650 PER 10MG) SC SCH (08:53)
[2023-01-21] MEDS: EZETIMIBE 10MG TABLET (ZETIA) PO SCH (08:53)
[2023-01-21] MEDS: BUMETANIDE 1 MG TAB PO SCH ×2 (08:53→16:04)
[2023-01-21] MEDS: ASPIRIN 81MG ENTERIC TABLET PO SCH (08:53)
[2023-01-21] MEDS: LEVEMIR (INSULIN DETEMIR) 1 UNITS/0.01ML SC SCH ×2 (08:54→20:09)
[2023-01-21] MEDS: PERCOCET 5MG/325MG TAB PO PRN (14:24)
[2023-01-22] MEDS: HYDROMORPHONE HCL 0.5 MG/ 0.5 ML SYRINGE IV PRN ×3 (01:05→11:38)
[2023-01-22 03:29] VITALS: BP 137/63; TEMP 98.1; O2SAT 92
[2023-01-22] MEDS: ceFAZolin SOD 2 GM in IV 1 EA IV SCH ×2 (04:38→11:37)
[2023-01-22 05:17] LABS: HEMATOCRIT 36.2 % (42.0-52.0); HEMOGLOBIN 11.8 g/dl (13.5-17.5); MEAN CORPUSCULAR HEMOGLOBIN 30.8 pg (27.0-33.0); MEAN CORPUSCULAR HGB CONC 32.6 g/dl (32.0-36.5); MEAN CORPUSCULAR VOLUME 94.5 fl (80.0-96.0); PLATELET COUNT, AUTOMATED 230 10^3/uL (150-450); RED BLOOD COUNT 3.83 10^6/uL (4.30-6.10); WHITE BLOOD COUNT 7.9 10^3/uL (4.0-10.0)
[2023-01-22 07:24] VITALS: BP 130/73; TEMP 98.1; O2SAT 91
[2023-01-22] MEDS: FORMOTEROL FUMARATE 20 MCG/2 ML INHALATION SOLUTION (PERFOROMIST) INH SCH ×2 (07:45→22:21)
[2023-01-22] MEDS: TIOTROPIUM INHALER/CAPSULE (SPIRIVA) INH SCH (07:46)
[2023-01-22] MEDS: GABAPENTIN 300 MG CAP PO SCH ×2 (08:27→20:06)
[2023-01-22] MEDS: BUMETANIDE 1 MG TAB PO SCH ×2 (08:27→17:09)
[2023-01-22] MEDS: ASPIRIN 81MG ENTERIC TABLET PO SCH (08:27)
[2023-01-22] MEDS: POTASSIUM CHLORIDE 10MEQ SR TABLET PO SCH ×2 (08:28→17:09)
[2023-01-22] MEDS: ENOXAPARIN 40MG/0.4ML SYRINGE (J1650 PER 10MG) SC SCH (08:28)
[2023-01-22] MEDS: EZETIMIBE 10MG TABLET (ZETIA) PO SCH (08:28)
[2023-01-22] MEDS: ATORVASTATIN 20 MG TAB PO SCH (08:28)
[2023-01-22] MEDS: INSULIN LISPRO (NovoLOG) PER UNIT SC SCH ×4 (08:29→20:07)
[2023-01-22] MEDS: LEVEMIR (INSULIN DETEMIR) 1 UNITS/0.01ML SC SCH ×2 (08:29→20:06)
[2023-01-22] MEDS: IPRATROPIUM 0.5MG/ALBUTEROL 2.5MG INH SOL UD 3ML (DUONEB) NEB SCH ×2 (13:12→19:47)
[2023-01-22] MEDS: PERCOCET 5MG/325MG TAB PO PRN ×2 (15:19→20:07)
[2023-01-22 15:55] VITALS: BP 137/63; TEMP 98.8; O2SAT 91
[2023-01-22 19:24] VITALS: BP 130/61; TEMP 98.5; O2SAT 91
[2023-01-23] MEDS: IPRATROPIUM 0.5MG/ALBUTEROL 2.5MG INH SOL UD 3ML (DUONEB) NEB SCH ×4 (01:16→19:08)
[2023-01-23 04:04] VITALS: BP 126/65; TEMP 97.7; O2SAT 93
[2023-01-23 07:18] LABS: BASO % 0.4 % (0.0-1.0); EOS # 0.3 10^3/uL (0.0-0.5); EOS % 4.2 % (0.0-3.0); HEMATOCRIT 34.3 % (42.0-52.0); HEMOGLOBIN 11.4 g/dl (13.5-17.5); MEAN CORPUSCULAR HEMOGLOBIN 31.3 pg (27.0-33.0); MEAN CORPUSCULAR HGB CONC 33.2 g/dl (32.0-36.5); MEAN CORPUSCULAR VOLUME 94.2 fl (80.0-96.0); MONO # 0.6 10^3/uL (0.0-0.8); MONO % 8.3 % (2.0-8.0); NEUTROPHILS % 72.8 % (36.0-66.0); PLATELET COUNT, AUTOMATED 245 10^3/uL (150-450); RED BLOOD COUNT 3.64 10^6/uL (4.30-6.10); WHITE BLOOD COUNT 6.9 10^3/uL (4.0-10.0)
[2023-01-23 07:44] LABS: BLOOD UREA NITROGEN 19 MG/DL (9-23); CALCIUM LEVEL 7.9 MG/DL (8.3-10.6); CARBON DIOXIDE LEVEL 34 MMOL/L (20-31); CHLORIDE LEVEL 101 MMOL/L (98-107); CREATININE FOR GFR 0.78 MG/DL (0.70-1.30); GLOMERULAR FILTRATION RATE > 60.0 (>49); GLUCOSE, FASTING 230 MG/DL (74-106); MAGNESIUM LEVEL 1.9 MG/DL (1.8-2.4); POTASSIUM SERUM 3.6 MMOL/L (3.5-5.1); SODIUM LEVEL 143 MMOL/L (136-145)
[2023-01-23 07:54] VITALS: BP 117/59; TEMP 97.5; O2SAT 92
[2023-01-23] MEDS: EZETIMIBE 10MG TABLET (ZETIA) PO SCH (08:00)
[2023-01-23] MEDS: POTASSIUM CHLORIDE 10MEQ SR TABLET PO SCH ×2 (08:00→18:26)
[2023-01-23] MEDS: ASPIRIN 81MG ENTERIC TABLET PO SCH (08:00)
[2023-01-23] MEDS: GABAPENTIN 300 MG CAP PO SCH ×2 (08:00→20:11)
[2023-01-23] MEDS: BUMETANIDE 1 MG TAB PO SCH ×2 (08:00→18:29)
[2023-01-23] MEDS: LEVEMIR (INSULIN DETEMIR) 1 UNITS/0.01ML SC SCH ×2 (08:01→20:11)
[2023-01-23] MEDS: INSULIN LISPRO (NovoLOG) PER UNIT SC SCH ×4 (08:01→20:10)
[2023-01-23] MEDS: ATORVASTATIN 20 MG TAB PO SCH (08:01)
[2023-01-23] MEDS: ENOXAPARIN 40MG/0.4ML SYRINGE (J1650 PER 10MG) SC SCH (08:02)
[2023-01-23] MEDS: FORMOTEROL FUMARATE 20 MCG/2 ML INHALATION SOLUTION (PERFOROMIST) INH SCH ×2 (08:19→19:08)
[2023-01-23] MEDS: TIOTROPIUM INHALER/CAPSULE (SPIRIVA) INH SCH (08:19)
[2023-01-23 12:35] VITALS: BP 128/48; TEMP 98; O2SAT 93
[2023-01-23] MEDS: LACTULOSE 20GM/30ML SYRUP UDC PO SCH ×3 (12:40→23:53)
[2023-01-23 19:33] VITALS: BP 119/58; TEMP 99.7; O2SAT 94
[2023-01-23] MEDS: PERCOCET 5MG/325MG TAB PO PRN (19:33)
[2023-01-24] MEDS: IPRATROPIUM 0.5MG/ALBUTEROL 2.5MG INH SOL UD 3ML (DUONEB) NEB SCH ×3 (01:29→14:00)
[2023-01-24 04:40] LABS: BASO % 0.4 % (0.0-1.0); EOS # 0.4 10^3/uL (0.0-0.5); EOS % 6.4 % (0.0-3.0); HEMATOCRIT 34.9 % (42.0-52.0); HEMOGLOBIN 11.5 g/dl (13.5-17.5); LYMPH # 1.3 10^3/uL (1.5-5.0); LYMPH % 18.7 % (24.0-44.0); MEAN CORPUSCULAR HEMOGLOBIN 31.1 pg (27.0-33.0); MEAN CORPUSCULAR VOLUME 94.3 fl (80.0-96.0); MONO # 0.7 10^3/uL (0.0-0.8); NEUTROPHILS # 4.3 10^3/uL (1.5-8.5); NEUTROPHILS % 64.2 % (36.0-66.0); PLATELET COUNT, AUTOMATED 258 10^3/uL (150-450); WHITE BLOOD COUNT 6.7 10^3/uL (4.0-10.0)
[2023-01-24 05:08] LABS: BLOOD UREA NITROGEN 16 MG/DL (9-23); CALCIUM LEVEL 8.1 MG/DL (8.3-10.6); CARBON DIOXIDE LEVEL 34 MMOL/L (20-31); CHLORIDE LEVEL 102 MMOL/L (98-107); CREATININE FOR GFR 0.82 MG/DL (0.70-1.30); GLOMERULAR FILTRATION RATE > 60.0 (>49); GLUCOSE, FASTING 155 MG/DL (74-106); MAGNESIUM LEVEL 1.8 MG/DL (1.8-2.4); POTASSIUM SERUM 3.6 MMOL/L (3.5-5.1); SODIUM LEVEL 143 MMOL/L (136-145)
[2023-01-24] MEDS: LACTULOSE 20GM/30ML SYRUP UDC PO SCH ×2 (06:02→12:00)
[2023-01-24 07:46] VITALS: BP 142/68; TEMP 98.2; O2SAT 92
[2023-01-24] MEDS: GABAPENTIN 300 MG CAP PO SCH (07:47)
[2023-01-24] MEDS: POTASSIUM CHLORIDE 10MEQ SR TABLET PO SCH (07:48)
[2023-01-24] MEDS: BUMETANIDE 1 MG TAB PO SCH (07:48)
[2023-01-24] MEDS: ATORVASTATIN 20 MG TAB PO SCH (07:48)
[2023-01-24] MEDS: ASPIRIN 81MG ENTERIC TABLET PO SCH (07:48)
[2023-01-24] MEDS: EZETIMIBE 10MG TABLET (ZETIA) PO SCH (07:48)
[2023-01-24] MEDS: INSULIN LISPRO (NovoLOG) PER UNIT SC SCH ×2 (07:49→12:20)
[2023-01-24] MEDS: ENOXAPARIN 40MG/0.4ML SYRINGE (J1650 PER 10MG) SC SCH (07:49)
[2023-01-24] MEDS: LEVEMIR (INSULIN DETEMIR) 1 UNITS/0.01ML SC SCH (07:49)
[2023-01-24] MEDS: FORMOTEROL FUMARATE 20 MCG/2 ML INHALATION SOLUTION (PERFOROMIST) INH SCH (07:56)
[2023-01-24] MEDS: TIOTROPIUM INHALER/CAPSULE (SPIRIVA) INH SCH (07:56)
[2023-01-24] MEDS ORDERED: SENN-188 PO (12:22)
[2023-01-24] MEDS ORDERED: PERCOCET PO ×2 (12:22→12:26)
[2023-01-24] MEDS ORDERED: MIRA1POW3 PO (12:22)
[2023-01-24 17:07] VITALS: BP 144/69; TEMP 98.9; O2SAT 92
== END 2023-01-24 17:32 | disposition home health service (06) | DRG 305 ==
LOC: EEVIPCON 09:39 → M OR 09:39 → M PCU 17:00
PROVIDERS: ADMIT Surgery Vascular Surgery; ATTEND Internal Medicine
PROC: 0Y6H0Z2 Detachment at Right Lower Leg, Mid, Open Approach (ICD-10-PCS; principal; 2023-01-19 11:30)
DX: E11.51 Type 2 diabetes mellitus with diabetic peripheral angiopathy without gangrene (principal); E11.610 Type 2 diabetes mellitus with diabetic neuropathic arthropathy; I11.0 Hypertensive heart disease with heart failure; M86.471 Chronic osteomyelitis with draining sinus, right ankle and foot; E66.01 Morbid (severe) obesity due to excess calories; I50.32 Chronic diastolic (congestive) heart failure; E11.621 Type 2 diabetes mellitus with foot ulcer; G47.33 Obstructive sleep apnea (adult) (pediatric); J44.9 Chronic obstructive pulmonary disease, unspecified; L97.419 Non-pressure chronic ulcer of right heel and midfoot with unspecified severity; Z79.82 Long term (current) use of aspirin; Z79.899 Other long term (current) drug therapy; Z79.4 Long term (current) use of insulin; F17.210 Nicotine dependence, cigarettes, uncomplicated; Z91.119 Patient's noncompliance with dietary regimen due to unspecified reason

== ENCOUNTER 2023-01-27 07:40 | Emergency (ER) | payer OTHER ==
[~2023-01-27] VITALS: Ht 182.9 cm; Wt 130.9 kg
[~2023-01-27 07:40] MED LIST changes: +ASPI81TA26 PO; +EZET10TA21 PO; +IBUP200T46 PO; +MIRA1POW3 PO; +PERCOCET PO; +SENN-188 PO; +TRUL0.5I SC; -ceFAZolin SOD 1 GM in D5W MINI-BAG PLUS 50 ML IV ONE; -ceFAZolin SOD 2 GM in IV 1 EA IV ONE
[2023-01-27] MEDS ORDERED: BISACODYL 10MG SUPP PR ONE (10:45)
[2023-01-27 11:35] VITALS: BP 138/66; TEMP 98.6; O2SAT 99
[2023-01-27] MEDS ORDERED: BISA10SU27 PR (11:51)
== END 2023-01-27 12:13 | disposition home or self-care (01) ==
LOC: M ED 07:40
DX: K56.41 Fecal impaction (principal); E11.9 Type 2 diabetes mellitus without complications; J44.9 Chronic obstructive pulmonary disease, unspecified; G47.30 Sleep apnea, unspecified; F17.200 Nicotine dependence, unspecified, uncomplicated; Z86.79 Personal history of other diseases of the circulatory system; Z79.52 Long term (current) use of systemic steroids; Z79.811 Long term (current) use of aromatase inhibitors; Z79.810 Long term (current) use of selective estrogen receptor modulators (SERMs); Z79.4 Long term (current) use of insulin; Z79.899 Other long term (current) drug therapy

== ENCOUNTER 2023-03-02 13:02 | Inpatient (IN) | payer OTHER ==
[~2023-03-02] VITALS: Ht 182.9 cm; Wt 130.9 kg
[~2023-03-02 13:02] MED LIST changes: +BISA10SU27 PR
[2023-03-02] MEDS ORDERED: ISOVUE-370 76% 100ML VIAL As Ordered ONE (14:50)
[2023-03-02 15:27] LABS: RSV AMPLIFICATION NEGATIVE (NEGATIVE)
[2023-03-02 15:46] LABS: BASO # 0.1 10^3/uL (0.0-0.2); BASO % 0.8 % (0.0-1.0); EOS # 0.5 10^3/uL (0.0-0.5); EOS % 7.3 % (0.0-3.0); HEMATOCRIT 47.5 % (42.0-52.0); HEMOGLOBIN 15.4 g/dl (13.5-17.5); LYMPH # 1.7 10^3/uL (1.5-5.0); LYMPH % 23.6 % (24.0-44.0); MEAN CORPUSCULAR HEMOGLOBIN 31.4 pg (27.0-33.0); MEAN CORPUSCULAR HGB CONC 32.4 g/dl (32.0-36.5); MEAN CORPUSCULAR VOLUME 96.9 fl (80.0-96.0); MONO # 0.6 10^3/uL (0.0-0.8); MONO % 8.5 % (2.0-8.0); NEUTROPHILS # 4.3 10^3/uL (1.5-8.5); NEUTROPHILS % 59.5 % (36.0-66.0); PLATELET COUNT, AUTOMATED 239 10^3/uL (150-450); WHITE BLOOD COUNT 7.3 10^3/uL (4.0-10.0)
[2023-03-02 16:01] LABS: ERYTHROCYTE SEDIMENTATION RATE 43 mm/hr (0-20)
[2023-03-02] MEDS ORDERED: PIPERACILLIN/TAZOBACTAM SOD 3.375 GM in D5W MINI-BAG PLUS 50 ML IV ONE (16:30)
[2023-03-02] MEDS ORDERED: MED REC IN PROGRESS XX SCH (16:35)
[2023-03-02] MEDS ORDERED: GLUCAGON INJ 1MG VIAL SC PRN (17:15)
[2023-03-02] MEDS ORDERED: GLUCOSE 4GM CHEW TABLET PO PRN (17:15)
[2023-03-02] MEDS ORDERED: MOM 30ML SUSPENSION UDC PO PRN (17:15)
[2023-03-02] MEDS: NS 1,000 ML IV SCH (17:15)
[2023-03-02] MEDS ORDERED: MAALOX 30 ML SUSP *UDC PO PRN (17:15)
[2023-03-02] MEDS ORDERED: DEXTROSE 50% 50ML SYRINGE IV PRN (17:15)
[2023-03-02] MEDS ORDERED: VANCOMYCIN HCL 1,000 MG, VIAL MATE ADAPTER 1 EACH in D5W 250 ML IV SCH (17:15)
[2023-03-02] MEDS ORDERED: ACETAMINOPHEN TAB 650MG DOSE (2X325MG) PO PRN (17:15)
[2023-03-02] MEDS ORDERED: ACET650T61 PO (17:53)
[2023-03-02] MEDS: INSULIN LISPRO (NovoLOG) PER UNIT SC SCH ×2 (17:54→23:26)
[2023-03-02] MEDS ORDERED: POLY17PO18 FT (17:58)
[2023-03-02] MEDS ORDERED: SENN-188 PO (17:59)
[2023-03-02] MEDS ORDERED: VANCOMYCIN HCL 1,000 MG, VIAL MATE ADAPTER 1 EACH in D5W 250 ML IV ONE ×2 (18:00→19:00)
[2023-03-02] MEDS ORDERED: HOME MED LIST COMPLETE! XX SCH (18:15)
[2023-03-02 19:20] LABS: INR 1.05; PROTHROMBIN TIME 13.4 SECONDS (12.5-14.5)
[2023-03-02 19:29] LABS: BLOOD UREA NITROGEN 17 MG/DL (9-23); CALCIUM LEVEL 8.8 MG/DL (8.3-10.6); CARBON DIOXIDE LEVEL 33 MMOL/L (20-31); CHLORIDE LEVEL 107 MMOL/L (98-107); CREATININE FOR GFR 1.04 MG/DL (0.70-1.30); GLOMERULAR FILTRATION RATE > 60.0 (>49); GLUCOSE, FASTING 94 MG/DL (74-106); POTASSIUM SERUM 4.1 MMOL/L (3.5-5.1); SODIUM LEVEL 144 MMOL/L (136-145)
[2023-03-02 19:40] LABS: PROCALCITONIN 0.09 ng/ml
[2023-03-02] MEDS ORDERED: LIDOCAINE 2% 100MG/5ML SDV (FOR ANES.) As Ordered ONE (21:11)
[2023-03-02] MEDS ORDERED: SUGAMMADEX SODIUM 500 MG/5 ML VIAL (BRIDION) As Ordered ONE (21:11)
[2023-03-02] MEDS ORDERED: ONDANSETRON 4MG 2ML VIAL As Ordered ONE (21:11)
[2023-03-02] MEDS ORDERED: METOCLOPRAMIDE INJ 10MG/2ML VIAL As Ordered ONE (21:11)
[2023-03-02] MEDS ORDERED: ROCURONIUM BROMIDE 50MG/5ML VIAL As Ordered ONE (21:11)
[2023-03-02] MEDS ORDERED: fentaNYL 250 MCG/5 ML INJECTION As Ordered ONE (21:11)
[2023-03-02] MEDS ORDERED: MIDAZOLAM INJ 2MG/2ML VIAL As Ordered ONE (21:11)
[2023-03-02] MEDS ORDERED: propofoL 200 MG/20 ML VIAL As Ordered ONE (21:11)
[2023-03-02] MEDS ORDERED: ACETAMINOPHEN 1000MG 100ML IV BAG As Ordered ONE (21:11)
[2023-03-02] MEDS ORDERED: DESFLURANE 240 ML INHALANT As Ordered ONE (21:11)
[2023-03-02] MEDS ORDERED: ALBUTEROL 6.7GM INHALER **FOR ANES. CART/OMNICELL ONLY As Ordered ONE (21:16)
[2023-03-02] MEDS ORDERED: SENNA 8.6 MG TAB (SENOKOT) PO PRN (21:40)
[2023-03-02] MEDS ORDERED: ALBUTEROL 90 MCG/ACT 8GM HFA INHALER INH PRN (21:40)
[2023-03-02] MEDS ORDERED: MIRALAX *UNIT DOSE* 17GM PACKET FT PRN (21:40)
[2023-03-02 22:36] VITALS: BP 156/78; TEMP 98.1; O2SAT 92
[2023-03-02] MEDS: PIPERACILLIN/TAZOBACTAM SOD 3.375 GM in D5W MINI-BAG PLUS 50 ML IV SCH (22:56)
[2023-03-02] MEDS: DOCUSATE SODIUM 100MG CAPSULE PO SCH (22:57)
[2023-03-02] MEDS: GABAPENTIN 300 MG CAP PO SCH (22:57)
[2023-03-02 23:08] VITALS: BP 146/74; TEMP 97.9; O2SAT 90
[2023-03-02 23:55] VITALS: BP 149/74; TEMP 98.1; O2SAT 87
[2023-03-03 01:00] VITALS: BP 148/72; TEMP 98; O2SAT 91
[2023-03-03] MEDS: VANCOMYCIN HCL 1,000 MG, VIAL MATE ADAPTER 1 EACH in D5W 250 ML IV SCH ×2 (01:22→14:21)
[2023-03-03 02:00] VITALS: BP 147/72; TEMP 97.9; O2SAT 92
[2023-03-03] MEDS: VANCOMYCIN HCL 750 MG, VIAL MATE ADAPTER 1 EACH in D5W 250 ML IV SCH ×2 (02:36→15:41)
[2023-03-03] MEDS: NS 1,000 ML IV SCH (02:41)
[2023-03-03] MEDS: PIPERACILLIN/TAZOBACTAM SOD 3.375 GM in D5W MINI-BAG PLUS 50 ML IV SCH ×4 (05:00→23:37)
[2023-03-03 06:13] VITALS: BP 139/72; TEMP 97.9; O2SAT 94
[2023-03-03] MEDS: INSULIN LISPRO (NovoLOG) PER UNIT SC SCH ×4 (06:26→20:27)
[2023-03-03 08:06] LABS: BASO % 0.1 % (0.0-1.0); HEMATOCRIT 47.6 % (42.0-52.0); HEMOGLOBIN 15.7 g/dl (13.5-17.5); LYMPH # 0.7 10^3/uL (1.5-5.0); LYMPH % 9.3 % (24.0-44.0); MEAN CORPUSCULAR HEMOGLOBIN 32.2 pg (27.0-33.0); MEAN CORPUSCULAR VOLUME 97.7 fl (80.0-96.0); MONO # 0.3 10^3/uL (0.0-0.8); MONO % 3.8 % (2.0-8.0); NEUTROPHILS # 6.2 10^3/uL (1.5-8.5); NEUTROPHILS % 86.5 % (36.0-66.0); PLATELET COUNT, AUTOMATED 256 10^3/uL (150-450); RED BLOOD COUNT 4.87 10^6/uL (4.30-6.10); WHITE BLOOD COUNT 7.2 10^3/uL (4.0-10.0)
[2023-03-03 08:26] LABS: C REACTIVE PROTEIN QUANTITATIV < 0.40 MG/DL (<1.0)
[2023-03-03 08:27] LABS: BLOOD UREA NITROGEN 17 MG/DL (9-23); CALCIUM LEVEL 8.8 MG/DL (8.3-10.6); CARBON DIOXIDE LEVEL 28 MMOL/L (20-31); CHLORIDE LEVEL 110 MMOL/L (98-107); CREATININE FOR GFR 0.86 MG/DL (0.70-1.30); GLOMERULAR FILTRATION RATE > 60.0 (>49); GLUCOSE, FASTING 131 MG/DL (74-106); POTASSIUM SERUM 4.5 MMOL/L (3.5-5.1); SODIUM LEVEL 141 MMOL/L (136-145)
[2023-03-03] MEDS ORDERED: IPRATROPIUM 0.5MG/ALBUTEROL 2.5MG INH SOL UD 3ML (DUONEB) NEB PRN (09:00)
[2023-03-03] MEDS: IPRATROPIUM 0.5MG/ALBUTEROL 2.5MG INH SOL UD 3ML (DUONEB) NEB SCH ×3 (09:51→19:51)
[2023-03-03] MEDS: ASPIRIN 81MG ENTERIC TABLET PO SCH (10:24)
[2023-03-03] MEDS: LEVEMIR (INSULIN DETEMIR) 1 UNITS/0.01ML SC SCH ×2 (10:24→20:27)
[2023-03-03] MEDS: DOCUSATE SODIUM 100MG CAPSULE PO SCH ×2 (10:25→20:27)
[2023-03-03] MEDS: EZETIMIBE 10MG TABLET (ZETIA) PO SCH (10:25)
[2023-03-03] MEDS: GABAPENTIN 300 MG CAP PO SCH ×2 (10:25→20:27)
[2023-03-03] MEDS: MULTIVITAMINS/MINERALS THERAP 1 TAB PO SCH (10:26)
[2023-03-03] MEDS: ATORVASTATIN 20 MG TAB PO SCH (10:26)
[2023-03-03] MEDS: ENOXAPARIN 40MG/0.4ML SYRINGE (J1650 PER 10MG) SC SCH (10:27)
[2023-03-03 14:00] VITALS: BP 134/72; TEMP 98.2; O2SAT 91
[2023-03-03 20:00] VITALS: BP 133/70; TEMP 98.2; O2SAT 94
[2023-03-04] MEDS: IPRATROPIUM 0.5MG/ALBUTEROL 2.5MG INH SOL UD 3ML (DUONEB) NEB SCH ×4 (01:21→19:27)
[2023-03-04] MEDS: VANCOMYCIN HCL 1,000 MG, VIAL MATE ADAPTER 1 EACH in D5W 250 ML IV SCH ×2 (02:07→14:28)
[2023-03-04] MEDS: VANCOMYCIN HCL 750 MG, VIAL MATE ADAPTER 1 EACH in D5W 250 ML IV SCH ×2 (03:10→15:50)
[2023-03-04] MEDS: PIPERACILLIN/TAZOBACTAM SOD 3.375 GM in D5W MINI-BAG PLUS 50 ML IV SCH ×4 (04:15→23:14)
[2023-03-04 05:54] VITALS: BP 143/81; TEMP 98.1; O2SAT 95
[2023-03-04 08:25] LABS: BASO % 0.5 % (0.0-1.0); EOS # 0.1 10^3/uL (0.0-0.5); EOS % 0.7 % (0.0-3.0); HEMATOCRIT 45.5 % (42.0-52.0); HEMOGLOBIN 14.9 g/dl (13.5-17.5); LYMPH # 2.1 10^3/uL (1.5-5.0); LYMPH % 25.6 % (24.0-44.0); MEAN CORPUSCULAR HEMOGLOBIN 32.1 pg (27.0-33.0); MEAN CORPUSCULAR HGB CONC 32.7 g/dl (32.0-36.5); MEAN CORPUSCULAR VOLUME 98.1 fl (80.0-96.0); MONO # 0.6 10^3/uL (0.0-0.8); MONO % 7.4 % (2.0-8.0); NEUTROPHILS # 5.4 10^3/uL (1.5-8.5); NEUTROPHILS % 65.6 % (36.0-66.0); PLATELET COUNT, AUTOMATED 222 10^3/uL (150-450); RED BLOOD COUNT 4.64 10^6/uL (4.30-6.10); WHITE BLOOD COUNT 8.3 10^3/uL (4.0-10.0)
[2023-03-04] MEDS: INSULIN LISPRO (NovoLOG) PER UNIT SC SCH ×4 (08:33→21:00)
[2023-03-04] MEDS: LEVEMIR (INSULIN DETEMIR) 1 UNITS/0.01ML SC SCH ×2 (08:33→20:38)
[2023-03-04] MEDS: GABAPENTIN 300 MG CAP PO SCH ×2 (08:34→20:38)
[2023-03-04] MEDS: DOCUSATE SODIUM 100MG CAPSULE PO SCH ×2 (08:34→20:38)
[2023-03-04] MEDS: ENOXAPARIN 40MG/0.4ML SYRINGE (J1650 PER 10MG) SC SCH (08:34)
[2023-03-04] MEDS: ATORVASTATIN 20 MG TAB PO SCH (08:35)
[2023-03-04] MEDS: MULTIVITAMINS/MINERALS THERAP 1 TAB PO SCH (08:36)
[2023-03-04] MEDS: ASPIRIN 81MG ENTERIC TABLET PO SCH (08:36)
[2023-03-04] MEDS: EZETIMIBE 10MG TABLET (ZETIA) PO SCH (08:37)
[2023-03-04 08:59] LABS: BLOOD UREA NITROGEN 16 MG/DL (9-23); CALCIUM LEVEL 8.2 MG/DL (8.3-10.6); CARBON DIOXIDE LEVEL 27 MMOL/L (20-31); CHLORIDE LEVEL 111 MMOL/L (98-107); CREATININE FOR GFR 0.84 MG/DL (0.70-1.30); GLOMERULAR FILTRATION RATE > 60.0 (>49); GLUCOSE, FASTING 110 MG/DL (74-106); MAGNESIUM LEVEL 1.8 MG/DL (1.8-2.4); POTASSIUM SERUM 4.1 MMOL/L (3.5-5.1); SODIUM LEVEL 143 MMOL/L (136-145)
[2023-03-04 09:07] LABS: C REACTIVE PROTEIN QUANTITATIV < 0.40 MG/DL (<1.0)
[2023-03-04 14:00] VITALS: BP 133/82; TEMP 98.1; O2SAT 96
[2023-03-04 19:49] VITALS: BP 99/57; TEMP 97.9; O2SAT 92
[2023-03-05] MEDS: VANCOMYCIN HCL 1,000 MG, VIAL MATE ADAPTER 1 EACH in D5W 250 ML IV SCH (02:02)
[2023-03-05] MEDS: VANCOMYCIN HCL 750 MG, VIAL MATE ADAPTER 1 EACH in D5W 250 ML IV SCH (02:02)
[2023-03-05] MEDS: IPRATROPIUM 0.5MG/ALBUTEROL 2.5MG INH SOL UD 3ML (DUONEB) NEB SCH ×4 (02:44→20:05)
[2023-03-05] MEDS: PIPERACILLIN/TAZOBACTAM SOD 3.375 GM in D5W MINI-BAG PLUS 50 ML IV SCH ×4 (04:09→23:04)
[2023-03-05 05:26] VITALS: BP 116/74; TEMP 96.9; O2SAT 92
[2023-03-05 06:53] LABS: BASO # 0.1 10^3/uL (0.0-0.2); BASO % 0.9 % (0.0-1.0); EOS # 0.2 10^3/uL (0.0-0.5); EOS % 4.1 % (0.0-3.0); HEMOGLOBIN 14.4 g/dl (13.5-17.5); LYMPH # 1.5 10^3/uL (1.5-5.0); LYMPH % 26.1 % (24.0-44.0); MEAN CORPUSCULAR HGB CONC 32.7 g/dl (32.0-36.5); MEAN CORPUSCULAR VOLUME 97.8 fl (80.0-96.0); MONO # 0.4 10^3/uL (0.0-0.8); MONO % 7.6 % (2.0-8.0); NEUTROPHILS # 3.5 10^3/uL (1.5-8.5); NEUTROPHILS % 61.1 % (36.0-66.0); PLATELET COUNT, AUTOMATED 229 10^3/uL (150-450); WHITE BLOOD COUNT 5.6 10^3/uL (4.0-10.0)
[2023-03-05 07:13] LABS: C REACTIVE PROTEIN QUANTITATIV < 0.40 MG/DL (<1.0)
[2023-03-05 07:15] LABS: BLOOD UREA NITROGEN 15 MG/DL (9-23); CALCIUM LEVEL 8.4 MG/DL (8.3-10.6); CARBON DIOXIDE LEVEL 27 MMOL/L (20-31); CHLORIDE LEVEL 109 MMOL/L (98-107); GLOMERULAR FILTRATION RATE > 60.0 (>49); GLUCOSE, FASTING 151 MG/DL (74-106); MAGNESIUM LEVEL 1.8 MG/DL (1.8-2.4); POTASSIUM SERUM 4.3 MMOL/L (3.5-5.1); SODIUM LEVEL 141 MMOL/L (136-145)
[2023-03-05] MEDS: EZETIMIBE 10MG TABLET (ZETIA) PO SCH (09:01)
[2023-03-05] MEDS: ENOXAPARIN 40MG/0.4ML SYRINGE (J1650 PER 10MG) SC SCH (09:01)
[2023-03-05] MEDS: DOCUSATE SODIUM 100MG CAPSULE PO SCH ×2 (09:01→23:08)
[2023-03-05] MEDS: MULTIVITAMINS/MINERALS THERAP 1 TAB PO SCH (09:01)
[2023-03-05] MEDS: GABAPENTIN 300 MG CAP PO SCH ×2 (09:01→23:08)
[2023-03-05] MEDS: ASPIRIN 81MG ENTERIC TABLET PO SCH (09:02)
[2023-03-05] MEDS: ATORVASTATIN 20 MG TAB PO SCH (09:02)
[2023-03-05] MEDS: INSULIN LISPRO (NovoLOG) PER UNIT SC SCH ×4 (09:02→21:00)
[2023-03-05] MEDS: LEVEMIR (INSULIN DETEMIR) 1 UNITS/0.01ML SC SCH ×2 (09:03→23:07)
[2023-03-05 14:06] VITALS: BP 130/72; TEMP 98.4; O2SAT 93
[2023-03-05 20:30] VITALS: BP 125/69; TEMP 98.8; O2SAT 90
[2023-03-06] MEDS: IPRATROPIUM 0.5MG/ALBUTEROL 2.5MG INH SOL UD 3ML (DUONEB) NEB SCH ×4 (02:00→19:15)
[2023-03-06] MEDS: PIPERACILLIN/TAZOBACTAM SOD 3.375 GM in D5W MINI-BAG PLUS 50 ML IV SCH ×4 (04:53→23:43)
[2023-03-06 05:03] VITALS: BP 134/70; TEMP 98.2; O2SAT 93
[2023-03-06 07:13] LABS: BASO # 0.1 10^3/uL (0.0-0.2); BASO % 0.8 % (0.0-1.0); EOS # 0.4 10^3/uL (0.0-0.5); HEMATOCRIT 42.3 % (42.0-52.0); HEMOGLOBIN 13.8 g/dl (13.5-17.5); LYMPH # 1.3 10^3/uL (1.5-5.0); LYMPH % 20.4 % (24.0-44.0); MEAN CORPUSCULAR HEMOGLOBIN 31.9 pg (27.0-33.0); MEAN CORPUSCULAR HGB CONC 32.6 g/dl (32.0-36.5); MEAN CORPUSCULAR VOLUME 97.7 fl (80.0-96.0); MONO # 0.7 10^3/uL (0.0-0.8); MONO % 10.5 % (2.0-8.0); NEUTROPHILS # 3.8 10^3/uL (1.5-8.5); NEUTROPHILS % 62.1 % (36.0-66.0); PLATELET COUNT, AUTOMATED 224 10^3/uL (150-450); RED BLOOD COUNT 4.33 10^6/uL (4.30-6.10); WHITE BLOOD COUNT 6.2 10^3/uL (4.0-10.0)
[2023-03-06 07:32] LABS: C REACTIVE PROTEIN QUANTITATIV < 0.40 MG/DL (<1.0)
[2023-03-06 07:33] LABS: BLOOD UREA NITROGEN 20 MG/DL (9-23); CALCIUM LEVEL 8.5 MG/DL (8.3-10.6); CARBON DIOXIDE LEVEL 32 MMOL/L (20-31); CHLORIDE LEVEL 109 MMOL/L (98-107); CREATININE FOR GFR 0.84 MG/DL (0.70-1.30); GLOMERULAR FILTRATION RATE > 60.0 (>49); GLUCOSE, FASTING 141 MG/DL (74-106); MAGNESIUM LEVEL 1.8 MG/DL (1.8-2.4); POTASSIUM SERUM 4.5 MMOL/L (3.5-5.1); SODIUM LEVEL 143 MMOL/L (136-145)
[2023-03-06] MEDS: LEVEMIR (INSULIN DETEMIR) 1 UNITS/0.01ML SC SCH ×2 (08:34→21:15)
[2023-03-06] MEDS: INSULIN LISPRO (NovoLOG) PER UNIT SC SCH ×4 (08:34→21:00)
[2023-03-06] MEDS: ATORVASTATIN 20 MG TAB PO SCH (08:35)
[2023-03-06] MEDS: EZETIMIBE 10MG TABLET (ZETIA) PO SCH (08:35)
[2023-03-06] MEDS: MULTIVITAMINS/MINERALS THERAP 1 TAB PO SCH (08:35)
[2023-03-06] MEDS: ENOXAPARIN 40MG/0.4ML SYRINGE (J1650 PER 10MG) SC SCH (08:35)
[2023-03-06] MEDS: DOCUSATE SODIUM 100MG CAPSULE PO SCH ×2 (08:35→21:15)
[2023-03-06] MEDS: ASPIRIN 81MG ENTERIC TABLET PO SCH (08:35)
[2023-03-06] MEDS: GABAPENTIN 300 MG CAP PO SCH ×2 (08:35→21:15)
[2023-03-06 14:00] VITALS: BP 123/68; TEMP 98.1; O2SAT 90
[2023-03-06 20:48] VITALS: BP 129/61; TEMP 98.1; O2SAT 92
[2023-03-07] MEDS: IPRATROPIUM 0.5MG/ALBUTEROL 2.5MG INH SOL UD 3ML (DUONEB) NEB SCH ×4 (01:31→19:19)
[2023-03-07] MEDS: PIPERACILLIN/TAZOBACTAM SOD 3.375 GM in D5W MINI-BAG PLUS 50 ML IV SCH ×4 (04:47→23:23)
[2023-03-07 06:32] VITALS: BP 148/74; TEMP 98.1; O2SAT 92
[2023-03-07 06:37] LABS: BASO # 0.1 10^3/uL (0.0-0.2); BASO % 0.7 % (0.0-1.0); EOS # 0.5 10^3/uL (0.0-0.5); EOS % 6.6 % (0.0-3.0); HEMATOCRIT 45.1 % (42.0-52.0); HEMOGLOBIN 14.7 g/dl (13.5-17.5); LYMPH # 1.2 10^3/uL (1.5-5.0); LYMPH % 16.6 % (24.0-44.0); MEAN CORPUSCULAR HEMOGLOBIN 32.2 pg (27.0-33.0); MEAN CORPUSCULAR HGB CONC 32.6 g/dl (32.0-36.5); MEAN CORPUSCULAR VOLUME 98.9 fl (80.0-96.0); MONO # 0.6 10^3/uL (0.0-0.8); MONO % 8.2 % (2.0-8.0); NEUTROPHILS # 4.7 10^3/uL (1.5-8.5); NEUTROPHILS % 67.8 % (36.0-66.0); PLATELET COUNT, AUTOMATED 239 10^3/uL (150-450); RED BLOOD COUNT 4.56 10^6/uL (4.30-6.10); WHITE BLOOD COUNT 6.9 10^3/uL (4.0-10.0)
[2023-03-07 07:03] LABS: C REACTIVE PROTEIN QUANTITATIV < 0.40 MG/DL (<1.0)
[2023-03-07 07:05] LABS: BLOOD UREA NITROGEN 20 MG/DL (9-23); CALCIUM LEVEL 8.6 MG/DL (8.3-10.6); CARBON DIOXIDE LEVEL 30 MMOL/L (20-31); CHLORIDE LEVEL 106 MMOL/L (98-107); CREATININE FOR GFR 0.81 MG/DL (0.70-1.30); GLOMERULAR FILTRATION RATE > 60.0 (>49); GLUCOSE, FASTING 123 MG/DL (74-106); MAGNESIUM LEVEL 1.9 MG/DL (1.8-2.4); POTASSIUM SERUM 4.5 MMOL/L (3.5-5.1); SODIUM LEVEL 140 MMOL/L (136-145)
[2023-03-07] MEDS: INSULIN LISPRO (NovoLOG) PER UNIT SC SCH ×4 (08:39→20:43)
[2023-03-07] MEDS: GABAPENTIN 300 MG CAP PO SCH ×2 (08:40→20:50)
[2023-03-07] MEDS: ASPIRIN 81MG ENTERIC TABLET PO SCH (08:40)
[2023-03-07] MEDS: EZETIMIBE 10MG TABLET (ZETIA) PO SCH (08:40)
[2023-03-07] MEDS: ATORVASTATIN 20 MG TAB PO SCH (08:40)
[2023-03-07] MEDS: DOCUSATE SODIUM 100MG CAPSULE PO SCH ×2 (08:40→20:50)
[2023-03-07] MEDS: MULTIVITAMINS/MINERALS THERAP 1 TAB PO SCH (08:40)
[2023-03-07] MEDS: LEVEMIR (INSULIN DETEMIR) 1 UNITS/0.01ML SC SCH ×2 (08:40→20:50)
[2023-03-07] MEDS: ENOXAPARIN 40MG/0.4ML SYRINGE (J1650 PER 10MG) SC SCH (08:40)
[2023-03-07] MEDS ORDERED: METR-265 PO (11:36)
[2023-03-07] MEDS ORDERED: LEVO1TAB40 PO (11:36)
[2023-03-07] MEDS ORDERED: RISATAB3 PO (12:04)
[2023-03-07 14:00] VITALS: BP 120/61; TEMP 98.4; O2SAT 94
[2023-03-07 20:09] VITALS: BP 121/63; TEMP 97.3; O2SAT 96
[2023-03-08] MEDS: IPRATROPIUM 0.5MG/ALBUTEROL 2.5MG INH SOL UD 3ML (DUONEB) NEB SCH ×4 (01:15→21:38)
[2023-03-08] MEDS: PIPERACILLIN/TAZOBACTAM SOD 3.375 GM in D5W MINI-BAG PLUS 50 ML IV SCH ×2 (05:23→12:09)
[2023-03-08 06:18] VITALS: BP 122/62; TEMP 97.9; O2SAT 96
[2023-03-08 06:48] LABS: BASO % 0.5 % (0.0-1.0); EOS # 0.4 10^3/uL (0.0-0.5); EOS % 5.7 % (0.0-3.0); HEMATOCRIT 45.8 % (42.0-52.0); HEMOGLOBIN 14.8 g/dl (13.5-17.5); LYMPH # 1.4 10^3/uL (1.5-5.0); LYMPH % 18.2 % (24.0-44.0); MEAN CORPUSCULAR HEMOGLOBIN 32.1 pg (27.0-33.0); MEAN CORPUSCULAR HGB CONC 32.3 g/dl (32.0-36.5); MEAN CORPUSCULAR VOLUME 99.3 fl (80.0-96.0); MONO # 0.5 10^3/uL (0.0-0.8); MONO % 6.9 % (2.0-8.0); NEUTROPHILS # 5.1 10^3/uL (1.5-8.5); NEUTROPHILS % 68.4 % (36.0-66.0); PLATELET COUNT, AUTOMATED 244 10^3/uL (150-450); RED BLOOD COUNT 4.61 10^6/uL (4.30-6.10); WHITE BLOOD COUNT 7.5 10^3/uL (4.0-10.0)
[2023-03-08 07:24] LABS: BLOOD UREA NITROGEN 23 MG/DL (9-23); CALCIUM LEVEL 8.6 MG/DL (8.3-10.6); CARBON DIOXIDE LEVEL 28 MMOL/L (20-31); CHLORIDE LEVEL 107 MMOL/L (98-107); CREATININE FOR GFR 0.82 MG/DL (0.70-1.30); GLOMERULAR FILTRATION RATE > 60.0 (>49); GLUCOSE, FASTING 166 MG/DL (74-106); MAGNESIUM LEVEL 1.9 MG/DL (1.8-2.4); POTASSIUM SERUM 4.6 MMOL/L (3.5-5.1); SODIUM LEVEL 140 MMOL/L (136-145)
[2023-03-08] MEDS: LEVEMIR (INSULIN DETEMIR) 1 UNITS/0.01ML SC SCH ×2 (08:48→21:23)
[2023-03-08] MEDS: INSULIN LISPRO (NovoLOG) PER UNIT SC SCH ×4 (08:48→21:00)
[2023-03-08] MEDS: EZETIMIBE 10MG TABLET (ZETIA) PO SCH (08:49)
[2023-03-08] MEDS: ATORVASTATIN 20 MG TAB PO SCH (08:49)
[2023-03-08] MEDS: MULTIVITAMINS/MINERALS THERAP 1 TAB PO SCH (08:49)
[2023-03-08] MEDS: GABAPENTIN 300 MG CAP PO SCH ×2 (08:49→21:23)
[2023-03-08] MEDS: ASPIRIN 81MG ENTERIC TABLET PO SCH (08:49)
[2023-03-08] MEDS: ENOXAPARIN 40MG/0.4ML SYRINGE (J1650 PER 10MG) SC SCH (08:49)
[2023-03-08] MEDS: DOCUSATE SODIUM 100MG CAPSULE PO SCH ×2 (08:49→21:23)
[2023-03-08] MEDS: LACTOBACILLUS ACIDOPHILUS CAP (BACID) PO SCH ×3 (08:50→16:54)
[2023-03-08 14:00] VITALS: BP 124/62; TEMP 98.2; O2SAT 97
[2023-03-08] MEDS: LevoFLOXacin 750 MG TABLET PO SCH (16:55)
[2023-03-08] MEDS: metroNIDAZOLE (FLAGYL) 500MG TABLET PO SCH ×2 (16:55→21:23)
[2023-03-08 20:00] VITALS: BP_SYST 130; BP_SYST 30; BP_DIAS 60; TEMP 97.9; O2SAT 97
[2023-03-09] MEDS: IPRATROPIUM 0.5MG/ALBUTEROL 2.5MG INH SOL UD 3ML (DUONEB) NEB SCH ×2 (01:08→07:28)
[2023-03-09 06:20] VITALS: BP 126/72; TEMP 97.1; O2SAT 96
[2023-03-09] MEDS: INSULIN LISPRO (NovoLOG) PER UNIT SC SCH ×2 (08:56→12:56)
[2023-03-09] MEDS: ENOXAPARIN 40MG/0.4ML SYRINGE (J1650 PER 10MG) SC SCH (08:57)
[2023-03-09] MEDS: ATORVASTATIN 20 MG TAB PO SCH (08:57)
[2023-03-09] MEDS: LEVEMIR (INSULIN DETEMIR) 1 UNITS/0.01ML SC SCH (08:57)
[2023-03-09] MEDS: EZETIMIBE 10MG TABLET (ZETIA) PO SCH (08:58)
[2023-03-09] MEDS: GABAPENTIN 300 MG CAP PO SCH (08:59)
[2023-03-09] MEDS: MULTIVITAMINS/MINERALS THERAP 1 TAB PO SCH (08:59)
[2023-03-09] MEDS: DOCUSATE SODIUM 100MG CAPSULE PO SCH (08:59)
[2023-03-09] MEDS: LACTOBACILLUS ACIDOPHILUS CAP (BACID) PO SCH ×2 (08:59→12:56)
[2023-03-09] MEDS: metroNIDAZOLE (FLAGYL) 500MG TABLET PO SCH ×2 (09:00→16:07)
[2023-03-09] MEDS: ASPIRIN 81MG ENTERIC TABLET PO SCH (09:00)
[2023-03-09 14:00] VITALS: BP 129/70; TEMP 98.2; O2SAT 97
[2023-03-09] MEDS: LevoFLOXacin 750 MG TABLET PO SCH (16:07)
== END 2023-03-09 17:04 | disposition home health service (06) | DRG 349 ==
LOC: M ED 13:02 → M ED INP 17:14 → M MS5PR 22:20
PROVIDERS: ADMIT Internal Medicine; ATTEND Internal Medicine
PROC: 0JBN0ZZ Excision of Right Lower Leg Subcutaneous Tissue and Fascia, Open Approach (ICD-10-PCS; principal; 2023-03-02 20:00)
DX: T87.43 Infection of amputation stump, right lower extremity (principal); I11.0 Hypertensive heart disease with heart failure; E11.42 Type 2 diabetes mellitus with diabetic polyneuropathy; I50.32 Chronic diastolic (congestive) heart failure; E11.628 Type 2 diabetes mellitus with other skin complications; E11.51 Type 2 diabetes mellitus with diabetic peripheral angiopathy without gangrene; L03.115 Cellulitis of right lower limb; E78.5 Hyperlipidemia, unspecified; I87.2 Venous insufficiency (chronic) (peripheral); G47.33 Obstructive sleep apnea (adult) (pediatric); J44.9 Chronic obstructive pulmonary disease, unspecified; Z89.511 Acquired absence of right leg below knee; Z89.012 Acquired absence of left thumb; F17.210 Nicotine dependence, cigarettes, uncomplicated; Z79.82 Long term (current) use of aspirin; Z79.4 Long term (current) use of insulin; Z79.899 Other long term (current) drug therapy; Z20.822 Contact with and (suspected) exposure to COVID-19; Z86.16 Personal history of COVID-19; T87.81 Dehiscence of amputation stump; T87.53 Necrosis of amputation stump, right lower extremity

== ENCOUNTER 2023-03-30 12:37 | Inpatient (IN) | payer MEDICAID, OTHER ==
[~2023-03-30] VITALS: Ht 185.4 cm; Wt 133.3 kg
[~2023-03-30 12:37] MED LIST changes: +ACET650T61 PO; -CEFD300C41 PO; +CEFD300C42 PO; +LEVO1TAB40 PO; +METR-265 PO; +POLY17PO18 PO; +RISATAB3 PO
[2023-03-30] MEDS ORDERED: ACETAMINOPHEN 325 MG TAB PO ONE (13:20)
[2023-03-30 13:57] LABS: BASO % 0.2 % (0.0-1.0); EOS # 0.1 10^3/uL (0.0-0.5); EOS % 0.5 % (0.0-3.0); HEMATOCRIT 51.6 % (42.0-52.0); HEMOGLOBIN 17.3 g/dl (13.5-17.5); LYMPH # 0.8 10^3/uL (1.5-5.0); LYMPH % 5.7 % (24.0-44.0); MEAN CORPUSCULAR HEMOGLOBIN 32.3 pg (27.0-33.0); MEAN CORPUSCULAR HGB CONC 33.5 g/dl (32.0-36.5); MEAN CORPUSCULAR VOLUME 96.3 fl (80.0-96.0); MONO % 7.2 % (2.0-8.0); NEUTROPHILS % 86.2 % (36.0-66.0); PLATELET COUNT, AUTOMATED 233 10^3/uL (150-450); RED BLOOD COUNT 5.36 10^6/uL (4.30-6.10)
[2023-03-30 14:12] LABS: ERYTHROCYTE SEDIMENTATION RATE 45 mm/hr (0-20)
[2023-03-30 14:27] LABS: ALBUMIN 3.4 G/DL (3.2-5.2); ALKALINE PHOSPHATASE 90 U/L (46-116); ALT/SGPT 27 U/L (7.0-40); AST/SGOT 23 U/L (<34); BILIRUBIN,DIRECT 0.2 MG/DL (<0.4); BILIRUBIN,TOTAL 0.6 MG/DL (0.3-1.2); BLOOD UREA NITROGEN 18 MG/DL (9-23); CARBON DIOXIDE LEVEL 30 MMOL/L (20-31); CHLORIDE LEVEL 100 MMOL/L (98-107); CREATININE FOR GFR 0.88 MG/DL (0.70-1.30); GLOMERULAR FILTRATION RATE > 60.0 (>49); GLUCOSE, FASTING 129 MG/DL (74-106); POTASSIUM SERUM 4.5 MMOL/L (3.5-5.1); SODIUM LEVEL 140 MMOL/L (136-145); TOTAL PROTEIN 6.9 G/DL (5.7-8.2)
[2023-03-30 14:37] LABS: RSV AMPLIFICATION NEGATIVE (NEGATIVE)
[2023-03-30] MEDS ORDERED: VANCOMYCIN HCL 2,000 MG in D5W 500 ML IV ONE (15:00)
[2023-03-30] MEDS ORDERED: MED REC IN PROGRESS XX SCH (15:35)
[2023-03-30] MEDS ORDERED: VANCOMYCIN HCL 1,000 MG, VIAL MATE ADAPTER 1 EACH in D5W 250 ML IV ONE ×2 (16:00→17:00)
[2023-03-30] MEDS ORDERED: ISOVUE-370 76% 100ML VIAL As Ordered ONE ×2 (16:01→17:13)
[2023-03-30] MEDS ORDERED: FLUT22IN INH (16:07)
[2023-03-30] MEDS ORDERED: HOME MED LIST COMPLETE! XX SCH (16:10)
[2023-03-30] MEDS ORDERED: IBUPROFEN 600MG TAB PO ONE (18:15)
[2023-03-30] MEDS ORDERED: GLUCOSE 4GM CHEW TABLET PO PRN (19:10)
[2023-03-30] MEDS ORDERED: SENNA 8.6 MG TAB (SENOKOT) PO PRN (19:10)
[2023-03-30] MEDS ORDERED: MIRALAX *UNIT DOSE* 17GM PACKET PO PRN (19:10)
[2023-03-30] MEDS ORDERED: DEXTROSE 50% 50ML SYRINGE IV PRN (19:10)
[2023-03-30] MEDS ORDERED: GLUCAGON INJ 1MG VIAL SC PRN (19:10)
[2023-03-30] MEDS ORDERED: ACETAMINOPHEN TAB 650MG DOSE (2X325MG) PO PRN (19:10)
[2023-03-30] MEDS ORDERED: ALBUTEROL 90 MCG/ACT 8GM HFA INHALER INH PRN (19:10)
[2023-03-30] MEDS: INSULIN LISPRO (NovoLOG) PER UNIT SC SCH (20:29)
[2023-03-30] MEDS: LR 1,000 ML IV SCH (20:47)
[2023-03-30] MEDS: GABAPENTIN 300 MG CAP PO SCH (20:48)
[2023-03-30] MEDS: POTASSIUM CHLORIDE 10MEQ SR TABLET PO SCH (20:48)
[2023-03-30] MEDS: LEVEMIR (INSULIN DETEMIR) 1 UNITS/0.01ML SC SCH (20:48)
[2023-03-30 22:42] VITALS: BP 113/84; TEMP 97.9; O2SAT 96
[2023-03-31] MEDS: LR 1,000 ML IV SCH (02:30)
[2023-03-31] MEDS: CEFTAROLINE FOSAMIL 600 MG in D5W MINI-BAG PLUS 50 ML IV SCH ×2 (05:24→18:55)
[2023-03-31 06:00] VITALS: BP 115/60; TEMP 97.9; O2SAT 98
[2023-03-31 06:25] LABS: HEMATOCRIT 45.4 % (42.0-52.0); MEAN CORPUSCULAR VOLUME 96.8 fl (80.0-96.0); PLATELET COUNT, AUTOMATED 183 10^3/uL (150-450); RED BLOOD COUNT 4.69 10^6/uL (4.30-6.10); WHITE BLOOD COUNT 9.5 10^3/uL (4.0-10.0)
[2023-03-31 06:41] LABS: BLOOD UREA NITROGEN 23 MG/DL (9-23); CALCIUM LEVEL 8.4 MG/DL (8.3-10.6); CARBON DIOXIDE LEVEL 30 MMOL/L (20-31); CHLORIDE LEVEL 107 MMOL/L (98-107); CREATININE FOR GFR 0.98 MG/DL (0.70-1.30); GLOMERULAR FILTRATION RATE > 60.0 (>49); GLUCOSE, FASTING 81 MG/DL (74-106); MAGNESIUM LEVEL 2.1 MG/DL (1.8-2.4); POTASSIUM SERUM 4.1 MMOL/L (3.5-5.1); SODIUM LEVEL 143 MMOL/L (136-145)
[2023-03-31] MEDS: INSULIN LISPRO (NovoLOG) PER UNIT SC SCH ×4 (07:30→20:40)
[2023-03-31] MEDS ORDERED: FLUTICASONE HFA 220 MCG 12 GM INHALER (FLOVENT) INH SCH (08:00)
[2023-03-31] MEDS: POTASSIUM CHLORIDE 10MEQ SR TABLET PO SCH ×2 (08:45→20:43)
[2023-03-31] MEDS: BUMETANIDE 1 MG TAB PO SCH (08:45)
[2023-03-31] MEDS: EZETIMIBE 10MG TABLET (ZETIA) PO SCH (08:45)
[2023-03-31] MEDS: ASPIRIN 81MG ENTERIC TABLET PO SCH (08:45)
[2023-03-31] MEDS: GABAPENTIN 300 MG CAP PO SCH ×2 (08:45→20:42)
[2023-03-31] MEDS: ATORVASTATIN 20 MG TAB PO SCH (08:46)
[2023-03-31] MEDS: ENOXAPARIN 40MG/0.4ML SYRINGE (J1650 PER 10MG) SC SCH (08:47)
[2023-03-31] MEDS: LEVEMIR (INSULIN DETEMIR) 1 UNITS/0.01ML SC SCH ×2 (08:51→20:43)
[2023-03-31] MEDS: ALBUTEROL 90 MCG/ACT 8GM HFA INHALER INH SCH ×4 (11:41→23:41)
[2023-03-31 14:00] VITALS: BP 118/56; TEMP 98.8; O2SAT 97
[2023-03-31] MEDS: SYMBICORT 160/4.5MCG INHALER 6GM INH SCH (19:36)
[2023-03-31 21:00] VITALS: BP 115/56; TEMP 98.1; O2SAT 93
[2023-04-01 02:25] VITALS: O2SAT 80
[2023-04-01 02:28] VITALS: O2SAT 94
[2023-04-01] MEDS: ALBUTEROL 90 MCG/ACT 8GM HFA INHALER INH SCH ×6 (04:00→23:25)
[2023-04-01 05:06] VITALS: BP 131/66; TEMP 97.7; O2SAT 94
[2023-04-01] MEDS: CEFTAROLINE FOSAMIL 600 MG in D5W MINI-BAG PLUS 50 ML IV SCH ×2 (05:41→17:46)
[2023-04-01 06:29] LABS: BASO % 0.6 % (0.0-1.0); EOS # 0.3 10^3/uL (0.0-0.5); EOS % 4.4 % (0.0-3.0); HEMATOCRIT 45.7 % (42.0-52.0); HEMOGLOBIN 14.9 g/dl (13.5-17.5); LYMPH # 1.2 10^3/uL (1.5-5.0); LYMPH % 18.2 % (24.0-44.0); MEAN CORPUSCULAR HEMOGLOBIN 31.4 pg (27.0-33.0); MEAN CORPUSCULAR HGB CONC 32.6 g/dl (32.0-36.5); MEAN CORPUSCULAR VOLUME 96.4 fl (80.0-96.0); MONO # 0.7 10^3/uL (0.0-0.8); MONO % 10.4 % (2.0-8.0); NEUTROPHILS # 4.2 10^3/uL (1.5-8.5); NEUTROPHILS % 66.2 % (36.0-66.0); PLATELET COUNT, AUTOMATED 185 10^3/uL (150-450); RED BLOOD COUNT 4.74 10^6/uL (4.30-6.10); WHITE BLOOD COUNT 6.4 10^3/uL (4.0-10.0)
[2023-04-01 06:51] LABS: BLOOD UREA NITROGEN 21 MG/DL (9-23); CALCIUM LEVEL 8.1 MG/DL (8.3-10.6); CARBON DIOXIDE LEVEL 27 MMOL/L (20-31); CHLORIDE LEVEL 107 MMOL/L (98-107); CREATININE FOR GFR 0.81 MG/DL (0.70-1.30); GLOMERULAR FILTRATION RATE > 60.0 (>49); GLUCOSE, FASTING 98 MG/DL (74-106); POTASSIUM SERUM 4.1 MMOL/L (3.5-5.1); SODIUM LEVEL 142 MMOL/L (136-145)
[2023-04-01] MEDS: INSULIN LISPRO (NovoLOG) PER UNIT SC SCH ×4 (07:30→20:14)
[2023-04-01] MEDS: SYMBICORT 160/4.5MCG INHALER 6GM INH SCH ×2 (07:43→19:39)
[2023-04-01] MEDS: ASPIRIN 81MG ENTERIC TABLET PO SCH (08:23)
[2023-04-01] MEDS: ATORVASTATIN 20 MG TAB PO SCH (08:23)
[2023-04-01] MEDS: BUMETANIDE 1 MG TAB PO SCH (08:23)
[2023-04-01] MEDS: POTASSIUM CHLORIDE 10MEQ SR TABLET PO SCH ×2 (08:24→20:20)
[2023-04-01] MEDS: ENOXAPARIN 40MG/0.4ML SYRINGE (J1650 PER 10MG) SC SCH (08:24)
[2023-04-01] MEDS: GABAPENTIN 300 MG CAP PO SCH ×2 (08:24→20:20)
[2023-04-01] MEDS: LEVEMIR (INSULIN DETEMIR) 1 UNITS/0.01ML SC SCH ×2 (08:25→20:20)
[2023-04-01] MEDS: EZETIMIBE 10MG TABLET (ZETIA) PO SCH (08:28)
[2023-04-01 14:00] VITALS: BP 128/63; TEMP 97.9; O2SAT 94
[2023-04-01 21:27] VITALS: BP 129/63; TEMP 97.7; O2SAT 96
[2023-04-02] MEDS: ALBUTEROL 90 MCG/ACT 8GM HFA INHALER INH SCH ×6 (03:30→23:29)
[2023-04-02 05:51] LABS: BASO % 0.3 % (0.0-1.0); EOS # 0.3 10^3/uL (0.0-0.5); EOS % 4.2 % (0.0-3.0); HEMATOCRIT 47.5 % (42.0-52.0); HEMOGLOBIN 15.7 g/dl (13.5-17.5); LYMPH # 0.8 10^3/uL (1.5-5.0); LYMPH % 12.4 % (24.0-44.0); MEAN CORPUSCULAR HEMOGLOBIN 31.9 pg (27.0-33.0); MEAN CORPUSCULAR HGB CONC 33.1 g/dl (32.0-36.5); MEAN CORPUSCULAR VOLUME 96.5 fl (80.0-96.0); MONO # 0.6 10^3/uL (0.0-0.8); MONO % 8.6 % (2.0-8.0); NEUTROPHILS # 4.7 10^3/uL (1.5-8.5); NEUTROPHILS % 74.2 % (36.0-66.0); PLATELET COUNT, AUTOMATED 201 10^3/uL (150-450); RED BLOOD COUNT 4.92 10^6/uL (4.30-6.10); WHITE BLOOD COUNT 6.4 10^3/uL (4.0-10.0)
[2023-04-02] MEDS: CEFTAROLINE FOSAMIL 600 MG in D5W MINI-BAG PLUS 50 ML IV SCH ×2 (06:00→17:13)
[2023-04-02 06:01] VITALS: BP 128/72; TEMP 98; O2SAT 95
[2023-04-02 06:16] LABS: BLOOD UREA NITROGEN 21 MG/DL (9-23); CALCIUM LEVEL 8.4 MG/DL (8.3-10.6); CARBON DIOXIDE LEVEL 27 MMOL/L (20-31); CHLORIDE LEVEL 106 MMOL/L (98-107); CREATININE FOR GFR 0.76 MG/DL (0.70-1.30); GLOMERULAR FILTRATION RATE > 60.0 (>49); GLUCOSE, FASTING 111 MG/DL (74-106); POTASSIUM SERUM 4.3 MMOL/L (3.5-5.1); SODIUM LEVEL 140 MMOL/L (136-145)
[2023-04-02] MEDS: SYMBICORT 160/4.5MCG INHALER 6GM INH SCH ×2 (07:41→21:18)
[2023-04-02] MEDS: LEVEMIR (INSULIN DETEMIR) 1 UNITS/0.01ML SC SCH ×2 (08:30→21:22)
[2023-04-02] MEDS ORDERED: INSULIN LISPRO (NovoLOG) PER UNIT SC ONE (08:30)
[2023-04-02] MEDS ORDERED: LEVEMIR (INSULIN DETEMIR) 1 UNITS/0.01ML SC ONE (09:00)
[2023-04-02] MEDS: INSULIN LISPRO (NovoLOG) PER UNIT SC SCH ×4 (10:04→20:25)
[2023-04-02] MEDS: ENOXAPARIN 40MG/0.4ML SYRINGE (J1650 PER 10MG) SC SCH (10:05)
[2023-04-02] MEDS: ATORVASTATIN 20 MG TAB PO SCH (10:05)
[2023-04-02] MEDS: EZETIMIBE 10MG TABLET (ZETIA) PO SCH (10:05)
[2023-04-02] MEDS: ASPIRIN 81MG ENTERIC TABLET PO SCH (10:05)
[2023-04-02] MEDS: GABAPENTIN 300 MG CAP PO SCH ×2 (10:06→21:21)
[2023-04-02] MEDS: POTASSIUM CHLORIDE 10MEQ SR TABLET PO SCH ×2 (10:06→21:22)
[2023-04-02] MEDS: BUMETANIDE 1 MG TAB PO SCH (10:19)
[2023-04-02 14:00] VITALS: BP 125/72; TEMP 97.9; O2SAT 95
[2023-04-02 20:00] VITALS: BP 125/72; TEMP 98.1; O2SAT 95
[2023-04-03] MEDS: ALBUTEROL 90 MCG/ACT 8GM HFA INHALER INH SCH ×2 (03:09→07:07)
[2023-04-03] MEDS: CEFTAROLINE FOSAMIL 600 MG in D5W MINI-BAG PLUS 50 ML IV SCH (05:50)
[2023-04-03 05:58] VITALS: BP 129/74; TEMP 97.9; O2SAT 96
[2023-04-03 06:09] LABS: BASO % 0.4 % (0.0-1.0); EOS # 0.2 10^3/uL (0.0-0.5); EOS % 3.8 % (0.0-3.0); HEMATOCRIT 45.9 % (42.0-52.0); HEMOGLOBIN 15.4 g/dl (13.5-17.5); LYMPH # 0.8 10^3/uL (1.5-5.0); LYMPH % 16.3 % (24.0-44.0); MEAN CORPUSCULAR HEMOGLOBIN 32.2 pg (27.0-33.0); MEAN CORPUSCULAR HGB CONC 33.6 g/dl (32.0-36.5); MONO # 0.8 10^3/uL (0.0-0.8); MONO % 16.7 % (2.0-8.0); NEUTROPHILS # 3.1 10^3/uL (1.5-8.5); NEUTROPHILS % 62.6 % (36.0-66.0); PLATELET COUNT, AUTOMATED 197 10^3/uL (150-450); RED BLOOD COUNT 4.78 10^6/uL (4.30-6.10)
[2023-04-03 06:37] LABS: BLOOD UREA NITROGEN 22 MG/DL (9-23); CALCIUM LEVEL 8.7 MG/DL (8.3-10.6); CARBON DIOXIDE LEVEL 26 MMOL/L (20-31); CHLORIDE LEVEL 104 MMOL/L (98-107); CREATININE FOR GFR 0.84 MG/DL (0.70-1.30); GLOMERULAR FILTRATION RATE > 60.0 (>49); GLUCOSE, FASTING 105 MG/DL (74-106); POTASSIUM SERUM 4.3 MMOL/L (3.5-5.1); SODIUM LEVEL 137 MMOL/L (136-145)
[2023-04-03] MEDS: SYMBICORT 160/4.5MCG INHALER 6GM INH SCH (07:06)
[2023-04-03] MEDS: INSULIN LISPRO (NovoLOG) PER UNIT SC SCH (07:30)
[2023-04-03] MEDS: LEVEMIR (INSULIN DETEMIR) 1 UNITS/0.01ML SC SCH (08:42)
[2023-04-03] MEDS: ENOXAPARIN 40MG/0.4ML SYRINGE (J1650 PER 10MG) SC SCH (09:56)
[2023-04-03] MEDS: BUMETANIDE 1 MG TAB PO SCH (09:57)
[2023-04-03] MEDS: ASPIRIN 81MG ENTERIC TABLET PO SCH (09:57)
[2023-04-03] MEDS: ATORVASTATIN 20 MG TAB PO SCH (09:57)
[2023-04-03] MEDS: GABAPENTIN 300 MG CAP PO SCH (09:57)
[2023-04-03] MEDS: POTASSIUM CHLORIDE 10MEQ SR TABLET PO SCH (09:58)
[2023-04-03] MEDS: EZETIMIBE 10MG TABLET (ZETIA) PO SCH (09:58)
[2023-04-03] MEDS ORDERED: PROB250C PO (11:02)
== END 2023-04-03 12:00 | disposition home or self-care (01) | DRG 0 ==
LOC: M ED 12:37 → M ED INP 19:06 → M MSPAV 22:42
PROVIDERS: ADMIT Internal Medicine; ATTEND Internal Medicine
DX: T87.43 Infection of amputation stump, right lower extremity (principal); A41.9 Sepsis, unspecified organism; E11.42 Type 2 diabetes mellitus with diabetic polyneuropathy; E11.51 Type 2 diabetes mellitus with diabetic peripheral angiopathy without gangrene; I11.0 Hypertensive heart disease with heart failure; I70.92 Chronic total occlusion of artery of the extremities; L03.115 Cellulitis of right lower limb; I50.32 Chronic diastolic (congestive) heart failure; E66.01 Morbid (severe) obesity due to excess calories; E78.5 Hyperlipidemia, unspecified; G47.33 Obstructive sleep apnea (adult) (pediatric); J44.9 Chronic obstructive pulmonary disease, unspecified; K21.9 Gastro-esophageal reflux disease without esophagitis; M10.9 Gout, unspecified; Z89.511 Acquired absence of right leg below knee; Z79.899 Other long term (current) drug therapy; Z79.82 Long term (current) use of aspirin; Y83.5 Amputation of limb(s) as the cause of abnormal reaction of the patient, or of later complication, without mention of misadventure at the time of the procedure

== ENCOUNTER → 2023-04-13 | Outpatient (CLI) | payer OTHER ==
[~2023-04-13] MED LIST changes: +FLUT22IN INH; +PROB250C PO
== END ==
LOC: M RAD 07:37
PROVIDERS: ATTEND Surgery Vascular Surgery
DX: L08.9 Local infection of the skin and subcutaneous tissue, unspecified (principal); Z89.511 Acquired absence of right leg below knee; I83.91 Asymptomatic varicose veins of right lower extremity; M25.461 Effusion, right knee

== ENCOUNTER 2023-06-13 13:36 | Outpatient (RCR) | payer OTHER ==
[~2023-06-13 13:36] MED LIST changes: +CEFD1CAP9 PO; -CEFD300C42 PO
== END 2023-07-04 ==
LOC: M PT 13:36
PROVIDERS: ATTEND Surgery Vascular Surgery
DX: Z89.511 Acquired absence of right leg below knee (principal)

== ENCOUNTER → 2023-07-06 | Outpatient (CLI) | payer OTHER ==
[2023-07-06 07:43] LABS: ALBUMIN 3.2 G/DL (3.2-5.2); ALKALINE PHOSPHATASE 98 U/L (46-116); ALT/SGPT 21 U/L (7.0-40); AST/SGOT 17 U/L (<34); BILIRUBIN,TOTAL 0.6 MG/DL (0.3-1.2); BLOOD UREA NITROGEN 19 MG/DL (9-23); CALCIUM LEVEL 9.2 MG/DL (8.3-10.6); CARBON DIOXIDE LEVEL 31 MMOL/L (20-31); CHLORIDE LEVEL 106 MMOL/L (98-107); CHOLESTEROL LEVEL 122 MG/DL (<200); CHOLESTEROL RISK RATIO 3.01 (<5); CREATININE FOR GFR 0.91 MG/DL (0.70-1.30); GLOMERULAR FILTRATION RATE > 60.0 (>49); GLUCOSE, FASTING 102 MG/DL (74-106); HDL CHOLESTEROL 40.5 MG/DL (>40); LDL CHOLESTEROL 66.3 MG/DL (<100); NON-HDL-C 81.5 MG/DL; POTASSIUM SERUM 4.5 MMOL/L (3.5-5.1); SODIUM LEVEL 141 MMOL/L (136-145); TOTAL PROTEIN 6.9 G/DL (5.7-8.2); TRIGLYCERIDES LEVEL 76 MG/DL (<150)
== END ==
LOC: M LAB 06:29
PROVIDERS: ATTEND Physician Assistant
DX: E78.2 Mixed hyperlipidemia (principal)

== ENCOUNTER → 2023-08-06 | Outpatient (CLI) | payer OTHER ==
[~2023-08-06] MED LIST changes: -MIRA1POW3 PO; +MIRA33506 PO
== END ==
LOC: M RAD 09:21
PROVIDERS: ATTEND Internal Medicine Pulmonary Disease
DX: Z12.2 Encounter for screening for malignant neoplasm of respiratory organs (principal); Z87.891 Personal history of nicotine dependence

== ENCOUNTER → 2023-08-22 | Outpatient (REF) | payer OTHER ==
[2023-08-23 13:08] LABS: CREATININE, URINE 88.2 MG/DL; MAU/CREAT RATIO 19.2 MCG/MG (0.0-30.0)
== END ==
LOC: M LAB REF 12:18
PROVIDERS: ATTEND Nurse Practitioner Family
DX: E11.65 Type 2 diabetes mellitus with hyperglycemia (principal)

== ENCOUNTER → 2023-09-27 | Outpatient (CLI) | payer OTHER | LOC: M RAD 06:34 | PROVIDERS: ATTEND Surgery | DX: T87.89 Other complications of amputation stump (principal); R09.89 Other specified symptoms and signs involving the circulatory and respiratory systems ==

== ENCOUNTER 2023-10-18 12:45 | Inpatient (IN) | payer MEDICAID, OTHER ==
[~2023-10-18] VITALS: Ht 182.9 cm; Wt 134.4 kg
[2023-10-18 16:55] LABS: BASO % 0.4 % (0.0-1.0); EOS # 0.1 10^3/uL (0.0-0.5); EOS % 1.4 % (0.0-3.0); HEMATOCRIT 53.2 % (42.0-52.0); HEMOGLOBIN 17.9 g/dl (13.5-17.5); LYMPH # 1.5 10^3/uL (1.5-5.0); LYMPH % 15.1 % (24.0-44.0); MEAN CORPUSCULAR HGB CONC 33.6 g/dl (32.0-36.5); MEAN CORPUSCULAR VOLUME 98.2 fl (80.0-96.0); MONO # 0.9 10^3/uL (0.0-0.8); MONO % 8.5 % (2.0-8.0); NEUTROPHILS # 7.5 10^3/uL (1.5-8.5); NEUTROPHILS % 74.3 % (36.0-66.0); PLATELET COUNT, AUTOMATED 248 10^3/uL (150-450); RED BLOOD COUNT 5.42 10^6/uL (4.30-6.10); WHITE BLOOD COUNT 10.1 10^3/uL (4.0-10.0)
[2023-10-18 17:06] LABS: ERYTHROCYTE SEDIMENTATION RATE 40 mm/hr (0-20)
[2023-10-18 17:12] LABS: BLOOD UREA NITROGEN 19 MG/DL (9-23); CALCIUM LEVEL 8.8 MG/DL (8.3-10.6); CARBON DIOXIDE LEVEL 31 MMOL/L (20-31); CHLORIDE LEVEL 109 MMOL/L (98-107); CREATININE FOR GFR 0.99 MG/DL (0.70-1.30); GLOMERULAR FILTRATION RATE > 60.0 (>49); GLUCOSE, FASTING 72 MG/DL (74-106); POTASSIUM SERUM 4.9 MMOL/L (3.5-5.1); SODIUM LEVEL 143 MMOL/L (136-145)
[2023-10-18] MEDS ORDERED: MULT-90 PO (21:47)
[2023-10-18] MEDS ORDERED: BUME1TAB3 PO (21:47)
[2023-10-18] MEDS ORDERED: HOME MED LIST COMPLETE! XX SCH (21:50)
[2023-10-18] MEDS ORDERED: ACETAMINOPHEN TAB 650MG DOSE (2X325MG) PO PRN (23:10)
[2023-10-18 23:47] VITALS: BP 119/64; TEMP 97.5; O2SAT 93
[2023-10-19] MEDS: VANCOMYCIN HCL 1,000 MG, VIAL MATE ADAPTER 1 EACH in NS 250 ML IV SCH (00:38)
[2023-10-19] MEDS: VANCOMYCIN HCL 1,000 MG, VIAL MATE ADAPTER 1 EACH in NS 250 ML IV ONE (00:38)
[2023-10-19] MEDS ORDERED: GLUCAGON INJ 1MG VIAL SC PRN (03:25)
[2023-10-19] MEDS ORDERED: DEXTROSE 50% 50ML SYRINGE IV PRN (03:25)
[2023-10-19] MEDS ORDERED: GLUCOSE 4 GM CHEW PO PRN (03:25)
[2023-10-19 05:13] VITALS: BP 121/61; TEMP 97.5; O2SAT 96
[2023-10-19] MEDS: HEPARIN SOD (PORCINE) 5000UNITS/ML 1ML VIAL/SYRINGE SC SCH (06:00)
[2023-10-19 06:22] LABS: HEMATOCRIT 49.9 % (42.0-52.0); HEMOGLOBIN 17.1 g/dl (13.5-17.5); MEAN CORPUSCULAR HEMOGLOBIN 33.3 pg (27.0-33.0); MEAN CORPUSCULAR HGB CONC 34.3 g/dl (32.0-36.5); MEAN CORPUSCULAR VOLUME 97.3 fl (80.0-96.0); PLATELET COUNT, AUTOMATED 216 10^3/uL (150-450); RED BLOOD COUNT 5.13 10^6/uL (4.30-6.10); WHITE BLOOD COUNT 6.4 10^3/uL (4.0-10.0)
[2023-10-19 06:47] LABS: BLOOD UREA NITROGEN 18 MG/DL (9-23); CALCIUM LEVEL 8.4 MG/DL (8.3-10.6); CARBON DIOXIDE LEVEL 29 MMOL/L (20-31); CHLORIDE LEVEL 108 MMOL/L (98-107); CREATININE FOR GFR 0.79 MG/DL (0.70-1.30); GLOMERULAR FILTRATION RATE > 60.0 (>49); GLUCOSE, FASTING 77 MG/DL (74-106); POTASSIUM SERUM 4.2 MMOL/L (3.5-5.1); SODIUM LEVEL 142 MMOL/L (136-145)
[2023-10-19] MEDS: INSULIN LISPRO (NovoLOG) PER UNIT SC SCH ×2 (07:30→20:56)
[2023-10-19] MEDS: EZETIMIBE 10MG TABLET (ZETIA) PO SCH (08:55)
[2023-10-19] MEDS: ATORVASTATIN 20 MG TAB PO SCH (08:55)
[2023-10-19] MEDS: ASPIRIN 81MG ENTERIC TABLET PO SCH (08:55)
[2023-10-19] MEDS: BUMETANIDE 1 MG TAB PO SCH (08:55)
[2023-10-19 14:25] VITALS: BP 132/71; TEMP 97.8; O2SAT 94
[2023-10-19] MEDS ORDERED: VANCOMYCIN HCL 2,020 MG in IV FLUID PLACE HOLDER 1 EA IV SCH (14:50)
[2023-10-19] MEDS ORDERED: VANCOMYCIN HCL 1,000 MG, VIAL MATE ADAPTER 1 EACH in D5W 250 ML IV ONE ×2 (15:00→16:00)
[2023-10-19 15:27] LABS: PROCALCITONIN 0.13 ng/ml
[2023-10-19] MEDS: VANCOMYCIN HCL 1,000 MG, VIAL MATE ADAPTER 1 EACH in D5W 250 ML IV ONE (16:08)
[2023-10-19] MEDS ORDERED: PROHANCE 279.3MG/ML 5ML VIAL As Ordered ONE (17:19)
[2023-10-19] MEDS ORDERED: PROHANCE 279.3MG/ML 15ML VIAL As Ordered ONE (17:20)
[2023-10-19] MEDS: VANCOMYCIN HCL 1,000 MG, VIAL MATE ADAPTER 1 EACH in D5W 250 ML IV SCH (20:58)
[2023-10-19 21:45] VITALS: BP 110/64; TEMP 97.7; O2SAT 97
[2023-10-19] MEDS: VANCOMYCIN HCL 750 MG, VIAL MATE ADAPTER 1 EACH in D5W 250 ML IV SCH (22:28)
[2023-10-20 06:06] VITALS: BP 124/75; TEMP 97.5; O2SAT 97
[2023-10-20] MEDS: TIOTROPIUM INHALER/CAPSULE (SPIRIVA) INH SCH (07:56)
[2023-10-20 08:21] LABS: HEMATOCRIT 48.9 % (42.0-52.0); HEMOGLOBIN 16.8 g/dl (13.5-17.5); MEAN CORPUSCULAR HEMOGLOBIN 33.1 pg (27.0-33.0); MEAN CORPUSCULAR HGB CONC 34.4 g/dl (32.0-36.5); MEAN CORPUSCULAR VOLUME 96.4 fl (80.0-96.0); PLATELET COUNT, AUTOMATED 203 10^3/uL (150-450); RED BLOOD COUNT 5.07 10^6/uL (4.30-6.10); WHITE BLOOD COUNT 5.3 10^3/uL (4.0-10.0)
[2023-10-20 08:29] LABS: ERYTHROCYTE SEDIMENTATION RATE 38 mm/hr (0-20)
[2023-10-20 08:43] LABS: VANCOMYCIN LEVEL TROUGH 14.5 UG/ML (10.0-20.0)
[2023-10-20 08:44] LABS: BLOOD UREA NITROGEN 18 MG/DL (9-23); CALCIUM LEVEL 8.3 MG/DL (8.3-10.6); CARBON DIOXIDE LEVEL 30 MMOL/L (20-31); CHLORIDE LEVEL 108 MMOL/L (98-107); CREATININE FOR GFR 0.84 MG/DL (0.70-1.30); GLOMERULAR FILTRATION RATE > 60.0 (>49); GLUCOSE, FASTING 114 MG/DL (74-106); POTASSIUM SERUM 4.4 MMOL/L (3.5-5.1); SODIUM LEVEL 140 MMOL/L (136-145)
[2023-10-20 15:26] VITALS: BP 108/54; TEMP 97.7; O2SAT 94
[2023-10-20 20:22] VITALS: BP 115/53; TEMP 97.7; O2SAT 93
[2023-10-21 06:00] VITALS: BP 141/85; TEMP 97.3; O2SAT 92
[2023-10-21 08:31] LABS: HEMATOCRIT 52.1 % (42.0-52.0); HEMOGLOBIN 17.5 g/dl (13.5-17.5); MEAN CORPUSCULAR HEMOGLOBIN 32.6 pg (27.0-33.0); MEAN CORPUSCULAR HGB CONC 33.6 g/dl (32.0-36.5); MEAN CORPUSCULAR VOLUME 97.2 fl (80.0-96.0); PLATELET COUNT, AUTOMATED 231 10^3/uL (150-450); RED BLOOD COUNT 5.36 10^6/uL (4.30-6.10); WHITE BLOOD COUNT 5.5 10^3/uL (4.0-10.0)
[2023-10-21 08:52] LABS: BLOOD UREA NITROGEN 20 MG/DL (9-23); CALCIUM LEVEL 8.9 MG/DL (8.3-10.6); CARBON DIOXIDE LEVEL 29 MMOL/L (20-31); CHLORIDE LEVEL 108 MMOL/L (98-107); CREATININE FOR GFR 0.86 MG/DL (0.70-1.30); GLOMERULAR FILTRATION RATE > 60.0 (>49); GLUCOSE, FASTING 132 MG/DL (74-106); POTASSIUM SERUM 4.7 MMOL/L (3.5-5.1); SODIUM LEVEL 140 MMOL/L (136-145)
[2023-10-21] MEDS: VANCOMYCIN HCL 500 MG in D5W MINI-BAG PLUS 100 ML IV SCH (10:29)
[2023-10-21 14:00] VITALS: BP 136/86; TEMP 97.6; O2SAT 96
[2023-10-21 20:08] VITALS: BP 119/86; TEMP 97.7; O2SAT 97
[2023-10-21] MEDS: VANCOMYCIN HCL 1,000 MG, VIAL MATE ADAPTER 1 EACH in D5W 250 ML IV SCH (21:57)
[2023-10-22 05:35] VITALS: BP 146/78; TEMP 97.3; O2SAT 94
[2023-10-22 06:12] LABS: HEMATOCRIT 48.7 % (42.0-52.0); HEMOGLOBIN 16.4 g/dl (13.5-17.5); MEAN CORPUSCULAR HEMOGLOBIN 32.7 pg (27.0-33.0); MEAN CORPUSCULAR HGB CONC 33.7 g/dl (32.0-36.5); PLATELET COUNT, AUTOMATED 221 10^3/uL (150-450); RED BLOOD COUNT 5.02 10^6/uL (4.30-6.10); WHITE BLOOD COUNT 5.6 10^3/uL (4.0-10.0)
[2023-10-22 06:44] LABS: BLOOD UREA NITROGEN 24 MG/DL (9-23); CALCIUM LEVEL 8.5 MG/DL (8.3-10.6); CARBON DIOXIDE LEVEL 28 MMOL/L (20-31); CHLORIDE LEVEL 110 MMOL/L (98-107); CREATININE FOR GFR 0.79 MG/DL (0.70-1.30); GLOMERULAR FILTRATION RATE > 60.0 (>49); GLUCOSE, FASTING 126 MG/DL (74-106); POTASSIUM SERUM 4.2 MMOL/L (3.5-5.1); SODIUM LEVEL 143 MMOL/L (136-145)
[2023-10-22 14:00] VITALS: BP 132/71; TEMP 97.7; O2SAT 96
[2023-10-22] MEDS ORDERED: SODIUM CHLORIDE 0.9% INJ 10 ML SYR IV PRN (14:30)
[2023-10-22] MEDS: cefTRIAXone SOD 2 GM in D5W MINI-BAG PLUS 50 ML IV SCH (16:18)
[2023-10-22] MEDS: SODIUM CHLORIDE 0.9% INJ 10 ML SYR IV SCH (17:10)
[2023-10-22] MEDS: ALBUTEROL 90 MCG/ACT 8GM HFA INHALER INH PRN (20:20)
[2023-10-22 21:29] VITALS: BP 132/71; TEMP 97.5; O2SAT 96
[2023-10-23] MEDS ORDERED: LACT1CAP50 PO (13:10)
== END 2023-10-23 18:05 | disposition home health service (06) | DRG 565 ==
LOC: M ED 12:45 → M ED INP 21:47 → M MS5PR 23:45
PROVIDERS: ADMIT Internal Medicine; ATTEND Student in an Organized Health Care Education/Training Program
DX: T87.43 Infection of amputation stump, right lower extremity (principal); M86.161 Other acute osteomyelitis, right tibia and fibula; L03.115 Cellulitis of right lower limb; E11.69 Type 2 diabetes mellitus with other specified complication; T87.89 Other complications of amputation stump; J44.9 Chronic obstructive pulmonary disease, unspecified; E11.649 Type 2 diabetes mellitus with hypoglycemia without coma; E78.5 Hyperlipidemia, unspecified; Z79.4 Long term (current) use of insulin; F17.200 Nicotine dependence, unspecified, uncomplicated; I89.0 Lymphedema, not elsewhere classified; E11.40 Type 2 diabetes mellitus with diabetic neuropathy, unspecified; E66.01 Morbid (severe) obesity due to excess calories; B95.61 Methicillin susceptible Staphylococcus aureus infection as the cause of diseases classified elsewhere; B95.5 Unspecified streptococcus as the cause of diseases classified elsewhere; Z79.899 Other long term (current) drug therapy; Z79.82 Long term (current) use of aspirin; Y83.5 Amputation of limb(s) as the cause of abnormal reaction of the patient, or of later complication, without mention of misadventure at the time of the procedure

== ENCOUNTER → 2023-11-05 | Outpatient (REF) | payer OTHER ==
[~2023-11-05] MED LIST changes: +BUME1TAB3 PO; +LACT1CAP50 PO; +MULT-90 PO
[2023-11-05 10:31] LABS: HEMATOCRIT 42.7 % (42.0-52.0); HEMOGLOBIN 14.4 g/dl (13.5-17.5); MEAN CORPUSCULAR HGB CONC 33.7 g/dl (32.0-36.5); MEAN CORPUSCULAR VOLUME 97.9 fl (80.0-96.0); PLATELET COUNT, AUTOMATED 283 10^3/uL (150-450); RED BLOOD COUNT 4.36 10^6/uL (4.30-6.10); WHITE BLOOD COUNT 6.7 10^3/uL (4.0-10.0)
[2023-11-05 10:55] LABS: C REACTIVE PROTEIN QUANTITATIV < 0.40 MG/DL (<1.0)
[2023-11-05 10:56] LABS: ALBUMIN 2.8 G/DL (3.2-5.2); ALKALINE PHOSPHATASE 90 U/L (46-116); ALT/SGPT 47 U/L (7.0-40); AST/SGOT 20 U/L (<34); BILIRUBIN,TOTAL 0.5 MG/DL (0.3-1.2); BLOOD UREA NITROGEN 14 MG/DL (9-23); CALCIUM LEVEL 8.5 MG/DL (8.3-10.6); CARBON DIOXIDE LEVEL 32 MMOL/L (20-31); CHLORIDE LEVEL 107 MMOL/L (98-107); CREATININE FOR GFR 0.81 MG/DL (0.70-1.30); GLOMERULAR FILTRATION RATE > 60.0 (>49); GLUCOSE, FASTING 90 MG/DL (74-106); POTASSIUM SERUM 4.1 MMOL/L (3.5-5.1); SODIUM LEVEL 142 MMOL/L (136-145); TOTAL PROTEIN 5.9 G/DL (5.7-8.2)
[2023-11-07 13:20] LABS: VANCOMYCIN LEVEL TROUGH 12.1 UG/ML (10.0-20.0)
== END ==
LOC: M SHH 09:52
PROVIDERS: ATTEND Internal Medicine Infectious Disease
DX: T87.43 Infection of amputation stump, right lower extremity (principal); L03.115 Cellulitis of right lower limb

== ENCOUNTER → 2023-11-12 | Outpatient (REF) | payer OTHER ==
[2023-11-12 11:39] LABS: BASO # 0.1 10^3/uL (0.0-0.2); BASO % 0.7 % (0.0-1.0); EOS # 0.3 10^3/uL (0.0-0.5); HEMATOCRIT 46.3 % (42.0-52.0); HEMOGLOBIN 15.5 g/dl (13.5-17.5); LYMPH # 1.4 10^3/uL (1.5-5.0); LYMPH % 19.9 % (24.0-44.0); MEAN CORPUSCULAR HEMOGLOBIN 32.8 pg (27.0-33.0); MEAN CORPUSCULAR HGB CONC 33.5 g/dl (32.0-36.5); MEAN CORPUSCULAR VOLUME 98.1 fl (80.0-96.0); MONO # 0.6 10^3/uL (0.0-0.8); MONO % 7.9 % (2.0-8.0); NEUTROPHILS # 4.7 10^3/uL (1.5-8.5); NEUTROPHILS % 67.2 % (36.0-66.0); PLATELET COUNT, AUTOMATED 247 10^3/uL (150-450); RED BLOOD COUNT 4.72 10^6/uL (4.30-6.10); WHITE BLOOD COUNT 6.9 10^3/uL (4.0-10.0)
[2023-11-12 11:52] LABS: ERYTHROCYTE SEDIMENTATION RATE 33 mm/hr (0-20)
[2023-11-12 12:01] LABS: VANCOMYCIN LEVEL TROUGH 14.8 UG/ML (10.0-20.0)
[2023-11-12 12:04] LABS: C REACTIVE PROTEIN QUANTITATIV < 0.40 MG/DL (<1.0)
[2023-11-12 12:06] LABS: ALBUMIN 3.1 G/DL (3.2-5.2); ALKALINE PHOSPHATASE 101 U/L (46-116); ALT/SGPT 26 U/L (7.0-40); AST/SGOT 14 U/L (<34); BILIRUBIN,TOTAL 0.5 MG/DL (0.3-1.2); BLOOD UREA NITROGEN 18 MG/DL (9-23); CALCIUM LEVEL 8.5 MG/DL (8.3-10.6); CARBON DIOXIDE LEVEL 28 MMOL/L (20-31); CHLORIDE LEVEL 107 MMOL/L (98-107); CREATININE FOR GFR 0.84 MG/DL (0.70-1.30); GLOMERULAR FILTRATION RATE > 60.0 (>49); GLUCOSE, FASTING 95 MG/DL (74-106); POTASSIUM SERUM 4.3 MMOL/L (3.5-5.1); SODIUM LEVEL 141 MMOL/L (136-145); TOTAL PROTEIN 6.3 G/DL (5.7-8.2)
== END ==
LOC: M SHH 10:00
PROVIDERS: ATTEND Family Medicine
DX: T81.49XA Infection following a procedure, other surgical site, initial encounter (principal); Z79.899 Other long term (current) drug therapy

== ENCOUNTER → 2023-11-22 | Outpatient (CLI) | payer OTHER ==
[2023-11-22 14:49] LABS: BASO # 0.1 10^3/uL (0.0-0.2); BASO % 0.8 % (0.0-1.0); EOS # 0.2 10^3/uL (0.0-0.5); EOS % 3.2 % (0.0-3.0); HEMATOCRIT 48.9 % (42.0-52.0); HEMOGLOBIN 16.5 g/dl (13.5-17.5); LYMPH # 1.7 10^3/uL (1.5-5.0); LYMPH % 27.3 % (24.0-44.0); MEAN CORPUSCULAR HEMOGLOBIN 33.3 pg (27.0-33.0); MEAN CORPUSCULAR HGB CONC 33.7 g/dl (32.0-36.5); MEAN CORPUSCULAR VOLUME 98.6 fl (80.0-96.0); MONO # 0.5 10^3/uL (0.0-0.8); MONO % 8.2 % (2.0-8.0); NEUTROPHILS # 3.8 10^3/uL (1.5-8.5); NEUTROPHILS % 60.3 % (36.0-66.0); PLATELET COUNT, AUTOMATED 193 10^3/uL (150-450); RED BLOOD COUNT 4.96 10^6/uL (4.30-6.10); WHITE BLOOD COUNT 6.3 10^3/uL (4.0-10.0)
[2023-11-22 14:56] LABS: ERYTHROCYTE SEDIMENTATION RATE 26 mm/hr (0-20)
== END ==
LOC: M PLALAB 10:45
PROVIDERS: ATTEND Internal Medicine Infectious Disease
DX: M86.661 Other chronic osteomyelitis, right tibia and fibula (principal)

== ENCOUNTER → 2023-12-24 | Outpatient (REF) | payer OTHER ==
[2023-12-24 16:33] LABS: BASO % 0.4 % (0.0-1.0); EOS # 0.3 10^3/uL (0.0-0.5); EOS % 4.3 % (0.0-3.0); HEMATOCRIT 34.1 % (42.0-52.0); LYMPH # 1.4 10^3/uL (1.5-5.0); LYMPH % 20.6 % (24.0-44.0); MEAN CORPUSCULAR HEMOGLOBIN 32.9 pg (27.0-33.0); MEAN CORPUSCULAR HGB CONC 32.3 g/dl (32.0-36.5); MEAN CORPUSCULAR VOLUME 102.1 fl (80.0-96.0); MONO # 0.6 10^3/uL (0.0-0.8); MONO % 8.6 % (2.0-8.0); NEUTROPHILS # 4.3 10^3/uL (1.5-8.5); PLATELET COUNT, AUTOMATED 255 10^3/uL (150-450); RED BLOOD COUNT 3.34 10^6/uL (4.30-6.10); WHITE BLOOD COUNT 6.8 10^3/uL (4.0-10.0)
[2023-12-24 16:38] LABS: ALBUMIN 3.2 G/DL (3.2-5.2); ALKALINE PHOSPHATASE 87 U/L (46-116); ALT/SGPT 51 U/L (7.0-40); AST/SGOT 16 U/L (<34); BILIRUBIN,TOTAL 0.5 MG/DL (0.3-1.2); BLOOD UREA NITROGEN 21 MG/DL (9-23); CALCIUM LEVEL 8.3 MG/DL (8.3-10.6); CARBON DIOXIDE LEVEL 30 MMOL/L (20-31); CHLORIDE LEVEL 105 MMOL/L (98-107); CREATININE FOR GFR 0.86 MG/DL (0.70-1.30); GLOMERULAR FILTRATION RATE > 60.0 (>49); GLUCOSE, FASTING 178 MG/DL (74-106); POTASSIUM SERUM 4.1 MMOL/L (3.5-5.1); SODIUM LEVEL 142 MMOL/L (136-145); TOTAL PROTEIN 6.1 G/DL (5.7-8.2)
== END ==
LOC: M SHH 15:33
PROVIDERS: ATTEND Nurse Practitioner
DX: T87.89 Other complications of amputation stump (principal); T81.89XA Other complications of procedures, not elsewhere classified, initial encounter

== ENCOUNTER → 2023-12-31 | Outpatient (REF) | payer OTHER ==
[2023-12-31 14:29] LABS: BASO % 0.7 % (0.0-1.0); EOS # 0.3 10^3/uL (0.0-0.5); EOS % 4.5 % (0.0-3.0); HEMATOCRIT 41.4 % (42.0-52.0); HEMOGLOBIN 13.4 g/dl (13.5-17.5); LYMPH # 1.1 10^3/uL (1.5-5.0); LYMPH % 19.2 % (24.0-44.0); MEAN CORPUSCULAR HEMOGLOBIN 32.8 pg (27.0-33.0); MEAN CORPUSCULAR HGB CONC 32.4 g/dl (32.0-36.5); MEAN CORPUSCULAR VOLUME 101.5 fl (80.0-96.0); MONO # 0.6 10^3/uL (0.0-0.8); MONO % 10.3 % (2.0-8.0); NEUTROPHILS # 3.7 10^3/uL (1.5-8.5); PLATELET COUNT, AUTOMATED 265 10^3/uL (150-450); RED BLOOD COUNT 4.08 10^6/uL (4.30-6.10); WHITE BLOOD COUNT 5.7 10^3/uL (4.0-10.0)
[2023-12-31 15:38] LABS: C REACTIVE PROTEIN QUANTITATIV < 0.40 MG/DL (<1.0)
[2023-12-31 15:39] LABS: ALBUMIN 3.4 G/DL (3.2-5.2); ALKALINE PHOSPHATASE 105 U/L (46-116); ALT/SGPT 40 U/L (7.0-40); AST/SGOT 19 U/L (<34); BILIRUBIN,TOTAL 0.5 MG/DL (0.3-1.2); BLOOD UREA NITROGEN 22 MG/DL (9-23); CARBON DIOXIDE LEVEL 31 MMOL/L (20-31); CHLORIDE LEVEL 103 MMOL/L (98-107); CREATININE FOR GFR 0.95 MG/DL (0.70-1.30); GLOMERULAR FILTRATION RATE > 60.0 (>49); GLUCOSE, FASTING 184 MG/DL (74-106); POTASSIUM SERUM 4.2 MMOL/L (3.5-5.1); SODIUM LEVEL 139 MMOL/L (136-145); TOTAL PROTEIN 6.6 G/DL (5.7-8.2)
== END ==
LOC: M SHH 13:30
PROVIDERS: ATTEND Nurse Practitioner
DX: T87.89 Other complications of amputation stump (principal); T81.89XA Other complications of procedures, not elsewhere classified, initial encounter

== ENCOUNTER → 2023-12-31 | Outpatient (REF) | payer OTHER ==
[2023-12-31 14:24] LABS: BASO % 0.7 % (0.0-1.0); EOS # 0.3 10^3/uL (0.0-0.5); EOS % 4.8 % (0.0-3.0); HEMATOCRIT 40.7 % (42.0-52.0); HEMOGLOBIN 13.3 g/dl (13.5-17.5); LYMPH # 1.1 10^3/uL (1.5-5.0); LYMPH % 20.2 % (24.0-44.0); MEAN CORPUSCULAR HEMOGLOBIN 32.9 pg (27.0-33.0); MEAN CORPUSCULAR HGB CONC 32.7 g/dl (32.0-36.5); MEAN CORPUSCULAR VOLUME 100.7 fl (80.0-96.0); MONO # 0.6 10^3/uL (0.0-0.8); MONO % 9.8 % (2.0-8.0); NEUTROPHILS # 3.6 10^3/uL (1.5-8.5); NEUTROPHILS % 64.1 % (36.0-66.0); PLATELET COUNT, AUTOMATED 267 10^3/uL (150-450); RED BLOOD COUNT 4.04 10^6/uL (4.30-6.10); WHITE BLOOD COUNT 5.6 10^3/uL (4.0-10.0)
[2023-12-31 14:44] LABS: C REACTIVE PROTEIN QUANTITATIV < 0.40 MG/DL (<1.0)
[2023-12-31 14:45] LABS: ALBUMIN 3.4 G/DL (3.2-5.2); ALKALINE PHOSPHATASE 105 U/L (46-116); ALT/SGPT 37 U/L (7.0-40); AST/SGOT 17 U/L (<34); BILIRUBIN,TOTAL 0.5 MG/DL (0.3-1.2); BLOOD UREA NITROGEN 21 MG/DL (9-23); CALCIUM LEVEL 9.1 MG/DL (8.3-10.6); CARBON DIOXIDE LEVEL 32 MMOL/L (20-31); CHLORIDE LEVEL 105 MMOL/L (98-107); CREATININE FOR GFR 0.94 MG/DL (0.70-1.30); GLOMERULAR FILTRATION RATE > 60.0 (>49); GLUCOSE, FASTING 185 MG/DL (74-106); POTASSIUM SERUM 4.2 MMOL/L (3.5-5.1); SODIUM LEVEL 140 MMOL/L (136-145); TOTAL PROTEIN 6.6 G/DL (5.7-8.2)
[2024-01-01 09:07] LABS: ERYTHROCYTE SEDIMENTATION RATE 35 mm/hr (0-20)
== END ==
LOC: M SHH 13:27
PROVIDERS: ATTEND Internal Medicine Infectious Disease
DX: M86.661 Other chronic osteomyelitis, right tibia and fibula (principal); T87.89 Other complications of amputation stump; T81.89XA Other complications of procedures, not elsewhere classified, initial encounter

== ENCOUNTER → 2024-01-07 | Outpatient (REF) | payer OTHER ==
[2024-01-07 11:38] LABS: BASO % 0.7 % (0.0-1.0); EOS # 0.2 10^3/uL (0.0-0.5); EOS % 3.3 % (0.0-3.0); HEMATOCRIT 43.9 % (42.0-52.0); HEMOGLOBIN 14.2 g/dl (13.5-17.5); LYMPH # 1.1 10^3/uL (1.5-5.0); LYMPH % 17.6 % (24.0-44.0); MEAN CORPUSCULAR HGB CONC 32.3 g/dl (32.0-36.5); MEAN CORPUSCULAR VOLUME 102.1 fl (80.0-96.0); MONO # 0.6 10^3/uL (0.0-0.8); NEUTROPHILS # 4.2 10^3/uL (1.5-8.5); NEUTROPHILS % 68.1 % (36.0-66.0); PLATELET COUNT, AUTOMATED 222 10^3/uL (150-450); WHITE BLOOD COUNT 6.1 10^3/uL (4.0-10.0)
[2024-01-07 11:54] LABS: ALBUMIN 3.3 G/DL (3.2-5.2); ALKALINE PHOSPHATASE 104 U/L (46-116); ALT/SGPT 29 U/L (7.0-40); AST/SGOT 15 U/L (<34); BILIRUBIN,TOTAL 0.5 MG/DL (0.3-1.2); BLOOD UREA NITROGEN 21 MG/DL (9-23); CALCIUM LEVEL 8.4 MG/DL (8.3-10.6); CARBON DIOXIDE LEVEL 29 MMOL/L (20-31); CHLORIDE LEVEL 107 MMOL/L (98-107); GLOMERULAR FILTRATION RATE > 60.0 (>49); GLUCOSE, FASTING 119 MG/DL (74-106); POTASSIUM SERUM 4.3 MMOL/L (3.5-5.1); SODIUM LEVEL 140 MMOL/L (136-145); TOTAL PROTEIN 6.3 G/DL (5.7-8.2)
[2024-01-07 12:10] LABS: ERYTHROCYTE SEDIMENTATION RATE 37 mm/hr (0-20)
== END ==
LOC: M SHH 10:49
PROVIDERS: ATTEND Internal Medicine Infectious Disease
DX: M86.661 Other chronic osteomyelitis, right tibia and fibula (principal)

== ENCOUNTER → 2024-01-14 | Outpatient (REF) | payer OTHER ==
[2024-01-14 15:48] LABS: BASO % 0.6 % (0.0-1.0); EOS # 0.3 10^3/uL (0.0-0.5); EOS % 4.8 % (0.0-3.0); LYMPH # 1.1 10^3/uL (1.5-5.0); LYMPH % 18.3 % (24.0-44.0); MEAN CORPUSCULAR HEMOGLOBIN 32.8 pg (27.0-33.0); MEAN CORPUSCULAR HGB CONC 31.9 g/dl (32.0-36.5); MEAN CORPUSCULAR VOLUME 102.8 fl (80.0-96.0); MONO # 0.6 10^3/uL (0.0-0.8); NEUTROPHILS # 4.2 10^3/uL (1.5-8.5); NEUTROPHILS % 67.1 % (36.0-66.0); PLATELET COUNT, AUTOMATED 233 10^3/uL (150-450); RED BLOOD COUNT 4.57 10^6/uL (4.30-6.10); WHITE BLOOD COUNT 6.2 10^3/uL (4.0-10.0)
[2024-01-14 15:57] LABS: ERYTHROCYTE SEDIMENTATION RATE 46 mm/hr (0-20)
[2024-01-14 16:18] LABS: ALBUMIN 3.2 G/DL (3.2-5.2); ALKALINE PHOSPHATASE 97 U/L (46-116); ALT/SGPT 29 U/L (7.0-40); AST/SGOT 22 U/L (<34); BILIRUBIN,TOTAL 0.4 MG/DL (0.3-1.2); BLOOD UREA NITROGEN 17 MG/DL (9-23); CALCIUM LEVEL 8.5 MG/DL (8.3-10.6); CARBON DIOXIDE LEVEL 27 MMOL/L (20-31); CHLORIDE LEVEL 107 MMOL/L (98-107); CREATININE FOR GFR 0.84 MG/DL (0.70-1.30); GLOMERULAR FILTRATION RATE > 60.0 (>49); GLUCOSE, FASTING 106 MG/DL (74-106); POTASSIUM SERUM 4.1 MMOL/L (3.5-5.1); SODIUM LEVEL 141 MMOL/L (136-145); TOTAL PROTEIN 6.7 G/DL (5.7-8.2)
== END ==
LOC: M SHH 15:02
PROVIDERS: ATTEND Internal Medicine Infectious Disease
DX: M86.661 Other chronic osteomyelitis, right tibia and fibula (principal)

== ENCOUNTER → 2024-01-21 | Outpatient (REF) | payer OTHER ==
[2024-01-21 10:45] LABS: BASO % 0.6 % (0.0-1.0); EOS # 0.3 10^3/uL (0.0-0.5); EOS % 4.1 % (0.0-3.0); HEMOGLOBIN 15.9 g/dl (13.5-17.5); LYMPH # 1.2 10^3/uL (1.5-5.0); LYMPH % 19.4 % (24.0-44.0); MEAN CORPUSCULAR HEMOGLOBIN 33.2 pg (27.0-33.0); MEAN CORPUSCULAR HGB CONC 33.1 g/dl (32.0-36.5); MEAN CORPUSCULAR VOLUME 100.2 fl (80.0-96.0); MONO # 0.6 10^3/uL (0.0-0.8); MONO % 9.2 % (2.0-8.0); NEUTROPHILS # 4.2 10^3/uL (1.5-8.5); NEUTROPHILS % 66.5 % (36.0-66.0); PLATELET COUNT, AUTOMATED 245 10^3/uL (150-450); RED BLOOD COUNT 4.79 10^6/uL (4.30-6.10); WHITE BLOOD COUNT 6.3 10^3/uL (4.0-10.0)
[2024-01-21 10:53] LABS: ERYTHROCYTE SEDIMENTATION RATE 35 mm/hr (0-20)
[2024-01-21 11:19] LABS: C REACTIVE PROTEIN QUANTITATIV < 0.40 MG/DL (<1.0)
[2024-01-21 11:20] LABS: ALBUMIN 3.6 G/DL (3.2-5.2); ALKALINE PHOSPHATASE 97 U/L (46-116); ALT/SGPT 37 U/L (7.0-40); AST/SGOT 24 U/L (<34); BILIRUBIN,TOTAL 0.5 MG/DL (0.3-1.2); BLOOD UREA NITROGEN 19 MG/DL (9-23); CALCIUM LEVEL 9.1 MG/DL (8.3-10.6); CARBON DIOXIDE LEVEL 31 MMOL/L (20-31); CHLORIDE LEVEL 105 MMOL/L (98-107); CREATININE FOR GFR 0.83 MG/DL (0.70-1.30); GLOMERULAR FILTRATION RATE > 60.0 (>49); GLUCOSE, FASTING 86 MG/DL (74-106); POTASSIUM SERUM 4.3 MMOL/L (3.5-5.1); SODIUM LEVEL 138 MMOL/L (136-145)
== END ==
LOC: M SHH 10:10
PROVIDERS: ATTEND Internal Medicine Infectious Disease
DX: M86.661 Other chronic osteomyelitis, right tibia and fibula (principal)

== ENCOUNTER → 2024-01-28 | Outpatient (REF) | payer OTHER ==
[2024-01-28 16:03] LABS: BASO # 0.1 10^3/uL (0.0-0.2); BASO % 0.9 % (0.0-1.0); EOS # 0.3 10^3/uL (0.0-0.5); EOS % 4.8 % (0.0-3.0); HEMATOCRIT 47.8 % (42.0-52.0); HEMOGLOBIN 15.4 g/dl (13.5-17.5); LYMPH # 1.3 10^3/uL (1.5-5.0); LYMPH % 21.9 % (24.0-44.0); MEAN CORPUSCULAR HGB CONC 32.2 g/dl (32.0-36.5); MEAN CORPUSCULAR VOLUME 102.6 fl (80.0-96.0); MONO # 0.5 10^3/uL (0.0-0.8); MONO % 9.2 % (2.0-8.0); NEUTROPHILS # 3.7 10^3/uL (1.5-8.5); PLATELET COUNT, AUTOMATED 222 10^3/uL (150-450); RED BLOOD COUNT 4.66 10^6/uL (4.30-6.10); WHITE BLOOD COUNT 5.9 10^3/uL (4.0-10.0)
[2024-01-28 16:32] LABS: C REACTIVE PROTEIN QUANTITATIV < 0.40 MG/DL (<1.0)
[2024-01-28 16:33] LABS: ALBUMIN 3.3 G/DL (3.2-5.2); ALKALINE PHOSPHATASE 100 U/L (46-116); ALT/SGPT 25 U/L (7.0-40); AST/SGOT 21 U/L (<34); BILIRUBIN,TOTAL 0.4 MG/DL (0.3-1.2); BLOOD UREA NITROGEN 18 MG/DL (9-23); CALCIUM LEVEL 8.3 MG/DL (8.3-10.6); CARBON DIOXIDE LEVEL 28 MMOL/L (20-31); CHLORIDE LEVEL 106 MMOL/L (98-107); CREATININE FOR GFR 0.84 MG/DL (0.70-1.30); GLOMERULAR FILTRATION RATE > 60.0 (>49); GLUCOSE, FASTING 182 MG/DL (74-106); POTASSIUM SERUM 3.6 MMOL/L (3.5-5.1); SODIUM LEVEL 140 MMOL/L (136-145); TOTAL PROTEIN 6.5 G/DL (5.7-8.2)
== END ==
LOC: M SHH 14:50
PROVIDERS: ATTEND Internal Medicine Infectious Disease
DX: M86.661 Other chronic osteomyelitis, right tibia and fibula (principal); T87.89 Other complications of amputation stump; T81.89XA Other complications of procedures, not elsewhere classified, initial encounter

== ENCOUNTER → 2024-02-15 | Outpatient (CLI) | payer OTHER ==
[2024-02-15 07:55] LABS: HEMATOCRIT 50.8 % (42.0-52.0); HEMOGLOBIN 16.8 g/dl (13.5-17.5); MEAN CORPUSCULAR HEMOGLOBIN 32.9 pg (27.0-33.0); MEAN CORPUSCULAR HGB CONC 33.1 g/dl (32.0-36.5); MEAN CORPUSCULAR VOLUME 99.4 fl (80.0-96.0); PLATELET COUNT, AUTOMATED 209 10^3/uL (150-450); RED BLOOD COUNT 5.11 10^6/uL (4.30-6.10); WHITE BLOOD COUNT 6.4 10^3/uL (4.0-10.0)
[2024-02-15 08:09] LABS: HEMOGLOBIN A1c 5.6 % (4.0-6.0)
[2024-02-15 08:25] LABS: PROSTATIC SPECIFIC AG MONITOR 1.06 NG/ML (< 4.00)
[2024-02-15 08:27] LABS: ALBUMIN 3.2 G/DL (3.2-5.2); ALKALINE PHOSPHATASE 93 U/L (46-116); ALT/SGPT 20 U/L (7.0-40); AST/SGOT 15 U/L (<34); BILIRUBIN,TOTAL 0.5 MG/DL (0.3-1.2); BLOOD UREA NITROGEN 17 MG/DL (9-23); CALCIUM LEVEL 9.2 MG/DL (8.3-10.6); CARBON DIOXIDE LEVEL 33 MMOL/L (20-31); CHLORIDE LEVEL 110 MMOL/L (98-107); CHOLESTEROL LEVEL 129 MG/DL (<200); CREATININE FOR GFR 1.01 MG/DL (0.70-1.30); GLOMERULAR FILTRATION RATE > 60.0 (>49); GLUCOSE, FASTING 111 MG/DL (74-106); HDL CHOLESTEROL 40.2 MG/DL (>40); NON-HDL-C 88.8 MG/DL; POTASSIUM SERUM 4.2 MMOL/L (3.5-5.1); SODIUM LEVEL 143 MMOL/L (136-145); TOTAL PROTEIN 6.5 G/DL (5.7-8.2); TRIGLYCERIDES LEVEL 79 MG/DL (<150)
[2024-02-15 08:29] LABS: THYROID STIMULATING HORMONE 1.233 uIU/ML (0.55-4.78); TOTAL 25(OH) VITAMIN D 25.4 NG/ML (20.0-100.0)
== END ==
LOC: M LAB 07:01
PROVIDERS: ATTEND Family Medicine
DX: I10 Essential (primary) hypertension (principal); E11.9 Type 2 diabetes mellitus without complications; R53.83 Other fatigue; Z79.899 Other long term (current) drug therapy

== ENCOUNTER → 2024-04-23 | Outpatient (CLI) | payer OTHER ==
[~2024-04-23] MED LIST changes: +GABA-1172 PO; -GABA-282 PO
[2024-04-23 08:14] LABS: HEMATOCRIT 54.5 % (42.0-52.0); HEMOGLOBIN 18.1 g/dl (13.5-17.5); MEAN CORPUSCULAR HEMOGLOBIN 31.8 pg (27.0-33.0); MEAN CORPUSCULAR HGB CONC 33.2 g/dl (32.0-36.5); MEAN CORPUSCULAR VOLUME 95.6 fl (80.0-96.0); PLATELET COUNT, AUTOMATED 245 10^3/uL (150-450); WHITE BLOOD COUNT 6.8 10^3/uL (4.0-10.0)
[2024-04-23 08:36] LABS: INR 0.9; PROTHROMBIN TIME 12.5 SECONDS (12.5-14.5)
[2024-04-23 08:37] LABS: HEMOGLOBIN A1c 6.2 % (4.0-6.0)
[2024-04-23 08:52] LABS: ALBUMIN 3.3 G/DL (3.2-5.2); ALKALINE PHOSPHATASE 99 U/L (40-129); ALT/SGPT 24 U/L (7.0-40); AST/SGOT 16 U/L (<34); BILIRUBIN,TOTAL 0.4 MG/DL (0.3-1.2); BLOOD UREA NITROGEN 17 MG/DL (9-23); CALCIUM LEVEL 8.9 MG/DL (8.3-10.6); CARBON DIOXIDE LEVEL 28 MMOL/L (20-31); CHLORIDE LEVEL 107 MMOL/L (98-107); CHOLESTEROL LEVEL 140 MG/DL (<200); CREATININE FOR GFR 0.92 MG/DL (0.70-1.30); GLOMERULAR FILTRATION RATE > 60.0 (>49); GLUCOSE, FASTING 100 MG/DL (74-106); POTASSIUM SERUM 4.4 MMOL/L (3.5-5.1); SODIUM LEVEL 140 MMOL/L (136-145); THYROID STIMULATING HORMONE 1.416 uIU/ML (0.55-4.78); TOTAL PROTEIN 6.9 G/DL (5.7-8.2); TRIGLYCERIDES LEVEL 75 MG/DL (<150)
== END ==
LOC: M RAD 07:05
PROVIDERS: ATTEND Family Medicine
DX: I10 Essential (primary) hypertension (principal); Z79.01 Long term (current) use of anticoagulants

== ENCOUNTER 2024-05-08 09:40 | Day surgery (SDC) | payer OTHER ==
[~2024-05-08] VITALS: Ht 182.9 cm; Wt 132.0 kg
[~2024-05-08 09:40] MED LIST changes: +CYCLOPENTOLATE 1% OPHTH SOLN 2ML BTL OS SCH; +OFLOXACIN 0.3 % (OCUFLOX) OPTH SOL 5ML OS ONE; +PHENYLEPHRINE 10% OPHTH SOL 5ML OD PRN; +PHENYLEPHRINE 10% OPHTH SOL 5ML OS PRN; +PHENYLEPHRINE 2.5% OPHTH SOL 2ML OS SCH; +TROPICAMIDE 1% OPHTH SOLN 15ML OS SCH
[2024-05-08] MEDS: LIDOCAINE 3.5 % 1ML OPHTH TOPICAL GEL OU ONE (11:00)
[2024-05-08] MEDS ORDERED: INSULIN LISPRO (NovoLOG) PER UNIT SC PRN (11:10)
[2024-05-08] MEDS ORDERED: fentaNYL 100 MCG/2 ML INJECTION As Ordered ONE (11:14)
[2024-05-08] MEDS ORDERED: MIDAZOLAM INJ 2MG/2ML VIAL As Ordered ONE (11:15)
[2024-05-08] MEDS: LIDOCAINE 1% SDV 5ML VIAL As Ordered ONE (11:41)
[2024-05-08] MEDS: BSS IRRIG/VANCO(10MG)/TOBRA(5MG)/EPINEPH(1:1000-0.5CC)500ML BAG-ORONLY As Ordered ONE (11:42)
[2024-05-08] MEDS: CEFUROXIME 1MG/0.1ML INTRACAMERAL INJ As Ordered ONE (11:42)
[2024-05-08 11:56] VITALS: BP 129/82; TEMP 98.1; O2SAT 96
[2024-05-08] MEDS: OFLOXACIN 0.3 % (OCUFLOX) OPTH SOL 5ML OD ONE (11:58)
[2024-05-08] MEDS: TROPICAMIDE 1% OPHTH SOLN 15ML OD SCH (11:58)
[2024-05-08] MEDS: CYCLOPENTOLATE 1% OPHTH SOLN 2ML BTL OD SCH (11:58)
[2024-05-08] MEDS: PHENYLEPHRINE 2.5% OPHTH SOL 2ML OD SCH (11:58)
== END 2024-05-08 12:11 | disposition home or self-care (01) ==
LOC: M SDC 09:40
PROVIDERS: ATTEND Ophthalmology
DX: E11.36 Type 2 diabetes mellitus with diabetic cataract (principal); H25.12 Age-related nuclear cataract, left eye; I10 Essential (primary) hypertension; J44.9 Chronic obstructive pulmonary disease, unspecified; G47.30 Sleep apnea, unspecified; M10.9 Gout, unspecified; E78.00 Pure hypercholesterolemia, unspecified; F17.210 Nicotine dependence, cigarettes, uncomplicated; Z79.82 Long term (current) use of aspirin; Z79.899 Other long term (current) drug therapy; Z79.85 Long-term (current) use of injectable non-insulin antidiabetic drugs; Z79.4 Long term (current) use of insulin; Z89.511 Acquired absence of right leg below knee; Z89.022 Acquired absence of left finger(s)
CPT/HCPCS: 66984; J0697; J2250; J3010; V2632

== ENCOUNTER 2024-05-22 06:28 | Day surgery (SDC) | payer OTHER ==
[~2024-05-22] VITALS: Ht 182.9 cm; Wt 132.0 kg
[~2024-05-22 06:28] MED LIST changes: -CYCLOPENTOLATE 1% OPHTH SOLN 2ML BTL OS SCH; -OFLOXACIN 0.3 % (OCUFLOX) OPTH SOL 5ML OS ONE; -PHENYLEPHRINE 10% OPHTH SOL 5ML OD PRN; -PHENYLEPHRINE 2.5% OPHTH SOL 2ML OS SCH; -TROPICAMIDE 1% OPHTH SOLN 15ML OS SCH
[2024-05-22] MEDS: LIDOCAINE 3.5 % 1ML OPHTH TOPICAL GEL OU ONE (07:08)
[2024-05-22] MEDS: OFLOXACIN 0.3 % (OCUFLOX) OPTH SOL 5ML OS ONE (07:08)
[2024-05-22] MEDS: CYCLOPENTOLATE 1% OPHTH SOLN 2ML BTL OS SCH (07:08)
[2024-05-22] MEDS: PHENYLEPHRINE 2.5% OPHTH SOL 2ML OS SCH (07:08)
[2024-05-22] MEDS: TROPICAMIDE 1% OPHTH SOLN 15ML OS SCH (07:08)
[2024-05-22] MEDS ORDERED: ALBUTEROL SULFATE 2.5MG/0.5ML INH NEB SOLN As Ordered ONE (07:12)
[2024-05-22] MEDS: ALBUTEROL SULFATE 2.5MG/0.5ML INH NEB SOLN NEB STA (07:15)
[2024-05-22] MEDS ORDERED: MIDAZOLAM INJ 2MG/2ML VIAL As Ordered ONE (07:47)
[2024-05-22] MEDS ORDERED: fentaNYL 100 MCG/2 ML INJECTION As Ordered ONE (07:48)
[2024-05-22] MEDS: POVIDONE-IODINE 5% OPHTH PREP SOL 30ML As Ordered ONE (08:55)
[2024-05-22] MEDS: LIDOCAINE 1% SDV 5ML VIAL As Ordered ONE (08:59)
[2024-05-22] MEDS: BSS IRRIG/VANCO(10MG)/TOBRA(5MG)/EPINEPH(1:1000-0.5CC)500ML BAG-ORONLY As Ordered ONE (09:00)
[2024-05-22] MEDS: CEFUROXIME 1MG/0.1ML INTRACAMERAL INJ As Ordered ONE (09:05)
[2024-05-22 09:11] VITALS: BP 139/60; TEMP 96.9; O2SAT 96
== END 2024-05-22 09:38 | disposition home or self-care (01) ==
LOC: M SDC 06:28
PROVIDERS: ATTEND Ophthalmology
DX: E11.36 Type 2 diabetes mellitus with diabetic cataract (principal); H25.12 Age-related nuclear cataract, left eye; I10 Essential (primary) hypertension; E78.00 Pure hypercholesterolemia, unspecified; J44.9 Chronic obstructive pulmonary disease, unspecified; G47.30 Sleep apnea, unspecified; Z79.899 Other long term (current) drug therapy; Z79.84 Long term (current) use of oral hypoglycemic drugs; Z79.85 Long-term (current) use of injectable non-insulin antidiabetic drugs; Z79.4 Long term (current) use of insulin; F17.210 Nicotine dependence, cigarettes, uncomplicated; M10.9 Gout, unspecified; Z98.41 Cataract extraction status, right eye
CPT/HCPCS: 66984; J0697; J2250; J3010; V2632